=== PATIENT | female | born 1935 | race Caucasian/White ===

== ENCOUNTER → 2016-09-28 | Outpatient (CLI) | payer MEDICARE ==
[2016-09-28 17:05] LABS: INR 2.7 (<1.1); Prothrombin Time 26.1 sec (9.0-12.0)
[2016-09-28 18:13] LABS: Calcium 9.8 mg/dL (8.4-10.2); Potassium 4.4 mmol/L (3.5-5.1)
== END | disposition home or self-care (01) ==
LOC: LABWHC1 16:38
PROVIDERS: ATTEND Internal Medicine Critical Care Medicine
DX: I48.0 Paroxysmal atrial fibrillation (principal); N19 Unspecified kidney failure
CPT/HCPCS: 36415; 80048; 85610

== ENCOUNTER → 2016-11-25 | Outpatient (CLI) | payer MEDICARE ==
--- NOTE | 2016-11-25 12:42 | XR ---
EXAMINATION TYPE: XR chest 2V DATE OF EXAM: 11/25/2016 12:38 PM COMPARISON: 04/04/2016 TECHNIQUE: PA and lateral views submitted. HISTORY: Renal cancer FINDINGS: The lungs are clear and there is no pneumothorax, pleural effusion, or focal pneumonia. Hypertrophi c and degenerative change of the spine. Vascular calcification is noted. IMPRESSION: 1. No acute process.
[2016-11-25 12:51] LABS: Calcium 9.9 mg/dL (8.4-10.2); Potassium 4.3 mmol/L (3.5-5.1); Total Bilirubin 0.4 mg/dL (0.2-1.3); Total Protein 7.7 g/dL (6.3-8.2)
--- NOTE | 2016-11-25 15:59 | CT ---
EXAMINATION TYPE: CT abdomen pelvis w con DATE OF EXAM: 11/25/2016 2:20 PM REFERENCE: NONE HISTORY: C664.1 Kidney CA HISTORY: Renal cell carcinoma. REFERENCE: Previous study dated 03/31/2016. CT DLP: 1409 mGy Automated exposure control for dose reduction was used. TECHNIQUE: Helical acquisition through the abdomen and pelvis was obtained with Oral Contrast and fol lowing intravenous administration of 50 mL of Visipaque 320. The data was reformatted in axial, coron al and sagittal projections. FINDINGS: Visualized portions of the lungs are clear. There is no pleural or pericardial fluid. The heart is mildly enlarged. There is coronary artery and other vascular calcifications present. There is a small, sliding hiatal hernia. Within the abdomen, the gallbladder has been removed. The liver and gallbladder appear normal. Both adrenal glands appear normal. There has been an interval right-sided nephrectomy. There is a simple appearing, 2.6 cm cyst in the l eft kidney and a smaller, 1.1 cm well-defined lesion which does not meet the requirements of a simple cyst. The pancreas is unremarkable. There is no significant retroperitoneal, iliac or inguinal adenopathy. The bladder is unremarkable. The uterus and ovaries are not visualized. There are scattered diverticula throughout the left side of the colon. There is no evidence of divert iculitis. The appendix is not visualized. Small bowel loops appear normal. There is no free fluid and no free air identified. There is hypertrophic spondylosis and facet arthropathy within the spine. IMPRESSION: 1. STATUS POST RIGHT NEPHRECTOMY. 2. CYSTIC CHANGE IN THE LEFT KIDNEY. ONE OF THESE LESIONS DOES NOT MEET THE REQUIREMENTS OF SIMPLE CY ST. A LEFT RENAL ULTRASOUND WOULD BE SUGGESTED. 3. CARDIOMEGALY. 4. SMALL, SLIDING HIATAL HERNIA. 5. MINIMAL, UNCOMPLICATED DIVERTICULOSIS OF THE LEFT SIDE OF THE COLON. 6. DEGENERATIVE CHANGES WITHIN THE SPINE.
== END | disposition home or self-care (01) ==
LOC: RADCTMAIN 12:09
PROVIDERS: ATTEND Urology
DX: C64.1 Malignant neoplasm of right kidney, except renal pelvis (principal)
CPT/HCPCS: 80053; 71020; 74177; 36415; Q9967

== ENCOUNTER 2016-12-24 03:45 | Emergency (ER) | payer MEDICARE ==
[2016-12-24 04:08] VITALS: RESP 18; TEMP 98.1
--- NOTE | 2016-12-24 04:54 | XR ---
EXAM: XR Chest, 2 Views. CLINICAL HISTORY: Reason: cough TECHNIQUE: Frontal and lateral views of the chest. COMPARISON: Chest x-ray 11/25/16 FINDINGS: Lungs: Unremarkable. No consolidation. Pleural space: Unremarkable. No pneumothorax. Heart: Stable cardiomegaly. Mediastinum: Vascular calcification. Bones/joints: Degenerative changes. IMPRESSION: No acute process.
[2016-12-24] MEDS ORDERED: predniSONE 20 MG TAB PO STA (05:09)
--- NOTE | 2016-12-24 05:09 | ED ---
URI HPI - General Chief Complaint: Upper Respiratory Infection Stated Complaint: Congestion/Sore Throat Time Seen by Provider: 12/24/16 04:09 Source: patient, family Mode of arrival: ambulatory Limitations: no limitations - Related Data Home Medications Medication Instructions Recorded Confirmed Acetaminophen Tab [Tylenol Tab] 1,000 mg PO Q6HR PRN 11/25/15 12/24/16 Glimepiride [Amaryl] 4 mg PO BID-W/MEALS 11/25/15 12/24/16 Metoprolol Tartrate [Lopressor] 25 mg PO BID 11/25/15 12/24/16 Multivitamins, Thera [Multivitamin] 1 tab PO DAILY 11/25/15 12/24/16 NIFEdipine [NIFEdipine ER] 60 mg PO DAILY 11/25/15 12/24/16 Thyroid,Pork [[place] Thyroid] 60 mg PO HS 11/25/15 12/24/16 Valsartan/Hydrochlorothiazide 1 tab PO DAILY 11/25/15 12/24/16 [Diovan Hct 320-25 mg Tablet] Warfarin [Coumadin] 2.5 mg PO DAILY 11/25/15 12/24/16 Warfarin [Coumadin] 5 mg PO SUMOTUWETHFR 11/25/15 12/24/16 sitaGLIPtin [Januvia] 100 mg PO AC-SUPPER 11/25/15 12/24/16 Previous Rx's Medication Instructions Recorded Docusate [Colace] 100 mg PO BID #60 capsule 11/30/15 Hydrocodone/Acetaminophen [[place] 1 each PO Q4HR PRN #90 tab 11/30/15 5-325] Albuterol Inhaler [Ventolin Hfa 1 - 2 puff INHALATION Q6HR PRN #1 12/24/16 Inhaler] inhaler predniSONE 20 mg PO BID #8 tab 12/24/16 Allergies Allergy/AdvReac Type Severity Reaction Status Date / Time midazolam HCl [From Versed] AdvReac Unknown Pt states Verified 12/24/16 04:07 she sleeps for days peanut AdvReac Unknown Cough Verified 12/24/16 04:07 Review of Systems ROS Statement: Those systems with pertinent positive or pertinent negative responses have been documented in the HPI. ROS Other: All systems not noted in ROS Statement are negative. Past Medical History Past Medical History: Atrial Fibrillation, Diabetes Mellitus, Deep Vein Thrombosis (DVT), Hypertension, Osteoarthritis (OA), Thyroid Disorder Additional Past Medical History / Comment(s): LOW THYROID, HX OF MONO., KIDNEY STONES.& DVT LEFT LEG., PAIN RIGHT SHOULDER. History of Any Multi-Drug Resistant Organisms: None Reported Past Surgical History: Breast Surgery, Cholecystectomy, Hysterectomy, Joint Replacement, Orthopedic Surgery Additional Past Surgical History / Comment(s): YULIA CATARACTS, COLONOSCOPY, MULTIPLE SURGERIES LEFT KNEE, YULIA KNEE REPLACEMENT, BREAST REDUCTION, LEFT ANKLE FX REPAIR WITH HARDWARE. Right kidney removed Additional Past Anesthesia/Blood Transfusion Reaction / Comment(s): PT STATES THAT VERSED MAKES HER SLEEP FOR DAYS. Past Psychological History: No Psychological Hx Reported Smoking Status: Never smoker Past Alcohol Use History: None Reported Past Drug Use History: None Reported - Past Family History Mother Family Medical History: Cancer Additional Family Medical History / Comment(s): BREAST CANCER Sister(s) Family Medical History: Cancer Additional Family Medical History / Comment(s): BREAST CANCER Father Family Medical History: Diabetes Mellitus General Exam Limitations: no limitations Course Vital Signs 12/24/16 04:06 Temperature 98.1 F Pulse Rate 74 Respiratory 18 Rate Blood Pressure 120/66 O2 Sat by Pulse 94 L Oximetry Disposition Clinical Impression: Bronchitis Disposition: HOME SELF-CARE Condition: Good Instructions: Acute Bronchitis (ED) Prescriptions: Albuterol Inhaler [Ventolin Hfa Inhaler] 1 - 2 puff INHALATION Q6HR PRN #1 inhaler PRN Reason: Wheezing predniSONE 20 mg PO BID #8 tab Referrals: Danis Ivy MD [Primary Care Provider] - 1-2 days
[2016-12-24 05:21] VITALS: BP 132/62; PULSE 69
== END 2016-12-24 05:21 | disposition home or self-care (01) ==
LOC: EC 03:45
DX: J40 Bronchitis, not specified as acute or chronic (principal); E11.9 Type 2 diabetes mellitus without complications; I10 Essential (primary) hypertension; E07.9 Disorder of thyroid, unspecified; I48.91 Unspecified atrial fibrillation; Z79.01 Long term (current) use of anticoagulants; Z79.899 Other long term (current) drug therapy; Z91.010 Allergy to peanuts; Z88.8 Allergy status to other drugs, medicaments and biological substances; Z86.718 Personal history of other venous thrombosis and embolism
CPT/HCPCS: 99283; 71020; J7512

== ENCOUNTER → 2017-03-17 | Outpatient (CLI) | payer MEDICARE ==
[2017-03-17 08:28] LABS: Basophils # (A) 0.1 k/uL (0-0.2); Basophils % (A) 1 %; CHCM 32.6; Eosinophils # (A) 0.3 k/uL (0-0.7); Eosinophils % (A) 3 %; HCT 44.5 % (34.0-46.0); HDW 2.79; HGB 14.9 gm/dL (11.4-16.0); Luc # (Auto) 0.27; Luc % (Auto) 3; Lymphocytes # (A) 1.9 k/uL (1.0-4.8); Lymphocytes % (A) 21 %; MCH 29.9 pg (25.0-35.0); MCHC 33.5 g/dL (31.0-37.0); MCV 89.2 fL (80.0-100.0); Mean Platelet Volume 8.2; Monocytes # (A) 0.5 k/uL (0-1.0); Monocytes % (A) 5 %; Neutrophils # (A) 6.2 k/uL (1.3-7.7); Neutrophils % (A) 67 %; RBC 4.99 m/uL (3.80-5.40); RDW 13.4 % (11.5-15.5); WBC 9.3 k/uL (3.8-10.6); WBC (Perox) 9.18
[2017-03-17 08:32] LABS: INR 3.4 (<1.1); Prothrombin Time 33.5 sec (9.0-12.0)
[2017-03-17 08:57] LABS: Calcium 9.3 mg/dL (8.4-10.2); Potassium 4.3 mmol/L (3.5-5.1); Total Bilirubin 0.5 mg/dL (0.2-1.3); Total Protein 7.3 g/dL (6.3-8.2)
[2017-03-17 10:22] LABS: Hemoglobin A1C 7.9 % (4.2-6.1)
== END | disposition home or self-care (01) ==
LOC: LABWHC1 08:01
PROVIDERS: ATTEND Internal Medicine Critical Care Medicine
DX: E78.5 Hyperlipidemia, unspecified (principal); I82.409 Acute embolism and thrombosis of unspecified deep veins of unspecified lower extremity; E03.9 Hypothyroidism, unspecified; E11.9 Type 2 diabetes mellitus without complications
CPT/HCPCS: 36415; 80053; 80061; 83036; 84439; 84443; 85025; 85610

== ENCOUNTER → 2017-06-07 | Outpatient (CLI) | payer MEDICARE ==
--- NOTE | 2017-06-07 11:54 | XR ---
EXAMINATION TYPE: XR chest 2V DATE OF EXAM: 06/07/2017 COMPARISON: 12/24/2016 TECHNIQUE: PA and lateral views submitted. HISTORY: Renal cancer follow-up FINDINGS: The lungs are clear and there is no pneumothorax, pleural effusion, or focal pneumonia. Atheroscler otic change aorta. Biapical pleural thickening. Degenerative and hypertrophic change of the spine. Pr evious surgery in the abdomen. IMPRESSION: 1. No acute process.
--- NOTE | 2017-06-07 12:54 | CT ---
EXAMINATION TYPE: CT abdomen wo con DATE OF EXAM: 06/07/2017 COMPARISON: 11/25/2016 HISTORY: Renal cancer CT DLP: 582 mGycm Examination of the solid viscera is limited given the lack of contrast. GI contrast was utilized. FINDINGS: LUNG BASES: No evidence for nodule. No evidence for infiltrate. There is persistent cardiomegaly. Car diac valvular prosthesis is noted. LIVER/GB: Cholecystectomy clips are in place. No space-occupying hepatic lesion. PANCREAS: No pancreatic mass identified. No inflammatory process seen. SPLEEN: No evidence for splenomegaly. No intrasplenic lesions seen. ADRENALS: No adrenal nodules identified. No evidence for thickening. KIDNEYS: Right sided nephrectomy change. Right renal fossa is unremarkable. 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 Previously noted cystic lesion within the lower pole of the left kidney is not well characterized on today's study. No obvious nodule or mass is seen. BOWEL: Small hiatal hernia is detected. No evidence of bowel obstruction. No inflammatory process. Lymph nodes: No evidence for adenopathy greater than 1 cm. Abdominal aorta: Atheromatous changes seen. No evidence for aneurysm. Other: Severe degenerative change lower lumbar spine. IMPRESSION: 1. RIGHT-SIDED NEPHRECTOMY CHANGES WITHOUT RECURRENT MASS. 2. CYSTIC LESION IDENTIFIED PREVIOUSLY WITHIN THE LOWER POLE OF THE LEFT KIDNEY IS NOT WELL CHARACTER IZED ON TODAY'S STUDY AND THIS MAY BE SECONDARY TO THE LACK OF CONTRAST. CORRELATE CLINICALLY.
== END | disposition home or self-care (01) ==
LOC: RADCTMAIN 11:05
PROVIDERS: ATTEND Urology
DX: C64.1 Malignant neoplasm of right kidney, except renal pelvis (principal); Z90.5 Acquired absence of kidney
CPT/HCPCS: 71020; 74150

== ENCOUNTER → 2017-08-11 | Outpatient (CLI) | payer MEDICARE ==
[2017-08-11 08:33] LABS: INR 2.7 (<1.2); Prothrombin Time 25.9 sec (9.0-12.0)
[2017-08-11 08:46] LABS: Calcium 9.3 mg/dL (8.4-10.2); Potassium 4.2 mmol/L (3.5-5.1); Total Bilirubin 0.4 mg/dL (0.2-1.3)
== END | disposition home or self-care (01) ==
LOC: LABWHC1 07:57
PROVIDERS: ATTEND Internal Medicine Critical Care Medicine
DX: E78.5 Hyperlipidemia, unspecified (principal); E11.9 Type 2 diabetes mellitus without complications
CPT/HCPCS: 36415; 80053; 80061; 83036; 85610

== ENCOUNTER → 2017-12-05 | Outpatient (CLI) | payer MEDICARE ==
--- NOTE | 2017-12-05 11:40 | XR ---
EXAMINATION TYPE: XR chest 2V DATE OF EXAM: 12/05/2017 COMPARISON: 06/07/2017 TECHNIQUE: PA and lateral views submitted. HISTORY: Renal cell cancer FINDINGS: Heart is prominent is hyperinflation suggestive of COPD. Diffuse osteopenia noted. No pneumothorax. B iapical pleural thickening seen. Subsegmental changes at the lung bases noted. Atherosclerotic change aorta and hypertrophic and degenerative change of the spine. IMPRESSION: 1. No acute process.
== END | disposition home or self-care (01) ==
LOC: RADXRMAIN 11:02
PROVIDERS: ATTEND Urology
DX: D64.9 Anemia, unspecified (principal)
CPT/HCPCS: 71046

== ENCOUNTER → 2018-03-06 | Outpatient (CLI) | payer MEDICARE ==
--- NOTE | 2018-03-06 12:53 | CT ---
EXAMINATION TYPE: CT abdomen pelvis wo con DATE OF EXAM: 03/06/2018 HISTORY: Umbilical Swelling and tenderness. History of renal cancer CT DLP: 792 mGycm. Automated Exposure Control for Dose Reduction was Utilized. TECHNIQUE: CT scan of the abdomen and pelvis is performed without oral or IV contrast. COMPARISON: CT abdomen and pelvis November 25, 2016 FINDINGS: Within the limitations of a noncontrast study, the following observations are made LUNG BASES: Calcification at level of mitral valve is redemonstrated. There is mild cardiomegaly agai n seen. There is coronary artery calcification and/or stent in the RCA distribution redemonstrated. T here is patchy left basilar scarring and/or atelectasis along diaphragm. LIVER/GB: Cholecystectomy clips are redemonstrated. PANCREAS: No significant abnormality is seen. SPLEEN: No significant abnormality is seen. ADRENALS: Slightly low dense thickening to left adrenal gland favors benign hyperplasia and is stable . KIDNEYS: Right kidney is surgically absent. No suspicious recurrent mass at this level is seen. Left kidney redemonstrates lobulation and mild perinephric fat stranding with subcentimeter hypodense lesi ons seen better on prior contrast-enhanced CT. No left-sided calculi or hydronephrosis is evident on current study. No intraluminal calculus is seen in bladder. A few scattered pelvic phlebolith are red emonstrated. BOWEL: Oral contrast reaches level of sigmoid colon. There is no suspicious small or large bowel dila tation. There are diverticula throughout the colon most prominent in the left and sigmoid colon. Ther e is no CT evidence for acute diverticulitis. GENITAL ORGANS: Uterus is surgically absent. LYMPH NODES: No greater than 1cm abdominal or pelvic lymph nodes are appreciated. OSSEOUS STRUCTURES: Moderate to severe multilevel spurring in the thoracic spine is redemonstrated. O sseous structures are demineralized. There is facet arthropathy lower lumbar levels. OTHER: No significant additional abnormality is seen. IMPRESSION: No ascites or ventral wall hernia identified to account for patient's symptoms.
== END | disposition home or self-care (01) ==
LOC: RADCTMAIN 09:54
PROVIDERS: ATTEND Internal Medicine Critical Care Medicine
DX: R19.00 Intra-abdominal and pelvic swelling, mass and lump, unspecified site (principal)
CPT/HCPCS: 36415; 74176; 82565; 84520

== ENCOUNTER → 2018-05-17 | Outpatient (CLI) | payer MEDICARE ==
[2018-05-17 11:53] LABS: Albumin 3.9 g/dL (3.5-5.0); Calcium 9.3 mg/dL (8.4-10.2); Potassium 4.6 mmol/L (3.5-5.1); Total Bilirubin 0.4 mg/dL (0.2-1.3); Total Protein 6.8 g/dL (6.3-8.2)
--- NOTE | 2018-05-17 13:05 | XR ---
EXAMINATION TYPE: XR chest 2V DATE OF EXAM: 05/17/2018 COMPARISON: Prior chest x-ray 12/05/2017 HISTORY: Renal cell carcinoma TECHNIQUE: Frontal and lateral views of the chest are obtained. FINDINGS: No significant interval change. Prominent lung volume could be indicative of underlying CO PD. Aorta is dense. Cardiac mediastinal silhouette, pulmonary vascularity and kelley are unchanged. Yoel ral annular calcification present. There are coronary artery calcifications. No evident airspace dise ase, pneumothorax, or pleural effusion. There is eventration of the right hemidiaphragm. IMPRESSION: No acute cardiopulmonary process.Cardiomegaly and coronary artery disease.
== END | disposition home or self-care (01) ==
LOC: RADXRMAIN 10:35
PROVIDERS: ATTEND Urology
DX: C64.1 Malignant neoplasm of right kidney, except renal pelvis (principal); I25.10 Atherosclerotic heart disease of native coronary artery without angina pectoris; I51.7 Cardiomegaly
CPT/HCPCS: 36415; 71046; 80053

== ENCOUNTER 2018-06-21 12:05 | Observation (INO) | payer MEDICARE ==
--- NOTE | 2018-06-21 12:43 | ED ---
General Adult HPI - General Chief complaint: Chest Pain Stated complaint: Chest pain Time Seen by Provider: 06/21/18 12:16 Source: patient, RN notes reviewed, old records reviewed Mode of arrival: ambulatory Limitations: no limitations - History of Present Illness Initial comments: 83-year-old female presenting for evaluation of chest pain. Pain initially began approximately 3 AM this morning which was 10 hours prior to arrival. There was very mild, sharp and intermittent in nature. No nausea or vomiting. No cough. She did have some mild dyspnea associated with her pain. Denies abdominal pain. She's had some intermittent back pain which is not new today. This is been ongoing for some time. She has remote history of renal cell carcinoma status post resection of her right kidney. Denies cough, denies fever or chills. Denies nausea vomiting. - Related Data Home Medications Medication Instructions Recorded Confirmed Glimepiride [Amaryl] 2 mg PO DAILY 11/25/15 06/21/18 NIFEdipine [NIFEdipine ER] 60 mg PO DAILY 11/25/15 06/21/18 Valsartan/Hydrochlorothiazide 1 tab PO DAILY 11/25/15 06/21/18 [Diovan Hct 320-25 mg Tablet] Warfarin [Coumadin] 2.5 mg PO MOFR 11/25/15 06/21/18 Warfarin [Coumadin] 5 mg PO SUTUWETHSA 11/25/15 06/21/18 Flecainide Acetate [Tambocor] 100 mg PO Q12HR 06/21/18 06/21/18 Levothyroxine Sodium [Synthroid] 75 mcg PO DAILY 06/21/18 06/21/18 sitaGLIPtin [Januvia] 50 mg PO DAILY 06/21/18 06/21/18 Allergies Allergy/AdvReac Type Severity Reaction Status Date / Time midazolam HCl [From Versed] AdvReac Unknown Pt states Verified 06/21/18 12:42 she sleeps for days peanut AdvReac Unknown Cough Verified 06/21/18 12:42 Review of Systems ROS Statement: Those systems with pertinent positive or pertinent negative responses have been documented in the HPI. ROS Other: All systems not noted in ROS Statement are negative. Past Medical History Past Medical History: Atrial Fibrillation, Diabetes Mellitus, Deep Vein Thrombosis (DVT), Hypertension, Osteoarthritis (OA), Thyroid Disorder Additional Past Medical History / Comment(s): LOW THYROID, HX OF MONO., KIDNEY STONES.& DVT LEFT LEG., PAIN RIGHT SHOULDER. History of Any Multi-Drug Resistant Organisms: None Reported Past Surgical History: Breast Surgery, Cholecystectomy, Hysterectomy, Joint Replacement, Orthopedic Surgery Additional Past Surgical History / Comment(s): YULIA CATARACTS, COLONOSCOPY, MULTIPLE SURGERIES LEFT KNEE, YULIA KNEE REPLACEMENT, BREAST REDUCTION, LEFT ANKLE FX REPAIR WITH HARDWARE. Right kidney removed Additional Past Anesthesia/Blood Transfusion Reaction / Comment(s): PT STATES THAT VERSED MAKES HER SLEEP FOR DAYS. Past Psychological History: No Psychological Hx Reported Smoking Status: Never smoker Past Alcohol Use History: None Reported Past Drug Use History: None Reported - Past Family History Mother Family Medical History: Cancer Additional Family Medical History / Comment(s): BREAST CANCER Sister(s) Family Medical History: Cancer Additional Family Medical History / Comment(s): BREAST CANCER Father Family Medical History: Diabetes Mellitus General Exam Limitations: no limitations General appearance: alert, in no apparent distress Head exam: Present: atraumatic, normocephalic Eye exam: Present: normal appearance, PERRL, EOMI ENT exam: Present: normal exam Neck exam: Present: normal inspection. Absent: tenderness, meningismus Respiratory exam: Present: normal lung sounds bilaterally. Absent: respiratory distress, wheezes Cardiovascular Exam: Present: regular rate, normal rhythm GI/Abdominal exam: Present: soft. Absent: distended, tenderness Extremities exam: Present: normal inspection, normal capillary refill, other ( PT pulses symmetric bilaterally 2+). Absent: pedal edema, calf tenderness Neurological exam: Present: alert, oriented X3, CN II-XII intact. Absent: motor sensory deficit Psychiatric exam: Present: normal affect, normal mood Skin exam: Present: warm, dry, intact. Absent: cyanosis, diaphoretic Course Vital Signs 06/21/18 06/21/18 12:08 14:53 Temperature 98.5 F Pulse Rate 73 60 Respiratory 18 16 Rate Blood Pressure 187/74 186/81 O2 Sat by Pulse 87 L 94 L Oximetry EKG Findings - EKG Comments: EKG Findings:: EKG sinus rhythm with first-degree AV block, no ST segment changes rate of 69, AL interval 276, QRS duration 116, QTC is prolonged at 512. Medical Decision Making - Medical Decision Making 83-year-old female presented for evaluation of chest pain. Patient does not have known coronary artery disease, she is on Coumadin for history of atrial fibrillation. Pain was bilateral lower chest, intermittent in nature. Chest x- rays obtained, negative for acute cardiopulmonary disease, patient does have cardiomegaly. CBC is within normal limits, INR is therapeutic 2.8, creatinine 1.5 which is baseline, troponin is negative, EKG does appear change compared to EKG obtained in December 2011. Flattening of T-wave in lead 3, and mildly prolonged QT. Patient will be kept in observation for serial cardiac enzymes and cardiology consultation. She will be observed on telemetry. INR is therapeutic, no heparin needed at this time. - Lab Data Result diagrams: 06/21/18 12:29 06/21/18 12:29 Lab Results 06/21/18 06/21/18 06/21/18 Range/Units 12:29 12:29 12:29 WBC 9.0 (3.8-10.6) k/uL RBC 5.18 (3.80-5.40) m/uL Hgb 15.4 (11.4-16.0) gm/dL Hct 47.7 H (34.0-46.0) % MCV 92.0 (80.0-100.0) fL MCH 29.6 (25.0-35.0) pg MCHC 32.2 (31.0-37.0) g/dL RDW 14.6 (11.5-15.5) % Plt Count 234 (150-450) k/uL Neutrophils % 77 % Lymphocytes % 15 % Monocytes % 5 % Eosinophils % 2 % Basophils % 1 % Neutrophils # 6.9 (1.3-7.7) k/uL Lymphocytes # 1.3 (1.0-4.8) k/uL Monocytes # 0.4 (0-1.0) k/uL Eosinophils # 0.2 (0-0.7) k/uL Basophils # 0.1 (0-0.2) k/uL PT (9.0-12.0) sec INR (<1.2) APTT (22.0-30.0) sec Sodium 140 (137-145) mmol/L Potassium 4.9 (3.5-5.1) mmol/L Chloride 99 (98-107) mmol/L Carbon Dioxide 32 H (22-30) mmol/L Anion Gap 9 mmol/L BUN 34 H (7-17) mg/dL Creatinine 1.58 H (0.52-1.04) mg/dL Est GFR (CKD-EPI)AfAm 34 (>60 ml/min/1.73 sqM) Est GFR (CKD-EPI)NonAf 30 (>60 ml/min/1.73 sqM) Glucose 111 H (74-99) mg/dL Plasma Lactic Acid Nakul (0.7-2.0) mmol/L Calcium 9.3 (8.4-10.2) mg/dL Magnesium 1.8 (1.6-2.3) mg/dL Total Bilirubin 0.7 (0.2-1.3) mg/dL AST 47 H (14-36) U/L ALT 31 (9-52) U/L Alkaline Phosphatase 64 (38-126) U/L Total Creatine Kinase 39 (30-135) U/L CK-MB (CK-2) 0.7 (0.0-2.4) ng/mL CK-MB (CK-2) Rel Index 1.8 Troponin I <0.012 (0.000-0.034) ng/mL NT-Pro-B Natriuret Pep pg/mL Total Protein 7.3 (6.3-8.2) g/dL Albumin 4.0 (3.5-5.0) g/dL 06/21/18 06/21/18 06/21/18 Range/Units 12:29 12:29 12:29 WBC (3.8-10.6) k/uL RBC (3.80-5.40) m/uL Hgb (11.4-16.0) gm/dL Hct (34.0-46.0) % MCV (80.0-100.0) fL MCH (25.0-35.0) pg MCHC (31.0-37.0) g/dL RDW (11.5-15.5) % Plt Count (150-450) k/uL Neutrophils % % Lymphocytes % % Monocytes % % Eosinophils % % Basophils % % Neutrophils # (1.3-7.7) k/uL Lymphocytes # (1.0-4.8) k/uL Monocytes # (0-1.0) k/uL Eosinophils # (0-0.7) k/uL Basophils # (0-0.2) k/uL PT 25.1 H (9.0-12.0) sec INR 2.8 H (<1.2) APTT 34.6 H (22.0-30.0) sec Sodium (137-145) mmol/L Potassium (3.5-5.1) mmol/L Chloride (98-107) mmol/L Carbon Dioxide (22-30) mmol/L Anion Gap mmol/L BUN (7-17) mg/dL Creatinine (0.52-1.04) mg/dL Est GFR (CKD-EPI)AfAm (>60 ml/min/1.73 sqM) Est GFR (CKD-EPI)NonAf (>60 ml/min/1.73 sqM) Glucose (74-99) mg/dL Plasma Lactic Acid Nakul 0.7 (0.7-2.0) mmol/L Calcium (8.4-10.2) mg/dL Magnesium (1.6-2.3) mg/dL Total Bilirubin (0.2-1.3) mg/dL AST (14-36) U/L ALT (9-52) U/L Alkaline Phosphatase (38-126) U/L Total Creatine Kinase (30-135) U/L CK-MB (CK-2) (0.0-2.4) ng/mL CK-MB (CK-2) Rel Index Troponin I (0.000-0.034) ng/mL NT-Pro-B Natriuret Pep 742 pg/mL Total Protein (6.3-8.2) g/dL Albumin (3.5-5.0) g/dL Disposition Clinical Impression: Chest pain Disposition: ADMITTED IP TO THIS [facility] Condition: Stable Is patient prescribed a controlled substance at d/c from ED?: No Referrals: Danis Ivy MD [Primary Care Provider] - 1-2 days Decision to Admit Reason: Admit from EC Decision Date: 06/21/18 Decision Time: 15:16
--- NOTE | 2018-06-21 12:50 | XR ---
EXAMINATION TYPE: XR chest 1V portable DATE OF EXAM: 06/21/2018 COMPARISON: Prior chest x-ray 05/17/2018 HISTORY: Chest pain TECHNIQUE: Single frontal view of the chest is obtained. FINDINGS: Heart is enlarged. There are overlying cardiac leads. Hyperinflation may be indicative of COPD. The aorta is dense. Bone mineralization is reduced. Surgical clips present in the upper abdomen . There is eventration of right hemidiaphragm. No evident airspace disease, pneumothorax, or pleural effusion. IMPRESSION: Cardiomegaly.
[2018-06-21 13:05] LABS: Basophils # (A) 0.1 k/uL (0-0.2); Basophils % (A) 1 %; Eosinophils # (A) 0.2 k/uL (0-0.7); Eosinophils % (A) 2 %; HCT 47.7 % (34.0-46.0); HGB 15.4 gm/dL (11.4-16.0); Lymphocytes # (A) 1.3 k/uL (1.0-4.8); Lymphocytes % (A) 15 %; MCH 29.6 pg (25.0-35.0); MCHC 32.2 g/dL (31.0-37.0); Mean Platelet Volume 8.1; Monocytes # (A) 0.4 k/uL (0-1.0); Monocytes % (A) 5 %; Neutrophils # (A) 6.9 k/uL (1.3-7.7); Neutrophils % (A) 77 %; Platelet Count 234 k/uL (150-450); RBC 5.18 m/uL (3.80-5.40); RDW 14.6 % (11.5-15.5)
[2018-06-21 13:18] LABS: INR 2.8 (<1.2); Partial Thromboplastin Time 34.6 sec (22.0-30.0); Prothrombin Time 25.1 sec (9.0-12.0)
[2018-06-21 13:30] LABS: Creatine Kinase 39 U/L (30-135)
[2018-06-21 13:32] LABS: Calcium 9.3 mg/dL (8.4-10.2); Total Bilirubin 0.7 mg/dL (0.2-1.3); Total Protein 7.3 g/dL (6.3-8.2)
[2018-06-21 13:42] LABS: Magnesium 1.8 mg/dL (1.6-2.3); Potassium 4.9 mmol/L (3.5-5.1)
[2018-06-21 13:44] LABS: Creatine Kinase MB 0.7 ng/mL (0.0-2.4); Troponin I <0.012 ng/mL (0.000-0.034)
[2018-06-21] MEDS ORDERED: hydrALAZINE HCL 20 MG/ML 1 ML VIAL IVP STA (14:17)
[2018-06-21] MEDS ORDERED: ACETAMINOPHEN TAB 325 MG TAB PO PRN (15:16)
[2018-06-21] MEDS ORDERED: NALOXONE 0.4 MG/ML 1 ML VIAL IV PRN (15:16)
--- NOTE | 2018-06-21 15:46 | P.HPIM ---
History of Present Illness 82-year-old pleasant female came in with compensative precordial chest pain which lasted for 5 minutes lasted completed resolved and started again had chest pain as started in the precordial area on the left side of the chest radiating to the left arm and the back lower back area. Patient did have some shortness of breath denied any orthopnea paroxysmal nocturnal dyspnea denied nausea vomiting denied any lightheadedness rate she does have history of atrial fibrillation patient is presently rate controlled. Patient does have chronic kidney disease with baseline creatinine around 1.3 now around 1.58 patient denied any fever chills nausea vomiting patient denied any cough. Review of Systems REVIEW OF SYSTEMS: CONSTITUTIONAL: No fever, no malaise, no fatigue. HEENT: No recent visual problems or hearing problems. Denied any sore throat. CARDIOVASCULAR: No orthopnea, PND, no palpitations, no syncope. PULMONARY: No shortness of breath, no cough, no hemoptysis. GASTROINTESTINAL: No diarrhea, no nausea, no vomiting, no abdominal pain. Normoactive bowel sounds. NEUROLOGICAL: No headaches, no weakness, no numbness. HEMATOLOGICAL: Denies any bleeding or petechiae. GENITOURINARY: Denies any burning micturition, frequency, or urgency. MUSCULOSKELETAL/RHEUMATOLOGICAL: Denies any joint pain, swelling, or any muscle pain. ENDOCRINE: Denies any polyuria or polydipsia. The rest of the 14-point review of systems is negative. Past Medical History Past Medical History: Atrial Fibrillation, Diabetes Mellitus, Deep Vein Thrombosis (DVT), Hypertension, Osteoarthritis (OA), Thyroid Disorder Additional Past Medical History / Comment(s): LOW THYROID, HX OF MONO., KIDNEY STONES.& DVT LEFT LEG., PAIN RIGHT SHOULDER. History of Any Multi-Drug Resistant Organisms: None Reported Past Surgical History: Breast Surgery, Cholecystectomy, Hysterectomy, Joint Replacement, Orthopedic Surgery Additional Past Surgical History / Comment(s): YULIA CATARACTS, COLONOSCOPY, MULTIPLE SURGERIES LEFT KNEE, YULIA KNEE REPLACEMENT, BREAST REDUCTION, LEFT ANKLE FX REPAIR WITH HARDWARE. Right kidney removed Additional Past Anesthesia/Blood Transfusion Reaction / Comment(s): PT STATES THAT VERSED MAKES HER SLEEP FOR DAYS. Past Psychological History: No Psychological Hx Reported Smoking Status: Never smoker Past Alcohol Use History: None Reported Past Drug Use History: None Reported - Past Family History Mother Family Medical History: Cancer Additional Family Medical History / Comment(s): BREAST CANCER Sister(s) Family Medical History: Cancer Additional Family Medical History / Comment(s): BREAST CANCER Father Family Medical History: Diabetes Mellitus Medications and Allergies Home Medications Medication Instructions Recorded Confirmed Type Glimepiride [Amaryl] 2 mg PO DAILY 11/25/15 06/21/18 History NIFEdipine [NIFEdipine ER] 60 mg PO DAILY 11/25/15 06/21/18 History Valsartan/Hydrochlorothiazide 1 tab PO DAILY 11/25/15 06/21/18 History [Diovan Hct 320-25 mg Tablet] Warfarin [Coumadin] 2.5 mg PO MOFR 11/25/15 06/21/18 History Warfarin [Coumadin] 5 mg PO SUTUWETHSA 11/25/15 06/21/18 History Flecainide Acetate [Tambocor] 100 mg PO Q12HR 06/21/18 06/21/18 History Levothyroxine Sodium [Synthroid] 75 mcg PO DAILY 06/21/18 06/21/18 History sitaGLIPtin [Januvia] 50 mg PO DAILY 06/21/18 06/21/18 History Allergies Allergy/AdvReac Type Severity Reaction Status Date / Time midazolam HCl [From Versed] AdvReac Unknown Pt states Verified 06/21/18 12:42 she sleeps for days peanut AdvReac Unknown Cough Verified 06/21/18 12:42 Physical Exam Vitals: Vital Signs Temp Pulse Resp BP Pulse Ox 06/21/18 14:53 60 16 186/81 94 L 06/21/18 12:08 98.5 F 73 18 187/74 87 L Intake and Output 06/21/18 06/21/18 06/21/18 06:59 14:59 22:59 Other: Weight 87.543 kg PHYSICAL EXAMINATION: GENERAL: The patient is alert and oriented x3, not in any acute distress. Well developed, well nourished. HEENT: Pupils are round and equally reacting to light. EOMI. No scleral icterus. No conjunctival pallor. Normocephalic, atraumatic. No pharyngeal erythema. No thyromegaly. CARDIOVASCULAR: S1 and S2 present. No murmurs, rubs, or gallops. PULMONARY: Chest is clear to auscultation, no wheezing or crackles. ABDOMEN: Soft, nontender, nondistended, normoactive bowel sounds. No palpable organomegaly. MUSCULOSKELETAL: No joint swelling or deformity. EXTREMITIES: No cyanosis, clubbing, or pedal edema. NEUROLOGICAL: Gross neurological examination did not reveal any focal deficits. SKIN: No rashes. Results CBC & Chem 7: 06/21/18 12:29 06/21/18 12:29 Labs: Abnormal Lab Results - Last 24 Hours (Table) 06/21/18 06/21/18 06/21/18 Range/Units 12:29 12:29 12:29 Hct 47.7 H (34.0-46.0) % PT 25.1 H (9.0-12.0) sec INR 2.8 H (<1.2) APTT 34.6 H (22.0-30.0) sec Carbon Dioxide 32 H (22-30) mmol/L BUN 34 H (7-17) mg/dL Creatinine 1.58 H (0.52-1.04) mg/dL Glucose 111 H (74-99) mg/dL AST 47 H (14-36) U/L Assessment and Plan Plan: -Chest pain: Unsure of the exact etiology we'll rule out acute coronary syndromes/unstable angina patient will be evaluated by cardiology patient may need stress test. -Atrial fibrillation presently rate controlled continue her home medication patient is on Coumadin therapy concordant which will be continued -Hypertension elevated blood pressures patient will be resumed on home regimen depending on her blood blood pressures tonight and titrate the home medication regimen next and-chronic kidney disease stage III probably secondary to diabetic nephropathy -Type 2 diabetes mellitus continue her home regimen titration depending on her blood sugars here. -History of DVT in the past -Hypothyroidism
[2018-06-21 17:10] LABS: Glucose,Whole Blood 145 mg/dL (75-99)
[2018-06-21] MEDS ORDERED: WARFARIN 5 MG TAB PO SCH (18:00)
[2018-06-21 19:19] VITALS: BMI 36.3
[2018-06-21 19:33] LABS: Creatine Kinase 33 U/L (30-135)
[2018-06-21 19:47] LABS: Creatine Kinase MB 1.1 ng/mL (0.0-2.4); Troponin I <0.012 ng/mL (0.000-0.034)
[2018-06-21 20:29] LABS: T4, Free (Free Thyroxine) 1.27 ng/dL (0.78-2.19)
[2018-06-21] MEDS: INSULIN ASPART 100 UNIT/ML 1 ML 10 ML VIAL SQ SCH (20:33)
[2018-06-21 20:35] LABS: Glucose,Whole Blood 114 mg/dL (75-99)
[2018-06-21] MEDS: METOPROLOL SUCCINATE (ER) 25 MG TAB.ER.24H PO SCH (21:25)
[2018-06-21] MEDS: FLECAINIDE 50 MG TAB PO SCH (21:25)
[2018-06-22 00:10] VITALS: RESP 18
[2018-06-22 01:48] LABS: Creatine Kinase 32 U/L (30-135)
[2018-06-22 02:01] LABS: Creatine Kinase MB 1.3 ng/mL (0.0-2.4); Troponin I <0.012 ng/mL (0.000-0.034)
[2018-06-22] MEDS ORDERED: LEVOTHYROXINE 75 MCG TAB PO SCH (06:30)
[2018-06-22 06:39] LABS: Glucose,Whole Blood 100 mg/dL (75-99)
[2018-06-22] MEDS: INSULIN ASPART 100 UNIT/ML 1 ML 10 ML VIAL SQ SCH ×2 (06:48→12:27)
[2018-06-22] MEDS ORDERED: REGADENOSON 0.4 MG/5 ML SYRINGE IV ONE (08:38)
[2018-06-22] MEDS ORDERED: CAFFEINE CITRATE 60 MG/3 ML VIAL IV PRN (08:38)
[2018-06-22] MEDS ORDERED: HYDROCHLOROTHIAZIDE 25 MG TAB PO SCH (09:00)
[2018-06-22] MEDS ORDERED: VALSARTAN 160 MG TAB PO SCH (09:00)
[2018-06-22] MEDS ORDERED: GLIMEPIRIDE 2 MG TAB PO SCH (09:00)
--- NOTE | 2018-06-22 11:38 | NM ---
EXAMINATION TYPE: NM stress lexiscan cardiolite DATE OF EXAM: 06/22/2018 COMPARISON: NONE HISTORY: Chest pain TECHNIQUE: After the intravenous administration of 10.33 mCi Tc 99m Sestamibi - Cardiolite resting S PECT images acquired 45 minutes post injection. The patient received 0.4mg Lexiscan, 24.4 mCi Tc 99m Sestamibi - Stress images obtained [address] injection FINDINGS: Review of stress and rest SPECT images demonstrates no distinct perfusion abnormality. Gated analysi s shows normal wall motion with an estimated left ventricular ejection fraction of 64 %. IMPRESSION: No scintigraphic evidence for reversible ischemia.
[2018-06-22] MEDS: FLECAINIDE 50 MG TAB PO SCH (11:51)
[2018-06-22] MEDS: METOPROLOL SUCCINATE (ER) 25 MG TAB.ER.24H PO SCH (11:51)
[2018-06-22 12:14] LABS: Glucose,Whole Blood 99 mg/dL (75-99)
--- NOTE | 2018-06-22 12:21 | ECHOF ---
Referral Reason:cp, sob MEASUREMENTS -------- HEIGHT: 154.9 cm WEIGHT: 87.1 kg BP: 126/67 RVIDd: 3.6 cm (< 3.3) IVSd: 1.5 cm (0.6 - 1.1) LVIDd: 4.1 cm (3.9 - 5.3) LVPWd: 1.5 cm (0.6 - 1.1) IVSs: 1.8 cm LVIDs: 2.4 cm LVPWs: 1.5 cm LA Diam: 3.8 cm (2.7 - 3.8) LAESV Index (A-L): 49.77 ml/m Ao Diam: 3.0 cm (2.0 - 3.7) AV Cusp: 1.8 cm (1.5 - 2.6) MV EXCURSION: 13.275 mm (> 18.000) MV EF SLOPE: 67 mm/s (70 - 150) EPSS: 0.1 cm MV E Ramakrishna: 1.69 m/s MV DecT: 250 ms MV A Ramakrishna: 1.42 m/s MV E/A Ratio: 1.19 AV maxP.54 mmHg AV meanP.74 mmHg RAP: 5.00 mmHg RVSP: 37.34 mmHg FINDINGS -------- Sinus rhythm. This was a technically good study. The left ventricular size is normal. There is moderate concentric left ventricular hypertrophy. O verall left ventricular systolic function is normal with, an EF between 60 - 65 %. The right ventricle is mildly enlarged. LA is severely dilated >40 ml/m2 The right atrium is normal in size. There is mild aortic valve sclerosis. Peak/mean gradient across the Aortic Valve is 13.54mmHg / 6.7 4mmHg. The mitral valve leaflets are moderately thickened. Moderate mitral annular calcification present. Mild mitral regurgitation is present. The peak and mean MV gradients are 10.90mmHg 5.39mmHg as m easured by doppler. Mild tricuspid regurgitation present. There is mild pulmonary hypertension. The right ventricular systolic pressure, as measured by Doppler, is 37.34mmHg. Trace/mild (physiologic) pulmonic regurgitation. The aortic root size is normal. Normal inferior vena cava with normal inspiratory collapse consistent with estimated right atrial pre ssure of 5 mmHg. There is no pericardial effusion. CONCLUSIONS -------- 1. Sinus rhythm. 2. This was a technically good study. 3. The left ventricular size is normal. 4. There is moderate concentric left ventricular hypertrophy. 5. Overall left ventricular systolic function is normal with, an EF between 60 - 65 %. 6. The right ventricle is mildly enlarged. 7. LA is severely dilated >40 ml/m2 8. The right atrium is normal in size. 9. There is mild aortic valve sclerosis. 10. Peak/mean gradient across the Aortic Valve is 13.54mmHg / 6.74mmHg. 11. The mitral valve leaflets are moderately thickened. 12. Moderate mitral annular calcification present. 13. Mild mitral regurgitation is present. 14. The peak and mean MV gradients are 10.90mmHg 5.39mmHg as measured by doppler. 15. Mild tricuspid regurgitation present. 16. There is mild pulmonary hypertension. 17. The right ventricular systolic pressure, as measured by Doppler, is 37.34mmHg. 18. Trace/mild (physiologic) pulmonic regurgitation. 19. The aortic root size is normal. 20. Normal inferior vena cava with normal inspiratory collapse consistent with estimated right atrial pressure of 5 mmHg. 21. There is no pericardial effusion. DENTISTRY PROFESSOR: Eleni Resendez RDCS
[2018-06-22 12:22] VITALS: BP 162/79; PULSE 62; TEMP 97.6
--- NOTE | 2018-06-22 13:51 | EST ---
EXERCISE STRESS DATE OF SERVICE: 06/22/2018 AGE: 83 SEX: Female HT: 61" WT: 192 pounds PROTOCOL: Lexiscan Cardiolite STAGE: DURATION OF EXERCISE: HEART RATE REST: 61 BLOOD PRESSURE REST: 116/53 MAXIMUM HEART RATE ACHIEVED: 69 MAXIMUM BLOOD PRESSURE: 165/80 85% MPHR: 100% MPHR: METS: INDICATIONS: Chest pain, shortness of breath. CLINICAL INFORMATION: Baseline EKG revealed a sinus mechanism with minor nonspecific ST abnormality. With Lexiscan administration, the patient's heart rate changed from 67 beats per minute and blood pressure changed from 116/60 to 147/73. EKG remained inconclusive with minor resting ST abnormality of a nonspecific type. The patient did not have any significant symptoms. By EKG criteria, this is an inconclusive stress test because of resting EKG changes. The patient did not have any significant symptoms with Lexiscan administration. The nuclear scan results, which are more pertinent, will be reported by the radiologist. FABBY / ARVINN: [id number] /
--- NOTE | 2018-06-22 14:08 | P.CRDCN ---
History of Present Illness History of present illness: Mrs. Florence is a pleasant 83-year-old female past medical history significant for paroxysmal atrial fibrillation on terminal carman anticoagulation, hypertension, diabetes mellitus, history of kidney cancer status post right nephrectomy and history of DVT in the past. She follows with Dr. Real in the office. We have been asked to see her in consultation for chest pain. She states she during the night Monday night she woke up with a pain in the left precordial region that was sharp in nature with radiation down the left arm with associated shortness of breath and diaphoresis. She denies dizziness or palpitations. She states the pain subsided on its own but did return intermittently with no specific aggravating factors. At the time of my exam she is chest pain free and breathing comfortably. She states the symptoms have no come back since admission. EKG reveals sinus mechanism with no acute ST or T wave abnormalities noted with first-degree AV block. Chest x-ray is negative for acute cardiopulmonary process with cardiomegaly. Laboratory data reviewed, hemoglobin 15.4, platelets 234, INR 2.8, sodium 140, potassium 4.9, creatinine 1.58, mesion 1.8, cardiac enzymes negative 3, TSH 0.133 and free T4 1 0.27. NT proBNP 742. Current cardiac medications include Coumadin, nifedipine 60 mg daily, valsartan/ HCTZ 320/25 mg daily, flecainide 100 mg twice a day and Toprol 25 mg twice a day. Most recent stress test performed in the office 2016 with a Lexiscan stress test was negative for reversible cardiac ischemia. Review of Systems At the time of my exam: CONSTITUTIONAL: Denies fever. Denies chills. EYES: Denies blurred vision. Denies vision changes. Denies eye pain. EARS, NOSE, MOUTH & THROAT: Denies headache. Denies sore throat. Denies ear pain. CARDIOVASCULAR: Denies chest pain. Denies shortness of breath. Denies orthopnea. Denies PND. Denies palpitations. RESPIRATORY: Denies cough. GASTROINTESTINAL: Denies abdominal pain. Denies diarrhea. Denies constipation. Denies nausea. Denies vomiting. MUSCULOSKELETAL: Denies myalgias. INTEGUMENTARY: Denies pruitis. Denies rash. NEUROLOGIC: Denies numbness. Denies tingling. Denies weakness. PSYCHIATRIC: Denies anxiety. Denies depression. ENDOCRINE: Denies fatigue. Denies weight change. Denies polydipsia. Denies polyurina. GENITOURINARY: Denies burning, hematuria or urgency with micturation. HEMATOLOGIC: Denies history of anemia. Denies bleeding. Past Medical History Past Medical History: Atrial Fibrillation, Diabetes Mellitus, Deep Vein Thrombosis (DVT), Hypertension, Osteoarthritis (OA), Thyroid Disorder Additional Past Medical History / Comment(s): LOW THYROID, HX OF MONO., KIDNEY STONES.& DVT LEFT LEG., PAIN RIGHT SHOULDER. History of Any Multi-Drug Resistant Organisms: None Reported Past Surgical History: Breast Surgery, Cholecystectomy, Hysterectomy, Joint Replacement, Orthopedic Surgery Additional Past Surgical History / Comment(s): YULIA CATARACTS, COLONOSCOPY, MULTIPLE SURGERIES LEFT KNEE, YULIA KNEE REPLACEMENT, BREAST REDUCTION, LEFT ANKLE FX REPAIR WITH HARDWARE. Right kidney removed Additional Past Anesthesia/Blood Transfusion Reaction / Comment(s): PT STATES THAT VERSED MAKES HER SLEEP FOR DAYS. Past Psychological History: No Psychological Hx Reported Smoking Status: Never smoker Past Alcohol Use History: None Reported Past Drug Use History: None Reported - Past Family History Mother Family Medical History: Cancer Additional Family Medical History / Comment(s): BREAST CANCER Sister(s) Family Medical History: Cancer Additional Family Medical History / Comment(s): BREAST CANCER Father Family Medical History: Diabetes Mellitus Medications and Allergies Home Medications Medication Instructions Recorded Confirmed Type Glimepiride [Amaryl] 2 mg PO DAILY 11/25/15 06/21/18 History NIFEdipine [NIFEdipine ER] 60 mg PO DAILY 11/25/15 06/21/18 History Valsartan/Hydrochlorothiazide 1 tab PO DAILY 11/25/15 06/21/18 History [Diovan Hct 320-25 mg Tablet] Warfarin [Coumadin] 2.5 mg PO MOFR 11/25/15 06/21/18 History Warfarin [Coumadin] 5 mg PO SUTUWETHSA 11/25/15 06/21/18 History Flecainide Acetate [Tambocor] 100 mg PO Q12HR 06/21/18 06/21/18 History Levothyroxine Sodium [Synthroid] 75 mcg PO DAILY 06/21/18 06/21/18 History Metoprolol Succinate (ER) [Toprol 25 mg PO BID 06/21/18 06/21/18 History Xl] sitaGLIPtin [Januvia] 50 mg PO DAILY 06/21/18 06/21/18 History Allergies Allergy/AdvReac Type Severity Reaction Status Date / Time midazolam HCl [From Versed] AdvReac Unknown Pt states Verified 06/21/18 12:42 she sleeps for days peanut AdvReac Unknown Cough Verified 06/21/18 12:42 Physical Exam Vitals: Vital Signs Temp Pulse Pulse Resp BP BP Pulse Ox 06/22/18 12:00 97.6 F 62 18 162/79 94 L 06/22/18 11:57 18 06/22/18 07:35 97.7 F 63 18 126/67 96 06/22/18 03:44 97.8 F 61 18 139/59 91 L 06/22/18 03:41 18 06/22/18 00:00 98.4 F 64 18 147/60 93 L 06/21/18 20:00 97.6 F 65 18 159/70 91 L 06/21/18 16:48 97.3 F L 71 18 159/71 90 L 06/21/18 16:26 97.5 F L 70 16 167/72 91 L 06/21/18 14:53 60 16 186/81 94 L Intake and Output 06/21/18 06/22/18 06/22/18 22:59 06:59 14:59 Intake Total 440 Balance 440 Intake: Oral 240 Other 200 Other: Voiding Method Toilet Toilet # Voids 1 Weight 87.2 kg 87.09 kg GENERAL: This is a 83-year-old female in no apparent distress at the time of my examination. HEENT: Head is atraumatic, normocephalic. Pupils are equal, round. Sclerae anicteric. Conjunctivae are clear. Mucous membranes of the mouth are moist. Neck is supple. There is no jugular venous distention. No carotid bruit is heard. LUNGS: Clear to auscultation no wheezes, rales or rhonchi. No chest wall tenderness is noted on palpation or with deep breathing. HEART: Regular rate and rhythm without murmurs, rubs or gallops. S1 and S2 heard. ABDOMEN: Soft, nontender. Bowel sounds are heard. No organomegaly noted. EXTREMITIES: No evidence of peripheral edema and no calf tenderness noted. VASCULAR: Radial and dorsalis pedis pulses palpated, no evidence of clubbing. NEUROLOGIC: Patient is awake, alert and oriented x3. Results 06/21/18 12:29 06/21/18 12:29 Cardiac Enzymes 06/21/18 06/22/18 Range/Units 18:54 00:49 CK-MB (CK-2) 1.1 1.3 (0.0-2.4) ng/mL Troponin I <0.012 <0.012 (0.000-0.034) ng/mL Current Medications Generic Name Dose Route Start Last Admin Trade Name Freq PRN Reason Stop Dose Admin Acetaminophen 650 mg 06/21/18 15:16 Tylenol Tab PO Q6HR PRN Mild Pain or Fever > 100.5 Flecainide Acetate 100 mg 06/21/18 21:00 06/22/18 11:51 Tambocor PO 100 mg Q12HR NILAY Administration Glimepiride 2 mg 06/22/18 09:00 06/22/18 11:50 Amaryl PO 2 mg DAILY NILAY Administration Insulin Aspart 0 unit 06/21/18 21:00 06/22/18 12:27 Novolog SQ Not Given ACHS [facility] Protocol Levothyroxine Sodium 75 mcg 06/22/18 06:30 06/22/18 06:25 Synthroid PO 75 mcg DAILY@0630 [facility] Administration Metoprolol Succinate 25 mg 06/21/18 21:00 06/22/18 11:51 Toprol Xl PO 25 mg BID NILAY Administration Naloxone HCl 0.2 mg 06/21/18 15:16 Narcan IV Q2M PRN Opioid Reversal Nifedipine 60 mg 06/22/18 09:00 06/22/18 11:51 Procardia Xl PO 60 mg DAILY NILAY Administration Valsartan 320 mg 06/22/18 09:00 06/22/18 11:50 Diovan PO 320 mg DAILY [facility] Administration Warfarin Sodium 2.5 mg 06/22/18 18:00 Coumadin PO MoFr@1800 [facility] Warfarin Sodium 5 mg 06/21/18 18:00 06/21/18 19:20 Coumadin PO 5 mg [id number] [facility] Administration Intake and Output 06/21/18 06/22/18 06/22/18 22:59 06:59 14:59 Intake Total 440 Balance 440 Intake: Oral 240 Other 200 Other: Voiding Method Toilet Toilet # Voids 1 Weight 87.2 kg 87.09 kg Patient Weight 06/23/18 06:59 Weight 87.09 kg 06/21/18 12:29 06/21/18 12:29 Assessment and Plan Assessment: ASSESSMENT Precordial chest pain. Acute coronary event has been ruled out with no EKG evidence of ischemia and negative cardiac enzymes Paroxysmal atrial fibrillation on long-term anticoagulation currently maintaining sinus mechanism Hypertension Diabetes mellitus History of kidney cancer status post right nephrectomy PLAN Acute coronary event has been ruled out. Obtain 2-D echocardiogram and Doppler study to assess cardiac structure and function. Perform Lexiscan stress test to assess her chest just cardiac ischemia. If Fatoumata scan is abnormal we will consider coronary angiography. This stress test is normal she is stable from a cardiac perspective to follow- up with Dr. Real in 2-3 weeks. Thank you kindly for this consultation. Nurse Practitioner note has been reviewed, I agree with a documented findings and plan of care. Patient was seen and examined.
--- NOTE | 2018-06-22 15:23 | P.DS ---
Providers Date of admission: 06/21/18 15:19 Attending physician: Jorge Michael Consults: 06/21/18 15:18 Consult Physician Routine Consulting Provider: Jabari Cortes Consult Reason/Comments: Chest Pain Do you want consulting provider notified?: Yes Primary care physician: [facility] Course: Patient was admitted for chest pain and underwent stress test which was negative and patient is clinically doing well will be discharged today. Patient may not benefit from hydrochlorothiazide therapy has a creatinine is at her baseline. Not changing her home regimen at this time. Patient was cleared by cardiology to be discharged. Her shortness of breath is probably secondary to an episode of atrial fibrillation. PHYSICAL EXAMINATION: GENERAL: The patient is alert and oriented x3, not in any acute distress. Well developed, well nourished. HEENT: Pupils are round and equally reacting to light. EOMI. No scleral icterus. No conjunctival pallor. Normocephalic, atraumatic. No pharyngeal erythema. No thyromegaly. CARDIOVASCULAR: S1 and S2 present. No murmurs, rubs, or gallops. PULMONARY: Chest is clear to auscultation, no wheezing or crackles. ABDOMEN: Soft, nontender, nondistended, normoactive bowel sounds. No palpable organomegaly. MUSCULOSKELETAL: No joint swelling or deformity. EXTREMITIES: No cyanosis, clubbing, or pedal edema. NEUROLOGICAL: Gross neurological examination did not reveal any focal deficits. SKIN: No rashes. Please refer to my HPI for further details of hospital physician course and other medical problems. Patient Condition at Discharge: Stable Plan - Discharge Summary Discharge Rx Participant: No New Discharge Prescriptions: No Action Warfarin [Coumadin] 5 mg PO SUTUWETHSA Glimepiride [Amaryl] 2 mg PO DAILY Valsartan/Hydrochlorothiazide [Diovan Hct 320-25 mg Tablet] 1 tab PO DAILY NIFEdipine [NIFEdipine ER] 60 mg PO DAILY Warfarin [Coumadin] 2.5 mg PO MOFR Flecainide Acetate [Tambocor] 100 mg PO Q12HR Levothyroxine Sodium [Synthroid] 75 mcg PO DAILY sitaGLIPtin [Januvia] 50 mg PO DAILY Metoprolol Succinate (ER) [Toprol Xl] 25 mg PO BID Discharge Medication List Glimepiride [Amaryl] 2 mg PO DAILY 11/25/15 [History] NIFEdipine [NIFEdipine ER] 60 mg PO DAILY 11/25/15 [History] Valsartan/Hydrochlorothiazide [Diovan Hct 320-25 mg Tablet] 1 tab PO DAILY 11/24 [History] Warfarin [Coumadin] 2.5 mg PO MOFR 11/25/15 [History] Warfarin [Coumadin] 5 mg PO SUTUWETHSA 11/25/15 [History] Flecainide Acetate [Tambocor] 100 mg PO Q12HR 06/21/18 [History] Levothyroxine Sodium [Synthroid] 75 mcg PO DAILY 06/21/18 [History] Metoprolol Succinate (ER) [Toprol Xl] 25 mg PO BID 06/21/18 [History] sitaGLIPtin [Januvia] 50 mg PO DAILY 06/21/18 [History] Follow up Appointment(s)/Referral(s): Saroj Real MD [STAFF PHYSICIAN] - 07/17/18 3:15 pm Danis Ivy MD [Primary Care Provider] - 3 Days Patient Instructions/Handouts: Chest Pain (DC) Discharge Disposition: HOME SELF-CARE
[2018-06-22 15:25] LABS: Hemoglobin A1C 7.4 % (4.0-6.0)
[2018-06-22] MEDS ORDERED: WARFARIN 2.5 MG TAB PO SCH (18:00)
== END 2018-06-22 14:07 | disposition home or self-care (01) ==
LOC: EC 12:05 → 3OBS 15:19
PROVIDERS: ADMIT Internal Medicine; ATTEND Internal Medicine
DX: R07.89 Other chest pain (principal); E03.9 Hypothyroidism, unspecified; E11.21 Type 2 diabetes mellitus with diabetic nephropathy; E11.22 Type 2 diabetes mellitus with diabetic chronic kidney disease; I12.9 Hypertensive chronic kidney disease with stage 1 through stage 4 chronic kidney disease, or unspecified chronic kidney disease; N18.3 Chronic kidney disease, stage 3 (moderate); I45.81 Long QT syndrome; I48.0 Paroxysmal atrial fibrillation; Z86.718 Personal history of other venous thrombosis and embolism; Z96.653 Presence of artificial knee joint, bilateral; Z90.710 Acquired absence of both cervix and uterus; Z90.5 Acquired absence of kidney; Z87.442 Personal history of urinary calculi; Z85.528 Personal history of other malignant neoplasm of kidney; Z83.3 Family history of diabetes mellitus; Z80.3 Family history of malignant neoplasm of breast; Z79.84 Long term (current) use of oral hypoglycemic drugs; Z79.01 Long term (current) use of anticoagulants; Z90.49 Acquired absence of other specified parts of digestive tract
CPT/HCPCS: 96374; 99285; 36415; 93005; 93017; 93306; 84439; 83880; 80053; 84443; 82550 ×2; 82553 ×2; 83605; 83735; 84484 ×2; 85025; 85610; 85730; 83036; 71045; 78452; G0378 ×2; A9500; J0360; J2785

== ENCOUNTER → 2018-08-22 | Outpatient (CLI) | payer MEDICARE ==
[2018-08-22 11:11] LABS: Appearance,Urine Cloudy (Clear); Bacteria,Urine Moderate /hpf; Bilirubin,Urine Negative (Negative); Blood,Urine Negative (Negative); Color,Urine Yellow; Glucose,Urine (UA) Negative (Negative); Ketones,Urine Negative (Negative); Leukocyte Esterase,Urine Large (Negative); Mucus,Urine Rare /hpf; Nitrite,Urine Negative (Negative); PH, Urine 5.5 (5.0-8.0); Protein,Urine 1+ (Negative); Specific Gravity,Urine 1.015 (1.001-1.035); Squamous Epithelial Cell,Urine <1 /hpf (0-4); Urobilinogen,Urine <2.0 mg/dL (<2.0); WBC,Urine 44 /hpf (0-5)
[2018-08-22 11:13] LABS: Basophils # (A) 0.1 k/uL (0-0.2); Basophils % (A) 1 %; Eosinophils # (A) 0.2 k/uL (0-0.7); Eosinophils % (A) 2 %; HCT 49.1 % (34.0-46.0); HGB 15.4 gm/dL (11.4-16.0); Lymphocytes # (A) 1.2 k/uL (1.0-4.8); Lymphocytes % (A) 14 %; MCHC 31.3 g/dL (31.0-37.0); MCV 92.7 fL (80.0-100.0); Mean Platelet Volume 8.6; Monocytes # (A) 0.4 k/uL (0-1.0); Monocytes % (A) 5 %; Neutrophils # (A) 6.4 k/uL (1.3-7.7); Neutrophils % (A) 77 %; Platelet Count 202 k/uL (150-450); RDW 14.1 % (11.5-15.5); WBC 8.3 k/uL (3.8-10.6)
[2018-08-22 17:40] LABS: Iron Saturation 19.78 (12.00-45.00); Protein, Total 6.2 g/dL (6.2-8.2)
[2018-08-22 17:47] LABS: Vitamin D 25 Hydroxy 27.9 ng/mL (30.0-100.0)
[2018-08-22 17:51] LABS: Albumin 4.2 g/dL (3.80-4.90); Anion Gap 8.1 mmol/L (4.00-12.00); Calcium 9.1 mg/dL (8.7-10.3); Carbon Dioxide 32.9 mmol/L (21.6-31.8); Magnesium 1.7 mg/dL (1.5-2.4); Phosphorus 3.1 mg/dL (2.4-5.1); Potassium 4.2 mmol/L (3.5-5.5); Uric Acid 8.1 mg/dL (2.9-7.7)
[2018-08-22 18:15] LABS: Parathyroid Hormone Intact 81.6 pg/mL (14.0-72.0)
[2018-08-22 22:20] LABS: Creatinine,Urine Random 127.7 mg/dL
[2018-08-22 22:25] LABS: Total Protein,Urine Random 76.7 mg/dL (0.0-13.5)
[2018-08-23 11:06] LABS: Albumin 3.55 g/dL (3.80-4.90); Gamma Globulin 0.87 g/dL (0.70-1.50)
== END | disposition home or self-care (01) ==
LOC: LABWHC1 10:24
PROVIDERS: ATTEND Internal Medicine Nephrology
DX: E55.9 Vitamin D deficiency, unspecified (principal); E21.3 Hyperparathyroidism, unspecified; M10.9 Gout, unspecified; N39.0 Urinary tract infection, site not specified; N18.3 Chronic kidney disease, stage 3 (moderate); D63.1 Anemia in chronic kidney disease; R80.9 Proteinuria, unspecified
CPT/HCPCS: 36415; 80048; 81001; 82040; 82306; 82570; 82728; 83540; 83550; 83735; 83970; 84100; 84156; 84165; 84550; 85025; 86335

== ENCOUNTER → 2018-10-29 | Outpatient (CLI) | payer MEDICARE ==
[2018-10-29 15:21] LABS: Appearance,Urine Clear (Clear); Bacteria,Urine Rare /hpf; Bilirubin,Urine Negative (Negative); Blood,Urine Negative (Negative); Color,Urine Colorless; Glucose,Urine (UA) Negative (Negative); Ketones,Urine Negative (Negative); Leukocyte Esterase,Urine Trace (Negative); Mucus,Urine Rare /hpf; Nitrite,Urine Negative (Negative); Protein,Urine Trace (Negative); RBC,Urine <1 /hpf (0-5); Specific Gravity,Urine 1.002 (1.001-1.035); Squamous Epithelial Cell,Urine <1 /hpf (0-4); Urobilinogen,Urine <2.0 mg/dL (<2.0); WBC,Urine 6 /hpf (0-5)
[2018-10-29 15:22] LABS: Basophils # (A) 0.1 k/uL (0-0.2); Basophils % (A) 1 %; Eosinophils # (A) 0.2 k/uL (0-0.7); Eosinophils % (A) 2 %; HCT 46.9 % (34.0-46.0); HGB 15.1 gm/dL (11.4-16.0); Lymphocytes # (A) 1.5 k/uL (1.0-4.8); Lymphocytes % (A) 14 %; MCH 29.7 pg (25.0-35.0); MCHC 32.3 g/dL (31.0-37.0); MCV 91.9 fL (80.0-100.0); Mean Platelet Volume 7.1; Monocytes # (A) 0.5 k/uL (0-1.0); Monocytes % (A) 5 %; Neutrophils # (A) 7.9 k/uL (1.3-7.7); Neutrophils % (A) 77 %; Platelet Count 220 k/uL (150-450); RDW 15.1 % (11.5-15.5); WBC 10.2 k/uL (3.8-10.6)
[2018-10-29 15:30] LABS: Calcium 9.5 mg/dL (8.4-10.2); Magnesium 1.4 mg/dL (1.6-2.3); Phosphorus 3.4 mg/dL (2.5-4.5); Potassium 4.1 mmol/L (3.5-5.1)
[2018-10-29 18:41] LABS: Creatinine,Urine Random 15.2 mg/dL
[2018-10-29 23:26] LABS: Iron Saturation 20.06 (12.00-45.00)
[2018-10-29 23:37] LABS: Vitamin D 25 Hydroxy 35.2 ng/mL (30.0-100.0)
[2018-10-30 01:05] LABS: Parathyroid Hormone Intact 44.1 pg/mL (14.0-72.0)
--- NOTE | 2018-10-30 04:17 | US ---
EXAMINATION TYPE: US kidneys/renal and bladder DATE OF EXAM: 10/29/2018 COMPARISON: CT 03/06/2018 CLINICAL HISTORY: 83-year-old female N18.3 CKD stage 3. Right nephrectomy due to CA TECHNIQUE: Multiple sonographic images of the kidneys and bladder are obtained. FINDINGS: EXAM MEASUREMENTS: Right Kidney: Surgically absent Left Kidney: 11.5 x 6.6 x 6.1 cm Post Void Residual Volume: Not measured Right Kidney: Surgically absent Left Kidney: No hydronephrosis or masses seen ; nodular contour Bladder: distended Bilateral Jets seen: no active jet IMPRESSION: 1. Status post right nephrectomy. 2. No hydronephrosis on the left. Note that ultrasound has low sensitivity for detection of small rob id renal masses. 3. No ureteral jet was seen during the course of the exam. Findings suggest underlying chronic kidney disease.
== END ==
LOC: RADUSWWP 14:08
PROVIDERS: ATTEND Internal Medicine Nephrology
DX: N18.3 Chronic kidney disease, stage 3 (moderate) (principal); E55.9 Vitamin D deficiency, unspecified; E21.3 Hyperparathyroidism, unspecified; D63.1 Anemia in chronic kidney disease; E83.39 Other disorders of phosphorus metabolism; M10.9 Gout, unspecified; N39.0 Urinary tract infection, site not specified; R80.9 Proteinuria, unspecified; Z90.5 Acquired absence of kidney
CPT/HCPCS: 36415; 76770; 80048; 81001; 82040; 82306; 82570; 82728; 83540; 83550; 83735; 83970; 84100; 84156; 84550; 85025

== ENCOUNTER → 2018-11-20 | Outpatient (CLI) | payer MEDICARE ==
[2018-11-20 12:49] LABS: INR 3.8 (<1.2); Prothrombin Time 36.3 sec (9.0-12.0)
[2018-11-20 12:53] LABS: Basophils # (A) 0.1 k/uL (0-0.2); Basophils % (A) 1 %; Eosinophils # (A) 0.2 k/uL (0-0.7); Eosinophils % (A) 2 %; HCT 46.7 % (34.0-46.0); HGB 15.2 gm/dL (11.4-16.0); Lymphocytes # (A) 1.3 k/uL (1.0-4.8); Lymphocytes % (A) 12 %; MCH 29.8 pg (25.0-35.0); MCHC 32.5 g/dL (31.0-37.0); MCV 91.7 fL (80.0-100.0); Mean Platelet Volume 8.4; Monocytes # (A) 0.5 k/uL (0-1.0); Monocytes % (A) 5 %; Neutrophils # (A) 8.1 k/uL (1.3-7.7); Neutrophils % (A) 79 %; Platelet Count 195 k/uL (150-450); RBC 5.09 m/uL (3.80-5.40); RDW 14.6 % (11.5-15.5); WBC 10.3 k/uL (3.8-10.6)
[2018-11-20 20:07] LABS: Albumin 4.3 g/dL (3.80-4.90); Albumin/Globulin Ratio 2.05 (1.60-3.17); Anion Gap 8.8 mmol/L (4.00-12.00); Calcium 9.7 mg/dL (8.7-10.3); Carbon Dioxide 35.2 mmol/L (21.6-31.8); Globulin 2.1 g/dL (1.6-3.3); Total Bilirubin 0.4 mg/dL (0.2-1.2); Total Protein 6.4 g/dL (6.2-8.2)
== END ==
LOC: LABWHC1 11:28
PROVIDERS: ATTEND Internal Medicine Critical Care Medicine
DX: R41.82 Altered mental status, unspecified (principal)
CPT/HCPCS: 36415; 80053; 85025; 85610

== ENCOUNTER → 2018-11-26 | Outpatient (CLI) | payer MEDICARE ==
--- NOTE | 2018-11-26 16:10 | CT ---
EXAMINATION TYPE: CT brain wo con DATE OF EXAM: 11/26/2018 COMPARISON: 02/26/2011 HISTORY: Confusion and dizziness. CT DLP: 1044.4 mGycm Automated exposure control for dose reduction was used. TECHNIQUE: CT scan of the head is performed without contrast. FINDINGS: There is no acute intracranial hemorrhage or midline shift identified. There is diffuse v entricular and sulcal prominence consistent with diffuse age-related cerebral atrophy. There is low- attenuation in the periventricular white matter slightly progressed from the prior 2010 most likely r elated to chronic small vessel ischemic change. 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 The globes are intact. Right frontal scalp contusion is seen. Lenses are surgically absen t. Polyp versus mucosal retention cyst is seen within the anterior right maxillary sinus measuring 9 mm. Minimal ethmoidal mucosal thickening is noted. Remainder the paranasal sinuses and mastoid air ce lls are well aerated. IMPRESSION: 1. No acute intracranial hemorrhage or midline shift. 2. 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 3. Diffuse age-related cerebral atrophy and diffuse periventricular and subcortical hypoattenuation m ost commonly chronic small vessel ischemic change. This is slightly progressed from the prior of 02/26. 4. Small right frontal scalp contusion.
--- NOTE | 2018-11-26 16:53 | CT ---
EXAMINATION TYPE: CT abdomen wo con DATE OF EXAM: 11/26/2018 COMPARISON: 03/06/2018 and 03/31/2016 HISTORY: Lower leg edema. Digestive tract other symptoms and signs. History of renal cell carcinoma. CT DLP: 604 mGycm Automated exposure control for dose reduction was used. TECHNIQUE: Helical acquisition of images was performed from the lung bases through the top of iliac crest to include entire abdomen. CONTRAST: Performed without Oral Contrast and without IV contrast. FINDINGS: LUNG BASES: Strand-like atelectasis is seen at the left lung base. LIVER/GB: The unenhanced liver is of unremarkable morphology. Gallbladder surgically absent. PANCREAS: No significant abnormality is seen. SPLEEN: No significant abnormality is seen. ADRENALS: There is thickening of the bilateral adrenal gland with low density nodularity on the left likely related to an intrarenal gland adenoma with a component of adrenal gland hyperplasia also susp ected bilaterally. KIDNEYS: There is a lobulated contour of the anterior left kidney in the superior pole however this i s unchanged in comparison to exam of 03/06/2018 and unchanged from the exam of 03/31/2016. The right ki dney is surgically absent. Bowel prolapses into the right nephrectomy bed. Minimal nonspecific left p erinephric fat stranding is seen. No hydronephrosis. BOWEL: Numerous colonic diverticula are present without pericolonic fat stranding. No dilated large or small bowel. Diastases recti is noted. Slight paucity of bowel within the left upper quadrant is s een however no abnormal orientation of the superior mesenteric vein and artery are noted. LYMPH NODES: No greater than 1 cm short axis lymph node is seen within the abdomen. OSSEOUS STRUCTURES: [id number] multilevel degenerative changes of the spine are seen with mult ilevel extensive facet arthropathy throughout the lower lumbosacral spine. FREE AIR: No free air is visualized. OTHER: Extensive atherosclerosis of the abdominal aorta and its branches are noted. IMPRESSION: 1. COLONIC DIVERTICULOSIS WITHOUT EVIDENCE OF ACUTE DIVERTICULITIS. 2. STATUS POST RIGHT NEPHRECTOMY WITH NO SOLID NODULE WITHIN THE NEPHRECTOMY BED. NO ADENOPATHY WITHI N THE ABDOMEN. 3. LEFT ADRENAL GLAND BENIGN ADENOMA WITH PROBABLE ADDITIONAL ADRENAL GLAND HYPERPLASIA.
== END | disposition home or self-care (01) ==
LOC: RADCTMAIN 15:13
PROVIDERS: ATTEND Internal Medicine Critical Care Medicine
DX: G31.1 Senile degeneration of brain, not elsewhere classified (principal); S00.03XA Contusion of scalp, initial encounter; K57.30 Diverticulosis of large intestine without perforation or abscess without bleeding; D35.02 Benign neoplasm of left adrenal gland; Z90.5 Acquired absence of kidney
CPT/HCPCS: 70450; 74150

== ENCOUNTER → 2019-02-18 | Outpatient (CLI) | payer MEDICARE ==
[2019-02-18 10:29] LABS: Basophils # (A) 0.1 k/uL (0-0.2); Basophils % (A) 1 %; Eosinophils # (A) 0.2 k/uL (0-0.7); Eosinophils % (A) 2 %; HCT 46.9 % (34.0-46.0); HGB 14.9 gm/dL (11.4-16.0); Lymphocytes # (A) 1.3 k/uL (1.0-4.8); Lymphocytes % (A) 16 %; MCH 29.6 pg (25.0-35.0); MCHC 31.7 g/dL (31.0-37.0); MCV 93.3 fL (80.0-100.0); Mean Platelet Volume 8.6; Monocytes # (A) 0.4 k/uL (0-1.0); Monocytes % (A) 5 %; Neutrophils # (A) 6.1 k/uL (1.3-7.7); Neutrophils % (A) 75 %; Platelet Count 220 k/uL (150-450); RBC 5.03 m/uL (3.80-5.40); RDW 13.3 % (11.5-15.5); WBC 8.1 k/uL (3.8-10.6)
[2019-02-18 16:56] LABS: Iron Saturation 12.5 (12.00-45.00)
[2019-02-18 17:06] LABS: Vitamin D 25 Hydroxy 46.8 ng/mL (30.0-100.0)
[2019-02-18 17:17] LABS: African American GFR (CKD) 33.7 (60.0-200.0); Albumin 4.2 g/dL (3.80-4.90); Anion Gap 6.4 mmol/L (4.00-12.00); BUN/Creat Ratio 18.75 Ratio (12.00-20.00); Calcium 9.2 mg/dL (8.7-10.3); Carbon Dioxide 32.6 mmol/L (21.6-31.8); Magnesium 1.6 mg/dL (1.5-2.4); Phosphorus 3.1 mg/dL (2.4-5.1); Uric Acid 9.1 mg/dL (2.9-7.7)
[2019-02-18 18:24] LABS: Parathyroid Hormone Intact 84.4 pg/mL (14.0-72.0)
[2019-02-18 19:05] LABS: Total Protein,Urine Random 87.6 mg/dL (0.0-13.5)
[2019-02-18 19:06] LABS: Creatinine,Urine Random 271.1 mg/dL
== END | disposition home or self-care (01) ==
LOC: LABWHC1 10:01
PROVIDERS: ATTEND Internal Medicine Nephrology
DX: N18.3 Chronic kidney disease, stage 3 (moderate) (principal); E55.9 Vitamin D deficiency, unspecified; M10.9 Gout, unspecified; D63.1 Anemia in chronic kidney disease; R80.9 Proteinuria, unspecified
CPT/HCPCS: 36415; 80048; 82040; 82306; 82570; 82728; 83540; 83550; 83735; 83970; 84100; 84156; 84550; 85025

== ENCOUNTER → 2019-03-27 | Outpatient (CLI) | payer MEDICARE ==
--- NOTE | 2019-03-27 15:34 | US ---
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 HTN controlled with meds, Possib le TIA EXAM MEASUREMENTS: RIGHT: Peak Systolic Velocity (PSV) cm/sec ----- Right CCA: 63.3 ----- Right ICA: 76.4 ----- Right ECA: 84.3 ICA/CCA ratio: 1.2 RIGHT: End Diastole cm/sec ----- Right CCA: 16.2 ----- Right ICA: 25.0 ----- Right ECA: 0.0 LEFT: Peak Systolic Velocity (PSV) cm/sec ----- Left CCA: 66.2 ----- Left ICA: 125.9 ----- Left ECA: 95.5 ICA/CCA ratio: 1.9 LEFT: End Diastole cm/sec ----- Left CCA: 13.0 ----- Left ICA: 29.4 ----- Left ECA: 0.0 VERTEBRALS (direction of flow): Right Vertebral: Antegrade Left Vertebral: Antegrade Rhythm: Normal Plaque seen in right prox/mid CCA and left bulb. No elevated velocities or significant stenosis. Le ft ICA appears slightly tortuous. No wall thickening. IMPRESSION: 1. Tortuous left internal carotid artery There is moderate narrowing at the left internal carotid art kellie based on velocity between 50 and 69%. Correlate with the patient's symptoms. This may be better e valuated with CTA of the carotid vessels. Criteria for Assigning % of Stenosis / Diameter reduction (Estimation based on the indirect measurements of the internal carotid artery velocities (ICA PSV). 1. Normal (no stenosis)=ICA PSV < 125 cm/s: ratio < 2.0: ICA EDV<40 cm/s. 2. Less than 50% stenosis=ICA PSV < 125 cm/s: ratio < 2.0: ICA EDV<40 cm/s. 3. 50 to 69% stenosis=ICA PSV of 125 to 230 cm/s: ration 2.0 ? 4.0: ICA EDV 40-100 cm/s. 4. Greater than 70% stenosis to near occlusion= ICA PSV > 230 cm/s: ratio > 4.0: ICA EDV > 100 cm/s. 5. Near occlusion= ICA PSV velocities may be low or undetectable: variable ratio and ICA EDV. 6. Total occlusion=unable to detect flow.
== END | disposition home or self-care (01) ==
LOC: RADUSWWP 14:52
PROVIDERS: ATTEND Internal Medicine Critical Care Medicine
DX: I65.22 Occlusion and stenosis of left carotid artery (principal); I77.1 Stricture of artery; I25.10 Atherosclerotic heart disease of native coronary artery without angina pectoris; Z88.8 Allergy status to other drugs, medicaments and biological substances
CPT/HCPCS: 93880

== ENCOUNTER → 2019-04-22 | Outpatient (CLI) | payer MEDICARE ==
[2019-04-22 16:12] LABS: African American GFR (CKD) 39.6 (60.0-200.0); Anion Gap 6.8 mmol/L (4.00-12.00); Calcium 9.2 mg/dL (8.7-10.3); Carbon Dioxide 34.2 mmol/L (21.6-31.8); Non-African American GFR(CKD) 34.2 (60.0-200.0); Potassium 4.4 mmol/L (3.5-5.5)
== END ==
LOC: LABWHC1 10:07
PROVIDERS: ATTEND Nurse Practitioner Family
DX: N18.3 Chronic kidney disease, stage 3 (moderate) (principal)
CPT/HCPCS: 36415; 80048

== ENCOUNTER → 2019-06-11 | Outpatient (CLI) | payer MEDICARE ==
[2019-06-11 07:43] LABS: INR 2.2 (<1.2); Prothrombin Time 21.4 sec (9.0-12.0)
[2019-06-11 12:05] LABS: Chol/HDL Ratio 4.85; LDL Cholesterol,Calculated 98.4 mg/dL (0.0-131.0); VLDL Calculation 32.6 mg/dL (5.00-40.00)
[2019-06-11 14:56] LABS: Hemoglobin A1C 6.5 % (4.0-6.0)
== END | disposition home or self-care (01) ==
LOC: LABWHC1 06:57
PROVIDERS: ATTEND Internal Medicine Critical Care Medicine
DX: I48.0 Paroxysmal atrial fibrillation (principal); E11.9 Type 2 diabetes mellitus without complications
CPT/HCPCS: 36415; 80061; 83036; 85610

== ENCOUNTER → 2019-07-24 | Outpatient (CLI) | payer MEDICARE ==
[2019-07-24 12:49] LABS: Basophils # (A) 0.1 k/uL (0-0.2); Basophils % (A) 2 %; Eosinophils # (A) 0.2 k/uL (0-0.7); Eosinophils % (A) 2 %; HCT 48.3 % (34.0-46.0); HGB 15.4 gm/dL (11.4-16.0); Lymphocytes # (A) 1.2 k/uL (1.0-4.8); Lymphocytes % (A) 16 %; MCHC 31.9 g/dL (31.0-37.0); Mean Platelet Volume 7.9; Monocytes # (A) 0.4 k/uL (0-1.0); Monocytes % (A) 6 %; Neutrophils # (A) 5.6 k/uL (1.3-7.7); Neutrophils % (A) 73 %; Platelet Count 210 k/uL (150-450); RBC 5.14 m/uL (3.80-5.40); RDW 13.8 % (11.5-15.5); WBC 7.7 k/uL (3.8-10.6)
[2019-07-24 18:47] LABS: Ferritin 37.3 ng/mL (10.0-291.0)
[2019-07-24 19:00] LABS: % Iron Saturation 21.24 (12.00-45.00); African American GFR (CKD) 36.2 (60.0-200.0); Albumin 4.2 g/dL (3.80-4.90); Anion Gap 6.7 mmol/L (4.00-12.00); BUN/Creat Ratio 16.67 Ratio (12.00-20.00); Calcium 9.2 mg/dL (8.7-10.3); Carbon Dioxide 36.3 mmol/L (21.6-31.8); Magnesium 1.8 mg/dL (1.5-2.4); Phosphorus 2.9 mg/dL (2.4-5.1); Potassium 4.2 mmol/L (3.5-5.5); Uric Acid 8.9 mg/dL (2.9-7.7)
[2019-07-24 19:09] LABS: Total Protein,Urine Random 25.8 mg/dL (0.0-13.5)
[2019-07-24 21:15] LABS: Creatinine,Urine Random 34.2 mg/dL
== END | disposition home or self-care (01) ==
LOC: LABWHC1 11:27
PROVIDERS: ATTEND Nurse Practitioner Family
DX: N18.3 Chronic kidney disease, stage 3 (moderate) (principal); D63.1 Anemia in chronic kidney disease; E55.9 Vitamin D deficiency, unspecified; R80.9 Proteinuria, unspecified; M10.9 Gout, unspecified
CPT/HCPCS: 36415; 80048; 82040; 82306; 82570; 82728; 83540; 83550; 83735; 83970; 84100; 84156; 84550; 85025

== ENCOUNTER → 2019-10-15 | Outpatient (CLI) | payer MEDICARE ==
[2019-10-15 10:46] LABS: Basophils # (A) 0.1 k/uL (0-0.2); Basophils % (A) 1 %; Eosinophils # (A) 0.2 k/uL (0-0.7); Eosinophils % (A) 3 %; HCT 48.2 % (34.0-46.0); HGB 14.8 gm/dL (11.4-16.0); Lymphocytes # (A) 1.3 k/uL (1.0-4.8); Lymphocytes % (A) 17 %; MCHC 30.7 g/dL (31.0-37.0); MCV 94.4 fL (80.0-100.0); Monocytes # (A) 0.5 k/uL (0-1.0); Monocytes % (A) 6 %; Neutrophils # (A) 5.5 k/uL (1.3-7.7); Neutrophils % (A) 72 %; Platelet Count 197 k/uL (150-450); RBC 5.11 m/uL (3.80-5.40); RDW 14.1 % (11.5-15.5); WBC 7.6 k/uL (3.8-10.6)
[2019-10-15 11:55] LABS: Appearance,Urine Clear (Clear); Bilirubin,Urine Negative (Negative); Blood,Urine Negative (Negative); Color,Urine Light Yellow; Glucose,Urine (UA) Negative (Negative); Ketones,Urine Negative (Negative); Leukocyte Esterase,Urine Negative (Negative); Nitrite,Urine Negative (Negative); Protein,Urine Negative (Negative); Specific Gravity,Urine 1.008 (1.001-1.035); Urobilinogen,Urine <2.0 mg/dL (<2.0)
[2019-10-15 18:05] LABS: % Iron Saturation 18.23 (12.00-45.00); African American GFR (CKD) 33.5 (60.0-200.0); Albumin 4.3 g/dL (3.80-4.90); Anion Gap 8.9 mmol/L (4.00-12.00); BUN/Creat Ratio 17.5 Ratio (12.00-20.00); Calcium 9.1 mg/dL (8.7-10.3); Carbon Dioxide 34.1 mmol/L (21.6-31.8); Magnesium 2.1 mg/dL (1.5-2.4); Non-African American GFR(CKD) 28.9 (60.0-200.0); Phosphorus 4.1 mg/dL (2.4-5.1); Potassium 4.5 mmol/L (3.5-5.5); Uric Acid 8.9 mg/dL (2.9-7.7)
[2019-10-15 18:14] LABS: Ferritin 54.7 ng/mL (10.0-291.0)
[2019-10-15 18:19] LABS: Creatinine,Urine Random 33.5 mg/dL
[2019-10-15 19:18] LABS: Total Protein,Urine Random 12.1 mg/dL (0.0-13.5)
== END | disposition home or self-care (01) ==
LOC: LABWHC1 09:51
PROVIDERS: ATTEND Internal Medicine Nephrology
DX: E79.0 Hyperuricemia without signs of inflammatory arthritis and tophaceous disease (principal); N18.3 Chronic kidney disease, stage 3 (moderate); D63.1 Anemia in chronic kidney disease; N25.81 Secondary hyperparathyroidism of renal origin; N39.0 Urinary tract infection, site not specified; E55.9 Vitamin D deficiency, unspecified; R80.9 Proteinuria, unspecified
CPT/HCPCS: 36415; 80048; 81003; 82040; 82306; 82570; 82728; 83540; 83550; 83735; 83970; 84100; 84156; 84550; 85025

== ENCOUNTER → 2020-02-26 | Outpatient (CLI) | payer MEDICARE ==
[2020-02-26 08:11] LABS: Basophils % (A) 0 %; Eosinophils # (A) 0.2 k/uL (0-0.7); Eosinophils % (A) 3 %; HCT 41.9 % (34.0-46.0); HGB 13.4 gm/dL (11.4-16.0); Hypochromasia Slight; Lymphocytes # (A) 1.3 k/uL (1.0-4.8); Lymphocytes % (A) 17 %; MCH 30.8 pg (25.0-35.0); MCV 96.4 fL (80.0-100.0); Mean Platelet Volume 9.3; Monocytes # (A) 0.5 k/uL (0-1.0); Monocytes % (A) 6 %; Neutrophils # (A) 5.8 k/uL (1.3-7.7); Neutrophils % (A) 72 %; Platelet Count 212 k/uL (150-450); RBC 4.34 m/uL (3.80-5.40); RDW 14.7 % (11.5-15.5)
[2020-02-26 08:24] LABS: INR 1.8 (<1.2); Prothrombin Time 17.3 sec (9.0-12.0)
[2020-02-26 14:04] LABS: African American GFR (CKD) 33.5 (60.0-200.0); Albumin 4.2 g/dL (3.80-4.90); Albumin/Globulin Ratio 1.91 (1.60-3.17); Anion Gap 6.2 mmol/L (4.00-12.00); Calcium 9.1 mg/dL (8.7-10.3); Carbon Dioxide 33.8 mmol/L (21.6-31.8); Chol/HDL Ratio 4.3; Globulin 2.2 g/dL (1.6-3.3); LDL Cholesterol,Calculated 81.8 mg/dL (0.0-131.0); Non-African American GFR(CKD) 28.9 (60.0-200.0); Potassium 4.7 mmol/L (3.5-5.5); T4, Free (Free Thyroxine) 0.9 ng/dL (0.80-1.80); Total Bilirubin 0.5 mg/dL (0.2-1.2); Total Protein 6.4 g/dL (6.2-8.2); VLDL Calculation 27.2 mg/dL (5.00-40.00)
[2020-02-26 15:38] LABS: Hemoglobin A1C 6.4 % (4.0-6.0)
== END | disposition home or self-care (01) ==
LOC: LABWHC1 07:41
PROVIDERS: ATTEND Internal Medicine Critical Care Medicine
DX: I48.0 Paroxysmal atrial fibrillation (principal); E11.9 Type 2 diabetes mellitus without complications; E03.9 Hypothyroidism, unspecified; E78.5 Hyperlipidemia, unspecified
CPT/HCPCS: 36415; 80053; 80061; 82607; 83036; 84439; 84443; 85025; 85610

== ENCOUNTER → 2020-03-18 | Outpatient (CLI) | payer MEDICARE ==
[2020-03-18 09:47] LABS: Basophils % (A) 1 %; Eosinophils # (A) 0.1 k/uL (0-0.7); Eosinophils % (A) 2 %; HCT 45.7 % (34.0-46.0); HGB 13.9 gm/dL (11.4-16.0); Hypochromasia Marked; Lymphocytes # (A) 0.8 k/uL (1.0-4.8); Lymphocytes % (A) 10 %; MCH 30.7 pg (25.0-35.0); MCHC 30.5 g/dL (31.0-37.0); MCV 100.7 fL (80.0-100.0); Macrocytosis Slight; Mean Platelet Volume 8.6; Monocytes # (A) 0.5 k/uL (0-1.0); Monocytes % (A) 6 %; Neutrophils # (A) 6.5 k/uL (1.3-7.7); Neutrophils % (A) 81 %; Platelet Count 231 k/uL (150-450); RBC 4.53 m/uL (3.80-5.40); RDW 15.7 % (11.5-15.5); WBC 8.1 k/uL (3.8-10.6)
[2020-03-18 11:09] LABS: Protein/Creatinine Ratio,Urine 0.583
[2020-03-18 12:24] LABS: Appearance,Urine Clear (Clear); Bilirubin,Urine Negative (Negative); Blood,Urine Negative (Negative); Color,Urine Light Yellow; Glucose,Urine (UA) Negative (Negative); Hyaline Casts,Urine 1 /lpf (0-2); Ketones,Urine Negative (Negative); Leukocyte Esterase,Urine Trace (Negative); Nitrite,Urine Negative (Negative); PH, Urine 5.5 (5.0-8.0); Protein,Urine Negative (Negative); RBC,Urine <1 /hpf (0-5); Specific Gravity,Urine 1.008 (1.001-1.035); Squamous Epithelial Cell,Urine <1 /hpf (0-4); Urobilinogen,Urine <2.0 mg/dL (<2.0); WBC,Urine 3 /hpf (0-5)
[2020-03-18 17:13] LABS: % Iron Saturation 8.49 (12.00-45.00); African American GFR (CKD) 33.5 (60.0-200.0); Albumin 3.9 g/dL (3.80-4.90); Anion Gap 6.7 mmol/L (4.00-12.00); BUN/Creat Ratio 26.25 Ratio (12.00-20.00); Calcium 8.9 mg/dL (8.7-10.3); Carbon Dioxide 34.3 mmol/L (21.6-31.8); Magnesium 2.2 mg/dL (1.5-2.4); Non-African American GFR(CKD) 28.9 (60.0-200.0); Phosphorus 3.8 mg/dL (2.4-5.1); Potassium 4.9 mmol/L (3.5-5.5); Uric Acid 7.3 mg/dL (2.9-7.7)
[2020-03-18 17:17] LABS: Ferritin 50.6 ng/mL (10.0-291.0)
== END | disposition home or self-care (01) ==
LOC: LABWHC1 08:38
PROVIDERS: ATTEND Internal Medicine Nephrology
DX: E55.9 Vitamin D deficiency, unspecified (principal); N25.81 Secondary hyperparathyroidism of renal origin; M10.9 Gout, unspecified; N39.0 Urinary tract infection, site not specified; N18.3 Chronic kidney disease, stage 3 (moderate); D63.1 Anemia in chronic kidney disease; R80.9 Proteinuria, unspecified
CPT/HCPCS: 36415; 80048; 81001; 82040; 82306; 82570; 82728; 83540; 83550; 83735; 83970; 84100; 84156; 84550; 85025

== ENCOUNTER 2020-04-02 15:34 | Inpatient (IN) | payer MEDICARE ==
[2020-04-02] MEDS ORDERED: SODIUM CHLORIDE 0.9% 1,000 ML IV STA (16:01)
--- NOTE | 2020-04-02 16:05 | ED ---
SOB HPI - General Chief Complaint: Shortness of Breath Stated Complaint: SOB Time Seen by Provider: 04/02/20 15:50 Source: patient, RN notes reviewed Mode of arrival: ambulatory Limitations: no limitations - History of Present Illness Initial Comments: This 84-year-old female history of multiple medical problems including diabetes and atrial fibrillation renal cell carcinoma in the past month other disorders who was sent here from her doctor's office she presented with complaints of feeling generally weak and short of breath she's not been doing well last several weeks he progressively worse increased weakness he was noted have an 80% pulse ox in triage area. She also per family has been demonstrating decreased activities of daily living she cannot care for herself very well. No reports of fevers chills sweats or chest pain however. MD Complaint: shortness of breath - Related Data Home Medications Medication Instructions Recorded Confirmed Glimepiride [Amaryl] 1 mg PO DAILY 11/25/15 04/02/20 NIFEdipine [NIFEdipine ER] 60 mg PO DAILY 11/25/15 04/02/20 Warfarin [Coumadin] 2.5 mg PO MOFR 11/25/15 04/02/20 Warfarin [Coumadin] 5 mg PO SUTUWETHSA 11/25/15 04/02/20 Flecainide Acetate [Tambocor] 100 mg PO Q12HR 06/21/18 04/02/20 Metoprolol Succinate (ER) [Toprol 25 mg PO BID 06/21/18 04/02/20 Xl] sitaGLIPtin [Januvia] 50 mg PO HS 06/21/18 04/02/20 Albuterol Sulfate [Proair Hfa] 1 - 2 puff INHALATION RT-Q6H PRN 04/02/20 04/02/20 Allopurinol [Zyloprim] 100 mg PO DAILY 04/02/20 04/02/20 Budesonide/Formoterol Fumarate 2 puff INHALATION RT-BID 04/02/20 04/02/20 [Symbicort 160-4.5 Mcg Inhaler] Ergocalciferol [Vitamin D2] 50,000 unit PO Q30D 04/02/20 04/02/20 Furosemide [Lasix] 40 mg PO DAILY 04/02/20 04/02/20 Thyroid,Pork [[place] Thyroid] 60 mg PO DAILY 04/02/20 04/02/20 Valsartan 320 mg PO DAILY 04/02/20 04/02/20 Allergies Allergy/AdvReac Type Severity Reaction Status Date / Time levothyroxine sodium Allergy Unknown Verified 04/02/20 17:11 [From Synthroid] Childhood metformin [From Glucophage] Allergy Unknown Verified 04/02/20 17:11 Childhood pioglitazone [From Actos] Allergy Unknown Verified 04/02/20 17:11 Childhood midazolam HCl [From Versed] AdvReac Unknown Pt states Verified 04/02/20 17:11 she sleeps for days peanut AdvReac Unknown Cough Verified 04/02/20 17:11 Review of Systems ROS Statement: Those systems with pertinent positive or pertinent negative responses have been documented in the HPI. ROS Other: All systems not noted in ROS Statement are negative. Past Medical History Past Medical History: Atrial Fibrillation, Diabetes Mellitus, Deep Vein Thrombosis (DVT), Hypertension, Osteoarthritis (OA), Thyroid Disorder Additional Past Medical History / Comment(s): LOW THYROID, HX OF MONO., KIDNEY STONES.& DVT LEFT LEG., PAIN RIGHT SHOULDER. History of Any Multi-Drug Resistant Organisms: None Reported Past Surgical History: Breast Surgery, Cholecystectomy, Hysterectomy, Joint Replacement, Orthopedic Surgery Additional Past Surgical History / Comment(s): YULIA CATARACTS, COLONOSCOPY, MULTIPLE SURGERIES LEFT KNEE, YULIA KNEE REPLACEMENT, BREAST REDUCTION, LEFT ANKLE FX REPAIR WITH HARDWARE. Right kidney removed Additional Past Anesthesia/Blood Transfusion Reaction / Comment(s): PT STATES THAT VERSED MAKES HER SLEEP FOR DAYS. Past Psychological History: No Psychological Hx Reported Smoking Status: Never smoker Past Alcohol Use History: None Reported Past Drug Use History: None Reported - Past Family History Mother Family Medical History: Cancer Additional Family Medical History / Comment(s): BREAST CANCER Sister(s) Family Medical History: Cancer Additional Family Medical History / Comment(s): BREAST CANCER Father Family Medical History: Diabetes Mellitus General Exam - General Exam Comments Initial Comments: This is a well-developed well-nourished awake alert oriented 3 female Limitations: no limitations General appearance: alert, anxious Head exam: Present: atraumatic, normocephalic, normal inspection Eye exam: Present: normal appearance, PERRL, EOMI. Absent: scleral icterus, conjunctival injection, periorbital swelling ENT exam: Present: mucous membranes dry Neck exam: Present: normal inspection, full ROM, other (No stridor JVD or bruits). Absent: tenderness, meningismus, lymphadenopathy Respiratory exam: Present: rales. Absent: respiratory distress, wheezes, rhonchi, stridor Cardiovascular Exam: Present: regular rate, normal rhythm, normal heart sounds. Absent: systolic murmur, diastolic murmur, rubs, gallop, clicks GI/Abdominal exam: Present: soft, normal bowel sounds. Absent: distended, tenderness, guarding, rebound, rigid Extremities exam: Present: normal inspection, full ROM, normal capillary refill, pedal edema (Trace edema). Absent: tenderness, joint swelling, calf tenderness Back exam: Present: normal inspection Neurological exam: Present: alert, oriented X3, CN II-XII intact Psychiatric exam: Present: normal affect, normal mood Skin exam: Present: warm, dry, intact, normal color. Absent: rash Course Vital Signs 04/02/20 04/02/20 04/02/20 15:49 16:04 17:37 Temperature 98.2 F Pulse Rate 65 64 62 Respiratory 20 20 18 Rate Blood Pressure 156/76 134/69 127/54 O2 Sat by Pulse 80 L 96 93 L Oximetry Medical Decision Making - Medical Decision Making I did discuss findings the patient family members as well as Dr. Painting who did come the patient's bedside to see her in the ER. Patient be admitted the presentation consistent with CHF. - Lab Data Result diagrams: 04/02/20 16:03 04/02/20 16:03 Lab Results 04/02/20 04/02/20 04/02/20 Range/Units 16:03 16:03 16:03 WBC 10.8 H (3.8-10.6) k/uL RBC 5.05 (3.80-5.40) m/uL Hgb 14.7 (11.4-16.0) gm/dL Hct 49.3 H (34.0-46.0) % MCV 97.6 (80.0-100.0) fL MCH 29.1 (25.0-35.0) pg MCHC 29.9 L (31.0-37.0) g/dL RDW 15.7 H (11.5-15.5) % Plt Count 224 (150-450) k/uL Neutrophils % 78 % Lymphocytes % 11 % Monocytes % 7 % Eosinophils % 1 % Basophils % 1 % Neutrophils # 8.4 H (1.3-7.7) k/uL Lymphocytes # 1.2 (1.0-4.8) k/uL Monocytes # 0.7 (0-1.0) k/uL Eosinophils # 0.2 (0-0.7) k/uL Basophils # 0.1 (0-0.2) k/uL Hypochromasia Marked PT 19.6 H (9.0-12.0) sec INR 2.0 H (<1.2) APTT 29.5 (22.0-30.0) sec Sodium 137 (137-145) mmol/L Potassium 4.9 (3.5-5.1) mmol/L Chloride 95 L (98-107) mmol/L Carbon Dioxide 33 H (22-30) mmol/L Anion Gap 9 mmol/L BUN 57 H (7-17) mg/dL Creatinine 1.74 H (0.52-1.04) mg/dL Est GFR (CKD-EPI)AfAm 30 (>60 ml/min/1.73 sqM) Est GFR (CKD-EPI)NonAf 26 (>60 ml/min/1.73 sqM) Glucose 69 L (74-99) mg/dL Plasma Lactic Acid Nakul (0.7-2.0) mmol/L Calcium 8.7 (8.4-10.2) mg/dL Magnesium 2.2 (1.6-2.3) mg/dL Total Bilirubin 0.3 (0.2-1.3) mg/dL AST 24 (14-36) U/L ALT 14 (4-34) U/L Alkaline Phosphatase 60 (38-126) U/L Creatine Kinase 26 L (30-135) U/L Troponin I (0.000-0.034) ng/mL NT-Pro-B Natriuret Pep pg/mL Total Protein 6.7 (6.3-8.2) g/dL Albumin 4.1 (3.5-5.0) g/dL TSH (0.465-4.680) mIU/L 04/02/20 04/02/20 04/02/20 Range/Units 16:03 16:03 16:03 WBC (3.8-10.6) k/uL RBC (3.80-5.40) m/uL Hgb (11.4-16.0) gm/dL Hct (34.0-46.0) % MCV (80.0-100.0) fL MCH (25.0-35.0) pg MCHC (31.0-37.0) g/dL RDW (11.5-15.5) % Plt Count (150-450) k/uL Neutrophils % % Lymphocytes % % Monocytes % % Eosinophils % % Basophils % % Neutrophils # (1.3-7.7) k/uL Lymphocytes # (1.0-4.8) k/uL Monocytes # (0-1.0) k/uL Eosinophils # (0-0.7) k/uL Basophils # (0-0.2) k/uL Hypochromasia PT (9.0-12.0) sec INR (<1.2) APTT (22.0-30.0) sec Sodium (137-145) mmol/L Potassium (3.5-5.1) mmol/L Chloride (98-107) mmol/L Carbon Dioxide (22-30) mmol/L Anion Gap mmol/L BUN (7-17) mg/dL Creatinine (0.52-1.04) mg/dL Est GFR (CKD-EPI)AfAm (>60 ml/min/1.73 sqM) Est GFR (CKD-EPI)NonAf (>60 ml/min/1.73 sqM) Glucose (74-99) mg/dL Plasma Lactic Acid Nakul 1.1 (0.7-2.0) mmol/L Calcium (8.4-10.2) mg/dL Magnesium (1.6-2.3) mg/dL Total Bilirubin (0.2-1.3) mg/dL AST (14-36) U/L ALT (4-34) U/L Alkaline Phosphatase (38-126) U/L Creatine Kinase (30-135) U/L Troponin I <0.012 (0.000-0.034) ng/mL NT-Pro-B Natriuret Pep 2370 pg/mL Total Protein (6.3-8.2) g/dL Albumin (3.5-5.0) g/dL TSH (0.465-4.680) mIU/L 04/02/20 Range/Units 16:03 WBC (3.8-10.6) k/uL RBC (3.80-5.40) m/uL Hgb (11.4-16.0) gm/dL Hct (34.0-46.0) % MCV (80.0-100.0) fL MCH (25.0-35.0) pg MCHC (31.0-37.0) g/dL RDW (11.5-15.5) % Plt Count (150-450) k/uL Neutrophils % % Lymphocytes % % Monocytes % % Eosinophils % % Basophils % % Neutrophils # (1.3-7.7) k/uL Lymphocytes # (1.0-4.8) k/uL Monocytes # (0-1.0) k/uL Eosinophils # (0-0.7) k/uL Basophils # (0-0.2) k/uL Hypochromasia PT (9.0-12.0) sec INR (<1.2) APTT (22.0-30.0) sec Sodium (137-145) mmol/L Potassium (3.5-5.1) mmol/L Chloride (98-107) mmol/L Carbon Dioxide (22-30) mmol/L Anion Gap mmol/L BUN (7-17) mg/dL Creatinine (0.52-1.04) mg/dL Est GFR (CKD-EPI)AfAm (>60 ml/min/1.73 sqM) Est GFR (CKD-EPI)NonAf (>60 ml/min/1.73 sqM) Glucose (74-99) mg/dL Plasma Lactic Acid Nakul (0.7-2.0) mmol/L Calcium (8.4-10.2) mg/dL Magnesium (1.6-2.3) mg/dL Total Bilirubin (0.2-1.3) mg/dL AST (14-36) U/L ALT (4-34) U/L Alkaline Phosphatase (38-126) U/L Creatine Kinase (30-135) U/L Troponin I (0.000-0.034) ng/mL NT-Pro-B Natriuret Pep pg/mL Total Protein (6.3-8.2) g/dL Albumin (3.5-5.0) g/dL TSH 2.040 (0.465-4.680) mIU/L - EKG Data -: EKG Interpreted by Me EKG shows normal: sinus rhythm EKG Comments: Sinus rhythm first-degree AV block rate was 65. Interval to 90 QRS duration 128 daily since QTC 464/42 right word axis nonspecific interventricular block. - Radiology Data Radiology results: report reviewed (I did review the imaging there is evidence of increased markings.), image reviewed Disposition Clinical Impression: Congestive heart failure, Hypoxemia, Renal insufficiency Disposition: ADMITTED IP TO THIS [facility] Condition: Fair Referrals: Danis Ivy MD [Primary Care Provider] - 1-2 days
[2020-04-02 16:22] LABS: Basophils # (A) 0.1 k/uL (0-0.2); Basophils % (A) 1 %; Eosinophils # (A) 0.2 k/uL (0-0.7); Eosinophils % (A) 1 %; HCT 49.3 % (34.0-46.0); HGB 14.7 gm/dL (11.4-16.0); Hypochromasia Marked; Lymphocytes # (A) 1.2 k/uL (1.0-4.8); Lymphocytes % (A) 11 %; MCH 29.1 pg (25.0-35.0); MCHC 29.9 g/dL (31.0-37.0); MCV 97.6 fL (80.0-100.0); Mean Platelet Volume 8.8; Monocytes # (A) 0.7 k/uL (0-1.0); Monocytes % (A) 7 %; Neutrophils # (A) 8.4 k/uL (1.3-7.7); Neutrophils % (A) 78 %; Platelet Count 224 k/uL (150-450); RBC 5.05 m/uL (3.80-5.40); RDW 15.7 % (11.5-15.5); WBC 10.8 k/uL (3.8-10.6)
[2020-04-02 16:39] LABS: Albumin 4.1 g/dL (3.5-5.0); Calcium 8.7 mg/dL (8.4-10.2); Magnesium 2.2 mg/dL (1.6-2.3); Potassium 4.9 mmol/L (3.5-5.1); Total Bilirubin 0.3 mg/dL (0.2-1.3); Total Protein 6.7 g/dL (6.3-8.2)
[2020-04-02 16:44] LABS: Partial Thromboplastin Time 29.5 sec (22.0-30.0); Prothrombin Time 19.6 sec (9.0-12.0)
--- NOTE | 2020-04-02 17:56 | XR ---
EXAMINATION: XR chest 2V DATE AND TIME: 04/02/2020 5:36 PM CLINICAL INDICATION: PHH; difficulty breathing TECHNIQUE: Departmental protocol COMPARISON: 06/21/2018 and 05/17/2018 radiograph FINDINGS: The lungs are clear. The right pleural space is negative. The left pleural space showed blunting of the costophrenic angle on the frontal radiograph and the la teral radiograph, consistent with small left pleural effusion not seen on the prior study. The cardiac silhouette is moderate-marked enlarged, similar to the prior study. Tortuous thoracic aor ta redemonstrated, similar in appearance. The skeletal structures and soft tissues are negative for acute findings. IMPRESSION: 1. Small left pleural effusion. 2. Moderate-marked enlargement of the cardiac silhouette with tortuous thoracic aorta; similar to th e prior study.
[2020-04-02] MEDS ORDERED: ACETAMINOPHEN TAB 500 MG TAB PO PRN (19:53)
[2020-04-02] MEDS ORDERED: HYDROcodone/APAP 5-325MG 1 EACH TAB PO PRN (19:53)
[2020-04-02] MEDS ORDERED: HYDROmorphone 0.5 MG/0.5 ML SYRINGE IVP PRN (19:53)
[2020-04-02] MEDS: ALBUTEROL NEBULIZED 2.5 MG/3 ML INHALATION PRN (19:55)
[2020-04-02] MEDS: SYMBICORT 160-4.5 MCG INHALER INHALATION SCH (19:55)
[2020-04-02] MEDS ORDERED: ERGOCALCIFEROL 50,000 UNIT CAP PO SCH (20:00)
[2020-04-02] MEDS: FUROSEMIDE 10 MG/ML 4 ML VIAL IV SCH (20:02)
[2020-04-02 20:06] LABS: Glucose,Whole Blood 78 mg/dL (75-99)
[2020-04-02 20:33] LABS: Appearance,Urine Clear (Clear); Bacteria,Urine Moderate /hpf; Bilirubin,Urine Negative (Negative); Blood,Urine Negative (Negative); Color,Urine Light Yellow; Glucose,Urine (UA) Negative (Negative); Ketones,Urine Negative (Negative); Leukocyte Esterase,Urine Moderate (Negative); Nitrite,Urine Negative (Negative); Protein,Urine Trace (Negative); RBC,Urine <1 /hpf (0-5); Specific Gravity,Urine 1.009 (1.001-1.035); Squamous Epithelial Cell,Urine <1 /hpf (0-4); Urobilinogen,Urine <2.0 mg/dL (<2.0); WBC,Urine 9 /hpf (0-5)
[2020-04-02 20:42] LABS: Glucose,Whole Blood 91 mg/dL (75-99)
[2020-04-02] MEDS ORDERED: LINAGLIPTIN 5 MG TABLET PO SCH (21:00)
--- NOTE | 2020-04-02 21:00 | HP ---
HISTORY AND PHYSICAL DATE OF SERVICE: 04/02/2020 CHIEF COMPLAINT: Shortness of breath. HISTORY OF PRESENT ILLNESS: This 84-year-old woman with a past medical history of multiple medical problems, including atrial fibrillation, history of diabetes mellitus, history of DVT, history of hypertension, DJD, history of hypothyroidism, history of breast surgery, history of cholecystectomy, being followed by Dr. Ivy in the outpatient setting, was complaining of shortness of breath. The patient also has a past medical history of renal cell carcinoma. The patient was sent from the doctor's office because he was complaining of generalized weakness and patient apparently had some falls in February and was complaining of left leg pain. The patient had some difficulty in navigation, also. The patient had 80% saturation in the triage area. The patient was admitted for further evaluation and treatment. There is no history of any fever, rigor or chills. No history of headache, loss of consciousness, seizures at this time. The patient also had renal function at 1.74, indicating acute on chronic renal failure with possible chronic kidney disease, stage 3 baseline. There is no history of fever, rigors, chills at this time. PAST MEDICAL HISTORY: History of atrial fibrillation, history of diabetes mellitus, DVT, history of hypertension, DJD, hypothyroidism. HOME MEDICATIONS: 1. Januvia 50 mg p.o. at bedtime. 2. Coumadin 2.5 mg Monday, Monday and 5 mg Monday, Monday, Monday, , Monday. 3. Valsartan 320 mg daily. 4. [place] Thyroid 60 mg daily. 5. Nifedipine ER 60 mg daily. 6. Toprol-XL 25 mg p.o. b.i.d. 7. Amaryl 1 mg p.o. daily. 8. Lasix 40 mg p.o. daily. 9. Tambocor 100 mg p.o. b.i.d. 10.Vitamin D2 50,000 q.30 days. 11.Symbicort 160/4.5 two puffs b.i.d. 12.Zyloprim 100 mg p.o. daily. 13.ProAir 1to 2 puffs q.6 p.r.n. ALLERGIES: LEVOTHYROXINE, METFORMIN, ACTOS, VERSED, PEANUTS. FAMILY HISTORY: History of breast cancer in the family. SOCIAL HISTORY: No history of smoking. No history of alcohol intake. REVIEW OF SYSTEMS: ENT: Diminished hearing. Diminished vision. CARDIOVASCULAR SYSTEM: As mentioned earlier. RESPIRATORY SYSTEM: As mentioned earlier. GI: No nausea, vomiting. : No dysuria or retention. NERVOUS SYSTEM: As mentioned earlier. ALLERGY/IMMUNOLOGY: No asthma, hayfever. MUSCULOSKELETAL: As mentioned earlier. HEMATOLOGY/ONCOLOGY: No history of anemia. ENDOCRINE: Hypothyroidism. CONSTITUTIONAL: As mentioned earlier. DERMATOLOGY: Negative. RHEUMATOLOGY: Negative. PSYCHIATRY: As mentioned earlier. PHYSICAL EXAMINATION: Patient alert and oriented x3. Pulse 62, blood pressure 127/54, respiration 18, temperature 98.2, pulse ox 96% on 4 L, 80% on room air. HEENT: Conjunctivae normal. Oral mucosa moist. NECK: No jugular venous distention. No carotid bruit. No lymph node enlargement. Neck is obese. CARDIOVASCULAR SYSTEM: S1, S2 muffled. RESPIRATORY SYSTEM: Breath sounds diminished at the bases. A few scattered rhonchi and crackles. ABDOMEN: Soft, obese, non-tender. No mass palpable. LEGS: Bilateral leg edema. NERVOUS SYSTEM: Higher functions as mentioned earlier. Moves all 4 limbs. Mild diffuse weakness. LYMPHATICS: No lymph node palpable in neck, axillae or groin. SKIN: No ulcer, rash, bleeding. JOINTS: No active deforming arthropathy. LABS: WBC 10.8 and hemoglobin 14.7. INR is 2. Creatinine is 1.74. NT-Pro-BNP is 2370. ASSESSMENT: 1. Shortness of breath, possibly multifactorial, with congestive heart failure, acute exacerbation, with possibly diastolic dysfunction, ejection fraction unknown, with acute hypoxic respiratory failure. 2. Generalized weakness and gait dysfunction. 3. History of fall. 4. Atrial fibrillation. 5. Diabetes mellitus, type 2. 6. History of deep venous thrombosis. 7. Hypertension. 8. History of degenerative joint disease. 9. Hypothyroidism. 10.History of nephrolithiasis. 11.History of deep venous thrombosis, left leg. 12.History of right shoulder pain. 13.History of cholecystectomy. 14.Obesity with body mass index 37.7. RECOMMENDATIONS AND DISCUSSION: In this 84-year-old woman who presented with multiple complex medical issues, we will monitor the patient closely, continue the current medications, continue symptomatic treatment. Patient is therapeutic with INR of 2. At this time I would recommend cautious diuresis, and we will continue to monitor. Monitor creatinine closely. Avoid nephrotoxic medications. We will obtain a pulmonary consultation with Dr. Greene. PT/OT evaluation. Symptomatic treatment of the pain. I would also recommend a 2D echo with Doppler and CT scan of the brain to complete the workup. Discussed with the family at length, who understands. Further recommendations to follow. A copy of this dictation is being forwarded to Dr. Ivy, who is the primary physician. MMODL / IJN: [id number] /
[2020-04-02] MEDS: WARFARIN 5 MG TAB PO SCH (22:21)
[2020-04-02] MEDS: FLECAINIDE 50 MG TAB PO SCH (22:22)
[2020-04-02] MEDS: METOPROLOL SUCCINATE (ER) 25 MG TAB.ER.24H PO SCH (22:22)
--- NOTE | 2020-04-02 22:22 | CT ---
EXAMINATION: CT brain wo con DATE AND TIME: 04/02/2020 8:27 PM CLINICAL INDICATION: PHH; stroke , weakness TECHNIQUE: Standard departmental protocol.; DLP 1051.4 mGy-cm COMPARISON: CT 11/26/2018 FINDINGS: The calvarium is intact. There is no intracranial hemorrhage. There is no intracranial mass or mass effect. No definite new intra-axial or extra-axial attenuation defect. The paranasal sinuses, middle ear cavities, and mastoid sinus air cells are clear. The orbits are unremarkable. IMPRESSION: No definite acute process.
[2020-04-03 05:49] LABS: Basophils # (A) 0.1 k/uL (0-0.2); Basophils % (A) 1 %; Eosinophils # (A) 0.2 k/uL (0-0.7); Eosinophils % (A) 2 %; HGB 13.9 gm/dL (11.4-16.0); Hypochromasia Marked; Lymphocytes # (A) 1.4 k/uL (1.0-4.8); Lymphocytes % (A) 14 %; MCH 30.9 pg (25.0-35.0); MCHC 30.9 g/dL (31.0-37.0); MCV 100.1 fL (80.0-100.0); Macrocytosis Slight; Mean Platelet Volume 8.3; Monocytes # (A) 0.6 k/uL (0-1.0); Monocytes % (A) 7 %; Neutrophils # (A) 7.3 k/uL (1.3-7.7); Neutrophils % (A) 75 %; Platelet Count 192 k/uL (150-450); RBC 4.49 m/uL (3.80-5.40); RDW 15.3 % (11.5-15.5); WBC 9.8 k/uL (3.8-10.6)
[2020-04-03 06:01] LABS: INR 1.9 (<1.2); Prothrombin Time 18.6 sec (9.0-12.0)
[2020-04-03 06:09] LABS: Calcium 8.5 mg/dL (8.4-10.2); Potassium 4.6 mmol/L (3.5-5.1)
[2020-04-03] MEDS ORDERED: THYROID, PORK 30 MG TAB PO SCH ×2 (06:30→09:00)
[2020-04-03 07:24] LABS: Glucose,Whole Blood 87 mg/dL (75-99)
[2020-04-03] MEDS ORDERED: FUROSEMIDE 40 MG TAB PO SCH (09:00)
[2020-04-03] MEDS: SYMBICORT 160-4.5 MCG INHALER INHALATION SCH ×3 (09:00→20:27)
[2020-04-03] MEDS: GLIMEPIRIDE 1 MG TAB PO SCH (09:38)
[2020-04-03] MEDS: PANTOPRAZOLE 40 MG TABLET PO SCH (09:40)
[2020-04-03] MEDS: VALSARTAN 160 MG TAB PO SCH (09:40)
[2020-04-03] MEDS: allopurinoL 100 MG TAB PO SCH (09:40)
[2020-04-03] MEDS: FUROSEMIDE 10 MG/ML 4 ML VIAL IV SCH (09:40)
[2020-04-03] MEDS: FLECAINIDE 50 MG TAB PO SCH ×2 (09:40→20:35)
[2020-04-03] MEDS: METOPROLOL SUCCINATE (ER) 25 MG TAB.ER.24H PO SCH ×2 (09:40→20:35)
[2020-04-03] MEDS: ARMOUR THYROID 60 MG PO SCH (09:41)
--- NOTE | 2020-04-03 11:34 | ECHOF ---
Referral Reason:chf MEASUREMENTS -------- HEIGHT: 152.4 cm WEIGHT: 87.5 kg BP: 123/67 RVIDd: 5.3 cm (< 3.3) IVSd: 1.4 cm (0.6 - 1.1) LVIDd: 3.4 cm (3.9 - 5.3) LVPWd: 1.4 cm (0.6 - 1.1) IVSs: 1.6 cm LVIDs: 2.4 cm LVPWs: 1.7 cm LAESV Index (A-L): 56.97 ml/m Ao Diam: 2.3 cm (2.0 - 3.7) AV Cusp: 1.6 cm (1.5 - 2.6) MV E Ramakrishna: 1.56 m/s MV DecT: 338 ms MV A Ramakrishna: 1.35 m/s MV E/A Ratio: 1.16 RAP: 5.00 mmHg RVSP: 47.20 mmHg FINDINGS -------- This was a technically adequate study. The left ventricular size is normal. There is moderate concentric left ventricular hypertrophy. O verall left ventricular systolic function is normal with, an EF between 55 - 60 %. Mitral Doppler i nflow pattern suggests diastolic filling abnormality. The right ventricle is mildly enlarged. Left atrium is severely dilated by volume. The right atrial size is normal. Interatrial and interventricular septum intact. There is mild aortic valve sclerosis without stenosis. There is no evidence of aortic regurgitation . There is no evidence of aortic stenosis. Severe mitral annular calcification present. Moderate mitral regurgitation is present. Mild-to-mo derate mitral stenosis , with a MVA of 2.2cm (by PHT) Moderate tricuspid regurgitation present. There is moderate pulmonary hypertension. The right hector tricular systolic pressure, as measured by Doppler, is 47.20mmHg. There is no pulmonic regurgitation present. The aortic root size is normal. The inferior vena cava is mildly dilated. There is no pericardial effusion. CONCLUSIONS -------- 1. The left ventricular size is normal. 2. There is moderate concentric left ventricular hypertrophy. 3. Overall left ventricular systolic function is normal with, an EF between 55 - 60 %. 4. Mitral Doppler inflow pattern suggests diastolic filling abnormality. 5. The right ventricle is mildly enlarged. 6. There is mild aortic valve sclerosis without stenosis. 7. Severe mitral annular calcification present. 8. Moderate mitral regurgitation is present. 9. [id number] mitral stenosis. 10. , with a MVA of 2.2cm (by PHT) 11. Moderate tricuspid regurgitation present. 12. There is moderate pulmonary hypertension. 13. The right ventricular systolic pressure, as measured by Doppler, is 47.20mmHg. 14. The inferior vena cava is mildly dilated. 15. There is no pericardial effusion. GERONTOLOGICAL NURSE PRACTITIONER: Paty Sheppard RDCS
[2020-04-03] MEDS: ALBUTEROL NEBULIZED 2.5 MG/3 ML INHALATION PRN (11:48)
[2020-04-03 12:12] LABS: Glucose,Whole Blood 100 mg/dL (75-99)
--- NOTE | 2020-04-03 12:39 | P.CNPUL ---
History of Present Illness Consult date: 04/03/20 Requesting physician: Angi Painting Reason for consult: dyspnea Chief complaint: Shortness of breath History of present illness: This is a very pleasant 84-year-old female patient with a known history of renal cell carcinoma with previous right nephrectomy and the left kidney simple cyst, coronary arteriosclerosis, mild intermittent chronic bronchial asthma, hypothyroidism, paroxysmal atrial fibrillation on warfarin, osteoarthritis, hyperlipidemia, diabetes mellitus, diabetic retinopathy, carotid artery stenosis 50-69% left carotid, recent fall with hematoma to the left buttocks. She was s een in our office yesterday by Dr. Ivy for complaints of increasing shortness of breath and acute hypoxemic respiratory failure with an O2 saturation of 70% on room air is, she recovered to 90% on 3 L. Chest x-ray revealed interstitial edema and small bilateral pleural effusions. He had some concern regarding possible underlying metastatic disease. She was referred to the emergency room for the same. Computed tomography scan of the brain revealed no acute process. EKG revealed sinus rhythm with first-degree AV block. Echocardiogram revealed preserved left ventricular systolic function with ejection fraction 55-60%. Severe mitral calcification, moderate mitral regurgitation. Moderate pulmonary hypertension. She is seen today in consultation on the regular medical floor. She is currently resting flat in bed. Awake and alert in no acute distress. Breathing quite a bit easier today compared to yesterday. Maintaining O2 saturations in the low 90s on 4 L/m per nasal cannula. She's been afebrile. Hemodynamically stable. White count 9.8. Hemoglobin 13.9. INR 1.9. Sodium 137. Potassium 4.6. Creatinine 1.64. ProBNP 2370. Troponin negative 1. Urinalysis with moderate bacteria. She's been initiated on Lasix 40 mg IV every 12 hours. Continued on bronchodilators. Anticoagulated with warfarin. Review of Systems REVIEW OF SYSTEMS: CONSTITUTIONAL: Positive for generalized weakness. Denies any recent significant weight loss or weight gain. EYES: Denies change in vision. EARS, NOSE, MOUTH, THROAT: Denies headaches, denies sore throat. CARDIOVASCULAR: Denies chest pain, palpitations or syncopal episodes. RESPIRATORY: Positive for shortness of breath, cough, congestion no hemoptysis. GASTROINTESTINAL: Denies change in appetite, denies abdominal pain GENITOURINARY: Denies hematuria, denies infections. MUSKULOSKELETAL: Denies pain, denies swelling. INTEGUMENTARY: Denies rash, denies eczema. NEUROLOGICAL: Denies recent memory loss, no recent seizure activity. PSYCHIATRIC: Denies anxiety, denies depression. HEMATOLOGIC/LYMPHATIC: Denies anemia, denies enlarged lymph nodes. Past Medical History Past Medical History: Atrial Fibrillation, Cancer, Diabetes Mellitus, Deep Vein Thrombosis (DVT), Hypertension, Osteoarthritis (OA), Thyroid Disorder Additional Past Medical History / Comment(s): LOW THYROID, HX OF MONO., KIDNEY STONES.& DVT LEFT LEG., PAIN RIGHT SHOULDER. Renal cancer with nephrectomy, 2016 History of Any Multi-Drug Resistant Organisms: None Reported Past Surgical History: Breast Surgery, Cholecystectomy, Hysterectomy, Joint Replacement, Orthopedic Surgery Additional Past Surgical History / Comment(s): YULIA CATARACTS, COLONOSCOPY, MULTIPLE SURGERIES LEFT KNEE, YULIA KNEE REPLACEMENT, BREAST REDUCTION, LEFT ANKLE FX REPAIR WITH HARDWARE. Right kidney removed secondary to [place] Past Anesthesia/Blood Transfusion Reactions: Previous Problems w/ Anesthesia, Postoperative Nausea & Vomiting (PONV) Additional Past Anesthesia/Blood Transfusion Reaction / Comment(s): PT STATES THAT VERSED MAKES HER SLEEP FOR DAYS. Past Psychological History: No Psychological Hx Reported Smoking Status: Never smoker Past Alcohol Use History: None Reported Past Drug Use History: None Reported - Past Family History Mother Family Medical History: Cancer Additional Family Medical History / Comment(s): BREAST CANCER Sister(s) Family Medical History: Cancer Additional Family Medical History / Comment(s): BREAST CANCER Father Family Medical History: Diabetes Mellitus Medications and Allergies Home Medications Medication Instructions Recorded Confirmed Type Glimepiride [Amaryl] 1 mg PO DAILY 11/25/15 04/02/20 History NIFEdipine [NIFEdipine ER] 60 mg PO DAILY 11/25/15 04/02/20 History Warfarin [Coumadin] 2.5 mg PO MOFR 11/25/15 04/02/20 History Warfarin [Coumadin] 5 mg PO SUTUWETHSA 11/25/15 04/02/20 History Flecainide Acetate [Tambocor] 100 mg PO Q12HR 06/21/18 04/02/20 History Metoprolol Succinate (ER) [Toprol 25 mg PO BID 06/21/18 04/02/20 History Xl] sitaGLIPtin [Januvia] 50 mg PO HS 06/21/18 04/02/20 History Albuterol Sulfate [Proair Hfa] 1 - 2 puff INHALATION RT-Q6H PRN 04/02/20 0 History Allopurinol [Zyloprim] 100 mg PO DAILY 04/02/20 04/02/20 History Budesonide/Formoterol Fumarate 2 puff INHALATION RT-BID 04/02/20 04/02/20 History [Symbicort 160-4.5 Mcg Inhaler] Ergocalciferol [Vitamin D2] 50,000 unit PO Q30D 04/02/20 04/02/20 History Furosemide [Lasix] 40 mg PO DAILY 04/02/20 04/02/20 History Thyroid,Pork [[place] Thyroid] 60 mg PO DAILY 04/02/20 04/02/20 History Valsartan 320 mg PO DAILY 04/02/20 04/02/20 History Allergies Allergy/AdvReac Type Severity Reaction Status Date / Time levothyroxine sodium Allergy Unknown Verified 04/02/20 17:11 [From Synthroid] Childhood metformin [From Glucophage] Allergy Unknown Verified 04/02/20 17:11 Childhood pioglitazone [From Actos] Allergy Unknown Verified 04/02/20 17:11 Childhood midazolam HCl [From Versed] AdvReac Unknown Pt states Verified 04/02/20 17:11 she sleeps for days peanut AdvReac Unknown Cough Verified 04/02/20 17:11 Physical Exam Vitals: Vital Signs Temp Pulse Pulse Resp BP BP Pulse Ox 04/03/20 12:00 60 04/03/20 11:50 60 04/03/20 05:31 98.1 F 55 L 16 123/67 93 L 04/02/20 23:51 92 16 04/02/20 21:27 97.8 F 92 20 144/75 99 04/02/20 20:12 60 131/55 91 L 04/02/20 20:05 58 L 04/02/20 19:56 58 L 04/02/20 17:37 62 18 127/54 93 L 04/02/20 16:04 64 20 134/69 96 04/02/20 15:49 98.2 F 65 20 156/76 80 L Intake and Output 04/02/20 04/03/20 04/03/20 22:59 06:59 14:59 Intake Total 40 160 Output Total 1400 700 Balance -1360 -540 Intake: Intake, IV Titration 40 160 Amount Sodium Chloride 0.9% 1, 40 160 000 ml @ 20 mls/hr IV . Q24H STA Rx#:[id number] Output: Urine 1400 700 Other: # Voids 2 2 # Bowel Movements 0 Weight 87.543 kg GENERAL EXAM: Alert, very pleasant 84-year-old female patient, on 4 L nasal cannula, comfortable in no apparent distress. HEAD: Normocephalic. EYES: Normal reaction of pupils, equal size. NOSE: Clear with pink turbinates. THROAT: No erythema or exudates. NECK: No masses, no JVD. CHEST: No chest wall deformity. LUNGS: Equal air entry with crackles in the bilateral posterior bases. CVS: S1 and S2 normal with no audible murmur, regular rhythm. ABDOMEN: No hepatosplenomegaly, normal bowel sounds, no guarding or rigidity. SPINE: No scoliosis or deformity SKIN: No rashes CENTRAL NERVOUS SYSTEM: No focal deficits, tone is normal in all 4 extremities. EXTREMITIES: Ecchymosis and bruising and left upper extremity, left hip hematoma. There is no peripheral edema. No clubbing, no cyanosis. Peripheral pulses are intact. Results - Laboratory Findings CBC and BMP: 04/03/20 05:21 04/03/20 05:21 PT/INR, D-dimer PT 18.6 sec (9.0-12.0) H 04/03/20 05:21 INR 1.9 (<1.2) H 04/03/20 05:21 Abnormal lab findings: Abnormal Labs 04/02/20 04/02/20 04/02/20 16:03 16:03 16:03 WBC 10.8 H Hct 49.3 H MCV MCHC 29.9 L RDW 15.7 H Neutrophils # 8.4 H PT 19.6 H INR 2.0 H Chloride 95 L Carbon Dioxide 33 H BUN 57 H Creatinine 1.74 H Glucose 69 L Creatine Kinase 26 L Urine Protein Ur Leukocyte Esterase Urine WBC Urine Bacteria 04/02/20 04/03/20 04/03/20 17:45 05:21 05:21 WBC Hct MCV 100.1 H MCHC 30.9 L RDW Neutrophils # PT 18.6 H INR 1.9 H Chloride Carbon Dioxide BUN Creatinine Glucose Creatine Kinase Urine Protein Trace H Ur Leukocyte Esterase Moderate H Urine WBC 9 H Urine Bacteria Moderate H 04/03/20 05:21 WBC Hct MCV MCHC RDW Neutrophils # PT INR Chloride 95 L Carbon Dioxide 37 H BUN 54 H Creatinine 1.64 H Glucose Creatine Kinase Urine Protein Ur Leukocyte Esterase Urine WBC Urine Bacteria - Diagnostic Findings Chest x-ray: image reviewed Assessment and Plan Assessment: 1 Acute hypoxemic respiratory failure secondary to acute exacerbation of diastolic congestive heart failure, moderate mitral regurgitation, moderate pulmonary hypertension. 2 History of renal cell carcinoma with previous right nephrectomy and left kidney simple cyst 3 Acute on chronic renal failure 4 Urinary tract infection 5 Coronary artery disease 6 Mild intermittent chronic bronchial asthma 7 Hypothyroidism 8 Proximal atrial fibrillation, currently in sinus rhythm, on warfarin 9 Osteoarthritis 10 Hyperlipidemia 11 Hypertension 12 Diabetes mellitus 13 Diabetic retinopathy 14 Carotid stenosis, left 15 Recent fall with traumatic hematoma of the left hip and left upper extremity Plan: The patient was seen and evaluated by Dr. Greene. Chest x-ray and labs reviewed. Continue diuretics. Continue anticoagulation. Continue bronchodilators. May need computed tomography scan of the chest abdomen and pelvis as Dr. Ivy did have some concerns regarding underlying metastatic disease based on previous history of renal cell carcinoma. We will continue to follow and make further recommendations based on her clinical status. I, the cosigning physician, performed a history & physical examination of the patient. Lungs sounds with crackles in the bilateral posterior bases. Maintaining good O2 saturations in the 90s on 4 L/m per nasal cannula. I discussed the assessment and plan of care with my nurse practitioner, Soco Burns. I attest to the above note as dictated by her. Time with Patient: Greater than 30
--- NOTE | 2020-04-03 14:16 | P.CRDCN ---
History of Present Illness History of present illness: HISTORY OF PRESENTING ILLNESS This is a pleasant 84-year-old female past medical history significant for paroxysmal atrial fibrillation on long-term anticoagulation with Coumadin, diabetes mellitus, renal cancer status post nephrectomy, hypertension, history of DVT and hypothyroidism. She follows in the office with Dr. Real. We have been asked to see in consultation for congestive heart failure. She was sent to the emergency department on advice of her primary care physician secondary to increased weakness and shortness of breath. Pulse oxygen level in ER was 80% on room air. She was initiated on IV lasix in the ER. She is seen and examined sitting up in bed in no acute distress. She states she seems to be feeling better since admission but not back to her baseline. She denies chest pain, dizziness, palpitations, nausea, vomiting or diaphoresis. Echocardiogram obtained revealed preserved LV systolic function with ejection fraction 55-60%, diastolic filling abnormality, moderate mitral regurgitation, mild to moderate mitral stenosis with a valve area 2.2 cm, moderate tricuspid regurgitation and moderate pulmonary hypertension with RVSP of 47 mmHg. DIAGNOSTICS EKG reveals sinus mechanism with first-degree A-V block and right axis deviation. Chest xray reveals small left pleural effusion. CT of the brain negative for any acute intracranial process. Laboratory reviewed, WBC on admission 10.8 repeat today 9.8, hemoglobin 13.9, platelets 192, INR 1.9, sodium 137, potassium 4.6, creatinine 1.64, cardiac enzymes negative 1, NT proBNP 2370. Current cardiac medications include flecainide 100 mg twice a day, Lasix 40 mg daily, Toprol 25 mg twice a day, nifedipine 60 mg daily, valsartan 320 mg daily and Coumadin. Most recent stress test performed in 2018 was negative for reversible cardiac ischemia. Most recent echocardiogram obtained in 2018 reveals preserved LV systolic function with ejection fraction 60-65%, severely dilated left atrium, mean gradient across the aortic valve of 6 mmHg, moderate mitral annular calcification, mild MR with a mean gradient of 5 mmHg and mild pulmonary hypertension with an RVSP of 37 mmHg. REVIEW OF SYSTEMS At the time of my exam: CONSTITUTIONAL: Denies fever or chills. CARDIOVASCULAR: Denies chest pain, shortness of breath, orthopnea, PND or palpitations. RESPIRATORY: Denies cough. GASTROINTESTINAL: Denies abdominal pain, diarrhea, constipation, nausea or vomiting. MUSCULOSKELETAL: Denies myalgias. NEUROLOGIC: Denies numbness, tingling or weakness. ENDOCRINE: Denies fatigue, weight change, polydipsia or polyurina. GENITOURINARY: Denies burning, hematuria or urgency with micturation. HEMATOLOGIC: Denies history of anemia or bleeding. PHYSICAL EXAMINATION Blood pressure 112/64 heart rate 58 afebrile and maintaining oxygen saturation on nasal cannula. CONSTITUTIONAL: No apparent distress. HEENT: Head is normocephalic. Pupils are equal, round. Sclerae anicteric. Mucous membranes of the mouth are moist. No JVD. No carotid bruit. CHEST EXAMINATION: Lungs are clear to auscultation. No chest wall tenderness is noted on palpation or with deep breathing. Diminished bilaterally. HEART EXAMINATION: Regular rate and rhythm. S1, S2 heard. Soft murmur at the left sternal border, no gallops or rub. ABDOMEN: Soft, nontender. Positive bowel sounds. EXTREMITIES: 2+ peripheral pulses, no lower extremity edema and no calf tenderness. NEUROLOGIC EXAMINATION: Patient is awake, alert and oriented x3. ASSESSMENT Shortness of breath, possibly related to chronic diastolic dysfunction that has improved with IV diuretics. Clinically now she is euvolemic. Pulmonary causes more likely. Chronic diastolic dysfunction Paroxysmal atrial fibrillation on coumadin Diabetes mellitus Hypertension Renal cancer s/p nephrectomy Chronic kidney disease PLAN Transition to oral diuretics, lasix 40 mg daily. Ongoing evaluation by pulmonary care team. Thank you kindly for this consultation. Nurse Practitioner note has been reviewed, I agree with a documented findings and plan of care. Patient was seen and examined. Past Medical History Past Medical History: Atrial Fibrillation, Cancer, Diabetes Mellitus, Deep Vein Thrombosis (DVT), Hypertension, Osteoarthritis (OA), Thyroid Disorder Additional Past Medical History / Comment(s): LOW THYROID, HX OF MONO., KIDNEY STONES.& DVT LEFT LEG., PAIN RIGHT SHOULDER. Renal cancer with nephrectomy, 2016 History of Any Multi-Drug Resistant Organisms: None Reported Past Surgical History: Breast Surgery, Cholecystectomy, Hysterectomy, Joint Re placement, Orthopedic Surgery Additional Past Surgical History / Comment(s): YULIA CATARACTS, COLONOSCOPY, MULTIPLE SURGERIES LEFT KNEE, YULIA KNEE REPLACEMENT, BREAST REDUCTION, LEFT ANKLE FX REPAIR WITH HARDWARE. Right kidney removed secondary to [place] Past Anesthesia/Blood Transfusion Reactions: Previous Problems w/ Anesthesia, Postoperative Nausea & Vomiting (PONV) Additional Past Anesthesia/Blood Transfusion Reaction / Comment(s): PT STATES THAT VERSED MAKES HER SLEEP FOR DAYS. Past Psychological History: No Psychological Hx Reported Smoking Status: Never smoker Past Alcohol Use History: None Reported Past Drug Use History: None Reported - Past Family History Mother Family Medical History: Cancer Additional Family Medical History / Comment(s): BREAST CANCER Sister(s) Family Medical History: Cancer Additional Family Medical History / Comment(s): BREAST CANCER Father Family Medical History: Diabetes Mellitus Medications and Allergies Home Medications Medication Instructions Recorded Confirmed Type Glimepiride [Amaryl] 1 mg PO DAILY 11/25/15 04/02/20 History NIFEdipine [NIFEdipine ER] 60 mg PO DAILY 11/25/15 04/02/20 History Warfarin [Coumadin] 2.5 mg PO MOFR 11/25/15 04/02/20 History Warfarin [Coumadin] 5 mg PO SUTUWETHSA 11/25/15 04/02/20 History Flecainide Acetate [Tambocor] 100 mg PO Q12HR 06/21/18 04/02/20 History Metoprolol Succinate (ER) [Toprol 25 mg PO BID 06/21/18 04/02/20 History Xl] sitaGLIPtin [Januvia] 50 mg PO HS 06/21/18 04/02/20 History Albuterol Sulfate [Proair Hfa] 1 - 2 puff INHALATION RT-Q6H PRN 04/02/20 04/02/20 History Allopurinol [Zyloprim] 100 mg PO DAILY 04/02/20 04/02/20 History Budesonide/Formoterol Fumarate 2 puff INHALATION RT-BID 04/02/20 04/02/20 History [Symbicort 160-4.5 Mcg Inhaler] Ergocalciferol [Vitamin D2] 50,000 unit PO Q30D 04/02/20 04/02/20 History Furosemide [Lasix] 40 mg PO DAILY 04/02/20 04/02/20 History Thyroid,Pork [[place] Thyroid] 60 mg PO DAILY 04/02/20 04/02/20 History Valsartan 320 mg PO DAILY 04/02/20 04/02/20 History Allergies Allergy/AdvReac Type Severity Reaction Status Date / Time levothyroxine sodium Allergy Unknown Verified 04/02/20 17:11 [From Synthroid] Childhood metformin [From Glucophage] Allergy Unknown Verified 04/02/20 17:11 Childhood pioglitazone [From Actos] Allergy Unknown Verified 04/02/20 17:11 Childhood midazolam HCl [From Versed] AdvReac Unknown Pt states Verified 04/02/20 17:11 she sleeps for days peanut AdvReac Unknown Cough Verified 04/02/20 17:11 Physical Exam Vitals: Vital Signs Temp Pulse Pulse Resp BP BP Pulse Ox 04/03/20 11:50 60 04/03/20 05:31 98.1 F 55 L 16 123/67 93 L 04/02/20 23:51 92 16 04/02/20 21:27 97.8 F 92 20 144/75 99 04/02/20 20:12 60 131/55 91 L 04/02/20 20:05 58 L 04/02/20 19:56 58 L 04/02/20 17:37 62 18 127/54 93 L 04/02/20 16:04 64 20 134/69 96 04/02/20 15:49 98.2 F 65 20 156/76 80 L Intake and Output 04/02/20 04/03/20 04/03/20 22:59 06:59 14:59 Intake Total 40 160 Output Total 1400 700 Balance -1360 -540 Intake: Intake, IV Titration 40 160 Amount Sodium Chloride 0.9% 1, 40 160 000 ml @ 20 mls/hr IV . Q24H STA Rx#:[id number] Output: Urine 1400 700 Other: # Voids 2 2 # Bowel Movements 0 Weight 87.543 kg Results 04/03/20 05:21 04/03/20 05:21 Cardiac Enzymes 04/02/20 04/02/20 Range/Units 16:03 16:03 AST 24 (14-36) U/L Troponin I <0.012 (0.000-0.034) ng/mL Coagulation 04/02/20 04/03/20 Range/Units 16:03 05:21 PT 19.6 H 18.6 H (9.0-12.0) sec APTT 29.5 (22.0-30.0) sec CBC 04/02/20 04/03/20 Range/Units 16:03 05:21 WBC 10.8 H 9.8 (3.8-10.6) k/uL RBC 5.05 4.49 (3.80-5.40) m/uL Hgb 14.7 13.9 (11.4-16.0) gm/dL Hct 49.3 H 45.0 (34.0-46.0) % Plt Count 224 192 (150-450) k/uL Comprehensive Metabolic Panel 04/02/20 04/03/20 Range/Units 16:03 05:21 Sodium 137 137 (137-145) mmol/L Potassium 4.9 4.6 (3.5-5.1) mmol/L Chloride 95 L 95 L (98-107) mmol/L Carbon Dioxide 33 H 37 H (22-30) mmol/L BUN 57 H 54 H (7-17) mg/dL Creatinine 1.74 H 1.64 H (0.52-1.04) mg/dL Glucose 69 L 85 (74-99) mg/dL Calcium 8.7 8.5 (8.4-10.2) mg/dL AST 24 (14-36) U/L ALT 14 (4-34) U/L Alkaline Phosphatase 60 (38-126) U/L Total Protein 6.7 (6.3-8.2) g/dL Albumin 4.1 (3.5-5.0) g/dL Current Medications Generic Name Dose Route Start Last Admin Trade Name Freq PRN Reason Stop Dose Admin Acetaminophen 500 mg 04/02/20 19:53 Tylenol Tab PO Q6HR PRN Fever and/ or Pain Hydrocodone Bitart/Acetaminophen 1 each 04/02/20 19:53 [place] 5-325 PO Q6HR PRN Pain Albuterol Sulfate 2.5 mg 04/02/20 19:15 04/03/20 11:48 Ventolin Nebulized INHALATION 2.5 mg RT-Q6H PRN Administration Shortness Of Breath Allopurinol 100 mg 04/03/20 09:00 04/03/20 09:40 Zyloprim PO 100 mg DAILY NILAY Administration Budesonide/Formoterol Fumarate 2 puff 04/02/20 20:00 04/03/20 09:00 Symbicort 160-4.5 Mcg Inhaler INHALATION Not Given RT-BID NILAY Ergocalciferol 50,000 unit 04/02/20 20:00 04/02/20 22:24 Vitamin D2 PO Not Given Q30D NILAY Flecainide Acetate 100 mg 04/02/20 21:00 04/03/20 09:40 Tambocor PO 100 mg Q12HR NILAY Administration Furosemide 40 mg 04/02/20 19:45 04/03/20 09:40 Lasix IV 40 mg Q12HR NILAY Administration Glimepiride 1 mg 04/03/20 09:00 04/03/20 09:38 Amaryl PO Not Given DAILY NILAY Hydromorphone HCl 0.5 mg 04/02/20 19:53 Dilaudid IVP Q6HR PRN Severe Pain Sodium Chloride 1,000 mls @ 20 mls/hr 04/02/20 16:01 04/02/20 20:02 Saline 0.9% IV 04/03/20 16:00 20 mls/hr .Q24H STA Administration Metoprolol Succinate 25 mg 04/02/20 21:00 04/03/20 09:40 Toprol Xl PO 25 mg BID NILAY Administration Nifedipine 60 mg 04/03/20 09:00 04/03/20 09:40 Procardia Xl PO 60 mg DAILY NILAY Administration Patient's Own-- 1 each 04/03/20 09:00 04/03/20 09:41 [place] Thyroid 60mg PO 1 each Tablet DAILY NILAY Administration Patient's Own-- 1 each 04/03/20 21:00 Januvia 50mg Tablet PO [facility] Pantoprazole Sodium 40 mg 04/03/20 07:30 04/03/20 09:40 Protonix PO 40 mg [id number] NILAY Administration Valsartan 320 mg 04/03/20 09:00 04/03/20 09:40 Diovan PO 320 mg DAILY NILAY Administration Warfarin Sodium 5 mg 04/02/20 20:30 04/02/20 22:21 Coumadin PO 5 mg [email or web address] [facility] Administration Protocol Warfarin Sodium 2.5 mg 04/03/20 18:00 Coumadin PO [email or web address] [facility] Protocol Intake and Output 04/02/20 04/03/20 04/03/20 22:59 06:59 14:59 Intake Total 40 160 Output Total 1400 700 Balance -1360 -540 Intake: Intake, IV Titration 40 160 Amount Sodium Chloride 0.9% 1, 40 160 000 ml @ 20 mls/hr IV . Q24H STA Rx#:[id number] Output: Urine 1400 700 Other: # Voids 2 2 # Bowel Movements 0 Weight 87.543 kg 04/03/20 05:21 04/03/20 05:21
--- NOTE | 2020-04-03 16:43 | PN ---
PROGRESS NOTE DATE OF SERVICE: 04/03/2020 This is a 84-year-old woman who was admitted with shortness of breath, had CHF acute exacerbation, possibly acute diastolic dysfunction, the ejection fraction unknown. The patient had acute hypoxic respiratory failure also, patient also generalized gait dysfunction. The patient had PT, OT evaluating the patient closely. Patient closely monitored at this time. The 2D echo with Doppler was done which showed ejection fraction about 50%-60% and [id number] mitral stenosis also noted. Multiple other valvular abnormalities also noted including moderate mitral regurgitation. PAST MEDICAL HISTORY: Reviewed. REVIEW OF SYSTEMS: CARDIOVASCULAR SYSTEM: No angina. RESPIRATORY: As mentioned earlier. GI: As mentioned earlier. : No dysuria. NERVOUS SYSTEM: No focal deficits. CURRENT MEDICATIONS: Reviewed and include. 1. Tylenol. 2. [place]. 3. Ventolin. 4. Zyloprim. 5. Symbicort. 6. Vitamin D2. 7. Lasix. 8. Amaryl. 9. Dilaudid. 10.Toprol. 11.Procardia. 12.Protonix. 13.Diovan. 14.Coumadin. PHYSICAL EXAM: Patient is alert, oriented x3, pulse 58, blood pressure 112/60, respiration 18, temperature 98 degrees, pulse ox 98% on 4 L. HEENT: Conjunctivae normal. Oral mucosa moist. NECK: No jugular venous distention. No lymph node enlargement. CARDIOVASCULAR SYSTEM: S1, S2, muffled. RESPIRATORY: Breath sounds diminished at the bases, a few scattered rhonchi, no crackles. Expiratory wheezing also present. ABDOMEN: Soft, nontender. LEGS: No edema. NERVOUS SYSTEM: No focal deficits. LABS: WBC 9.8, hemoglobin 13.9. INR is 1.9. Sodium 137, potassium 4.6 and creatinine is 1.64. ASSESSMENT: 1. Shortness of breath, possibly multifactorial, CHF acute exacerbation, possible acute on chronic diastolic dysfunction, ejection fraction 50%-60% with acute hypoxic respiratory failure. 2. Generalized weakness and gait dysfunction. 3. History of fall. 4. Atrial fibrillation. 5. Diabetes mellitus type 2. 6. Valvular heart disease with mitral regurgitation and possible mitral stenosis. 7. History of DVT. 8. Hypertension. 9. History of DJD. 10.Hypothyroidism. 11.History of nephrolithiasis. 12.History of deep vein thrombosis of the left leg. 13.History of right shoulder pain. 14.History of cholecystectomy. 15.Obesity with body mass index of 37.7. 16.FULL CODE. RECOMMENDATION: In this 84-year-old woman who presented with multiple complex remote medical issues, will monitor the patient closely, continue with the current medications, diuretics, continue the rest of medication. Monitor creatinine closely. PT/OT evaluation. The 2D echo reports are appreciated. Monitor blood sugars closely. Overall prognosis guarded because of multiple complex medical issues. Further recommendations to follow. PT/OT evaluation, possible ECF rehab on Monday. Discussed with patient who understands. MMODL / IJN: [id number] /
[2020-04-03 17:07] LABS: Glucose,Whole Blood 118 mg/dL (75-99)
[2020-04-03] MEDS: INSULIN ASPART (NovoLOG) 100 UNIT/ML VIAL SQ SCH ×2 (17:37→22:01)
[2020-04-03] MEDS: WARFARIN 5 MG TAB PO SCH (17:41)
[2020-04-03] MEDS ORDERED: WARFARIN 2.5 MG TAB PO SCH (18:00)
[2020-04-03] MEDS: JANUVIA 50 MG PO SCH (20:35)
[2020-04-03 22:01] LABS: Glucose,Whole Blood 137 mg/dL (75-99)
[2020-04-04 07:21] LABS: Glucose,Whole Blood 103 mg/dL (75-99)
[2020-04-04 08:19] LABS: Calcium 8.5 mg/dL (8.4-10.2); Potassium 5.1 mmol/L (3.5-5.1)
[2020-04-04 08:27] LABS: INR 1.8 (<1.2); Prothrombin Time 17.8 sec (9.0-12.0)
[2020-04-04 08:29] LABS: Basophils # (A) 0.1 k/uL (0-0.2); Basophils % (A) 1 %; Eosinophils # (A) 0.2 k/uL (0-0.7); Eosinophils % (A) 2 %; HCT 44.9 % (34.0-46.0); HGB 13.2 gm/dL (11.4-16.0); Hypochromasia Marked; Lymphocytes % (A) 11 %; MCH 29.2 pg (25.0-35.0); MCHC 29.5 g/dL (31.0-37.0); Macrocytosis Slight; Mean Platelet Volume 8.5; Monocytes # (A) 0.6 k/uL (0-1.0); Monocytes % (A) 7 %; Neutrophils # (A) 6.5 k/uL (1.3-7.7); Neutrophils % (A) 76 %; Platelet Count 192 k/uL (150-450); RBC 4.53 m/uL (3.80-5.40); RDW 15.5 % (11.5-15.5); WBC 8.5 k/uL (3.8-10.6)
[2020-04-04] MEDS: INSULIN ASPART (NovoLOG) 100 UNIT/ML VIAL SQ SCH ×4 (08:33→21:05)
[2020-04-04] MEDS: allopurinoL 100 MG TAB PO SCH (08:34)
[2020-04-04] MEDS: PANTOPRAZOLE 40 MG TABLET PO SCH (08:34)
[2020-04-04] MEDS: FLECAINIDE 50 MG TAB PO SCH ×2 (08:34→21:05)
[2020-04-04] MEDS: FUROSEMIDE 40 MG TAB PO SCH (08:35)
[2020-04-04] MEDS: GLIMEPIRIDE 1 MG TAB PO SCH (08:35)
[2020-04-04] MEDS: ARMOUR THYROID 60 MG PO SCH (08:36)
[2020-04-04] MEDS: METOPROLOL SUCCINATE (ER) 25 MG TAB.ER.24H PO SCH ×2 (08:36→21:05)
[2020-04-04] MEDS: VALSARTAN 160 MG TAB PO SCH (08:37)
[2020-04-04] MEDS: SYMBICORT 160-4.5 MCG INHALER INHALATION SCH ×2 (09:23→19:29)
--- NOTE | 2020-04-04 10:40 | P.PN ---
Subjective Progress Note Date: 04/04/20 Principal diagnosis: Acute hypoxemic respiratory failure secondary to an acute exacerbation of diastolic congestive heart failure This is a very pleasant 84-year-old female patient with a known history of renal cell carcinoma with previous right nephrectomy and the left kidney simple cyst, coronary arteriosclerosis, mild intermittent chronic bronchial asthma, hypothyroidism, paroxysmal atrial fibrillation on warfarin, osteoarthritis, hyperlipidemia, diabetes mellitus, diabetic retinopathy, carotid artery stenosis 50-69% left carotid, recent fall with hematoma to the left buttocks. She was seen in our office yesterday by Dr. Ivy for complaints of increasing shortness of breath and acute hypoxemic respiratory failure with an O2 saturation of 70% on room air is, she recovered to 90% on 3 L. Chest x-ray revealed interstitial edema and small bilateral pleural effusions. He had some concern regarding possible underlying metastatic disease. She was referred to the emergency room for the same. Computed tomography scan of the brain revealed no acute process. EKG revealed sinus rhythm with first-degree AV block. Echocardiogram revealed preserved left ventricular systolic function with ejection fraction 55-60%. Severe mitral calcification, moderate mitral re gurgitation. Moderate pulmonary hypertension. She is seen today in consultation on the regular medical floor. She is currently resting flat in bed. Awake and alert in no acute distress. Breathing quite a bit easier today compared to yesterday. Maintaining O2 saturations in the low 90s on 4 L/m per nasal cannula. She's been afebrile. Hemodynamically stable. White count 9.8. Hemoglobin 13.9. INR 1.9. Sodium 137. Potassium 4.6. Creatinine 1.64. ProBNP 2370. Troponin negative 1. Urinalysis with moderate bacteria. She's been initiated on Lasix 40 mg IV every 12 hours. Continued on bronchodilators. Anticoagulated with warfarin. The patient is seen today 04/04/2020 in follow-up on the regular medical floor. She is awake and alert in no acute distress. Resting comfortably in bed. Breathing easier today compared to yesterday. Maintaining O2 saturations in the 90s on 4 L/m per nasal cannula. She's been afebrile. Hemodynamically stable. White count 8.5. Hemoglobin 13.2. INR 1.8. Sodium 139. Potassium 5.1. Bicarb 41. Creatinine 1.38. Remains on diuretics. Remains in a negative balance. Objective - Vital Signs Vital signs: Vital Signs Temp 97.6 F 04/04/20 04:55 Pulse 58 L 04/04/20 04:55 Resp 18 04/04/20 04:55 BP 142/98 04/04/20 06:11 Pulse Ox 92 L 04/04/20 06:11 Intake & Output 04/03/20 04/04/20 04/04/20 18:59 06:59 18:59 Intake Total 1000 Output Total 1400 1600 Balance -400 -1600 Weight 87.543 kg Intake: Intake, IV Titration 160 Amount Sodium Chloride 0.9% 1, 160 000 ml @ 20 mls/hr IV . Q24H STA Rx#:[id number] Oral 840 Output: Urine 1400 1600 Other: Voiding Method Toilet Toilet Bedside Commode Bedside Commode # Voids 2 1 1 - Exam GENERAL EXAM: Alert, very pleasant 84-year-old female patient, on 4 L nasal cannula, comfortable in no apparent distress. HEAD: Normocephalic. EYES: Normal reaction of pupils, equal size. NOSE: Clear with pink turbinates. THROAT: No erythema or exudates. NECK: No masses, no JVD. CHEST: No chest wall deformity. LUNGS: Equal air entry with crackles in the bilateral posterior bases. CVS: S1 and S2 normal with no audible murmur, regular rhythm. ABDOMEN: No hepatosplenomegaly, normal bowel sounds, no guarding or rigidity. SPINE: No scoliosis or deformity SKIN: No rashes CENTRAL NERVOUS SYSTEM: No focal deficits, tone is normal in all 4 extremities. EXTREMITIES: Ecchymosis and bruising and left upper extremity, left hip hematoma. There is no peripheral edema. No clubbing, no cyanosis. Peripheral pulses are intact. - Labs CBC & Chem 7: 04/04/20 07:20 04/04/20 07:20 Labs: Abnormal Lab Results - Last 24 Hours (Table) 04/03/20 04/03/20 04/03/20 Range/Units 11:44 17:02 21:57 MCHC (31.0-37.0) g/dL PT (9.0-12.0) sec INR (<1.2) Chloride (98-107) mmol/L Carbon Dioxide (22-30) mmol/L BUN (7-17) mg/dL Creatinine (0.52-1.04) mg/dL Glucose (74-99) mg/dL POC Glucose (mg/dL) 100 H 118 H 137 H (75-99) mg/dL 04/04/20 04/04/20 04/04/20 Range/Units 07:20 07:20 07:20 MCHC 29.5 L (31.0-37.0) g/dL PT 17.8 H (9.0-12.0) sec INR 1.8 H (<1.2) Chloride 95 L (98-107) mmol/L Carbon Dioxide 41 H* (22-30) mmol/L BUN 41 H (7-17) mg/dL Creatinine 1.38 H (0.52-1.04) mg/dL Glucose 101 H (74-99) mg/dL POC Glucose (mg/dL) (75-99) mg/dL 04/04/20 Range/Units 07:20 MCHC (31.0-37.0) g/dL PT (9.0-12.0) sec INR (<1.2) Chloride (98-107) mmol/L Carbon Dioxide (22-30) mmol/L BUN (7-17) mg/dL Creatinine (0.52-1.04) mg/dL Glucose (74-99) mg/dL POC Glucose (mg/dL) 103 H (75-99) mg/dL Assessment and Plan Assessment: 1 Acute hypoxemic respiratory failure secondary to acute exacerbation of diastolic congestive heart failure, moderate mitral regurgitation, moderate pulmonary hypertension. 2 History of renal cell carcinoma with previous right nephrectomy and left kidney simple cyst 3 Acute on chronic renal failure, improving. Current creatinine 1.38 4 Urinary tract infection, suspect, culture pending 5 Coronary artery disease 6 Mild intermittent chronic bronchial asthma 7 Hypothyroidism 8 Proximal atrial fibrillation, currently in sinus rhythm, on warfarin 9 Osteoarthritis 10 Hyperlipidemia 11 Hypertension 12 Diabetes mellitus 13 Diabetic retinopathy 14 Carotid stenosis, left 15 Recent fall with traumatic hematoma of the left hip and left upper extremity Plan: The patient was seen and evaluated by Dr. Greene. Improved and currently in a negative balance. Continue diuretics. Continue anticoagulation. Continue bronchodilators. We will continue to follow and make further recommendations based on her clinical status. I, the cosigning physician, performed a history & physical examination of the patient. Lungs sounds with crackles in the bilateral posterior bases. Maintaining good O2 saturations in the 90s on 4 L/m per nasal cannula. I discussed the assessment and plan of care with my nurse practitioner, Soco Burns. I attest to the above note as dictated by her.
[2020-04-04] MEDS: guaiFENesin 600 MG TABLET.ER PO SCH ×2 (11:35→21:05)
[2020-04-04 11:54] LABS: Glucose,Whole Blood 183 mg/dL (75-99)
--- NOTE | 2020-04-04 12:38 | P.PN ---
Subjective Progress Note Date: 04/04/20 The patient is an 84-year-old female with past medical history of paroxysmal atrial fibrillation, diabetes mellitus, renal cancer status post nephrectomy, hypertension, history of DVT, and hypothyroidism, who follows in the office with Dr. Real. The patient states she is feeling well this morning. She is lying in bed comfortably, with her daughter at the bedside. She denies any shortness of neal ath while lying in bed on 4 L nasal cannula. She also denies any chest pain, chest pressure, or palpitations. No dizziness or lightheadedness, however she has not been out of the bed yet today. Recent echocardiogram shows LV function at 55-60% with moderate left ventricular hypertrophy, diastolic filling abnormality, severe mitral annular calcifications, moderate mitral regurgitation and mild to moderate mitral stenosis. Moderate tricuspid regurgitation and moderate pulmonary hypertension also present. GENERAL: Well-appearing, well-nourished and in no acute distress. NECK: Supple without JVD or thyromegaly. LUNGS: Breath sounds clear to auscultation bilaterally. Respiration equal and unlabored. No wheezes, rales or rhonchi. HEART: Regular rate and rhythm without murmurs, rubs or gallops. S1 and S2 heard. EXTREMITIES: Normal range of motion, no edema. No clubbing or cyanosis. Peripheral pulses intact and strong. Vitals: Blood pressure 142/98, pulse 58, respiratory rate 18, afebrile, SpO2 94% on 4 L nasal cannula Laboratory data: Impression: #1 shortness of breath, likely related to both cardiac and pulmonary etiology #2 acute on chronic diastolic heart failure, improved with IV diuretics #3 paroxysmal atrial fibrillation, anticoagulated with warfarin #4 COPD #5 diabetes mellitus #6 hypertension #7 chronic kidney disease disease, history of renal cancer status post nephrectomy Plan: Continue oral diuretics. No changes to medication regimen at this time. We will continue to monitor. Objective - Vital Signs Vital signs: Vital Signs Temp 97.6 F 04/04/20 04:55 Pulse 58 L 04/04/20 04:55 Resp 18 04/04/20 04:55 BP 142/98 04/04/20 06:11 Pulse Ox 92 L 04/04/20 06:11 Intake & Output 04/03/20 04/04/20 04/04/20 18:59 06:59 18:59 Intake Total 1000 Output Total 1400 1600 Balance -400 -1600 Weight 87.543 kg Intake: Intake, IV Titration 160 Amount Sodium Chloride 0.9% 1, 160 000 ml @ 20 mls/hr IV . Q24H STA Rx#:[id number] Oral 840 Output: Urine 1400 1600 Other: Voiding Method Toilet Toilet Bedside Commode Bedside Commode # Voids 2 1 1 - Labs CBC & Chem 7: 04/04/20 07:20 04/04/20 07:20 Labs: Abnormal Lab Results - Last 24 Hours (Table) 04/03/20 04/03/20 04/04/20 Range/Units 17:02 21:57 07:20 MCHC (31.0-37.0) g/dL PT 17.8 H (9.0-12.0) sec INR 1.8 H (<1.2) Chloride (98-107) mmol/L Carbon Dioxide (22-30) mmol/L BUN (7-17) mg/dL Creatinine (0.52-1.04) mg/dL Glucose (74-99) mg/dL POC Glucose (mg/dL) 118 H 137 H (75-99) mg/dL 04/04/20 04/04/20 04/04/20 Range/Units 07:20 07:20 07:20 MCHC 29.5 L (31.0-37.0) g/dL PT (9.0-12.0) sec INR (<1.2) Chloride 95 L (98-107) mmol/L Carbon Dioxide 41 H* (22-30) mmol/L BUN 41 H (7-17) mg/dL Creatinine 1.38 H (0.52-1.04) mg/dL Glucose 101 H (74-99) mg/dL POC Glucose (mg/dL) 103 H (75-99) mg/dL 04/04/20 Range/Units 11:47 MCHC (31.0-37.0) g/dL PT (9.0-12.0) sec INR (<1.2) Chloride (98-107) mmol/L Carbon Dioxide (22-30) mmol/L BUN (7-17) mg/dL Creatinine (0.52-1.04) mg/dL Glucose (74-99) mg/dL POC Glucose (mg/dL) 183 H (75-99) mg/dL
--- NOTE | 2020-04-04 12:38 | PN ---
PROGRESS NOTE DATE OF SERVICE: 04/04/2020 This 84-year-old woman who was admitted with shortness of breath and as well as congestive heart failure exacerbation is improving significantly. No chest pain. No palpitations. No fever. PT, OT evaluating the patient. EXAM: Alert and oriented x3. Pulse 58, blood pressure 170/64, respiration 18, temperature 98.7, pulse ox 94% on 4 L. HEENT: Conjunctivae normal. Oral mucosa moist. NECK: No jugular venous distention. No lymph node enlargement. CARDIOVASCULAR: S1, S2, muffled. No S3, no S4, RESPIRATORY: Diminished breath sounds at the bases. No rhonchi, no crackles. ABDOMEN: Soft, nontender. LEGS: No edema, no swelling. NERVOUS SYSTEM: No focal motor or sensory deficits. LAB STUDIES: At this time show CO2 is 41, creatinine is 1.38. ASSESSMENT: 1. Shortness of breath, congestive heart failure acute exacerbation with acute on chronic diastolic dysfunction, ejection fraction 50-60% with acute hypoxic hypercarbic respiratory failure. 2. Elevated CO2. 3. Rule out chronic obstructive pulmonary disease. 4. Generalized weakness and gait dysfunction. 5. History of fall. 6. Atrial fibrillation. 7. Diabetes mellitus type 2. 8. Valvular disease with mitral regurgitation as well as possible mitral stenosis. 9. History of deep venous thrombosis. 10.Hypertension. 11.History of degenerative joint disease. 12.Hypothyroidism. 13.History of nephrolithiasis. 14.History of deep vein thrombosis of the left leg. 15.Right shoulder pain. 16.History of cholecystectomy. 17.Obesity with body mass index of 37.7. 18.FULL CODE. RECOMMENDATIONS AND DISCUSSION: Recommend to continue current management and symptomatic treatment. The patient also had some hypoxia. We will check room air pulse ox on ambulation prior to discharge. Otherwise. PT/OT evaluation. Continue the current medications. Follow closely with Cardiology and pulmonology. Guarded prognosis. Further recommendations to follow. MMODL / IJN: [id number] /
[2020-04-04 17:11] LABS: Glucose,Whole Blood 131 mg/dL (75-99)
[2020-04-04] MEDS ORDERED: WARFARIN 2 MG TAB PO ONE (18:00)
[2020-04-04] MEDS: WARFARIN 5 MG TAB PO SCH (19:04)
[2020-04-04 20:40] LABS: Glucose,Whole Blood 172 mg/dL (75-99)
[2020-04-04] MEDS: JANUVIA 50 MG PO SCH (21:25)
[2020-04-05 07:17] LABS: Glucose,Whole Blood 130 mg/dL (75-99)
[2020-04-05 08:08] LABS: Basophils % (A) 0 %; Eosinophils # (A) 0.2 k/uL (0-0.7); Eosinophils % (A) 2 %; HCT 45.5 % (34.0-46.0); HGB 13.3 gm/dL (11.4-16.0); Hypochromasia Marked; Lymphocytes # (A) 1.1 k/uL (1.0-4.8); Lymphocytes % (A) 12 %; MCH 28.9 pg (25.0-35.0); MCHC 29.3 g/dL (31.0-37.0); MCV 98.5 fL (80.0-100.0); Macrocytosis Slight; Monocytes # (A) 0.8 k/uL (0-1.0); Monocytes % (A) 8 %; Neutrophils % (A) 75 %; Platelet Count 188 k/uL (150-450); RBC 4.61 m/uL (3.80-5.40); RDW 15.3 % (11.5-15.5); WBC 9.2 k/uL (3.8-10.6)
[2020-04-05 08:11] LABS: INR 1.8 (<1.2); Prothrombin Time 17.9 sec (9.0-12.0)
[2020-04-05 08:16] LABS: Calcium 8.4 mg/dL (8.4-10.2); Potassium 5.1 mmol/L (3.5-5.1)
[2020-04-05] MEDS: INSULIN ASPART (NovoLOG) 100 UNIT/ML VIAL SQ SCH ×4 (08:40→21:00)
[2020-04-05] MEDS: PANTOPRAZOLE 40 MG TABLET PO SCH (08:41)
[2020-04-05] MEDS: allopurinoL 100 MG TAB PO SCH (08:41)
[2020-04-05] MEDS: FUROSEMIDE 40 MG TAB PO SCH (08:42)
[2020-04-05] MEDS: FLECAINIDE 50 MG TAB PO SCH ×2 (08:42→21:04)
[2020-04-05] MEDS: GLIMEPIRIDE 1 MG TAB PO SCH (08:42)
[2020-04-05] MEDS: guaiFENesin 600 MG TABLET.ER PO SCH ×2 (08:42→20:59)
[2020-04-05] MEDS: ARMOUR THYROID 60 MG PO SCH (08:43)
[2020-04-05] MEDS: VALSARTAN 160 MG TAB PO SCH (08:43)
[2020-04-05] MEDS: METOPROLOL SUCCINATE (ER) 25 MG TAB.ER.24H PO SCH ×2 (08:44→20:59)
[2020-04-05] MEDS: SYMBICORT 160-4.5 MCG INHALER INHALATION SCH ×2 (08:57→20:02)
--- NOTE | 2020-04-05 11:46 | P.PN ---
Subjective Progress Note Date: 04/05/20 Principal diagnosis: Acute hypoxemic respiratory failure secondary to an acute exacerbation of diastolic congestive heart failure This is a very pleasant 84-year-old female patient with a known history of renal cell carcinoma with previous right nephrectomy and the left kidney simple cyst, coronary arteriosclerosis, mild intermittent chronic bronchial asthma, hypothyroidism, paroxysmal atrial fibrillation on warfarin, osteoarthritis, hyperlipidemia, diabetes mellitus, diabetic retinopathy, carotid artery stenosis 50-69% left carotid, recent fall with hematoma to the left buttocks. She was seen in our office yesterday by Dr. Ivy for complaints of increasing shortness of breath and acute hypoxemic respiratory failure with an O2 saturation of 70% on room air is, she recovered to 90% on 3 L. Chest x-ray revealed interstitial edema and small bilateral pleural effusions. He had some concern regarding possible underlying metastatic disease. She was referred to the emergency room for the same. Computed tomography scan of the brain revealed no acute process. EKG revealed sinus rhythm with first-degree AV block. Echocardiogram revealed preserved left ventricular systolic function with ejection fraction 55-60%. Severe mitral calcification, moderate mitral re gurgitation. Moderate pulmonary hypertension. She is seen today in consultation on the regular medical floor. She is currently resting flat in bed. Awake and alert in no acute distress. Breathing quite a bit easier today compared to yesterday. Maintaining O2 saturations in the low 90s on 4 L/m per nasal cannula. She's been afebrile. Hemodynamically stable. White count 9.8. Hemoglobin 13.9. INR 1.9. Sodium 137. Potassium 4.6. Creatinine 1.64. ProBNP 2370. Troponin negative 1. Urinalysis with moderate bacteria. She's been initiated on Lasix 40 mg IV every 12 hours. Continued on bronchodilators. Anticoagulated with warfarin. The patient is seen today 04/04/2020 in follow-up on the regular medical floor. She is awake and alert in no acute distress. Resting comfortably in bed. Breathing easier today compared to yesterday. Maintaining O2 saturations in the 90s on 4 L/m per nasal cannula. She's been afebrile. Hemodynamically stable. White count 8.5. Hemoglobin 13.2. INR 1.8. Sodium 139. Potassium 5.1. Bicarb 41. Creatinine 1.38. Remains on diuretics. Remains in a negative balance. The patient is seen today 04/05/2020 in follow-up on the regular medical floor. She is currently resting comfortably in bed. Awake and alert in no acute distress. She denies any worsening shortness of breath, cough or congestion. Maintaining O2 saturation in the 90s on 4 L/m per nasal cannula. She's been afebrile. Hemodynamically stable. Urine culture pending. White count 9.2. Hemoglobin 13.3. INR 1.8. Sodium 137. Potassium 5.1. Creatinine 1.52. She is having some issues with difficulty swallowing. Objective - Vital Signs Vital signs: Vital Signs Temp 97.7 F 04/05/20 04:40 Pulse 58 L 04/05/20 04:40 Resp 18 04/05/20 04:40 BP 135/87 04/05/20 04:40 Pulse Ox 91 L 04/05/20 04:40 Intake & Output 04/04/20 04/05/20 04/05/20 18:59 06:59 18:59 Weight 90 kg Other: Voiding Method Toilet Toilet Bedside Commode Bedside Commode # Voids 2 1 - Exam GENERAL EXAM: Alert, very pleasant 84-year-old female patient, on 4 L nasal cannula, comfortable in no apparent distress. HEAD: Normocephalic. EYES: Normal reaction of pupils, equal size. NOSE: Clear with pink turbinates. THROAT: No erythema or exudates. NECK: No masses, no JVD. CHEST: No chest wall deformity. LUNGS: Equal air entry with no crackles, wheeze or rhonchi. CVS: S1 and S2 normal with no audible murmur, regular rhythm. ABDOMEN: No hepatosplenomegaly, normal bowel sounds, no guarding or rigidity. SPINE: No scoliosis or deformity SKIN: No rashes CENTRAL NERVOUS SYSTEM: No focal deficits, tone is normal in all 4 extremities. EXTREMITIES: Ecchymosis and bruising and left upper extremity, left hip hematoma. There is no peripheral edema. No clubbing, no cyanosis. Peripheral pulses are intact. - Labs CBC & Chem 7: 04/05/20 07:46 04/05/20 07:46 Labs: Abnormal Lab Results - Last 24 Hours (Table) 04/04/20 04/04/20 04/04/20 Range/Units 11:47 17:08 20:38 MCHC (31.0-37.0) g/dL PT (9.0-12.0) sec INR (<1.2) Chloride (98-107) mmol/L Carbon Dioxide (22-30) mmol/L BUN (7-17) mg/dL Creatinine (0.52-1.04) mg/dL Glucose (74-99) mg/dL POC Glucose (mg/dL) 183 H 131 H 172 H (75-99) mg/dL 04/05/20 04/05/20 04/05/20 Range/Units 07:14 07:46 07:46 MCHC 29.3 L (31.0-37.0) g/dL PT 17.9 H (9.0-12.0) sec INR 1.8 H (<1.2) Chloride (98-107) mmol/L Carbon Dioxide (22-30) mmol/L BUN (7-17) mg/dL Creatinine (0.52-1.04) mg/dL Glucose (74-99) mg/dL POC Glucose (mg/dL) 130 H (75-99) mg/dL 04/05/20 Range/Units 07:46 MCHC (31.0-37.0) g/dL PT (9.0-12.0) sec INR (<1.2) Chloride 95 L (98-107) mmol/L Carbon Dioxide 37 H (22-30) mmol/L BUN 44 H (7-17) mg/dL Creatinine 1.52 H (0.52-1.04) mg/dL Glucose 121 H (74-99) mg/dL POC Glucose (mg/dL) (75-99) mg/dL Microbiology - Last 24 Hours (Table) 04/04/20 12:25 Urine Culture - Preliminary Urine,Clean Catch Assessment and Plan Assessment: 1 Acute hypoxemic respiratory failure secondary to acute exacerbation of diastolic congestive heart failure, moderate mitral regurgitation, moderate pulmonary hypertension. 2 History of renal cell carcinoma with previous right nephrectomy and left kidney simple cyst 3 Acute on chronic renal failure, improving. Current creatinine 1.52 4 Urinary tract infection, suspect, culture pending 5 Coronary artery disease 6 Mild intermittent chronic bronchial asthma 7 Hypothyroidism 8 Proximal atrial fibrillation, currently in sinus rhythm, on warfarin 9 Osteoarthritis 10 Hyperlipidemia 11 Hypertension 12 Diabetes mellitus 13 Diabetic retinopathy 14 Carotid stenosis, left 15 Recent fall with traumatic hematoma of the left hip and left upper extremity Plan: The patient was seen and evaluated by Dr. Greene. Stable from the pulmonary standpoint May need swallow evaluation We will continue to follow and make further recommendations based on her clinical status. I, the cosigning physician, performed a history & physical examination of the patient. Lungs sounds clear, diminished. Maintaining good O2 saturations in the 90s on 4 L/m per nasal cannula. I discussed the assessment and plan of care with my nurse practitioner, Soco Burns. I attest to the above note as dictated by her.
[2020-04-05 12:30] LABS: Glucose,Whole Blood 121 mg/dL (75-99)
--- NOTE | 2020-04-05 15:07 | P.PN ---
Subjective Progress Note Date: 04/05/20 Principal diagnosis: This is an 84-year-old female who was recently admitted with shortness of breath as well as congestive heart failure acute exacerbation and is being closely mo nitored. Patient's lung sounds are much improved although patient continues to become extremely dyspneic with exertion and continues to be extremely weak and lethargic. PT/OT to evaluate the patient and assess for possible ECF placement. Family at the Bedside today with discussion of possible home care with physical therapy in the outpatient setting. Will await PT notes. Case management and s ocial work following and working on possible discharge planning needs. Currently patient has no reports of chest pain, worsening shortness of breath, or palpitations. Patient is afebrile. No reports of nausea or vomiting and patient is tolerating diet. States that she has been having some difficulty with fully swallowing her food and ends up spitting it up. We'll consult speech therapist for swallow eval. Objective - Vital Signs Vital signs: Vital Signs Temp 97.6 F 04/05/20 12:58 Pulse 55 L 04/05/20 12:58 Resp 18 04/05/20 12:58 BP 139/69 04/05/20 12:58 Pulse Ox 91 L 04/05/20 12:58 Intake & Output 04/04/20 04/05/20 04/05/20 18:59 06:59 18:59 Intake Total 750 Balance 750 Weight 90 kg Intake: Oral 750 Other: Voiding Method Toilet Toilet Bedside Commode Bedside Commode # Voids 2 1 2 - Exam Gen: This is a 84-year-old female sitting up in the bed, awake, alert and oriented 3, well-developed, well-nourished, obese. HEENT: Head is atraumatic, normocephalic. Pupils equal, round. Sclerae is anicteric. NECK: Supple. No JVD. No lymphadenopathy. No thyromegaly. LUNGS: Manage breath sounds bilaterally with some scattered rhonchi and no wheezing noted on exam. No intercostal retractions. HEART: S1, S2 are muffled ABDOMEN: Soft. Mildly distended. Obese. Bowel sounds are present. No masses. No tenderness noted on palpation. EXTREMITIES: No pedal edema. No calf tenderness. NEUROLOGICAL: Patient is awake, alert and oriented x3. Diffusely weak - Labs CBC & Chem 7: 04/05/20 07:46 04/05/20 07:46 Labs: Abnormal Lab Results - Last 24 Hours (Table) 04/04/20 04/04/20 04/05/20 Range/Units 17:08 20:38 07:14 MCHC (31.0-37.0) g/dL PT (9.0-12.0) sec INR (<1.2) Chloride (98-107) mmol/L Carbon Dioxide (22-30) mmol/L BUN (7-17) mg/dL Creatinine (0.52-1.04) mg/dL Glucose (74-99) mg/dL POC Glucose (mg/dL) 131 H 172 H 130 H (75-99) mg/dL 04/05/20 04/05/20 04/05/20 Range/Units 07:46 07:46 07:46 MCHC 29.3 L (31.0-37.0) g/dL PT 17.9 H (9.0-12.0) sec INR 1.8 H (<1.2) Chloride 95 L (98-107) mmol/L Carbon Dioxide 37 H (22-30) mmol/L BUN 44 H (7-17) mg/dL Creatinine 1.52 H (0.52-1.04) mg/dL Glucose 121 H (74-99) mg/dL POC Glucose (mg/dL) (75-99) mg/dL 04/05/20 Range/Units 12:12 MCHC (31.0-37.0) g/dL PT (9.0-12.0) sec INR (<1.2) Chloride (98-107) mmol/L Carbon Dioxide (22-30) mmol/L BUN (7-17) mg/dL Creatinine (0.52-1.04) mg/dL Glucose (74-99) mg/dL POC Glucose (mg/dL) 121 H (75-99) mg/dL Microbiology - Last 24 Hours (Table) 04/04/20 12:25 Urine Culture - Preliminary Urine,Clean Catch Assessment and Plan Assessment: Shortness of breath, congestive heart failure acute exacerbation with acute on chronic diastolic dysfunction, ejection fraction 50-60% with acute hypoxic hypercarbic respiratory failure Elevated CO2 Rule out chronic obstructive pulmonary disease Generalized weakness and gait dysfunction History of fall Atrial fibrillation Diabetes mellitus type 2 Valvular disease with mitral regurgitation as well as possible mitral stenosis History of degenerative joint disease Hypertension hypothyroidism history of nephrolithiasis History of DVT of the left leg Right shoulder pain history of cholecystectomy Obesity with a body mass index of 37.7 Full code Plan: Continue current medications, management, and symptomatic treatment. PT/OT to evaluate the patient. Monitor vital signs and labs closely. Maintain oxygen saturation and monitor frequently for periods of hypoxia. Cardiology and pulmonary following closely. Case management and social work also following and working on possible discharge planning to in ECF for continued PT/OT therapy for strengthening mobility. Due to multiple complex medical issues, prognosis is guarded. Further recommendations to follow.
[2020-04-05 17:07] LABS: Glucose,Whole Blood 155 mg/dL (75-99)
[2020-04-05] MEDS ORDERED: WARFARIN 3 MG TAB PO ONE (18:00)
[2020-04-05 20:25] LABS: Glucose,Whole Blood 141 mg/dL (75-99)
[2020-04-05] MEDS: JANUVIA 50 MG PO SCH (21:00)
[2020-04-06 07:11] LABS: Glucose,Whole Blood 135 mg/dL (75-99)
[2020-04-06] MEDS: INSULIN ASPART (NovoLOG) 100 UNIT/ML VIAL SQ SCH ×4 (07:51→20:55)
[2020-04-06] MEDS: PANTOPRAZOLE 40 MG TABLET PO SCH (07:51)
[2020-04-06] MEDS: SYMBICORT 160-4.5 MCG INHALER INHALATION SCH ×2 (08:59→19:06)
[2020-04-06 09:20] LABS: Prothrombin Time 19.1 sec (9.0-12.0)
[2020-04-06] MEDS: VALSARTAN 160 MG TAB PO SCH (10:45)
[2020-04-06] MEDS: GLIMEPIRIDE 1 MG TAB PO SCH (10:45)
[2020-04-06] MEDS: FLECAINIDE 50 MG TAB PO SCH ×2 (10:53→20:08)
[2020-04-06] MEDS: FUROSEMIDE 40 MG TAB PO SCH (10:53)
[2020-04-06] MEDS: METOPROLOL SUCCINATE (ER) 25 MG TAB.ER.24H PO SCH ×2 (10:55→20:08)
[2020-04-06] MEDS: allopurinoL 100 MG TAB PO SCH (10:56)
[2020-04-06] MEDS: guaiFENesin 600 MG TABLET.ER PO SCH ×2 (10:57→20:08)
[2020-04-06] MEDS: ARMOUR THYROID 60 MG PO SCH (10:57)
[2020-04-06 11:21] LABS: Glucose,Whole Blood 175 mg/dL (75-99)
[2020-04-06 12:41] LABS: Calcium 8.7 mg/dL (8.4-10.2); Potassium 5.1 mmol/L (3.5-5.1)
[2020-04-06 12:50] LABS: Basophils # (A) 0.1 k/uL (0-0.2); Basophils % (A) 1 %; Eosinophils # (A) 0.1 k/uL (0-0.7); Eosinophils % (A) 1 %; HCT 46.5 % (34.0-46.0); HGB 13.6 gm/dL (11.4-16.0); Hypochromasia Marked; Lymphocytes # (A) 0.8 k/uL (1.0-4.8); Lymphocytes % (A) 9 %; MCHC 29.2 g/dL (31.0-37.0); MCV 99.5 fL (80.0-100.0); Macrocytosis Slight; Mean Platelet Volume 9.4; Monocytes # (A) 0.6 k/uL (0-1.0); Monocytes % (A) 6 %; Neutrophils # (A) 7.8 k/uL (1.3-7.7); Neutrophils % (A) 81 %; Platelet Count 191 k/uL (150-450); RBC 4.68 m/uL (3.80-5.40); RDW 15.1 % (11.5-15.5); WBC 9.6 k/uL (3.8-10.6)
--- NOTE | 2020-04-06 14:01 | P.PN ---
Subjective Progress Note Date: 04/06/20 Principal diagnosis: Acute hypoxic respiratory failure secondary to an acute exacerbation of diastolic CHF This is a very pleasant 84-year-old female patient with a known history of renal cell carcinoma with previous right nephrectomy and the left kidney simple cyst, coronary arteriosclerosis, mild intermittent chronic bronchial asthma, hypothyroidism, paroxysmal atrial fibrillation on warfarin, osteoarthritis, hyperlipidemia, diabetes mellitus, diabetic retinopathy, carotid artery stenosis 50-69% left carotid, recent fall with hematoma to the left buttocks. She was seen in our office yesterday by Dr. Ivy for complaints of increasing shortness of breath and acute hypoxemic respiratory failure with an O2 saturation of 70% on room air is, she recovered to 90% on 3 L. Chest x-ray revealed interstitial edema and small bilateral pleural effusions. He had some concern regarding possible underlying metastatic disease. She was referred to the emergency room for the same. Computed tomography scan of the brain revealed no acute process. EKG revealed sinus rhythm with first-degree AV block. Echocardiogram revealed preserved left ventricular systolic function with ejection fraction 55-60%. Severe mitral calcification, moderate mitral regurgitation. Moderate pulmonary hypertension. She is seen today in consultation on the regular medical floor. She is currently resting flat in bed. Awake and alert in no acute distress. Breathing quite a bit easier today compared to yesterday. Maintaining O2 saturations in the low 90s on 4 L/m per nasal cannula. She's been afebrile. Hemodynamically stable. White count 9.8. Hemoglobin 13.9. INR 1.9. Sodium 137. Potassium 4.6. Creatinine 1.64. ProBNP 2370. Troponin negative 1. Urinalysis with moderate bacteria. She's been initiated on Lasix 40 mg IV every 12 hours. Continued on bronchodilators. Anticoagulated with warfarin. The patient is seen today 04/04/2020 in follow-up on the regular medical floor. She is awake and alert in no acute distress. Resting comfortably in bed. Breathing easier today compared to yesterday. Maintaining O2 saturations in the 90s on 4 L/m per nasal cannula. She's been afebrile. Hemodynamically stable. White count 8.5. Hemoglobin 13.2. INR 1.8. Sodium 139. Potassium 5.1. Bicarb 41. Creatinine 1.38. Remains on diuretics. Remains in a negative michael ce. The patient is seen today 04/05/2020 in follow-up on the regular medical floor. She is currently resting comfortably in bed. Awake and alert in no acute distress. She denies any worsening shortness of breath, cough or congestion. Maintaining O2 saturation in the 90s on 4 L/m per nasal cannula. She's been afebrile. Hemodynamically stable. Urine culture pending. White count 9.2. Hemoglobin 13.3. INR 1.8. Sodium 137. Potassium 5.1. Creatinine 1.52. She is having some issues with difficulty swallowing. On 04/06/2020 patient sees seen in follow-up on the general medical oncology floor. She states she is breathing better, she is currently on 4 L of oxygen with pulse ox of 91%, she is afebrile, her breathing is nonlabored at rest, does get short of breath with exertion, no acute events overnight. She continues on daily dose of oral Lasix, her intake and output and fluid balance is difficult to estimate, patient is avoiding on the commode, and her weight is trending down. The nurse said patient still desats on room air down into the 70s, she still requiring supplemental oxygen currently at 4 L. Normally not oxygen dependent. Today's labs have been reviewed showing normal white count at 9.6, hemoglobin is 13.6, INR is 2.0, sodium is 136, potassium is 5.1, chloride is 93, CO2 37, BUN is 40 and creatinine is 1.28, renal profile seems to have slightly improved. Her urine culture came back positive for gram-negative bacilli of 2 different types, and organism 1 is greater than 100,000 CFU per mL, and final culture is pending. Patient is currently not on any antibiotics, denies any urinary symptoms, patient has been afebrile Objective - Vital Signs Vital signs: Vital Signs Temp 98.3 F 04/06/20 05:50 Pulse 69 04/06/20 05:50 Resp 16 04/06/20 05:50 BP 165/72 04/06/20 05:50 Pulse Ox 91 L 04/06/20 05:50 Intake & Output 04/05/20 04/06/20 04/06/20 18:59 06:59 18:59 Intake Total 750 Balance 750 Weight 87.5 kg Intake: Oral 750 Other: Voiding Method Toilet Bedside Commode # Voids 2 2 - Exam GENERAL EXAM: Alert, very pleasant, 84-year-old white female, on 4 L of oxygen with a pulse ox of 91% comfortable in no apparent distress. HEAD: Normocephalic/atraumatic. EYES: Normal reaction of pupils, equal size. Conjunctiva pink, sclera white. NOSE: Clear with pink turbinates. THROAT: No erythema or exudates. NECK: No masses, no JVD, no thyroid enlargement, no adenopathy. CHEST: No chest wall deformity. Symmetrical expansion. LUNGS: Equal air entry with no crackles, wheeze, rhonchi or dullness. CVS: Regular rate and rhythm, normal S1 and S2, no gallops, no murmurs, no rubs ABDOMEN: Soft, nontender. No hepatosplenomegaly, normal bowel sounds, no guarding or rigidity. EXTREMITIES: No clubbing, no edema, no cyanosis, 2+ pulses and upper and lower extremities. MUSCULOSKELETAL: Muscle strength and tone normal. SPINE: No scoliosis or deformity SKIN: No rashes CENTRAL NERVOUS SYSTEM: Alert and oriented -3. No focal deficits, tone is normal in all 4 extremities. PSYCHIATRIC: Alert and oriented -3. Appropriate affect. Intact judgment and insight. - Labs CBC & Chem 7: 04/06/20 08:01 04/06/20 08:01 Labs: Abnormal Lab Results - Last 24 Hours (Table) 04/05/20 04/05/20 04/06/20 Range/Units 17:05 20:24 07:09 Hct (34.0-46.0) % MCHC (31.0-37.0) g/dL Neutrophils # (1.3-7.7) k/uL Lymphocytes # (1.0-4.8) k/uL PT (9.0-12.0) sec INR (<1.2) Sodium (137-145) mmol/L Chloride (98-107) mmol/L Carbon Dioxide (22-30) mmol/L BUN (7-17) mg/dL Creatinine (0.52-1.04) mg/dL Glucose (74-99) mg/dL POC Glucose (mg/dL) 155 H 141 H 135 H (75-99) mg/dL 04/06/20 04/06/20 04/06/20 Range/Units 08:01 08:01 08:01 Hct 46.5 H (34.0-46.0) % MCHC 29.2 L (31.0-37.0) g/dL Neutrophils # 7.8 H (1.3-7.7) k/uL Lymphocytes # 0.8 L (1.0-4.8) k/uL PT 19.1 H (9.0-12.0) sec INR 2.0 H (<1.2) Sodium 136 L (137-145) mmol/L Chloride 93 L (98-107) mmol/L Carbon Dioxide 37 H (22-30) mmol/L BUN 40 H (7-17) mg/dL Creatinine 1.28 H (0.52-1.04) mg/dL Glucose 107 H (74-99) mg/dL POC Glucose (mg/dL) (75-99) mg/dL 04/06/20 Range/Units 11:19 Hct (34.0-46.0) % MCHC (31.0-37.0) g/dL Neutrophils # (1.3-7.7) k/uL Lymphocytes # (1.0-4.8) k/uL PT (9.0-12.0) sec INR (<1.2) Sodium (137-145) mmol/L Chloride (98-107) mmol/L Carbon Dioxide (22-30) mmol/L BUN (7-17) mg/dL Creatinine (0.52-1.04) mg/dL Glucose (74-99) mg/dL POC Glucose (mg/dL) 175 H (75-99) mg/dL Microbiology - Last 24 Hours (Table) 04/04/20 12:25 Urine Culture - Preliminary Urine,Clean Catch Gram Neg Bacilli Gram Neg Bacilli#2 Assessment and Plan Plan: Assessment: 1 Acute hypoxemic respiratory failure secondary to acute exacerbation of diastolic congestive heart failure, moderate mitral regurgitation, moderate pul monary hypertension. 2 History of renal cell carcinoma with previous right nephrectomy and left kid kendrick simple cyst 3 Acute on chronic renal failure, improving. Current creatinine 1.52 4 Urinary tract infection, suspect, culture showing 2 gram-negative bacilli, final cultures pending 5 Coronary artery disease 6 Mild intermittent chronic bronchial asthma 7 Hypothyroidism 8 Proximal atrial fibrillation, currently in sinus rhythm, on warfarin 9 Osteoarthritis 10 Hyperlipidemia 11 Hypertension 12 Diabetes mellitus 13 Diabetic retinopathy 14 Carotid stenosis, left 15 Recent fall with traumatic hematoma of the left hip and left upper extremity Plan: We'll obtain follow-up chest x-ray in the morning, continue weaning FiO2, keep current dose of Lasix, patient states she is breathing easier. Accurate intake and output daily weights, urine culture has been noted, patient is asymptomatic, no fever, no chills, denies any urinary complaints, we'll send a repeat urinalysis with reflex to urine culture, no leukocytosis, no fever or chills. We'll continue to follow I performed a history & physical examination of the patient and discussed their management with my nurse practitioner, Adali Lyles. I reviewed the nurse practitioner's note and agree with the documented findings and plan of care. Lung sounds are positive for diminished breath sounds. The findings and the imp ression was discussed with the patient. I attest to the documentation by the nurse practitioner. Time with Patient: Less than 30
--- NOTE | 2020-04-06 15:24 | P.PN ---
Subjective Progress Note Date: 04/06/20 Principal diagnosis: This is an 84-year-old female who was recently admitted with shortness of breath as well as congestive heart failure acute exacerbation and is being closely mo nitored. Patient's lung sounds are much improved although patient continues to become extremely dyspneic with exertion and continues to be extremely weak and lethargic. PT/OT to evaluate the patient and assess for possible ECF placement. Family at the Bedside today with discussion of possible home care with physical therapy in the outpatient setting. Will await PT notes. Case management and s ocial work following and working on possible discharge planning needs. Currently patient has no reports of chest pain, worsening shortness of breath, or palpitations. Patient is afebrile. No reports of nausea or vomiting and patient is tolerating diet. States that she has been having some difficulty with fully swallowing her food and ends up spitting it up. We'll consult speech therapist for swallow eval. 04/06/2020 Patient is seen and evaluated in follow-up continues to be lethargic and weak and per daughter at the bedside has been progressively getting worse and having a harder time with getting up and moving around and getting to the commode. Patient's breathing has improved and is currently maintained on oral Lasix and will continue at this time. Patient also continues with bronchodilators and will continue. Pulmonary following. Patient denies having any dysuria or retention although urine cultures showing gram-negative bacilli and will initiate IV ceftriaxone while awaiting cultures to finalized. Repeat urinalysis with culture was ordered. Patient's family members are concerned with her continued deterioration and would like to consult with hospice for informational meeting and may potentially sign on to hospice in the home setting. Patient is afebrile. No reports of nausea but continues to have some swallowing difficulties and does spit food up medication. Speech pathology evaluated the patient and noted these findings and a GI consult was placed and currently pending. Objective - Vital Signs Vital signs: Vital Signs Temp 97.5 F L 04/06/20 13:00 Pulse 70 04/06/20 13:00 Resp 16 04/06/20 13:00 BP 135/60 04/06/20 13:00 Pulse Ox 100 04/06/20 13:00 Intake & Output 04/05/20 04/06/20 04/06/20 18:59 06:59 18:59 Intake Total 750 Balance 750 Weight 87.5 kg 86.6 kg Intake: Oral 750 Other: Voiding Method Toilet Bedside Commode # Voids 2 2 - Exam Gen: This is a 84-year-old female sleeping in the bed, lethargic, alert and oriented 3, well-developed, well-nourished, obese. HEENT: Head is atraumatic, normocephalic. Pupils equal, round. Sclerae is anicteric. NECK: Supple. No JVD. No lymphadenopathy. No thyromegaly. LUNGS: Diminished breath sounds bilaterally with some scattered rhonchi and no wheezing noted on exam. No intercostal retractions. HEART: S1, S2 are muffled ABDOMEN: Soft. Mildly distended. Obese. Bowel sounds are present. No masses. No tenderness noted on palpation. EXTREMITIES: No pedal edema. No calf tenderness. NEUROLOGICAL: Patient is lethargic but arousable , alert and oriented x3. Diffusely weak - Labs CBC & Chem 7: 04/06/20 08:04/06/20 08:01 Labs: Abnormal Lab Results - Last 24 Hours (Table) 04/05/20 04/05/20 04/06/20 Range/Units 17:05 20:24 07:09 Hct (34.0-46.0) % MCHC (31.0-37.0) g/dL Neutrophils # (1.3-7.7) k/uL Lymphocytes # (1.0-4.8) k/uL PT (9.0-12.0) sec INR (<1.2) Sodium (137-145) mmol/L Chloride (98-107) mmol/L Carbon Dioxide (22-30) mmol/L BUN (7-17) mg/dL Creatinine (0.52-1.04) mg/dL Glucose (74-99) mg/dL POC Glucose (mg/dL) 155 H 141 H 135 H (75-99) mg/dL 04/06/20 04/06/20 04/06/20 Range/Units 08:01 08:01 08:01 Hct 46.5 H (34.0-46.0) % MCHC 29.2 L (31.0-37.0) g/dL Neutrophils # 7.8 H (1.3-7.7) k/uL Lymphocytes # 0.8 L (1.0-4.8) k/uL PT 19.1 H (9.0-12.0) sec INR 2.0 H (<1.2) Sodium 136 L (137-145) mmol/L Chloride 93 L (98-107) mmol/L Carbon Dioxide 37 H (22-30) mmol/L BUN 40 H (7-17) mg/dL Creatinine 1.28 H (0.52-1.04) mg/dL Glucose 107 H (74-99) mg/dL POC Glucose (mg/dL) (75-99) mg/dL 04/06/20 Range/Units 11:19 Hct (34.0-46.0) % MCHC (31.0-37.0) g/dL Neutrophils # (1.3-7.7) k/uL Lymphocytes # (1.0-4.8) k/uL PT (9.0-12.0) sec INR (<1.2) Sodium (137-145) mmol/L Chloride (98-107) mmol/L Carbon Dioxide (22-30) mmol/L BUN (7-17) mg/dL Creatinine (0.52-1.04) mg/dL Glucose (74-99) mg/dL POC Glucose (mg/dL) 175 H (75-99) mg/dL Microbiology - Last 24 Hours (Table) 04/04/20 12:25 Urine Culture - Preliminary Urine,Clean Catch Gram Neg Bacilli Gram Neg Bacilli#2 Assessment and Plan Assessment: Shortness of breath, congestive heart failure acute exacerbation with acute on chronic diastolic dysfunction, ejection fraction 50-60% with acute hypoxic hypercarbic respiratory failure Elevated CO2 Possible acute urinary tract infection, present on admission Rule out chronic obstructive pulmonary disease Generalized weakness and gait dysfunction History of fall Atrial fibrillation Diabetes mellitus type 2 Valvular disease with mitral regurgitation as well as possible mitral stenosis History of degenerative joint disease Hypertension hypothyroidism history of nephrolithiasis History of DVT of the left leg Right shoulder pain history of cholecystectomy Obesity with a body mass index of 37.7 Full code Plan: Continue current medications, management, and symptomatic treatment. PT/OT following. Monitor vital signs and labs closely. Maintain oxygen saturation and monitor frequently for periods of hypoxia. Cardiology and pulmonary following closely. Urinalysis preliminary showing gram-negative bacilli and will await for finalization. Initiated on IV ceftriaxone. Case management and social work also following and working on possible discharge planning. Family concerned with deterioration in clinical status and requested a hospice consult for information only and will possibly have hospice at the home. Due to multiple complex medical issues, prognosis is guarded. Further recommendations to follow.
[2020-04-06 16:54] LABS: Glucose,Whole Blood 107 mg/dL (75-99)
[2020-04-06 17:43] VITALS: BMI 37.3
[2020-04-06] MEDS ORDERED: WARFARIN 3 MG TAB PO ONE (18:00)
[2020-04-06 18:27] LABS: Appearance,Urine Clear (Clear); Bacteria,Urine Many /hpf; Bilirubin,Urine Negative (Negative); Blood,Urine Negative (Negative); Color,Urine Light Yellow; Glucose,Urine (UA) Negative (Negative); Hyaline Casts,Urine 1 /lpf (0-2); Ketones,Urine Negative (Negative); Leukocyte Esterase,Urine Small (Negative); Mucus,Urine Rare /hpf; Nitrite,Urine Negative (Negative); Protein,Urine Negative (Negative); RBC,Urine 1 /hpf (0-5); Specific Gravity,Urine 1.007 (1.001-1.035); Squamous Epithelial Cell,Urine <1 /hpf (0-4); Urobilinogen,Urine <2.0 mg/dL (<2.0); WBC,Urine 13 /hpf (0-5)
[2020-04-06] MEDS: JANUVIA 50 MG PO SCH (20:08)
[2020-04-06 20:40] LABS: Glucose,Whole Blood 142 mg/dL (75-99)
[2020-04-07 07:08] LABS: Glucose,Whole Blood 121 mg/dL (75-99)
[2020-04-07] MEDS: INSULIN ASPART (NovoLOG) 100 UNIT/ML VIAL SQ SCH ×4 (07:42→21:07)
[2020-04-07] MEDS: SYMBICORT 160-4.5 MCG INHALER INHALATION SCH ×2 (08:07→19:20)
[2020-04-07 08:18] LABS: Prothrombin Time 19.8 sec (9.0-12.0)
[2020-04-07] MEDS: guaiFENesin 600 MG TABLET.ER PO SCH ×2 (09:26→21:01)
[2020-04-07] MEDS: METOPROLOL SUCCINATE (ER) 25 MG TAB.ER.24H PO SCH ×2 (09:26→21:01)
[2020-04-07] MEDS: GLIMEPIRIDE 1 MG TAB PO SCH (09:26)
[2020-04-07] MEDS: VALSARTAN 160 MG TAB PO SCH (09:27)
[2020-04-07] MEDS: FLECAINIDE 50 MG TAB PO SCH ×2 (09:27→21:00)
[2020-04-07] MEDS: FUROSEMIDE 40 MG TAB PO SCH (09:27)
[2020-04-07] MEDS: allopurinoL 100 MG TAB PO SCH (09:27)
[2020-04-07] MEDS: ARMOUR THYROID 60 MG PO SCH (09:28)
[2020-04-07] MEDS: PANTOPRAZOLE 40 MG TABLET PO SCH (09:53)
--- NOTE | 2020-04-07 10:16 | P.PN ---
Subjective Progress Note Date: 04/07/20 Principal diagnosis: Acute hypoxic respiratory failure secondary to an acute exacerbation of diastolic CHF This is a very pleasant 84-year-old female patient with a known history of renal cell carcinoma with previous right nephrectomy and the left kidney simple cyst, coronary arteriosclerosis, mild intermittent chronic bronchial asthma, hypothyroidism, paroxysmal atrial fibrillation on warfarin, osteoarthritis, hyperlipidemia, diabetes mellitus, diabetic retinopathy, carotid artery stenosis 50-69% left carotid, recent fall with hematoma to the left buttocks. She was seen in our office yesterday by Dr. Ivy for complaints of increasing shortness of breath and acute hypoxemic respiratory failure with an O2 saturation of 70% on room air is, she recovered to 90% on 3 L. Chest x-ray revealed interstitial edema and small bilateral pleural effusions. He had some concern regarding possible underlying metastatic disease. She was referred to the emergency room for the same. Computed tomography scan of the brain revealed no acute process. EKG revealed sinus rhythm with first-degree AV block. Echocardiogram revealed preserved left ventricular systolic function with ejection fraction 55-60%. Severe mitral calcification, moderate mitral regurgitation. Moderate pulmonary hypertension. She is seen today in consultation on the regular medical floor. She is currently resting flat in bed. Awake and alert in no acute distress. Breathing quite a bit easier today compared to yesterday. Maintaining O2 saturations in the low 90s on 4 L/m per nasal cannula. She's been afebrile. Hemodynamically stable. White count 9.8. Hemoglobin 13.9. INR 1.9. Sodium 137. Potassium 4.6. Creatinine 1.64. ProBNP 2370. Troponin negative 1. Urinalysis with moderate bacteria. She's been initiated on Lasix 40 mg IV every 12 hours. Continued on bronchodilators. Anticoagulated with warfarin. The patient is seen today 04/04/2020 in follow-up on the regular medical floor. She is awake and alert in no acute distress. Resting comfortably in bed. Breathing easier today compared to yesterday. Maintaining O2 saturations in the 90s on 4 L/m per nasal cannula. She's been afebrile. Hemodynamically stable. White count 8.5. Hemoglobin 13.2. INR 1.8. Sodium 139. Potassium 5.1. Bicarb 41. Creatinine 1.38. Remains on diuretics. Remains in a negative michael ce. The patient is seen today 04/05/2020 in follow-up on the regular medical floor. She is currently resting comfortably in bed. Awake and alert in no acute distress. She denies any worsening shortness of breath, cough or congestion. Maintaining O2 saturation in the 90s on 4 L/m per nasal cannula. She's been afebrile. Hemodynamically stable. Urine culture pending. White count 9.2. Hemoglobin 13.3. INR 1.8. Sodium 137. Potassium 5.1. Creatinine 1.52. She is having some issues with difficulty swallowing. On 04/06/2020 patient sees seen in follow-up on the general medical oncology floor. She states she is breathing better, she is currently on 4 L of oxygen with pulse ox of 91%, she is afebrile, her breathing is nonlabored at rest, does get short of breath with exertion, no acute events overnight. She continues on daily dose of oral Lasix, her intake and output and fluid balance is difficult to estimate, patient is avoiding on the commode, and her weight is trending down. The nurse said patient still desats on room air down into the 70s, she still requiring supplemental oxygen currently at 4 L. Normally not oxygen dependent. Today's labs have been reviewed showing normal white count at 9.6, hemoglobin is 13.6, INR is 2.0, sodium is 136, potassium is 5.1, chloride is 93, CO2 37, BUN is 40 and creatinine is 1.28, renal profile seems to have slightly improved. Her urine culture came back positive for gram-negative bacilli of 2 different types, and organism 1 is greater than 100,000 CFU per mL, and final culture is pending. Patient is currently not on any antibiotics, denies any urinary symptoms, patient has been afebrile On 04/07/2020 patient seen in follow-up on a general medical oncology floor. She is calm and comfortable, she sitting up in the recliner, denies any acute distress, she states she is feeling better, she is currently on 4 L of oxygen her pulse ox is 92%, hemodynamically stable, no fever or chills, she is on Rocephin for a urinary tract infection, and her urine cultures showed E. coli and Proteus mirabilis. No altered mentation, no difficulty breathing. Continues on oral Lasix of 40 mg daily. Objective - Vital Signs Vital signs: Vital Signs Temp 98.3 F 04/07/20 04:45 Pulse 70 04/07/20 04:45 Resp 20 04/07/20 04:45 BP 163/88 04/07/20 04:45 Pulse Ox 92 L 04/07/20 04:45 Intake & Output 04/06/20 04/07/20 04/07/20 18:59 06:59 18:59 Intake Total 860 Output Total 200 Balance -200 860 Weight 86.6 kg 88.5 kg Intake: Oral 860 Output: Urine 200 Other: Voiding Method Toilet Toilet Bedside Commode Bedside Commode # Voids 1 4 - Exam GENERAL EXAM: Alert, very pleasant, 84-year-old white female, on 4 L of oxygen with a pulse ox of 92% comfortable in no apparent distress. HEAD: Normocephalic/atraumatic. EYES: Normal reaction of pupils, equal size. Conjunctiva pink, sclera white. NOSE: Clear with pink turbinates. THROAT: No erythema or exudates. NECK: No masses, no JVD, no thyroid enlargement, no adenopathy. CHEST: No chest wall deformity. Symmetrical expansion. LUNGS: Equal air entry with no crackles, wheeze, rhonchi or dullness. CVS: Regular rate and rhythm, normal S1 and S2, no gallops, no murmurs, no rubs ABDOMEN: Soft, nontender. No hepatosplenomegaly, normal bowel sounds, no guarding or rigidity. EXTREMITIES: No clubbing, no edema, no cyanosis, 2+ pulses and upper and lower extremities. MUSCULOSKELETAL: Muscle strength and tone normal. SPINE: No scoliosis or deformity SKIN: No rashes CENTRAL NERVOUS SYSTEM: Alert and oriented -3. No focal deficits, tone is normal in all 4 extremities. PSYCHIATRIC: Alert and oriented -3. Appropriate affect. Intact judgment and insight. - Labs CBC & Chem 7: 04/06/20 08:01 04/06/20 08:01 Labs: Abnormal Lab Results - Last 24 Hours (Table) 04/06/20 04/06/20 04/06/20 Range/Units 08:01 08:01 11:19 Hct 46.5 H (34.0-46.0) % MCHC 29.2 L (31.0-37.0) g/dL Neutrophils # 7.8 H (1.3-7.7) k/uL Lymphocytes # 0.8 L (1.0-4.8) k/uL PT (9.0-12.0) sec INR (<1.2) Sodium 136 L (137-145) mmol/L Chloride 93 L (98-107) mmol/L Carbon Dioxide 37 H (22-30) mmol/L BUN 40 H (7-17) mg/dL Creatinine 1.28 H (0.52-1.04) mg/dL Glucose 107 H (74-99) mg/dL POC Glucose (mg/dL) 175 H (75-99) mg/dL Ur Leukocyte Esterase (Negative) Urine WBC (0-5) /hpf Urine Bacteria (None) /hpf Urine Mucus (None) /hpf 04/06/20 04/06/20 04/06/20 Range/Units 16:52 18:14 20:29 Hct (34.0-46.0) % MCHC (31.0-37.0) g/dL Neutrophils # (1.3-7.7) k/uL Lymphocytes # (1.0-4.8) k/uL PT (9.0-12.0) sec INR (<1.2) Sodium (137-145) mmol/L Chloride (98-107) mmol/L Carbon Dioxide (22-30) mmol/L BUN (7-17) mg/dL Creatinine (0.52-1.04) mg/dL Glucose (74-99) mg/dL POC Glucose (mg/dL) 107 H 142 H (75-99) mg/dL Ur Leukocyte Esterase Small H (Negative) Urine WBC 13 H (0-5) /hpf Urine Bacteria Many H (None) /hpf Urine Mucus Rare H (None) /hpf 04/07/20 04/07/20 Range/Units 07:06 07:18 Hct (34.0-46.0) % MCHC (31.0-37.0) g/dL Neutrophils # (1.3-7.7) k/uL Lymphocytes # (1.0-4.8) k/uL PT 19.8 H (9.0-12.0) sec INR 2.0 H (<1.2) Sodium (137-145) mmol/L Chloride (98-107) mmol/L Carbon Dioxide (22-30) mmol/L BUN (7-17) mg/dL Creatinine (0.52-1.04) mg/dL Glucose (74-99) mg/dL POC Glucose (mg/dL) 121 H (75-99) mg/dL Ur Leukocyte Esterase (Negative) Urine WBC (0-5) /hpf Urine Bacteria (None) /hpf Urine Mucus (None) /hpf Microbiology - Last 24 Hours (Table) 04/06/20 18:14 Urine Culture - Preliminary Urine,Voided 04/04/20 12:25 Urine Culture - Final Urine,Clean Catch Escherichia coli Proteus mirabilis Assessment and Plan Plan: Assessment: 1 Acute hypoxemic respiratory failure secondary to acute exacerbation of diastolic congestive heart failure, moderate mitral regurgitation, moderate pulmonary hypertension. 2 History of renal cell carcinoma with previous right nephrectomy and left kidney simple cyst 3 Acute on chronic renal failure, improving. Current creatinine 1.52 4 Urinary tract infection, related to E. coli and Proteus mirabilis, patient was started on Rocephin 5 Coronary artery disease 6 Mild intermittent chronic bronchial asthma 7 Hypothyroidism 8 Proximal atrial fibrillation, currently in sinus rhythm, on warfarin 9 Osteoarthritis 10 Hyperlipidemia 11 Hypertension 12 Diabetes mellitus 13 Diabetic retinopathy 14 Carotid stenosis, left 15 Recent fall with traumatic hematoma of the left hip and left upper extremity Plan: Vital signs are stable, breathing is comfortable, continue current dose of oral Lasix, patient has been started on Rocephin, no fever or chills, hemodynamically stable, no altered mental status, patient states she is feeling better, from pu lmonary perspective patient is doing better, and is probably close to possible discharge today or tomorrow. I performed a history & physical examination of the patient and discussed their management with my nurse practitioner, Adali Lyles. I reviewed the nurse practitioner's note and agree with the documented findings and plan of care. Lung sounds are positive for diminished breath sounds. The findings and the impression was discussed with the patient. I attest to the documentation by the nurse practitioner. Time with Patient: Less than 30
[2020-04-07 11:36] LABS: Glucose,Whole Blood 118 mg/dL (75-99)
--- NOTE | 2020-04-07 14:14 | P.CNNES ---
History of Present Illness Consult date: 04/07/20 Requesting physician: Nader Anaya Reason for Consult: Myoclonic jerks History of Present Illness: I came to see patient last night but she was asleep. Therefore came today for evaluation. Patient is a 84-year-old female, who actually transferred from a doctor's office came on 04/02/2020 for generalized weakness, shortness of breath, not doing well for last several weeks, progressively worse increased weakness. Patient was noted to have 80% pulse ox in triage area. She was having decreased activities of daily living, not able to care for herself. Patient was diagnosed with acute on chronic renal insufficiency, CHF. She also has acute hypoxemic respiratory failure secondary to acute exacerbation of diastolic CHF, moderate MR and moderate pulmonary hypertension. Also diagnosed with acute UTI. Patient also has been having some myoclonic jerks. This prompted neurology consultation. Patient's daughter was also present today. Patient states that she has been having these jerks for the last 1 week prior to arrival. Patient underwent CT head showed no acute process. 2-D echo showed normal left ventricular size, moderate concentric LVH. EF is 55-60%. Severe mitral annular calcification. Moderate MR. Mild to moderate mitral stenosis. Chest x-ray showed small left pleural effusion. Moderate to marked enlargement of the cardiac seafood but tortuous thoracic aorta. EKG shows sinus rhythm with first- degree AV block. Patient had a carotid Doppler on 03/27/2019 which revealed tortuous left ICA. There is moderate narrowing of the left ICA based on velocity between 50 and 69%. Correlate with patient's symptoms.. This may be better evaluated with CTA of carotid vessels. Patient's UA had grown > 100,000 E. coli, and 10,000- 49,000 Proteus mirabilis. Patient is currently on Rocephin 1 g every 24 hours. Review of Systems Patient denies any shortness of breath although she does appear slightly short of breath. Denies abdominal pain nausea vomiting diarrhea. Patient has history of double vision for which she has prismatic lenses. Denies numbness tingling. Complains of some memory difficulties at times. No seizures. Complains of some fatigue. No fever or chills. Denies weight loss. All other review of systems negative. Past Medical History Past Medical History: Atrial Fibrillation, Cancer, Diabetes Mellitus, Deep Vein Thrombosis (DVT), Hypertension, Osteoarthritis (OA), Thyroid Disorder Additional Past Medical History / Comment(s): LOW THYROID, HX OF MONO., KIDNEY STONES.& DVT LEFT LEG., PAIN RIGHT SHOULDER. Renal cancer with nephrectomy, 2016 History of Any Multi-Drug Resistant Organisms: None Reported Past Surgical History: Breast Surgery, Cholecystectomy, Hysterectomy, Joint Replacement, Orthopedic Surgery Additional Past Surgical History / Comment(s): YULIA CATARACTS, COLONOSCOPY, MULTI PLE SURGERIES LEFT KNEE, YULIA KNEE REPLACEMENT, BREAST REDUCTION, LEFT ANKLE FX REPAIR WITH HARDWARE. Right kidney removed secondary to CA Past Anesthesia/Blood Transfusion Reactions: Previous Problems w/ Anesthesia, Postoperative Nausea & Vomiting (PONV) Additional Past Anesthesia/Blood Transfusion Reaction / Comment(s): PT STATES THAT VERSED MAKES HER SLEEP FOR DAYS. Past Psychological History: No Psychological Hx Reported Smoking Status: Never smoker Past Alcohol Use History: None Reported Past Drug Use History: None Reported - Past Family History Mother Family Medical History: Cancer Additional Family Medical History / Comment(s): BREAST CANCER Sister(s) Family Medical History: Cancer Additional Family Medical History / Comment(s): BREAST CANCER Father Family Medical History: Diabetes Mellitus Medications and Allergies Home Medications Medication Instructions Recorded Confirmed Type Glimepiride [Amaryl] 1 mg PO DAILY 11/25/15 04/02/20 History NIFEdipine [NIFEdipine ER] 60 mg PO DAILY 11/25/15 04/02/20 History Warfarin [Coumadin] 2.5 mg PO MOFR 11/25/15 04/02/20 History Warfarin [Coumadin] 5 mg PO SUTUWETHSA 11/25/15 04/02/20 History Flecainide Acetate [Tambocor] 100 mg PO Q12HR 06/21/18 04/02/20 History Metoprolol Succinate (ER) [Toprol 25 mg PO BID 06/21/18 04/02/20 History Xl] sitaGLIPtin [Januvia] 50 mg PO HS 06/21/18 04/02/20 History Albuterol Sulfate [Proair Hfa] 1 - 2 puff INHALATION RT-Q6H PRN 04/02/20 04/02/20 History Allopurinol [Zyloprim] 100 mg PO DAILY 04/02/20 04/02/20 History Budesonide/Formoterol Fumarate 2 puff INHALATION RT-BID 04/02/20 04/02/20 History [Symbicort 160-4.5 Mcg Inhaler] Ergocalciferol [Vitamin D2] 50,000 unit PO Q30D 04/02/20 04/02/20 History Furosemide [Lasix] 40 mg PO DAILY 04/02/20 04/02/20 History Thyroid,Pork [[place] Thyroid] 60 mg PO DAILY 04/02/20 04/02/20 History Valsartan 320 mg PO DAILY 04/02/20 04/02/20 History Allergies Allergy/AdvReac Type Severity Reaction Status Date / Time levothyroxine sodium Allergy Unknown Verified 04/02/20 17:11 [From Synthroid] Childhood metformin [From Glucophage] Allergy Unknown Verified 04/02/20 17:11 Childhood pioglitazone [From Actos] Allergy Unknown Verified 04/02/20 17:11 Childhood midazolam HCl [From Versed] AdvReac Unknown Pt states Verified 04/02/20 17:11 she sleeps for days peanut AdvReac Unknown Cough Verified 04/02/20 17:11 Physical Examination - Vital Signs Vital Signs: Vital Signs Temp Pulse Resp BP Pulse Ox 04/07/20 04:45 98.3 F 70 20 163/88 92 L 04/07/20 00:00 66 18 04/06/20 20:53 97.4 F L 69 18 164/71 92 L 04/06/20 13:00 97.5 F L 70 16 135/60 100 Intake and Output 04/06/20 04/07/20 04/07/20 22:59 06:59 14:59 Intake Total 360 500 Output Total 200 Balance 160 500 Intake: Oral 360 500 Output: Urine 200 Other: Voiding Method Toilet Toilet Bedside Commode Bedside Commode # Voids 1 4 Weight 86.6 kg 88.5 kg On examination patient is an elderly female, in no acute distress. Patient is alert and awake. Patient knows that it is March 2020 and that she isn't [facility] in [facility]. Knows her date of . Speech and language functions are normal. Attention and concentration fund of knowledge appears adequate. Further detailed testing deferred. On cranial examination, pupils are round and reacting to light, visual luther are full on confrontation. Extraocular muscles are intact with no nystagmus. Face is symmetric, tongue protrudes the midline. Palatal elevation and sensation normal. Hearing and shoulder shrug normal. On muscle strength testing the strength is normal in the arms and legs. Reflexes are 1+ and plantars are downgoing. Sensory touch is equal. No ataxia for [id number] testing. Patient does have myoclonic jerks of outstretched hands, slight asterixis noted. Tone and bulk of muscles normal. Gait deferred. No obvious bruit, S1 and S2 audible. No peripheral edema. Abdomen soft nontender. Chest is clear. Results - Laboratory Findings CBC and BMP: 04/06/20 08:01 04/06/20 08:01 Abnormal Lab Findings: Abnormal Labs 04/02/20 04/02/20 04/02/20 16:03 16:03 16:03 WBC 10.8 H Hct 49.3 H MCV MCHC 29.9 L RDW 15.7 H Neutrophils # 8.4 H Lymphocytes # PT 19.6 H INR 2.0 H Sodium Chloride 95 L Carbon Dioxide 33 H BUN 57 H Creatinine 1.74 H Glucose 69 L POC Glucose (mg/dL) Creatine Kinase 26 L Urine Protein Ur Leukocyte Esterase Urine WBC Urine Bacteria Urine Mucus 04/02/20 04/03/20 04/03/20 17:45 05:21 05:21 WBC Hct MCV 100.1 H MCHC 30.9 L RDW Neutrophils # Lymphocytes # PT 18.6 H INR 1.9 H Sodium Chloride Carbon Dioxide BUN Creatinine Glucose POC Glucose (mg/dL) Creatine Kinase Urine Protein Trace H Ur Leukocyte Esterase Moderate H Urine WBC 9 H Urine Bacteria Moderate H Urine Mucus 04/03/20 04/03/20 04/03/20 05:21 11:44 17:02 WBC Hct MCV MCHC RDW Neutrophils # Lymphocytes # PT INR Sodium Chloride 95 L Carbon Dioxide 37 H BUN 54 H Creatinine 1.64 H Glucose POC Glucose (mg/dL) 100 H 118 H Creatine Kinase Urine Protein Ur Leukocyte Esterase Urine WBC Urine Bacteria Urine Mucus 04/03/20 04/04/20 04/04/20 21:57 07:20 07:20 WBC Hct MCV MCHC 29.5 L RDW Neutrophils # Lymphocytes # PT 17.8 H INR 1.8 H Sodium Chloride Carbon Dioxide BUN Creatinine Glucose POC Glucose (mg/dL) 137 H Creatine Kinase Urine Protein Ur Leukocyte Esterase Urine WBC Urine Bacteria Urine Mucus 04/04/20 04/04/20 04/04/20 07:20 07:20 11:47 WBC Hct MCV MCHC RDW Neutrophils # Lymphocytes # PT INR Sodium Chloride 95 L Carbon Dioxide 41 H* BUN 41 H Creatinine 1.38 H Glucose 101 H POC Glucose (mg/dL) 103 H 183 H Creatine Kinase Urine Protein Ur Leukocyte Esterase Urine WBC Urine Bacteria Urine Mucus 04/04/20 04/04/20 04/05/20 17:08 20:38 07:14 WBC Hct MCV MCHC RDW Neutrophils # Lymphocytes # PT INR Sodium Chloride Carbon Dioxide BUN Creatinine Glucose POC Glucose (mg/dL) 131 H 172 H 130 H Creatine Kinase Urine Protein Ur Leukocyte Esterase Urine WBC Urine Bacteria Urine Mucus 04/05/20 04/05/20 04/05/20 07:46 07:46 07:46 WBC Hct MCV MCHC 29.3 L RDW Neutrophils # Lymphocytes # PT 17.9 H INR 1.8 H Sodium Chloride 95 L Carbon Dioxide 37 H BUN 44 H Creatinine 1.52 H Glucose 121 H POC Glucose (mg/dL) Creatine Kinase Urine Protein Ur Leukocyte Esterase Urine WBC Urine Bacteria Urine Mucus 04/05/20 04/05/20 04/05/20 12:12 17:05 20:24 WBC Hct MCV MCHC RDW Neutrophils # Lymphocytes # PT INR Sodium Chloride Carbon Dioxide BUN Creatinine Glucose POC Glucose (mg/dL) 121 H 155 H 141 H Creatine Kinase Urine Protein Ur Leukocyte Esterase Urine WBC Urine Bacteria Urine Mucus 04/06/20 04/06/20 04/06/20 07:09 08:01 08:01 WBC Hct 46.5 H MCV MCHC 29.2 L RDW Neutrophils # 7.8 H Lymphocytes # 0.8 L PT 19.1 H INR 2.0 H Sodium Chloride Carbon Dioxide BUN Creatinine Glucose POC Glucose (mg/dL) 135 H Creatine Kinase Urine Protein Ur Leukocyte Esterase Urine WBC Urine Bacteria Urine Mucus 04/06/20 04/06/20 04/06/20 08:01 11:19 16:52 WBC Hct MCV MCHC RDW Neutrophils # Lymphocytes # PT INR Sodium 136 L Chloride 93 L Carbon Dioxide 37 H BUN 40 H Creatinine 1.28 H Glucose 107 H POC Glucose (mg/dL) 175 H 107 H Creatine Kinase Urine Protein Ur Leukocyte Esterase Urine WBC Urine Bacteria Urine Mucus 04/06/20 04/06/20 04/07/20 18:14 20:29 07:06 WBC Hct MCV MCHC RDW Neutrophils # Lymphocytes # PT INR Sodium Chloride Carbon Dioxide BUN Creatinine Glucose POC Glucose (mg/dL) 142 H 121 H Creatine Kinase Urine Protein Ur Leukocyte Esterase Small H Urine WBC 13 H Urine Bacteria Many H Urine Mucus Rare H 04/07/20 07:18 WBC Hct MCV MCHC RDW Neutrophils # Lymphocytes # PT 19.8 H INR 2.0 H Sodium Chloride Carbon Dioxide BUN Creatinine Glucose POC Glucose (mg/dL) Creatine Kinase Urine Protein Ur Leukocyte Esterase Urine WBC Urine Bacteria Urine Mucus Assessment and Plan Assessment: * Myoclonic jerks, likely multifactorial, but probably related to underlying metabolic dysfunction. Primary cause is being underlying cardiopulmonary dysfunction as mentioned below, along with UTI, acute and chronic renal insufficiency. * Acute hypoxemic respiratory failure secondary to acute exacerbation of diastolic congestive heart failure, moderate MR and moderate pulmonary hypertension. * Atrial fibrillation, currently on warfarin. * Moderate left ICA stenosis 50-69%. Plan: * Patient's myoclonic jerks are likely related to underlying cardiopulmonary dysfunction. * Cardiology and pulmonary/critical care team on board. Treatment of underlying cardiopulmonary condition and other medical conditions will improve these myoclonic jerks and asterixis. * No other neurological workup indicated. * Suggest outpatient overnight polysomnogram to rule out obstructive sleep apnea or PLMS. * Neurology will sign off. Please call neurology if any other concerns.
--- NOTE | 2020-04-07 14:39 | XR ---
EXAMINATION TYPE: XR chest 1V portable DATE OF EXAM: 04/07/2020 CLINICAL HISTORY: Follow-up to pleural effusion. TECHNIQUE: Upright portable view of the chest obtained. COMPARISON: Chest radiograph 04/02/2020 FINDINGS: Unchanged cardiomegaly. Mediastinal silhouette within normal limits. Small left pleural ef fusion unchanged versus 04/02/2020. No pneumothorax seen. The osseous structures are intact. IMPRESSION: Unchanged small left pleural effusion.
--- NOTE | 2020-04-07 15:20 | P.PN ---
Subjective Progress Note Date: 04/07/20 Principal diagnosis: This is an 84-year-old female who was recently admitted with shortness of breath as well as congestive heart failure acute exacerbation and is being closely mo nitored. Patient's lung sounds are much improved although patient continues to become extremely dyspneic with exertion and continues to be extremely weak and lethargic. PT/OT to evaluate the patient and assess for possible ECF placement. Family at the Bedside today with discussion of possible home care with physical therapy in the outpatient setting. Will await PT notes. Case management and s ocial work following and working on possible discharge planning needs. Currently patient has no reports of chest pain, worsening shortness of breath, or palpitations. Patient is afebrile. No reports of nausea or vomiting and patient is tolerating diet. States that she has been having some difficulty with fully swallowing her food and ends up spitting it up. We'll consult speech therapist for swallow eval. 04/06/2020 Patient is seen and evaluated in follow-up continues to be lethargic and weak and per daughter at the bedside has been progressively getting worse and having a harder time with getting up and moving around and getting to the commode. Patient's breathing has improved and is currently maintained on oral Lasix and will continue at this time. Patient also continues with bronchodilators and will continue. Pulmonary following. Patient denies having any dysuria or retention although urine cultures showing gram-negative bacilli and will initiate IV ceftriaxone while awaiting cultures to finalized. Repeat urinalysis with culture was ordered. Patient's family members are concerned with her continued deterioration and would like to consult with hospice for informational meeting and may potentially sign on to hospice in the home setting. Patient is afebrile. No reports of nausea but continues to have some swallowing difficulties and does spit food up medication. Speech pathology evaluated the patient and noted these findings and a GI consult was placed and currently pending. 04/07/2020 Patient is seen and evaluated in follow-up today and is much more awake and alert and is able to reposition herself after getting up to the commode in the bed much better than yesterday. Patient's breathing continues to be dyspneic at times although states has improved. Pulmonary following closely. She was seen and evaluated by neurology for some twitching and upper extremity weakness although recommends possible outpatient sleep studies done in the future. Patient was seen and reevaluated by cardiology recommending continued same medication regimen in Lasix dose and will follow-up with cardiology in the outpatient setting in 1 week. Patient is currently maintained on ceftriaxone as urine cultures finalized showing E. coli with Proteus mirabilis. Repeat chest x-ray today is unchanged from previous study. Per daughter at the bedside patient's mentation and unsteadiness has improved since initiating antibiotics. Patient and family did meet with hospice for informational meeting only and are not currently ready to sign on with hospice. Case Management following to arrange for possible home care with physical therapy in the outpatient setting. Currently patient has no chest pain, worsening shortness of breath, or palpitations. Patient is afebrile. No reports of nausea or vomiting and patient is tolerating diet with no swallowing difficulties noted. Patient was evaluated by GI and recommended possible upper EGD if patient continues to have swallowing difficulties. Patient and family opted to not have the EGD done at this time and will follow-up outpatient as needed. Objective - Vital Signs Vital signs: Vital Signs Temp 97.7 F 04/07/20 13:00 Pulse 66 04/07/20 13:00 Resp 16 04/07/20 13:00 BP 155/71 04/07/20 13:00 Pulse Ox 91 L 04/07/20 13:00 Intake & Output 04/06/20 04/07/20 04/07/20 18:59 06:59 18:59 Intake Total 860 Output Total 200 Balance -200 860 Weight 86.6 kg 88.5 kg Intake: Oral 860 Output: Urine 200 Other: Voiding Method Toilet Toilet Bedside Commode Bedside Commode # Voids 1 4 - Exam Gen: This is a 84-year-old female sitting up in the bed, awake, alert and oriented 3, well-developed, well-nourished, obese. HEENT: Head is atraumatic, normocephalic. Pupils equal, round. Sclerae is anicteric. NECK: Supple. No JVD. No lymphadenopathy. No thyromegaly. LUNGS: Diminished breath sounds bilaterally with some scattered rhonchi and no w heezing noted on exam. No intercostal retractions. HEART: S1, S2 are muffled ABDOMEN: Soft. Mildly distended. Obese. Bowel sounds are present. No masses. No tenderness noted on palpation. EXTREMITIES: No pedal edema. No calf tenderness. NEUROLOGICAL: Patient is lethargic but arousable , alert and oriented x3. Diffusely weak - Labs CBC & Chem 7: 04/06/20 08:01 04/06/20 08:01 Labs: Abnormal Lab Results - Last 24 Hours (Table) 04/06/20 04/06/20 04/06/20 Range/Units 16:52 18:14 20:29 PT (9.0-12.0) sec INR (<1.2) POC Glucose (mg/dL) 107 H 142 H (75-99) mg/dL Ur Leukocyte Esterase Small H (Negative) Urine WBC 13 H (0-5) /hpf Urine Bacteria Many H (None) /hpf Urine Mucus Rare H (None) /hpf 04/07/20 04/07/20 04/07/20 Range/Units 07:06 07:18 11:22 PT 19.8 H (9.0-12.0) sec INR 2.0 H (<1.2) POC Glucose (mg/dL) 121 H 118 H (75-99) mg/dL Ur Leukocyte Esterase (Negative) Urine WBC (0-5) /hpf Urine Bacteria (None) /hpf Urine Mucus (None) /hpf Microbiology - Last 24 Hours (Table) 04/06/20 18:14 Urine Culture - Preliminary Urine,Voided 04/04/20 12:25 Urine Culture - Final Urine,Clean Catch Escherichia coli Proteus mirabilis Assessment and Plan Assessment: Shortness of breath, congestive heart failure acute exacerbation with acute on chronic diastolic dysfunction, ejection fraction 50-60% with acute hypoxic hypercarbic respiratory failure Elevated CO2 acute urinary tract infection, present on admission Rule out chronic obstructive pulmonary disease Generalized weakness and gait dysfunction History of fall Atrial fibrillation Diabetes mellitus type 2 Valvular disease with mitral regurgitation as well as possible mitral stenosis History of degenerative joint disease Hypertension hypothyroidism history of nephrolithiasis History of DVT of the left leg Right shoulder pain history of cholecystectomy Obesity with a body mass index of 37.7 Full code Plan: Continue current medications, management, and symptomatic treatment. PT/OT following. Monitor vital signs and labs closely. Cardiology and pulmonary following closely. Urinalysis culture showing E. coli with Proteus mirabilis Initiated on IV ceftriaxone. Case management and social work also following and working on possible discharge planning as family and patient want home care with physical therapy in the home setting. Due to multiple complex medical issues, prognosis is guarded. Further recommendations to follow. Anticipate discharge in 24 hours.
[2020-04-07 17:28] LABS: Glucose,Whole Blood 133 mg/dL (75-99)
[2020-04-07] MEDS ORDERED: WARFARIN 5 MG TAB PO SCH (18:00)
[2020-04-07 20:55] LABS: Glucose,Whole Blood 121 mg/dL (75-99)
[2020-04-07] MEDS: JANUVIA 50 MG PO SCH (21:01)
[2020-04-08 05:09] VITALS: RESP 16
--- NOTE | 2020-04-08 06:43 | P.CONS ---
History of Present Illness - Reason for Consult Consult date: 04/06/20 Dysphagia Requesting physician: Angi Painting - Chief Complaint Shortness of breath - History of Present Illness 84-year-old female with multiple medical comorbidities including coronary artery disease, hypothyroidism, atrial fibrillation, osteoarthritis, hyperlipidemia, diabetes mellitus, diabetic retinopathy, carotid stenosis and renal cell carcinoma status post prior right nephrectomy who was admitted to the hospital for complaints of worsening shortness of breath. Currently the patient is receiving treatment for acute hypoxic respiratory failure secondary to acute exacerbation of diastolic heart failure and a urinary tract infection. GI was consulted to see the patient due to complaints over difficulty swallowing. Of note history is been taken in discussion with the patient as well as her daughter who is bedside. The patient has had intermittent episodes with swallowing and has brought up food on 3 occasions including yogurt and waffles. They reports she has issues with oral secretions. She was seen by the speech- language pathology service and was able to pass a bedside swallow. She is also been able to tolerate her diet. No complaints of odynophagia at this time. No complaints of abdominal pain. Review of Systems REVIEW OF SYSTEMS: CONSTITUTIONAL: Denies any fevers, chills, weight change but she had reported fatigue. CARDIOVASCULAR: Denies any chest pain, palpitations high or low blood pressures RESPIRATORY: Denies any hemoptysis or cough but she had complained of shortness of breath which is improved at this time. GENITOURINARY: No dysuria or hematuria, currently receiving treatment for UTI. MUSCULOSKELETAL: No focal weakness reported. SKIN: Denies any new rashes or lesions, jaundice or pallor. PSYCHIATRIC: No depression and anxiety. NEUROLOGY: Denies headache, denies any new focal deficits. EARS/NOSE/THROAT: No recent hearing change, congestion, nasal discharge or sore throat. EYES: No pain in eyes, discharge or change in vision. GASTROINTESTINAL: As per HPI. Past Medical History Past Medical History: Atrial Fibrillation, Cancer, Diabetes Mellitus, Deep Vein Thrombosis (DVT), Hypertension, Osteoarthritis (OA), Thyroid Disorder Additional Past Medical History / Comment(s): LOW THYROID, HX OF MONO., KIDNEY STONES.& DVT LEFT LEG., PAIN RIGHT SHOULDER. Renal cancer with nephrectomy, 2016 History of Any Multi-Drug Resistant Organisms: None Reported Past Surgical History: Breast Surgery, Cholecystectomy, Hysterectomy, Joint Replacement, Orthopedic Surgery Additional Past Surgical History / Comment(s): YULIA CATARACTS, COLONOSCOPY, MULTIPLE SURGERIES LEFT KNEE, YULIA KNEE REPLACEMENT, BREAST REDUCTION, LEFT ANKLE FX REPAIR WITH HARDWARE. Right kidney removed secondary to CA Past Anesthesia/Blood Transfusion Reactions: Previous Problems w/ Anesthesia, Postoperative Nausea & Vomiting (PONV) Additional Past Anesthesia/Blood Transfusion Reaction / Comm: PT STATES THAT VERSED MAKES HER SLEEP FOR DAYS. Past Psychological History: No Psychological Hx Reported Smoking Status: Never smoker Past Alcohol Use History: None Reported Past Drug Use History: None Reported - Past Family History Mother Family Medical History: Cancer Additional Family Medical History / Comment(s): BREAST CANCER Sister(s) Family Medical History: Cancer Additional Family Medical History / Comment(s): BREAST CANCER Father Family Medical History: Diabetes Mellitus Medications and Allergies Home Medications Medication Instructions Recorded Confirmed Type Glimepiride [Amaryl] 1 mg PO DAILY 11/25/15 04/02/20 History NIFEdipine [NIFEdipine ER] 60 mg PO DAILY 11/25/15 04/02/20 History Warfarin [Coumadin] 2.5 mg PO MOFR 11/25/15 04/02/20 History Warfarin [Coumadin] 5 mg PO SUTUWETHSA 11/25/15 04/02/20 History Flecainide Acetate [Tambocor] 100 mg PO Q12HR 06/21/18 04/02/20 History Metoprolol Succinate (ER) [Toprol 25 mg PO BID 06/21/18 04/02/20 History Xl] sitaGLIPtin [Januvia] 50 mg PO HS 06/21/18 04/02/20 History Albuterol Sulfate [Proair Hfa] 1 - 2 puff INHALATION RT-Q6H PRN 04/02/20 04/02/20 History Allopurinol [Zyloprim] 100 mg PO DAILY 04/02/20 04/02/20 History Budesonide/Formoterol Fumarate 2 puff INHALATION RT-BID 04/02/20 04/02/20 History [Symbicort 160-4.5 Mcg Inhaler] Ergocalciferol [Vitamin D2] 50,000 unit PO Q30D 04/02/20 04/02/20 History Furosemide [Lasix] 40 mg PO DAILY 04/02/20 04/02/20 History Thyroid,Pork [[place] Thyroid] 60 mg PO DAILY 04/02/20 04/02/20 History Valsartan 320 mg PO DAILY 04/02/20 04/02/20 History Allergies Allergy/AdvReac Type Severity Reaction Status Date / Time levothyroxine sodium Allergy Unknown Verified 04/02/20 17:11 [From Synthroid] Childhood metformin [From Glucophage] Allergy Unknown Verified 04/02/20 17:11 Childhood pioglitazone [From Actos] Allergy Unknown Verified 04/02/20 17:11 Childhood midazolam HCl [From Versed] AdvReac Unknown Pt states Verified 04/02/20 17:11 she sleeps for days peanut AdvReac Unknown Cough Verified 04/02/20 17:11 Physical Exam Vitals: Vital Signs Temp Pulse Resp BP Pulse Ox 04/06/20 05:50 98.3 F 69 16 165/72 91 L 04/05/20 19:50 98.0 F 62 18 159/71 95 Intake and Output 04/05/20 04/06/20 04/06/20 22:59 06:59 14:59 Other: Voiding Method Toilet Bedside Commode # Voids 2 Weight 87.5 kg On physical examination, patient appears comfortable in no apparent distress. HEAD: Normocephalic, atraumatic. EYES: No scleral icterus. No conjunctival injection. MOUTH: No lesions, tongue midline. NECK: Trachea midline, no gross abnormalities. CHEST: Decreased air entry in all lung luther. HEART: S1S2 appreciated. ABDOMEN: Soft, obese, nontender to palpation. Bowel sounds are positive. No organomegaly. No guarding or rigidity. EXTREMITIES: No pedal edema. SKIN: No rashes, no jaundice. NEUROLOGIC: Alert and oriented to person and lethargic but appropriate when aroused. Results CBC & Chem 7: 04/06/20 08:01 04/06/20 08:01 Labs: Abnormal Lab Results - Last 24 Hours (Table) 04/05/20 04/05/20 04/06/20 Range/Units 17:05 20:24 07:09 Hct (34.0-46.0) % MCHC (31.0-37.0) g/dL Neutrophils # (1.3-7.7) k/uL Lymphocytes # (1.0-4.8) k/uL PT (9.0-12.0) sec INR (<1.2) Sodium (137-145) mmol/L Chloride (98-107) mmol/L Carbon Dioxide (22-30) mmol/L BUN (7-17) mg/dL Creatinine (0.52-1.04) mg/dL Glucose (74-99) mg/dL POC Glucose (mg/dL) 155 H 141 H 135 H (75-99) mg/dL 04/06/20 04/06/20 04/06/20 Range/Units 08:01 08:01 08:01 Hct 46.5 H (34.0-46.0) % MCHC 29.2 L (31.0-37.0) g/dL Neutrophils # 7.8 H (1.3-7.7) k/uL Lymphocytes # 0.8 L (1.0-4.8) k/uL PT 19.1 H (9.0-12.0) sec INR 2.0 H (<1.2) Sodium 136 L (137-145) mmol/L Chloride 93 L (98-107) mmol/L Carbon Dioxide 37 H (22-30) mmol/L BUN 40 H (7-17) mg/dL Creatinine 1.28 H (0.52-1.04) mg/dL Glucose 107 H (74-99) mg/dL POC Glucose (mg/dL) (75-99) mg/dL 04/06/20 Range/Units 11:19 Hct (34.0-46.0) % MCHC (31.0-37.0) g/dL Neutrophils # (1.3-7.7) k/uL Lymphocytes # (1.0-4.8) k/uL PT (9.0-12.0) sec INR (<1.2) Sodium (137-145) mmol/L Chloride (98-107) mmol/L Carbon Dioxide (22-30) mmol/L BUN (7-17) mg/dL Creatinine (0.52-1.04) mg/dL Glucose (74-99) mg/dL POC Glucose (mg/dL) 175 H (75-99) mg/dL Microbiology - Last 24 Hours (Table) 04/04/20 12:25 Urine Culture - Preliminary Urine,Clean Catch Gram Neg Bacilli Gram Neg Bacilli#2 Chest x-ray: report reviewed (No definite acute process on chest XR) Assessment and Plan (1) Esophageal dysphagia Narrative/Plan: 84-year-old female with multiple medical comorbidities currently admitted and being treated for an acute exacerbation of her congestive heart failure and a urinary tract infection. GI was consulted for evaluation of dysphagia. The faith spencer was evaluated by the speech-language pathology service with no evidence of oral pharyngeal dysphagia reported. History is taken from the patient and her daughters and she reports intermittent episodes of vomiting and esophageal dysphagia. This is occurred on 3 occasions with foods like waffles and yogurt in the past. Currently denying any odynophagia. The patient has been able to tolerate her diet during her hospitalization and is not interested in further endoscopic evaluation at this time. Current Visit: Yes Status: Acute Code(s): R13.10 - DYSPHAGIA, UNSPECIFIED SNOMED Code(s): 89029497 Plan: Supportive care Okay for diet as tolerated Extensive discussion with the patient and her daughters about lifestyle modifications including small bites of food, sips of water between bites of food, sitting upright during eating and not lying down after eating Patient not interested in endoscopic evaluation at this time, if dysphagia occurs in the outpatient setting can follow-up with GI with consideration for EGD or barium swallow for further evaluation of the esophagus and complaints of dysphagia Continue antibiotic therapy for UTI and treatment of CHF exacerbation per primary team Thank you for allowing us to participate in the care of the patient
--- NOTE | 2020-04-08 06:46 | P.PN ---
Subjective Progress Note Date: 04/07/20 Principal diagnosis: Esophageal dysphagia Patient seen in bed with her daughter bedside. She has continued to tolerate her diet with no further complaints of dysphagia or vomiting. Objective - Vital Signs Vital signs: Vital Signs Temp 98.3 F 04/07/20 04:45 Pulse 66 04/07/20 08:00 Resp 16 04/07/20 08:00 BP 152/69 04/07/20 08:00 Pulse Ox 92 L 04/07/20 04:45 Intake & Output 04/06/20 04/07/20 04/07/20 18:59 06:59 18:59 Intake Total 860 Output Total 200 Balance -200 860 Weight 86.6 kg 88.5 kg Intake: Oral 860 Output: Urine 200 Other: Voiding Method Toilet Toilet Bedside Commode Bedside Commode # Voids 1 4 - Exam On physical examination, patient appears comfortable in no apparent distress. HEAD: Normocephalic, atraumatic. EYES: No scleral icterus. No conjunctival injection. MOUTH: No lesions, tongue midline. NECK: Trachea midline, no gross abnormalities. ABDOMEN: Soft, obese, nontender to palpation. Bowel sounds are positive. No organomegaly. No guarding or rigidity. EXTREMITIES: No pedal edema. SKIN: No rashes, no jaundice. NEUROLOGIC: Alert and oriented to person and lethargic but appropriate when aroused. - Labs CBC & Chem 7: 04/06/20 08:01 04/06/20 08:01 Labs: Abnormal Lab Results - Last 24 Hours (Table) 04/06/20 04/06/20 04/06/20 Range/Units 16:52 18:14 20:29 PT (9.0-12.0) sec INR (<1.2) POC Glucose (mg/dL) 107 H 142 H (75-99) mg/dL Ur Leukocyte Esterase Small H (Negative) Urine WBC 13 H (0-5) /hpf Urine Bacteria Many H (None) /hpf Urine Mucus Rare H (None) /hpf 04/07/20 04/07/20 04/07/20 Range/Units 07:06 07:18 11:22 PT 19.8 H (9.0-12.0) sec INR 2.0 H (<1.2) POC Glucose (mg/dL) 121 H 118 H (75-99) mg/dL Ur Leukocyte Esterase (Negative) Urine WBC (0-5) /hpf Urine Bacteria (None) /hpf Urine Mucus (None) /hpf Microbiology - Last 24 Hours (Table) 04/06/20 18:14 Urine Culture - Preliminary Urine,Voided 04/04/20 12:25 Urine Culture - Final Urine,Clean Catch Escherichia coli Proteus mirabilis Assessment and Plan (1) Esophageal dysphagia Narrative/Plan: 84-year-old female with multiple medical comorbidities currently admitted and being treated for an acute exacerbation of her congestive heart failure and a urinary tract infection. GI was consulted for evaluation of dysphagia. The patient was evaluated by the speech-language pathology service with no evidence of oral pharyngeal dysphagia reported. History is taken from the patient and her daughters and she reports intermittent episodes of vomiting and esophageal dysphagia. This is occurred on 3 occasions with foods like waffles and yogurt in the past. Currently denying any odynophagia. The patient has been able to tolerate her diet during her hospitalization and is not interested in further endoscopic evaluation at this time. Current Visit: Yes Status: Acute Code(s): R13.10 - DYSPHAGIA, UNSPECIFIED SNOMED Code(s): 51730262 Plan: Supportive care Okay for diet as tolerated Extensive discussion with the patient and her daughters about lifestyle m odifications including small bites of food, sips of water between bites of food, sitting upright during eating and not lying down after eating Patient not interested in endoscopic evaluation at this time, if dysphagia occurs in the outpatient setting can follow-up with GI with consideration for EGD or barium swallow for further evaluation of the esophagus and complaints of dysphagia Continue antibiotic therapy for UTI and treatment of CHF exacerbation per primary team Thank you for allowing us to participate in the care of the patient, the GI service will stand by, please call us back with any questions or concerns
[2020-04-08 07:04] LABS: Glucose,Whole Blood 107 mg/dL (75-99)
[2020-04-08] MEDS: SYMBICORT 160-4.5 MCG INHALER INHALATION SCH (07:17)
[2020-04-08] MEDS: INSULIN ASPART (NovoLOG) 100 UNIT/ML VIAL SQ SCH ×2 (07:19→12:11)
[2020-04-08 07:32] VITALS: TEMP 97.9
[2020-04-08 08:08] LABS: INR 2.1 (<1.2); Prothrombin Time 20.3 sec (9.0-12.0)
[2020-04-08] MEDS: PANTOPRAZOLE 40 MG TABLET PO SCH (08:33)
[2020-04-08] MEDS: FLECAINIDE 50 MG TAB PO SCH (09:23)
[2020-04-08] MEDS: allopurinoL 100 MG TAB PO SCH (09:23)
[2020-04-08] MEDS: METOPROLOL SUCCINATE (ER) 25 MG TAB.ER.24H PO SCH (09:24)
[2020-04-08] MEDS: guaiFENesin 600 MG TABLET.ER PO SCH (09:24)
[2020-04-08] MEDS: GLIMEPIRIDE 1 MG TAB PO SCH (09:24)
[2020-04-08] MEDS: FUROSEMIDE 40 MG TAB PO SCH (09:24)
[2020-04-08] MEDS: ARMOUR THYROID 60 MG PO SCH (09:25)
[2020-04-08] MEDS: VALSARTAN 160 MG TAB PO SCH (09:25)
[2020-04-08 11:42] LABS: Glucose,Whole Blood 118 mg/dL (75-99)
[2020-04-08 13:04] VITALS: BP 152/70
[2020-04-08 13:16] VITALS: PULSE 76
--- NOTE | 2020-04-08 14:06 | P.PN ---
Subjective Progress Note Date: 04/08/20 Principal diagnosis: Acute hypoxic respiratory failure secondary to an acute exacerbation of diastolic CHF This is a very pleasant 84-year-old female patient with a known history of renal cell carcinoma with previous right nephrectomy and the left kidney simple cyst, coronary arteriosclerosis, mild intermittent chronic bronchial asthma, hypothyroidism, paroxysmal atrial fibrillation on warfarin, osteoarthritis, hyperlipidemia, diabetes mellitus, diabetic retinopathy, carotid artery stenosis 50-69% left carotid, recent fall with hematoma to the left buttocks. She was seen in our office yesterday by Dr. Ivy for complaints of increasing shortness of breath and acute hypoxemic respiratory failure with an O2 saturation of 70% on room air is, she recovered to 90% on 3 L. Chest x-ray revealed interstitial edema and small bilateral pleural effusions. He had some concern regarding possible underlying metastatic disease. She was referred to the emergency room for the same. Computed tomography scan of the brain revealed no acute process. EKG revealed sinus rhythm with first-degree AV block. Echocardiogram revealed preserved left ventricular systolic function with ejection fraction 55-60%. Severe mitral calcification, moderate mitral regurgitation. Moderate pulmonary hypertension. She is seen today in consultation on the regular medical floor. She is currently resting flat in bed. Awake and alert in no acute distress. Breathing quite a bit easier today compared to yesterday. Maintaining O2 saturations in the low 90s on 4 L/m per nasal cannula. She's been afebrile. Hemodynamically stable. White count 9.8. Hemoglobin 13.9. INR 1.9. Sodium 137. Potassium 4.6. Creatinine 1.64. ProBNP 2370. Troponin negative 1. Urinalysis with moderate bacteria. She's been initiated on Lasix 40 mg IV every 12 hours. Continued on bronchodilators. Anticoagulated with warfarin. The patient is seen today 04/04/2020 in follow-up on the regular medical floor. She is awake and alert in no acute distress. Resting comfortably in bed. Breathing easier today compared to yesterday. Maintaining O2 saturations in the 90s on 4 L/m per nasal cannula. She's been afebrile. Hemodynamically stable. White count 8.5. Hemoglobin 13.2. INR 1.8. Sodium 139. Potassium 5.1. Bicarb 41. Creatinine 1.38. Remains on diuretics. Remains in a negative michael ce. The patient is seen today 04/05/2020 in follow-up on the regular medical floor. She is currently resting comfortably in bed. Awake and alert in no acute distress. She denies any worsening shortness of breath, cough or congestion. Maintaining O2 saturation in the 90s on 4 L/m per nasal cannula. She's been afebrile. Hemodynamically stable. Urine culture pending. White count 9.2. Hemoglobin 13.3. INR 1.8. Sodium 137. Potassium 5.1. Creatinine 1.52. She is having some issues with difficulty swallowing. On 04/06/2020 patient sees seen in follow-up on the general medical oncology floor. She states she is breathing better, she is currently on 4 L of oxygen with pulse ox of 91%, she is afebrile, her breathing is nonlabored at rest, does get short of breath with exertion, no acute events overnight. She continues on daily dose of oral Lasix, her intake and output and fluid balance is difficult to estimate, patient is avoiding on the commode, and her weight is trending down. The nurse said patient still desats on room air down into the 70s, she still requiring supplemental oxygen currently at 4 L. Normally not oxygen dependent. Today's labs have been reviewed showing normal white count at 9.6, hemoglobin is 13.6, INR is 2.0, sodium is 136, potassium is 5.1, chloride is 93, CO2 37, BUN is 40 and creatinine is 1.28, renal profile seems to have slightly improved. Her urine culture came back positive for gram-negative bacilli of 2 different types, and organism 1 is greater than 100,000 CFU per mL, and final culture is pending. Patient is currently not on any antibiotics, denies any urinary symptoms, patient has been afebrile On 04/07/2020 patient seen in follow-up on a general medical oncology floor. She is calm and comfortable, she sitting up in the recliner, denies any acute distress, she states she is feeling better, she is currently on 4 L of oxygen her pulse ox is 92%, hemodynamically stable, no fever or chills, she is on Rocephin for a urinary tract infection, and her urine cultures showed E. coli and Proteus mirabilis. No altered mentation, no difficulty breathing. Continues on oral Lasix of 40 mg daily. On 04/08/2020 patient seen in follow-up on the general medical oncology floor. Doing well, breathing is comfortable, she is on 4 L of oxygen with pulse ox of 92%, hemodynamically stable, no fever or chills. Yesterday's chest x-ray showed small left pleural effusion. No cough, no couplets or chest pain, no congestion. Patient remains on Rocephin for evidence of E. coli and Proteus mirabilis in the urine, repeat urine culture is showing gram-negative bacilli, vital signs are stable, no altered mentation, no acute events overnight. Objective - Vital Signs Vital signs: Vital Signs Temp 97.9 F 04/08/20 13:00 Pulse 76 04/08/20 13:16 Resp 16 04/08/20 13:00 BP 152/70 04/08/20 13:00 Pulse Ox 4 L 04/08/20 13:00 Intake & Output 04/07/20 04/08/20 04/08/20 18:59 06:59 18:59 Weight 86 kg Other: Voiding Method Bedside Commode Bedside Commode Bedside Commode - Exam GENERAL EXAM: Alert, very pleasant, 84-year-old white female, on 4 L of oxygen with a pulse ox of 92% comfortable in no apparent distress. HEAD: Normocephalic/atraumatic. EYES: Normal reaction of pupils, equal size. Conjunctiva pink, sclera white. NOSE: Clear with pink turbinates. THROAT: No erythema or exudates. NECK: No masses, no JVD, no thyroid enlargement, no adenopathy. CHEST: No chest wall deformity. Symmetrical expansion. LUNGS: Equal air entry with no crackles, wheeze, rhonchi or dullness. CVS: Regular rate and rhythm, normal S1 and S2, no gallops, no murmurs, no rubs ABDOMEN: Soft, nontender. No hepatosplenomegaly, normal bowel sounds, no guarding or rigidity. EXTREMITIES: No clubbing, no edema, no cyanosis, 2+ pulses and upper and lower extremities. MUSCULOSKELETAL: Muscle strength and tone normal. SPINE: No scoliosis or deformity SKIN: No rashes CENTRAL NERVOUS SYSTEM: Alert and oriented -3. No focal deficits, tone is normal in all 4 extremities. PSYCHIATRIC: Alert and oriented -3. Appropriate affect. Intact judgment and insight. - Labs CBC & Chem 7: 04/06/20 08:01 04/06/20 08:01 Labs: Abnormal Lab Results - Last 24 Hours (Table) 04/07/20 04/07/20 04/08/20 Range/Units 17:22 20:51 07:02 PT (9.0-12.0) sec INR (<1.2) POC Glucose (mg/dL) 133 H 121 H 107 H (75-99) mg/dL 04/08/20 04/08/20 Range/Units 07:41 11:32 PT 20.3 H (9.0-12.0) sec INR 2.1 H (<1.2) POC Glucose (mg/dL) 118 H (75-99) mg/dL Microbiology - Last 24 Hours (Table) 04/06/20 18:14 Urine Culture - Preliminary Urine,Voided Gram Neg Bacilli Assessment and Plan Plan: Assessment: 1 Acute hypoxemic respiratory failure secondary to acute exacerbation of diastolic congestive heart failure, moderate mitral regurgitation, moderate pulmonary hypertension. 2 History of renal cell carcinoma with previous right nephrectomy and left kidney simple cyst 3 Acute on chronic renal failure, improving. Current creatinine 1.52 4 Urinary tract infection, related to E. coli and Proteus mirabilis, patient was started on Rocephin 5 Coronary artery disease 6 Mild intermittent chronic bronchial asthma 7 Hypothyroidism 8 Proximal atrial fibrillation, currently in sinus rhythm, on warfarin 9 Osteoarthritis 10 Hyperlipidemia 11 Hypertension 12 Diabetes mellitus 13 Diabetic retinopathy 14 Carotid stenosis, left 15 Recent fall with traumatic hematoma of the left hip and left upper extremity Plan: Patient is doing well, clinically stable, no worsening dyspnea, breathing appears to be comfortable, increase activity as tolerated. No fever or chills, hemodynamically stable, no acute events overnight, from pulmonary perspective patient is stable for discharge home today. I performed a history & physical examination of the patient and discussed their management with my nurse practitioner, Adali Lyles. I reviewed the nurse practitioner's note and agree with the documented findings and plan of care. Lung sounds are positive for diminished breath sounds. The findings and the impression was discussed with the patient. I attest to the documentation by the nurse practitioner. Time with Patient: Less than 30
--- NOTE | 2020-04-08 14:41 | P.PN ---
Subjective Progress Note Date: 04/08/20 Patient is sitting in the chair. Patient's son was present. She states she is feeling better. The twitching/jerking has improved. Objective - Vital Signs Vital signs: Vital Signs Temp 97.9 F 04/08/20 13:00 Pulse 76 04/08/20 13:16 Resp 16 04/08/20 13:00 BP 152/70 04/08/20 13:00 Pulse Ox 4 L 04/08/20 13:00 Intake & Output 04/07/20 04/08/20 04/08/20 18:59 06:59 18:59 Weight 86 kg Other: Voiding Method Bedside Commode Bedside Commode Bedside Commode - Exam Nonfocal. Patient's mentation is normal. - Labs CBC & Chem 7: 04/06/20 08:01 04/06/20 08:01 Labs: Abnormal Lab Results - Last 24 Hours (Table) 04/07/20 04/07/20 04/08/20 Range/Units 17:22 20:51 07:02 PT (9.0-12.0) sec INR (<1.2) POC Glucose (mg/dL) 133 H 121 H 107 H (75-99) mg/dL 04/08/20 04/08/20 Range/Units 07:41 11:32 PT 20.3 H (9.0-12.0) sec INR 2.1 H (<1.2) POC Glucose (mg/dL) 118 H (75-99) mg/dL Microbiology - Last 24 Hours (Table) 04/06/20 18:14 Urine Culture - Preliminary Urine,Voided Gram Neg Bacilli Assessment and Plan Assessment: * Myoclonic jerks, likely multifactorial, but probably related to underlying metabolic dysfunction. Primary cause is being underlying cardiopulmonary dysfunction as mentioned below, along with UTI, acute and chronic renal insufficiency. * Acute hypoxemic respiratory failure secondary to acute exacerbation of diastolic congestive heart failure, moderate MR and moderate pulmonary hypertension. * Atrial fibrillation, currently on warfarin. * Moderate left ICA stenosis 50-69%. Plan: * Patient's myoclonic jerks are likely related to underlying cardiopulmonary dysfunction. Patient feels her myoclonic jerks have improved. * Cardiology and pulmonary/critical care team on board. Treatment of underlying cardiopulmonary condition and other medical conditions will improve these myoclonic jerks and asterixis. * No other neurological workup indicated. * Suggest outpatient overnight polysomnogram to rule out obstructive sleep apnea or PLMS. * Neurology will sign off. Please call neurology if any other concerns.
--- NOTE | 2020-04-09 08:30 | P.DS ---
Providers Date of admission: 04/02/20 19:16 Expected date of discharge: 04/08/20 Attending physician: Angi Painting Consults: 04/02/20 19:52 Consult Physician Routine Consulting Provider: Saroj Real Consult Reason/Comments: chf Do you want consulting provider notified?: Yes Consult Physician Routine Consulting Provider: Cinthia Greene Consult Reason/Comments: sob Do you want consulting provider notified?: Yes 04/06/20 14:46 Consult Physician Routine Consulting Provider: Jackie Harman Consult Reason/Comments: myclonic jerks Do you want consulting provider notified?: Yes [facility] Course: Final Diagnosis Shortness of breath, congestive heart failure acute exacerbation with acute on chronic diastolic dysfunction, ejection fraction 50-60% with acute hypoxic hypercarbic respiratory failure Elevated CO2 acute urinary tract infection, present on admission Rule out chronic obstructive pulmonary disease Generalized weakness and gait dysfunction History of fall Atrial fibrillation Diabetes mellitus type 2 Valvular disease with mitral regurgitation as well as possible mitral stenosis History of degenerative joint disease Hypertension hypothyroidism history of nephrolithiasis History of DVT of the left leg Right shoulder pain history of cholecystectomy Obesity with a body mass index of 37.7 Full code Discharge disposition Patient is being discharged in a stable condition with guarded prognosis to home. Patient will continue with home care. Patient will follow-up with Dr. Ivy upon discharge. Patient also instructed to follow-up with cardiology Dr. Real in the outpatient setting. Patient will continue with a short course of oral antibiotics in the form of Cipro 500 mg twice daily for the next 7 days. Total time taken is 35 minutes. History of present illness This is an 84-year-old female who was recently admitted with shortness of breath as well as congestive heart failure acute exacerbation and was being closely monitored. Patient was experiencing increasing shortness of breath with extreme dyspnea and was also found to be weak and lethargic requiring assistance in the home. Patient was evaluated by PT/OT therapy recommending rehab although patient and family were reluctant for ECF placement and would like to continue in the home setting with home care and physical rehab in the home. Patient's respiratory status was slow to respond although showed slow improvements with diuresis and will continue with oral Lasix in the outpatient setting. Patient's urine culture finalized showing E. coli with Proteus mirabilis and will continue on oral Cipro 500 mg twice daily for the next 7 days. Patient was initiated on ceftriaxone and showed improvements in physical abilities. Family did meet with hospice to discuss possible options with [facility] and are not ready for that yet. Patient was found to be in no mid to high 80s 88% with minimal exertion and did qualify for oxygen in the home setting. Case management following and arranging for discharge planning needs. Patient will follow-up with Dr. Ivy along with cardiology in the outpatient setting as she normally follows with Dr. Real. Currently no reports of chest pain, worsening shortness of breath, or palpitations. Patient is afebrile. No reports of nausea or vomiting and patient is tolerating diet. Guarded prognosis. On exam vital signs are stable. Temp is 97.9F, pulse is 65, respirations are 16, blood pressure is 152/70, oxygen saturation is 92% on 2-3 L via nasal cannula. Cardio S1, S2 are muffled. Respiratory shows diminished breath sounds at the bases with a few scattered rhonchi noted. Abdomen is soft and nontender. Nervous system shows no focal deficits. Please refer to medication reconciliation sheet for a list of medications. Patient Condition at Discharge: Fair Plan - Discharge Summary New Discharge Prescriptions: New Ciprofloxacin HCl [Cipro] 500 mg PO Q12HR 7 Days #14 tablet guaiFENesin [Mucinex] 600 mg PO Q12HR #20 tablet.er Pantoprazole [Protonix] 40 mg PO AC-BRKFST 30 Days #30 tablet. Continue Warfarin [Coumadin] 5 mg PO SUTUWETHSA Glimepiride [Amaryl] 1 mg PO DAILY NIFEdipine [NIFEdipine ER] 60 mg PO DAILY Warfarin [Coumadin] 2.5 mg PO MOFR Flecainide Acetate [Tambocor] 100 mg PO Q12HR sitaGLIPtin [Januvia] 50 mg PO HS Metoprolol Succinate (ER) [Toprol XL] 25 mg PO BID Budesonide/Formoterol Fumarate [Symbicort 160-4.5 Mcg Inhaler] 2 puff INHALATION RT-BID Albuterol Sulfate [Proair Hfa] 1 - 2 puff INHALATION RT-Q6H PRN PRN Reason: Shortness Of Breath Ergocalciferol [Vitamin D2 (DRISDOL)] 50,000 unit PO Q30D Furosemide [Lasix] 40 mg PO DAILY Valsartan 320 mg PO DAILY Allopurinol [Zyloprim] 100 mg PO DAILY Thyroid,Pork [Beatrice Thyroid] 60 mg PO DAILY Discharge Medication List Glimepiride [Amaryl] 1 mg PO DAILY 11/25/15 [History] NIFEdipine [NIFEdipine ER] 60 mg PO DAILY 11/25/15 [History] Warfarin [Coumadin] 2.5 mg PO MOFR 11/25/15 [History] Warfarin [Coumadin] 5 mg PO SUTUWETHSA 11/25/15 [History] Flecainide Acetate [Tambocor] 100 mg PO Q12HR 06/21/18 [History] Metoprolol Succinate (ER) [Toprol XL] 25 mg PO BID 06/21/18 [History] sitaGLIPtin [Januvia] 50 mg PO HS 06/21/18 [History] Albuterol Sulfate [Proair Hfa] 1 - 2 puff INHALATION RT-Q6H PRN 04/02/20 [History] Allopurinol [Zyloprim] 100 mg PO DAILY 04/02/20 [History] Budesonide/Formoterol Fumarate [Symbicort 160-4.5 Mcg Inhaler] 2 puff INHALATION RT-BID 04/02/20 [History] Ergocalciferol [Vitamin D2 (DRISDOL)] 50,000 unit PO Q30D 04/02/20 [History] Furosemide [Lasix] 40 mg PO DAILY 04/02/20 [History] Thyroid,Pork [Beatrice Thyroid] 60 mg PO DAILY 04/02/20 [History] Valsartan 320 mg PO DAILY 04/02/20 [History] Ciprofloxacin HCl [Cipro] 500 mg PO Q12HR 7 Days #14 tablet 04/08/20 [Rx] Pantoprazole [Protonix] 40 mg PO AC-BRKFST 30 Days #30 tablet.dr 04/08/20 [Rx] guaiFENesin [Mucinex] 600 mg PO Q12HR #20 tablet.er 04/08/20 [Rx] Follow up Appointment(s)/Referral(s): [facility], [NON-STAFF] - 1 Week Saroj Real MD [STAFF PHYSICIAN] - 1 Week (Please call office and make follow up the office did not answer.) Danis Ivy MD [Primary Care Provider] - 04/22/20 10:30 am Ambulatory/Diagnostic Orders: Basic Metabolic Panel [LAB.AMB] Time Frame: 3 Days, Location: None Selected Patient Instructions/Handouts: Ciprofloxacin (By mouth), Guaifenesin (By mouth), Pantoprazole (By mouth), Heart Failure (DC), Hypoxemia (DC) Activity/Diet/Wound Care/Special Instructions: Activity Limited until follow-up Follow-up with primary care provider upon discharge Follow-up with pulmonary in the outpatient setting Follow-up with cardiology in the outpatient setting Continue with antibiotics for 1 week until finished Repeat labs in 2-3 days Discharge Disposition: HOME WITH HOME HEALTH SERVICES
== END 2020-04-08 16:52 | disposition home health service (06) | DRG 291 ==
LOC: EC 15:34 → 5NMEDONC 19:16
PROVIDERS: ADMIT Hospitalist; ATTEND Hospitalist
DX: I13.0 Hypertensive heart and chronic kidney disease with heart failure and stage 1 through stage 4 chronic kidney disease, or unspecified chronic kidney disease (principal); I50.33 Acute on chronic diastolic (congestive) heart failure; J96.01 Acute respiratory failure with hypoxia; J96.02 Acute respiratory failure with hypercapnia; N17.9 Acute kidney failure, unspecified; N39.0 Urinary tract infection, site not specified; Z11.59 Encounter for screening for other viral diseases; I27.29 Other secondary pulmonary hypertension; E11.319 Type 2 diabetes mellitus with unspecified diabetic retinopathy without macular edema; R13.14 Dysphagia, pharyngoesophageal phase; G25.3 Myoclonus; E11.22 Type 2 diabetes mellitus with diabetic chronic kidney disease; N18.3 Chronic kidney disease, stage 3 (moderate); J44.9 Chronic obstructive pulmonary disease, unspecified; I48.0 Paroxysmal atrial fibrillation; E03.9 Hypothyroidism, unspecified; E66.9 Obesity, unspecified; R53.1 Weakness; R26.9 Unspecified abnormalities of gait and mobility; M19.90 Unspecified osteoarthritis, unspecified site; I44.0 Atrioventricular block, first degree; E78.5 Hyperlipidemia, unspecified; I65.22 Occlusion and stenosis of left carotid artery; S70.02XA Contusion of left hip, initial encounter; I25.10 Atherosclerotic heart disease of native coronary artery without angina pectoris; J45.20 Mild intermittent asthma, uncomplicated; I08.1 Rheumatic disorders of both mitral and tricuspid valves; S40.022A Contusion of left upper arm, initial encounter; M25.511 Pain in right shoulder; G47.33 Obstructive sleep apnea (adult) (pediatric); N28.1 Cyst of kidney, acquired; B96.20 Unspecified Escherichia coli [E. coli] as the cause of diseases classified elsewhere; W19.XXXA Unspecified fall, initial encounter; Z71.3 Dietary counseling and surveillance; Z79.84 Long term (current) use of oral hypoglycemic drugs; Z79.899 Other long term (current) drug therapy; Z79.01 Long term (current) use of anticoagulants; Z79.51 Long term (current) use of inhaled steroids; Z86.718 Personal history of other venous thrombosis and embolism; Z90.49 Acquired absence of other specified parts of digestive tract; Z68.37 Body mass index [BMI] 37.0-37.9, adult; Z91.81 History of falling; Z87.442 Personal history of urinary calculi; Z85.528 Personal history of other malignant neoplasm of kidney; Z86.19 Personal history of other infectious and parasitic diseases; Z90.710 Acquired absence of both cervix and uterus; Z98.890 Other specified postprocedural states; Z96.653 Presence of artificial knee joint, bilateral; Z87.81 Personal history of (healed) traumatic fracture; Z98.42 Cataract extraction status, left eye; Z98.41 Cataract extraction status, right eye; Z90.5 Acquired absence of kidney; Z88.8 Allergy status to other drugs, medicaments and biological substances; Z80.3 Family history of malignant neoplasm of breast; Z83.3 Family history of diabetes mellitus
CPT/HCPCS: 36415; 70450; 71045; 71046; 80048; 80053; 81001; 82550; 83605; 83735; 83880; 84443; 84484; 85025; 85610; 85730; 87077; 87086; 87186; 93005; 93306; 94640; 94760; 96374; 99285

== ENCOUNTER → 2020-06-23 | Outpatient (CLI) | payer MEDICARE ==
--- NOTE | 2020-06-23 15:51 | XR ---
EXAMINATION TYPE: XR thoracic spine 2V DATE OF EXAM: 06/23/2020 CLINICAL HISTORY: Chronic pain in thoracic spine TECHNIQUE: Frontal, lateral, and swimmer's view of thoracic spine are obtained. COMPARISON: None. FINDINGS: Thoracic spine show satisfactory alignment without evidence of acute fracture or dislocatio n. Multilevel moderate osteophytic spurring. Visualized ribs are unremarkable. Calcified atheroscler otic disease. IMPRESSION: Degenerative disc disease. No acute fracture or dislocation in the thoracic spine.
== END | disposition home or self-care (01) ==
LOC: RADXRMAIN 11:14
PROVIDERS: ATTEND Internal Medicine Critical Care Medicine
DX: M51.34 Other intervertebral disc degeneration, thoracic region (principal)
CPT/HCPCS: 72070

== ENCOUNTER 2020-11-02 03:43 | Emergency (ER) | payer MEDICARE ==
[2020-11-02 03:52] VITALS: RESP 16; TEMP 98.2
[2020-11-02 04:00] LABS: Glucose,Whole Blood 181 mg/dL (75-99)
--- NOTE | 2020-11-02 04:30 | ED ---
General Adult HPI - General Chief complaint: Neuro Symptoms/Deficit Stated complaint: Possible Stroke Time Seen by Provider: 11/02/20 04:13 Source: patient, family Mode of arrival: wheelchair Limitations: no limitations - History of Present Illness Initial comments: This patient is an 85-year-old woman who presents to be evaluated for numbness to the lateral aspect of the upper portion of the right leg. The patient states that this had come on around 3 AM while she was at home. Patient states she had been awake and, got up and use the bathroom. She went back to lie down and was watching television, and then noticed that she was feeling numb on the right side of her leg. When this did not resolve she became concerned about possibility of stroke and she had her son bring her here. The patient denies headache. She is not having weakness. Patient does state that the symptoms are much better than they were at home. Onset/Timin -: hour(s) Location: right, lower extremity Severity scale (1-10): 0 Consistency: constant Improves with: none Worsens with: none Associated Symptoms: denies other symptoms Treatments Prior to Arrival: none - Related Data Home Medications Medication Instructions Recorded Confirmed Glimepiride [Amaryl] 1 mg PO DAILY 11/25/15 04/02/20 NIFEdipine [NIFEdipine ER] 60 mg PO DAILY 11/25/15 04/02/20 Warfarin [Coumadin] 2.5 mg PO MOFR 11/25/15 04/02/20 Warfarin [Coumadin] 5 mg PO SUTUWETHSA 11/25/15 04/02/20 Flecainide Acetate [Tambocor] 100 mg PO Q12HR 06/21/18 04/02/20 Metoprolol Succinate (ER) [Toprol 25 mg PO BID 06/21/18 04/02/20 XL] sitaGLIPtin [Januvia] 50 mg PO HS 06/21/18 04/02/20 Albuterol Sulfate [Proair Hfa] 1 - 2 puff INHALATION RT-Q6H PRN 04/02/20 04/02/20 Allopurinol [Zyloprim] 100 mg PO DAILY 04/02/20 04/02/20 Budesonide/Formoterol Fumarate 2 puff INHALATION RT-BID 04/02/20 04/02/20 [Symbicort 160-4.5 Mcg Inhaler] Ergocalciferol [Vitamin D2 50,000 unit PO Q30D 04/02/20 04/02/20 (DRISDOL)] Furosemide [Lasix] 40 mg PO DAILY 04/02/20 04/02/20 Thyroid,Pork [[place] Thyroid] 60 mg PO DAILY 04/02/20 04/02/20 Valsartan 320 mg PO DAILY 04/02/20 04/02/20 Previous Rx's Medication Instructions Recorded Ciprofloxacin HCl [Cipro] 500 mg PO Q12HR 7 Days #14 tablet 04/08/20 Pantoprazole [Protonix] 40 mg PO AC-BRKFST 30 Days #30 04/08/20 tablet.dr meyersaiFENesin [Mucinex] 600 mg PO Q12HR #20 tablet.er 04/08/20 Allergies Allergy/AdvReac Type Severity Reaction Status Date / Time levothyroxine sodium Allergy Unknown Verified 11/02/20 03:49 [From Synthroid] Childhood metformin [From Glucophage] Allergy Unknown Verified 11/02/20 03:49 Childhood pioglitazone [From Actos] Allergy Unknown Verified 11/02/20 03:49 Childhood midazolam HCl [From Versed] AdvReac Unknown Pt states Verified 11/02/20 03:49 she sleeps for days peanut AdvReac Unknown Cough Verified 11/02/20 03:49 Review of Systems ROS Statement: Those systems with pertinent positive or pertinent negative responses have been documented in the HPI. ROS Other: All systems not noted in ROS Statement are negative. Constitutional: Denies: fever, chills, weakness Eyes: Denies: vision change Respiratory: Denies: cough, dyspnea, wheezes Cardiovascular: Denies: chest pain, palpitations, edema Gastrointestinal: Denies: abdominal pain, vomiting, diarrhea Genitourinary: Denies: dysuria, hematuria Musculoskeletal: Denies: back pain Skin: Denies: rash Neurological: Reports: numbness. Denies: headache, weakness, paresthesias, confusion Past Medical History Past Medical History: Atrial Fibrillation, Cancer, Diabetes Mellitus, Deep Vein Thrombosis (DVT), Hypertension, Osteoarthritis (OA), Thyroid Disorder Additional Past Medical History / Comment(s): LOW THYROID, HX OF MONO., KIDNEY STONES.& DVT LEFT LEG., PAIN RIGHT SHOULDER. Renal cancer with nephrectomy, 201 6 History of Any Multi-Drug Resistant Organisms: ESBL Date of last positivie culture/infection: 04/06/20 MDRO Source:: ESBL URINE Past Surgical History: Breast Surgery, Cholecystectomy, Hysterectomy, Joint Replacement, Orthopedic Surgery Additional Past Surgical History / Comment(s): YULIA CATARACTS, COLONOSCOPY, MULTIPLE SURGERIES LEFT KNEE, YULIA KNEE REPLACEMENT, BREAST REDUCTION, LEFT ANKLE FX REPAIR WITH HARDWARE. Right kidney removed secondary to [place] Past Anesthesia/Blood Transfusion Reactions: Previous Problems w/ Anesthesia, Postoperative Nausea & Vomiting (PONV) Additional Past Anesthesia/Blood Transfusion Reaction / Comment(s): PT STATES THAT VERSED MAKES HER SLEEP FOR DAYS. Past Psychological History: No Psychological Hx Reported Smoking Status: Never smoker Past Alcohol Use History: None Reported Past Drug Use History: None Reported - Past Family History Mother Family Medical History: Cancer Additional Family Medical History / Comment(s): BREAST CANCER Sister(s) Family Medical History: Cancer Additional Family Medical History / Comment(s): BREAST CANCER Father Family Medical History: Diabetes Mellitus General Exam Limitations: no limitations General appearance: alert, in no apparent distress Head exam: Present: atraumatic, normocephalic Eye exam: Present: normal appearance. Absent: scleral icterus, conjunctival in jection ENT exam: Present: normal oropharynx Neck exam: Present: normal inspection Respiratory exam: Present: normal lung sounds bilaterally. Absent: respiratory distress, wheezes, rales, rhonchi, stridor Cardiovascular Exam: Present: regular rate, normal rhythm, normal heart sounds. Absent: systolic murmur, diastolic murmur, rubs, gallop GI/Abdominal exam: Present: soft. Absent: distended, tenderness, guarding, rebound, rigid Extremities exam: Present: normal inspection, normal capillary refill. Absent: pedal edema, calf tenderness Back exam: Present: normal inspection. Absent: CVA tenderness (R), CVA tenderness (L) Neurological exam: Present: alert, oriented X3, CN II-XII intact. Absent: motor sensory deficit Skin exam: Present: warm, dry, intact, normal color. Absent: rash Course Vital Signs 11/02/20 11/02/20 03:49 06:57 Temperature 98.2 F Pulse Rate 62 57 L Respiratory 16 16 Rate Blood Pressure 114/59 114/57 O2 Sat by Pulse 96 98 Oximetry EKG Findings - EKG Results: EKG: interpreted by ERMD, sinus rhythm (Rate approximately 63 bpm), normal axis, normal ST/T - Dysrhythmias: Sinus rhythms and dysrhythmias: sinus rhythm - Blocks, [place], Hypertrophy, ST Abn: AV and intraventricular conduction: 1 AV block, intraventricular conduction del ay Medical Decision Making - Medical Decision Making This patient is an 85-year-old woman presenting with some degree of numbness to the lateral aspect of the right lower extremity. Differential diagnosis included peripheral neuropathy versus TIA, though I am definitely more concerned about possible TIA at this point, as patient not having any pain in the lumbar area. Discussed admission for further evaluation and treatment, patient states that her symptoms had nearly entirely resolved and she did want to go home. Understands there is risk of developing stroke, and will have close follow-up and return immediately if there is any new symptom or recurrence. - Lab Data Result diagrams: 11/02/20 04:43 11/02/20 04:43 Lab Results 11/02/20 11/02/20 11/02/20 Range/Units 03:57 04:43 04:43 WBC 10.0 (3.8-10.6) k/uL RBC 4.55 (3.80-5.40) m/uL Hgb 14.6 (11.4-16.0) gm/dL Hct 43.5 (34.0-46.0) % MCV 95.5 (80.0-100.0) fL MCH 32.1 (25.0-35.0) pg MCHC 33.6 (31.0-37.0) g/dL RDW 13.0 (11.5-15.5) % Plt Count 198 (150-450) k/uL MPV 8.8 Neutrophils % 68 % Lymphocytes % 20 % Monocytes % 6 % Eosinophils % 4 % Basophils % 1 % Neutrophils # 6.8 (1.3-7.7) k/uL Lymphocytes # 2.0 (1.0-4.8) k/uL Monocytes # 0.6 (0-1.0) k/uL Eosinophils # 0.4 (0-0.7) k/uL Basophils # 0.1 (0-0.2) k/uL PT 18.8 H (9.0-12.0) sec INR 1.9 H (<1.2) APTT 31.7 H (22.0-30.0) sec Sodium (137-145) mmol/L Potassium (3.5-5.1) mmol/L Chloride (98-107) mmol/L Carbon Dioxide (22-30) mmol/L Anion Gap mmol/L BUN (7-17) mg/dL Creatinine (0.52-1.04) mg/dL Est GFR (CKD-EPI)AfAm (>60 ml/min/1.73 sqM) Est GFR (CKD-EPI)NonAf (>60 ml/min/1.73 sqM) Glucose (74-99) mg/dL POC Glucose (mg/dL) 181 H (75-99) mg/dL POC Glu [employer] ID Klaus Montes Calcium (8.4-10.2) mg/dL Total Bilirubin (0.2-1.3) mg/dL AST (14-36) U/L ALT (4-34) U/L Alkaline Phosphatase (38-126) U/L Troponin I (0.000-0.034) ng/mL Total Protein (6.3-8.2) g/dL Albumin (3.5-5.0) g/dL 11/02/20 11/02/20 Range/Units 04:43 04:43 WBC (3.8-10.6) k/uL RBC (3.80-5.40) m/uL Hgb (11.4-16.0) gm/dL Hct (34.0-46.0) % MCV (80.0-100.0) fL MCH (25.0-35.0) pg MCHC (31.0-37.0) g/dL RDW (11.5-15.5) % Plt Count (150-450) k/uL MPV Neutrophils % % Lymphocytes % % Monocytes % % Eosinophils % % Basophils % % Neutrophils # (1.3-7.7) k/uL Lymphocytes # (1.0-4.8) k/uL Monocytes # (0-1.0) k/uL Eosinophils # (0-0.7) k/uL Basophils # (0-0.2) k/uL PT (9.0-12.0) sec INR (<1.2) APTT (22.0-30.0) sec Sodium 137 (137-145) mmol/L Potassium 4.4 (3.5-5.1) mmol/L Chloride 98 (98-107) mmol/L Carbon Dioxide 30 (22-30) mmol/L Anion Gap 9 mmol/L BUN 45 H (7-17) mg/dL Creatinine 1.64 H (0.52-1.04) mg/dL Est GFR (CKD-EPI)AfAm 32 (>60 ml/min/1.73 sqM) Est GFR (CKD-EPI)NonAf 28 (>60 ml/min/1.73 sqM) Glucose 173 H (74-99) mg/dL POC Glucose (mg/dL) (75-99) mg/dL POC Glu [place] Joiner ID Calcium 9.3 (8.4-10.2) mg/dL Total Bilirubin 0.4 (0.2-1.3) mg/dL AST 31 (14-36) U/L ALT 33 (4-34) U/L Alkaline Phosphatase 91 (38-126) U/L Troponin I <0.012 (0.000-0.034) ng/mL Total Protein 7.2 (6.3-8.2) g/dL Albumin 4.2 (3.5-5.0) g/dL Disposition Clinical Impression: TIA (transient ischemic attack) Disposition: HOME SELF-CARE Condition: Good Instructions (If sedation given, give patient instructions): Transient Ischemic Attack (ED) Is patient prescribed a controlled substance at d/c from ED?: No Referrals: Danis Ivy MD [Primary Care Provider] - 1-2 days Saroj Real MD [STAFF PHYSICIAN] - 1-2 days
[2020-11-02 04:48] LABS: Basophils # (A) 0.1 k/uL (0-0.2); Basophils % (A) 1 %; Eosinophils # (A) 0.4 k/uL (0-0.7); Eosinophils % (A) 4 %; HCT 43.5 % (34.0-46.0); HGB 14.6 gm/dL (11.4-16.0); Lymphocytes % (A) 20 %; MCH 32.1 pg (25.0-35.0); MCHC 33.6 g/dL (31.0-37.0); MCV 95.5 fL (80.0-100.0); Mean Platelet Volume 8.8; Monocytes # (A) 0.6 k/uL (0-1.0); Monocytes % (A) 6 %; Neutrophils # (A) 6.8 k/uL (1.3-7.7); Neutrophils % (A) 68 %; Platelet Count 198 k/uL (150-450); RBC 4.55 m/uL (3.80-5.40)
[2020-11-02 04:58] LABS: Albumin 4.2 g/dL (3.5-5.0); Calcium 9.3 mg/dL (8.4-10.2); Potassium 4.4 mmol/L (3.5-5.1); Total Bilirubin 0.4 mg/dL (0.2-1.3); Total Protein 7.2 g/dL (6.3-8.2)
[2020-11-02 05:01] LABS: INR 1.9 (<1.2); Partial Thromboplastin Time 31.7 sec (22.0-30.0); Prothrombin Time 18.8 sec (9.0-12.0)
--- NOTE | 2020-11-02 05:05 | CT ---
EXAM: CT Head Without Intravenous Contrast CLINICAL HISTORY: ITS.REASON CT Reason: Neuro deficit, acute, stroke suspected TECHNIQUE: Axial computed tomography images of the head/brain without intravenous contrast. CTDI is 49.27 mGy and DLP is 1076.4 mGy-cm. This CT exam was performed using one or more of the following dose reduction techniques: automated exposure control, adjustment of the mA and/or kV according to patient size, and/or use of iterative reconstruction technique. COMPARISON: 04/02/2020 FINDINGS: Brain: No hemorrhage, herniation, or mass effect. Chronic microvascular ischemic changes. Ventricles: No hydrocephalus. Age related cerebral volume loss. Bones/joints: Unremarkable. Soft tissues: Unremarkable. Sinuses: Unremarkable. Mastoid air cells: Clear. IMPRESSION: No acute hemorrhage, hydrocephalus, or mass effect.
--- NOTE | 2020-11-02 05:06 | XR ---
EXAM: XR Chest, 1 View CLINICAL HISTORY: ITS.REASON XR Reason: altered mental status TECHNIQUE: Frontal view of the chest. COMPARISON: 04/07/2020 IMPRESSION: Cardiomegaly. No consolidation. No effusion.
[2020-11-02 06:58] VITALS: BP 114/57; PULSE 57
== END 2020-11-02 06:47 | disposition home or self-care (01) ==
LOC: EC 03:43
DX: G45.9 Transient cerebral ischemic attack, unspecified (principal); I48.91 Unspecified atrial fibrillation; E11.9 Type 2 diabetes mellitus without complications; I10 Essential (primary) hypertension; E07.9 Disorder of thyroid, unspecified; M19.90 Unspecified osteoarthritis, unspecified site; Z86.718 Personal history of other venous thrombosis and embolism; Z85.53 Personal history of malignant neoplasm of renal pelvis; Z90.5 Acquired absence of kidney; Z79.01 Long term (current) use of anticoagulants; Z79.84 Long term (current) use of oral hypoglycemic drugs; Z79.51 Long term (current) use of inhaled steroids; Z79.890 Hormone replacement therapy; Z79.899 Other long term (current) drug therapy; Z88.8 Allergy status to other drugs, medicaments and biological substances; Z88.4 Allergy status to anesthetic agent; Z91.010 Allergy to peanuts; Z96.653 Presence of artificial knee joint, bilateral
CPT/HCPCS: 36415; 70450; 71045; 80053; 84484; 85025; 85610; 85730; 93005; 99284

== ENCOUNTER → 2020-11-13 | Outpatient (CLI) | payer MEDICARE ==
[2020-11-13 13:10] LABS: ALT 27 U/L (4-34); AST 26 U/L (14-36); African American GFR (CKD) 39 (>60 ml/min/1.73 sqM); Albumin 4.1 g/dL (3.5-5.0); Albumin/Globulin Ratio 1.5; Alkaline Phosphatase 67 U/L (38-126); Anion Gap 7 mmol/L; Blood Urea Nitrogen 27 mg/dL (7-17); Calcium 9.2 mg/dL (8.4-10.2); Carbon Dioxide 35 mmol/L (22-30); Chloride 96 mmol/L (98-107); Globulin 2.7 g/dL; Glucose 131 mg/dL (74-99); Non-African American GFR(CKD) 34 (>60 ml/min/1.73 sqM); Potassium 4.2 mmol/L (3.5-5.1); Sodium 138 mmol/L (137-145); Total Bilirubin 0.4 mg/dL (0.2-1.3); Total Protein 6.8 g/dL (6.3-8.2)
[2020-11-13 22:48] LABS: Basophils # (A) 0.08 X 10*3/uL (0.00-0.10); Basophils % (A) 1.1 %; Eosinophils # (A) 0.24 X 10*3/uL (0.04-0.35); Eosinophils % (A) 3.2 %; HCT 42.9 % (37.2-46.3); HGB 13.8 g/dL (12.0-15.0); Lymphocytes # (A) 1.76 X 10*3/uL (0.90-5.00); Lymphocytes % (A) 23.7 %; MCH 31.6 pg (27.0-32.0); MCHC 32.2 g/dL (32.0-37.0); MCV 98.2 fL (80.0-97.0); Mean Platelet Volume 11.9 fL (9.5-12.2); Monocytes # (A) 0.53 X 10*3/uL (0.20-1.00); Monocytes % (A) 7.1 %; Neutrophils % (A) 64.6 %; Platelet Count 210 X 10*3/uL (140-440); RBC 4.37 X 10*6/uL (4.10-5.20); RDW 13.2 % (11.5-14.5); WBC 7.43 X 10*3/uL (4.50-10.00)
[2020-11-14 01:54] LABS: Hemoglobin A1C 6.4 % (4.0-6.0)
== END | disposition home or self-care (01) ==
LOC: LABWHC1 11:05
PROVIDERS: ATTEND Internal Medicine Critical Care Medicine
DX: E11.9 Type 2 diabetes mellitus without complications (principal); E03.9 Hypothyroidism, unspecified
CPT/HCPCS: 36415; 80053; 83036; 84439; 84443; 85025

== ENCOUNTER 2021-01-07 09:34 | Emergency (ER) | payer MEDICARE ==
[2021-01-07 09:41] VITALS: PULSE 64; RESP 18
[2021-01-07] MEDS ORDERED: SODIUM CHLORIDE 0.9% 500 ML 500 ML IV STA (10:11)
[2021-01-07] MEDS ORDERED: ONDANSETRON 4 MG/2 ML VIAL IVP STA (10:11)
[2021-01-07 10:12] LABS: Basophils # (A) 0.1 k/uL (0-0.2); Basophils % (A) 1 %; Eosinophils # (A) 0.2 k/uL (0-0.7); Eosinophils % (A) 3 %; HCT 43.2 % (34.0-46.0); HGB 14.5 gm/dL (11.4-16.0); Lymphocytes # (A) 1.8 k/uL (1.0-4.8); Lymphocytes % (A) 21 %; MCH 31.5 pg (25.0-35.0); MCHC 33.6 g/dL (31.0-37.0); MCV 93.9 fL (80.0-100.0); Mean Platelet Volume 8.8; Monocytes # (A) 0.4 k/uL (0-1.0); Monocytes % (A) 4 %; Neutrophils # (A) 5.9 k/uL (1.3-7.7); Neutrophils % (A) 69 %; Platelet Count 229 k/uL (150-450); RDW 13.6 % (11.5-15.5); WBC 8.5 k/uL (3.8-10.6)
--- NOTE | 2021-01-07 10:13 | ED ---
General Adult HPI - General Chief complaint: Shortness of Breath Stated complaint: heart concerns/blood pressure problems Time Seen by Provider: 01/07/21 09:43 Source: patient Mode of arrival: ambulatory Limitations: no limitations - History of Present Illness Initial comments: Dictation was produced using [employer] dictation software. please excuse any grammatical, word or spelling errors. This patient was cared for during a federal and state declared state of emergency secondary to Covid 19 Chief Complaint: 85-year-old female past medical history of age fibrillation diabetes DVT prevention presents emergency department for weakness, nausea and concerns of heart failure. History of Present Illness: 85-year-old female presents to the emergency department for weakness, shortness of breath nausea. She's been having symptoms like this for the last 4-5 days. She is accompanied by her daughter. Patient is concerned that she is having an episode of heart failure. There were told that she was diagnosed with heart failure last year. Patient denies any constitutional symptoms. She feels like she has swelling in her legs and her abdomen similar to when she was diagnosed with heart failure. Chart review shows that patient had an echocardiogram performed on March 2020 that did not show any abnormalities with his dog function. There was however identification of diastolic filling abnormality at the level of the mitral valve. The ROS documented in this emergency department record has been reviewed and confirmed by me. Those systems with pertinent positive or negative responses have been documented in the HPI. All other systems are other negative and/or noncontributory. PHYSICAL EXAM: General Impression: Alert and oriented x3, not in acute distress HEENT: Normocephalic atraumatic, extra-ocular movements intact, pupils equal and reactive to light bilaterally, mucous membranes moist. Cardiovascular: Heart regular rate and rhythm Chest: Able to complete full sentences, no retractions, no tachypnea, lungs clear to auscultation bilaterally Abdomen: abdomen soft, non-tender, non-distended, no organomegaly Musculoskeletal: Pulses present and equal in all extremities, no peripheral edema Motor: no focal deficits noted Neurological: CN II-XII grossly intact, no focal motor or sensory deficits noted Skin: Intact with no visualized rashes Psych: Normal affect and mood ED course: 85-year-old female with multiple complete his presents to the emergency department for nausea vomiting, weakness vital signs upon arrival shows 94% on room air, rest of vital signs within acceptable limits. Laboratory evaluation unremarkable. CBC, coag panel, normal panel is all unremarkable within acceptable limits. Urinalysis negative. Patient reevaluated at bedside at 12:30 PM found to be in stable medical condition. She is showing no signs of distress. She has an appointment With her acute care nurse on Monday. Return parameters discussed. Patient be discharged. EKG interpretation: Ventricular rate 64, sinus rhythm,. Interval to 76, QRS 130, QTc 507. No LA prolongation, no ST or T-wave changes noted. EKG compared to November 02 2020 showing no changes. Overall, this EKG shows QT prolongation. - Related Data Home Medications Medication Instructions Recorded Confirmed Glimepiride [Amaryl] 2 mg PO DAILY 11/25/15 01/07/21 NIFEdipine [NIFEdipine ER] 60 mg PO DAILY 11/25/15 01/07/21 Warfarin [Coumadin] 2.5 mg PO WESA 11/25/15 01/07/21 Warfarin [Coumadin] 5 mg PO SUMOTUTHFR 11/25/15 01/07/21 Flecainide Acetate [Tambocor] 100 mg PO Q12HR 06/21/18 01/07/21 Metoprolol Succinate (ER) [Toprol 25 mg PO BID 06/21/18 01/07/21 XL] sitaGLIPtin [Januvia] 50 mg PO DAILY 06/21/18 01/07/21 Allopurinol [Zyloprim] 100 mg PO DAILY 04/02/20 01/07/21 Ergocalciferol [Vitamin D2 50,000 unit PO Q30D 04/02/20 01/07/21 (DRISDOL)] Furosemide [Lasix] 40 mg PO DAILY 04/02/20 01/07/21 Thyroid,Pork [[place] Thyroid] 60 mg PO DAILY 04/02/20 01/07/21 Valsartan 320 mg PO DAILY 04/02/20 01/07/21 Magnesium/Zinc/Vitam D 1 tab PO BID 01/07/21 01/07/21 Prevagen 1 tab PO DAILY 01/07/21 01/07/21 guaiFENesin [Mucinex] 600 mg PO DAILY 01/07/21 01/07/21 Allergies Allergy/AdvReac Type Severity Reaction Status Date / Time levothyroxine sodium Allergy Unknown Verified 01/07/21 10:38 [From Synthroid] Childhood metformin [From Glucophage] Allergy Unknown Verified 01/07/21 10:38 Childhood pioglitazone [From Actos] Allergy Unknown Verified 01/07/21 10:38 Childhood midazolam HCl [From Versed] AdvReac Unknown Pt states Verified 01/07/21 10:38 she sleeps for days peanut AdvReac Unknown Cough Verified 01/07/21 10:38 Review of Systems ROS Statement: Those systems with pertinent positive or pertinent negative responses have been documented in the HPI. ROS Other: All systems not noted in ROS Statement are negative. Past Medical History Past Medical History: Atrial Fibrillation, Cancer, Diabetes Mellitus, Deep Vein Thrombosis (DVT), Hypertension, Osteoarthritis (OA), Thyroid Disorder Additional Past Medical History / Comment(s): LOW THYROID, HX OF MONO., KIDNEY STONES.& DVT LEFT LEG., PAIN RIGHT SHOULDER. Renal cancer with nephrectomy, 2016 History of Any Multi-Drug Resistant Organisms: ESBL Date of last positivie culture/infection: 04/06/20 MDRO Source:: ESBL URINE Past Surgical History: Breast Surgery, Cholecystectomy, Hysterectomy, Joint Replacement, Orthopedic Surgery Additional Past Surgical History / Comment(s): YULIA CATARACTS, COLONOSCOPY, MULTIPLE SURGERIES LEFT KNEE, YULIA KNEE REPLACEMENT, BREAST REDUCTION, LEFT ANKLE FX REPAIR WITH HARDWARE. Right kidney removed secondary to [place] Past Anesthesia/Blood Transfusion Reactions: Previous Problems w/ Anesthesia, Postoperative Nausea & Vomiting (PONV) Additional Past Anesthesia/Blood Transfusion Reaction / Comment(s): PT STATES THAT VERSED MAKES HER SLEEP FOR DAYS. Past Psychological History: No Psychological Hx Reported Smoking Status: Never smoker Past Alcohol Use History: None Reported Past Drug Use History: None Reported - Past Family History Mother Family Medical History: Cancer Additional Family Medical History / Comment(s): BREAST CANCER Sister(s) Family Medical History: Cancer Additional Family Medical History / Comment(s): BREAST CANCER Father Family Medical History: Diabetes Mellitus General Exam Limitations: no limitations Course Vital Signs 01/07/21 09:36 Temperature 97.7 F Pulse Rate 64 Respiratory 18 Rate Blood Pressure 162/72 O2 Sat by Pulse 94 L Oximetry Medical Decision Making - Lab Data Result diagrams: 01/07/21 09:54 01/07/21 09:54 Lab Results 01/07/21 01/07/21 01/07/21 Range/Units 09:54 09:54 09:54 WBC 8.5 (3.8-10.6) k/uL RBC 4.60 (3.80-5.40) m/uL Hgb 14.5 (11.4-16.0) gm/dL Hct 43.2 (34.0-46.0) % MCV 93.9 (80.0-100.0) fL MCH 31.5 (25.0-35.0) pg MCHC 33.6 (31.0-37.0) g/dL RDW 13.6 (11.5-15.5) % Plt Count 229 (150-450) k/uL MPV 8.8 Neutrophils % 69 % Lymphocytes % 21 % Monocytes % 4 % Eosinophils % 3 % Basophils % 1 % Neutrophils # 5.9 (1.3-7.7) k/uL Lymphocytes # 1.8 (1.0-4.8) k/uL Monocytes # 0.4 (0-1.0) k/uL Eosinophils # 0.2 (0-0.7) k/uL Basophils # 0.1 (0-0.2) k/uL PT 24.6 H (9.0-12.0) sec INR 2.5 H (<1.2) APTT 36.0 H (22.0-30.0) sec Sodium 141 (137-145) mmol/L Potassium 4.3 (3.5-5.1) mmol/L Chloride 102 (98-107) mmol/L Carbon Dioxide 29 (22-30) mmol/L Anion Gap 10 mmol/L BUN 44 H (7-17) mg/dL Creatinine 1.87 H (0.52-1.04) mg/dL Est GFR (CKD-EPI)AfAm 27 (>60 ml/min/1.73 sqM) Est GFR (CKD-EPI)NonAf 24 (>60 ml/min/1.73 sqM) Glucose 132 H (74-99) mg/dL Calcium 9.7 (8.4-10.2) mg/dL Magnesium 2.0 (1.6-2.3) mg/dL Total Bilirubin 0.3 (0.2-1.3) mg/dL AST 26 (14-36) U/L ALT 21 (4-34) U/L Alkaline Phosphatase 81 (38-126) U/L Troponin I (0.000-0.034) ng/mL NT-Pro-B Natriuret Pep pg/mL Total Protein 7.3 (6.3-8.2) g/dL Albumin 4.4 (3.5-5.0) g/dL Urine Color Urine Appearance (Clear) Urine pH (5.0-8.0) Ur Specific [place] (1.001-1.035) Urine Protein (Negative) Urine Glucose (UA) (Negative) Urine Ketones (Negative) Urine Blood (Negative) Urine Nitrite (Negative) Urine Bilirubin (Negative) Urine Urobilinogen (<2.0) mg/dL Ur Leukocyte Esterase (Negative) Influenza Type A (PCR) (Not Detectd) Influenza Type B (PCR) (Not Detectd) RSV (PCR) (Not Detectd) SARS-CoV-2 (PCR) (Not Detectd) 01/07/21 01/07/21 01/07/21 Range/Units 09:54 09:54 09:54 WBC (3.8-10.6) k/uL RBC (3.80-5.40) m/uL Hgb (11.4-16.0) gm/dL Hct (34.0-46.0) % MCV (80.0-100.0) fL MCH (25.0-35.0) pg MCHC (31.0-37.0) g/dL RDW (11.5-15.5) % Plt Count (150-450) k/uL MPV Neutrophils % % Lymphocytes % % Monocytes % % Eosinophils % % Basophils % % Neutrophils # (1.3-7.7) k/uL Lymphocytes # (1.0-4.8) k/uL Monocytes # (0-1.0) k/uL Eosinophils # (0-0.7) k/uL Basophils # (0-0.2) k/uL PT (9.0-12.0) sec INR (<1.2) APTT (22.0-30.0) sec Sodium (137-145) mmol/L Potassium (3.5-5.1) mmol/L Chloride (98-107) mmol/L Carbon Dioxide (22-30) mmol/L Anion Gap mmol/L BUN (7-17) mg/dL Creatinine (0.52-1.04) mg/dL Est GFR (CKD-EPI)AfAm (>60 ml/min/1.73 sqM) Est GFR (CKD-EPI)NonAf (>60 ml/min/1.73 sqM) Glucose (74-99) mg/dL Calcium (8.4-10.2) mg/dL Magnesium (1.6-2.3) mg/dL Total Bilirubin (0.2-1.3) mg/dL AST (14-36) U/L ALT (4-34) U/L Alkaline Phosphatase (38-126) U/L Troponin I <0.012 (0.000-0.034) ng/mL NT-Pro-B Natriuret Pep 252 pg/mL Total Protein (6.3-8.2) g/dL Albumin (3.5-5.0) g/dL Urine Color Urine Appearance (Clear) Urine pH (5.0-8.0) Ur Specific [place] (1.001-1.035) Urine Protein (Negative) Urine Glucose (UA) (Negative) Urine Ketones (Negative) Urine Blood (Negative) Urine Nitrite (Negative) Urine Bilirubin (Negative) Urine Urobilinogen (<2.0) mg/dL Ur Leukocyte Esterase (Negative) Influenza Type A (PCR) Not Detected (Not Detectd) Influenza Type B (PCR) Not Detected (Not Detectd) RSV (PCR) Not Detected (Not Detectd) SARS-CoV-2 (PCR) Not Detected (Not Detectd) 01/07/21 Range/Units 12:05 WBC (3.8-10.6) k/uL RBC (3.80-5.40) m/uL Hgb (11.4-16.0) gm/dL Hct (34.0-46.0) % MCV (80.0-100.0) fL MCH (25.0-35.0) pg MCHC (31.0-37.0) g/dL RDW (11.5-15.5) % Plt Count (150-450) k/uL MPV Neutrophils % % Lymphocytes % % Monocytes % % Eosinophils % % Basophils % % Neutrophils # (1.3-7.7) k/uL Lymphocytes # (1.0-4.8) k/uL Monocytes # (0-1.0) k/uL Eosinophils # (0-0.7) k/uL Basophils # (0-0.2) k/uL PT (9.0-12.0) sec INR (<1.2) APTT (22.0-30.0) sec Sodium (137-145) mmol/L Potassium (3.5-5.1) mmol/L Chloride (98-107) mmol/L Carbon Dioxide (22-30) mmol/L Anion Gap mmol/L BUN (7-17) mg/dL Creatinine (0.52-1.04) mg/dL Est GFR (CKD-EPI)AfAm (>60 ml/min/1.73 sqM) Est GFR (CKD-EPI)NonAf (>60 ml/min/1.73 sqM) Glucose (74-99) mg/dL Calcium (8.4-10.2) mg/dL Magnesium (1.6-2.3) mg/dL Total Bilirubin (0.2-1.3) mg/dL AST (14-36) U/L ALT (4-34) U/L Alkaline Phosphatase (38-126) U/L Troponin I (0.000-0.034) ng/mL NT-Pro-B Natriuret Pep pg/mL Total Protein (6.3-8.2) g/dL Albumin (3.5-5.0) g/dL Urine Color Colorless Urine Appearance Clear (Clear) Urine pH 5.5 (5.0-8.0) Ur Specific [place] 1.007 (1.001-1.035) Urine Protein Negative (Negative) Urine Glucose (UA) Negative (Negative) Urine Ketones Negative (Negative) Urine Blood Negative (Negative) Urine Nitrite Negative (Negative) Urine Bilirubin Negative (Negative) Urine Urobilinogen <2.0 (<2.0) mg/dL Ur Leukocyte Esterase Negative (Negative) Influenza Type A (PCR) (Not Detectd) Influenza Type B (PCR) (Not Detectd) RSV (PCR) (Not Detectd) SARS-CoV-2 (PCR) (Not Detectd) Disposition Clinical Impression: Weakness Disposition: HOME SELF-CARE Condition: Good Instructions (If sedation given, give patient instructions): Weakness (ED) Is patient prescribed a controlled substance at d/c from ED?: No Referrals: Danis Ivy MD [Primary Care Provider] - 1-2 days Saroj Real MD [STAFF PHYSICIAN] - 1-2 days Time of Disposition: 12:35
[2021-01-07 10:20] LABS: INR 2.5 (<1.2); Prothrombin Time 24.6 sec (9.0-12.0)
--- NOTE | 2021-01-07 10:28 | XR ---
EXAMINATION TYPE: XR chest 1V portable DATE OF EXAM: 01/07/2021 COMPARISON: 11/02/2020 HISTORY: Weakness and shortness of breath TECHNIQUE: Single frontal view of the chest is obtained. FINDINGS: There is no focal air space opacity, pleural effusion, or pneumothorax seen. The cardiac silhouette size is within normal limits. The osseous structures are intact. Atherosclerotic change aorta. Heart size normal. Diffuse osteopenia. No overt failure. Mild hyperinflation. IMPRESSION: No acute process.
[2021-01-07 10:50] LABS: Albumin 4.4 g/dL (3.5-5.0); Calcium 9.7 mg/dL (8.4-10.2); Potassium 4.3 mmol/L (3.5-5.1); Total Bilirubin 0.3 mg/dL (0.2-1.3); Total Protein 7.3 g/dL (6.3-8.2)
[2021-01-07 12:21] LABS: Appearance,Urine Clear (Clear); Bilirubin,Urine Negative (Negative); Blood,Urine Negative (Negative); Color,Urine Colorless; Glucose,Urine (UA) Negative (Negative); Ketones,Urine Negative (Negative); Leukocyte Esterase,Urine Negative (Negative); Nitrite,Urine Negative (Negative); PH, Urine 5.5 (5.0-8.0); Protein,Urine Negative (Negative); Specific Gravity,Urine 1.007 (1.001-1.035); Urobilinogen,Urine <2.0 mg/dL (<2.0)
[2021-01-07 12:35] VITALS: BP 138/72; TEMP 98.2
== END 2021-01-07 13:05 | disposition home or self-care (01) ==
LOC: EC 09:34
DX: R53.1 Weakness (principal); I48.91 Unspecified atrial fibrillation; I11.0 Hypertensive heart disease with heart failure; I50.9 Heart failure, unspecified; E07.9 Disorder of thyroid, unspecified; E11.9 Type 2 diabetes mellitus without complications; M19.90 Unspecified osteoarthritis, unspecified site; Z79.01 Long term (current) use of anticoagulants; Z79.84 Long term (current) use of oral hypoglycemic drugs; Z86.718 Personal history of other venous thrombosis and embolism; Z87.442 Personal history of urinary calculi; Z85.528 Personal history of other malignant neoplasm of kidney; Z90.5 Acquired absence of kidney; Z96.653 Presence of artificial knee joint, bilateral; Z90.49 Acquired absence of other specified parts of digestive tract; Z90.710 Acquired absence of both cervix and uterus
CPT/HCPCS: 36415; 93005; 83880; 80053; 83735; 84484; 85025; 85610; 85730; 81003; 87636; 71045; 99285; 96360; 96361 ×2; J2405

== ENCOUNTER → 2021-05-06 | Outpatient (CLI) | payer MEDICARE ==
--- NOTE | 2021-05-06 12:48 | XR ---
EXAMINATION TYPE: XR chest 2V DATE OF EXAM: 05/06/2021 COMPARISON: Chest x-ray 01/07/2021 HISTORY: Congestive heart failure and shortness of breath TECHNIQUE: Frontal and lateral views of the chest are obtained. FINDINGS: There is no focal air space opacity, pleural effusion, or pneumothorax seen. The cardiac silhouette size is stable and likely borderline enlarged. There is eventration of right hemidiaphra gm. Prominent lung volumes suggest underlying COPD. Aorta shows atheromatous change. Surgical clips p resent in the upper abdomen. The osseous structures are intact. IMPRESSION: No acute cardiopulmonary process.
== END | disposition home or self-care (01) ==
LOC: LABWHC1 09:42
PROVIDERS: ATTEND Internal Medicine Cardiovascular Disease
DX: I50.9 Heart failure, unspecified (principal)
CPT/HCPCS: 36415; 71046; 83880

== ENCOUNTER → 2021-06-11 | Outpatient (CLI) | payer MEDICARE ==
[2021-06-11 11:02] LABS: Appearance,Urine Clear (Clear); Bilirubin,Urine Negative (Negative); Blood,Urine Negative (Negative); Color,Urine Light Yellow; Glucose,Urine (UA) Negative (Negative); Ketones,Urine Negative (Negative); Leukocyte Esterase,Urine Negative (Negative); Nitrite,Urine Negative (Negative); Protein,Urine Negative (Negative); Specific Gravity,Urine 1.006 (1.001-1.035); Urobilinogen,Urine <2.0 mg/dL (<2.0)
[2021-06-11 12:00] LABS: Creatinine,Urine Random 35.5 mg/dL; Protein/Creatinine Ratio,Urine 0.507
[2021-06-11 15:12] LABS: Basophils # (A) 0.08 X 10*3/uL (0.00-0.10); Eosinophils # (A) 0.22 X 10*3/uL (0.04-0.35); Eosinophils % (A) 2.8 %; HCT 43.8 % (37.2-46.3); HGB 13.9 g/dL (12.0-15.0); Lymphocytes # (A) 1.41 X 10*3/uL (0.90-5.00); Lymphocytes % (A) 17.6 %; MCH 30.7 pg (27.0-32.0); MCHC 31.7 g/dL (32.0-37.0); MCV 96.7 fL (80.0-97.0); Mean Platelet Volume 10.8 fL (9.5-12.2); Monocytes % (A) 6.3 %; Neutrophils # (A) 5.76 X 10*3/uL (1.80-7.70); Platelet Count 204 X 10*3/uL (140-440); RBC 4.53 X 10*6/uL (4.10-5.20); RDW 13.7 % (11.5-14.5); WBC 7.99 X 10*3/uL (4.50-10.00)
[2021-06-12 20:01] LABS: % Iron Saturation 25.06 (12.00-45.00); African American GFR (CKD) 50.3 (60.0-200.0); Albumin 4.2 g/dL (3.8-4.9); Anion Gap 12.6 mmol/L (4.00-12.00); BUN/Creat Ratio 22.57 Ratio (12.00-20.00); Blood Urea Nitrogen 25.5 mg/dL (9.0-27.0); Calcium 9.2 mg/dL (8.7-10.3); Carbon Dioxide 27.7 mmol/L (21.6-31.8); Magnesium 1.9 mg/dL (1.5-2.4); Non-African American GFR(CKD) 43.4 (60.0-200.0); Phosphorus 2.6 mg/dL (2.4-5.1); Potassium 3.9 mmol/L (3.5-5.5); Uric Acid 8.2 mg/dL (2.9-7.7)
== END | disposition home or self-care (01) ==
LOC: LABWHC1 09:19
PROVIDERS: ATTEND Nurse Practitioner Family
DX: N18.30 Chronic kidney disease, stage 3 unspecified (principal); N25.81 Secondary hyperparathyroidism of renal origin; E55.9 Vitamin D deficiency, unspecified; M10.9 Gout, unspecified; N39.0 Urinary tract infection, site not specified; D64.9 Anemia, unspecified
CPT/HCPCS: 36415; 80048; 81003; 82040; 82306; 82570; 82728; 83540; 83550; 83735; 83970; 84100; 84156; 84550; 85025

== ENCOUNTER → 2021-07-12 | Outpatient (CLI) | payer MEDICARE ==
--- NOTE | 2021-07-12 12:58 | XR ---
EXAMINATION TYPE: XR femur RT DATE OF EXAM: 07/12/2021 COMPARISON: NONE HISTORY: Pain TECHNIQUE: 4 views submitted FINDINGS: Post surgical change involving the knee. Vascular calcifications noted. There is arthropath y of the hip with diffuse osteopenia. IMPRESSION: Arthropathy of the hip and postsurgical change right knee with no acute fracture.
--- NOTE | 2021-07-12 13:01 | XR ---
EXAMINATION TYPE: XR Hip Complete RT DATE OF EXAM: 07/12/2021 COMPARISON: NONE HISTORY: Pain TECHNIQUE: 2 views submitted FINDINGS: There is no evidence of erosive change or acute fracture. Arthropathy of the hip. Vascular calcificat ion noted. Hypertrophic change of the greater trochanter. IMPRESSION: 1. No evidence of acute fracture or dislocation. 2. Arthropathy.
== END | disposition home or self-care (01) ==
LOC: RADXRMAIN 12:15
PROVIDERS: ATTEND Internal Medicine Critical Care Medicine
DX: M16.11 Unilateral primary osteoarthritis, right hip (principal)
CPT/HCPCS: 73502

== ENCOUNTER 2021-10-18 14:56 | Emergency (ER) | payer MEDICARE ==
[2021-10-18 15:58] VITALS: RESP 18; TEMP 98.2
[2021-10-18 16:45] LABS: Appearance,Urine Clear (Clear); Bilirubin,Urine Negative (Negative); Blood,Urine Negative (Negative); Color,Urine Colorless; Glucose,Urine (UA) Negative (Negative); Ketones,Urine Negative (Negative); Leukocyte Esterase,Urine Negative (Negative); Nitrite,Urine Negative (Negative); PH, Urine 5.5 (5.0-8.0); Protein,Urine Negative (Negative); Specific Gravity,Urine 1.006 (1.001-1.035); Urobilinogen,Urine <2.0 mg/dL (<2.0)
[2021-10-18] MEDS ORDERED: MECLIZINE 12.5 MG TAB PO STA (18:30)
--- NOTE | 2021-10-18 18:34 | ED ---
General Adult HPI - General Chief complaint: Dizziness Stated complaint: Dizziness, hypoglycemia Time Seen by Provider: 10/18/21 18:20 Source: patient, family (son), RN notes reviewed, old records reviewed Mode of arrival: wheelchair - History of Present Illness Initial comments: 86-year-old female presents to the emergency room with complaints of dizziness that started today with some shortness of breath. She denies any chest pain, nausea, vomiting, diarrhea or fevers. Last time she felt this way she had a urinary tract infection or atrial fibrillation. States she did see her chiropractor today however she had the symptoms before seeing him and he only adjusted her lower back. -: days(s) (1) Severity scale (1-10): 0 Associated Symptoms: shortness of breath, other (dizziness ) Treatments Prior to Arrival: none - Related Data Home Medications Medication Instructions Recorded Confirmed Glimepiride [Amaryl] 2 mg PO BID 11/25/15 10/18/21 NIFEdipine [NIFEdipine ER] 60 mg PO DAILY 11/25/15 10/18/21 Warfarin [Coumadin] 2.5 mg PO MOWEFR 11/25/15 10/18/21 Warfarin [Coumadin] 5 mg PO SUTUTHSA 11/25/15 10/18/21 Flecainide Acetate [Tambocor] 100 mg PO Q12HR 06/21/18 10/18/21 Metoprolol Succinate (ER) [Toprol 25 mg PO BID 06/21/18 10/18/21 XL] sitaGLIPtin [Januvia] 50 mg PO HS 06/21/18 10/18/21 Allopurinol [Zyloprim] 100 mg PO DAILY 04/02/20 10/18/21 Ergocalciferol [Vitamin D2 50,000 unit PO Q30D 04/02/20 10/18/21 (DRISDOL)] Furosemide [Lasix] 40 mg PO DAILY 04/02/20 10/18/21 Thyroid,Pork [[place] Thyroid] 60 mg PO DAILY 04/02/20 10/18/21 Valsartan 320 mg PO DAILY 04/02/20 10/18/21 Prevagen 1 tab PO DAILY 01/07/21 10/18/21 Previous Rx's Medication Instructions Recorded Meclizine [Antivert] 25 mg PO TID PRN #15 tab 10/18/21 Allergies Allergy/AdvReac Type Severity Reaction Status Date / Time levothyroxine sodium Allergy Unknown Verified 10/18/21 19:23 [From Synthroid] Childhood metformin [From Glucophage] Allergy Unknown Verified 10/18/21 19:23 Childhood pioglitazone [From Actos] Allergy Unknown Verified 10/18/21 19:23 Childhood midazolam HCl [From Versed] AdvReac Unknown Pt states Verified 10/18/21 19:23 she sleeps for days peanut AdvReac Unknown Cough Verified 10/18/21 19:23 Review of Systems ROS Statement: Those systems with pertinent positive or pertinent negative responses have been documented in the HPI. ROS Other: All systems not noted in ROS Statement are negative. Past Medical History Past Medical History: Atrial Fibrillation, Cancer, Diabetes Mellitus, Deep Vein Thrombosis (DVT), Hypertension, Osteoarthritis (OA), Thyroid Disorder Additional Past Medical History / Comment(s): LOW THYROID, HX OF MONO., KIDNEY STONES.& DVT LEFT LEG., PAIN RIGHT SHOULDER. Renal cancer with nephrectomy, 2015 History of Any Multi-Drug Resistant Organisms: ESBL Date of last positivie culture/infection: 04/06/20 MDRO Source:: ESBL URINE Past Surgical History: Breast Surgery, Cholecystectomy, Hysterectomy, Joint Replacement, Orthopedic Surgery Additional Past Surgical History / Comment(s): YULIA CATARACTS, COLONOSCOPY, MULTIPLE SURGERIES LEFT KNEE, YULIA KNEE REPLACEMENT, BREAST REDUCTION, LEFT ANKLE FX REPAIR WITH HARDWARE. Right kidney removed secondary to [place] Past Anesthesia/Blood Transfusion Reactions: Previous Problems w/ Anesthesia, Postoperative Nausea & Vomiting (PONV) Additional Past Anesthesia/Blood Transfusion Reaction / Comment(s): PT STATES THAT VERSED MAKES HER SLEEP FOR DAYS. Past Psychological History: No Psychological Hx Reported Smoking Status: Never smoker Past Alcohol Use History: None Reported Past Drug Use History: None Reported - Past Family History Mother Family Medical History: Cancer Additional Family Medical History / Comment(s): BREAST CANCER Sister(s) Family Medical History: Cancer Additional Family Medical History / Comment(s): BREAST CANCER Father Family Medical History: Diabetes Mellitus General Exam General appearance: alert, in no apparent distress Head exam: Present: atraumatic, normocephalic, normal inspection Eye exam: Present: normal appearance, PERRL, EOMI, nystagmus (horizontal to right causing dizziness). Absent: scleral icterus, conjunctival injection, periorbital swelling ENT exam: Present: normal exam, normal oropharynx, mucous membranes moist, TM's normal bilaterally, normal external ear exam, other (hearing aid right ear) Neck exam: Present: normal inspection, full ROM. Absent: tenderness, meningismus, lymphadenopathy Respiratory exam: Present: normal lung sounds bilaterally, rales. Absent: respiratory distress, wheezes, rhonchi, stridor, chest wall tenderness, accessory muscle use Cardiovascular Exam: Present: regular rate, normal rhythm, normal heart sounds. Absent: systolic murmur, diastolic murmur, rubs, gallop, clicks GI/Abdominal exam: Present: soft. Absent: distended, tenderness Extremities exam: Present: normal capillary refill Neurological exam: Present: alert, oriented X3 Expanded Patient oriented to: Present: person, place, time Speech: Present: fluid speech Cranial nerves: EOM's Intact: Normal, Nystagmus: Abnormal Right Eye Response: (4) open spontaneously Motor Response: (6) obeys commands Verbal Response: (5) oriented Lizbeth Total: 15 Psychiatric exam: Present: normal affect, normal mood Skin exam: Present: warm, dry, intact. Absent: cyanosis, diaphoretic Course Vital Signs 10/18/21 10/18/21 10/18/21 15:55 18:50 21:23 Temperature 98.2 F Pulse Rate 68 67 Respiratory 18 18 18 Rate Blood Pressure 148/68 116/58 O2 Sat by Pulse 96 94 L Oximetry 10/18/21 10/18/21 21:37 22:36 Temperature Pulse Rate 64 64 Respiratory 18 18 Rate Blood Pressure 130/84 O2 Sat by Pulse 93 L 96 Oximetry EKG Findings - EKG Results: EKG: sinus rhythm (Ventricular rate 72, UT interval 0.195, QRS 0.101, QTC 0.464) Medical Decision Making - Medical Decision Making 86-year-old female presents with her son with complaints of dizziness that started today with some shortness of breath with exertion. She denies any chest pain, nausea, vomiting, diarrhea or fevers. She denies any recent falls or he adaches. Patient's dizziness was reproduced with movement of her head to the right causing a horizontal nystagmus. She was given Antivert with some relief. This is likely benign positional vertigo. Lung sounds with rales to bilateral bases. There is no evidence of pedal edema. Chest x-ray shows no acute cardiopulmonary disease or process. She was directed to double her Lasix dose tomorrow and Monday as I feel that this is congestive heart failure with a BNP of 910, rales and complaints of shortness of breath with exertion. There is no evidence of leukocytosis, hemoglobin and hematocrit are stable. Electrolytes are unremarkable. Troponin is negative and EKG shows sinus rhythm. Urinalysis is clear. Patient is negative for influenza and RSV and coronavirus. She'll be discharged home with prescription for antivert, directed to return to the emergency room with any new or concerning symptoms including increasing shortness of breath, worsening dizziness, headaches or chest pain. Patient and her son are agreeable to this plan of care. Case discussed with Dr. Villar - Lab Data Result diagrams: 10/18/21 19:07 10/18/21 19:07 Lab Results 10/18/21 10/18/21 10/18/21 Range/Units 16:29 19:07 19:07 WBC 9.0 (3.8-10.6) k/uL RBC 4.30 (3.80-5.40) m/uL Hgb 13.9 (11.4-16.0) gm/dL Hct 42.2 (34.0-46.0) % MCV 98.1 (80.0-100.0) fL MCH 32.3 (25.0-35.0) pg MCHC 32.9 (31.0-37.0) g/dL RDW 14.6 (11.5-15.5) % Plt Count 206 (150-450) k/uL MPV 8.8 Neutrophils % 70 % Lymphocytes % 19 % Monocytes % 5 % Eosinophils % 4 % Basophils % 1 % Neutrophils # 6.2 (1.3-7.7) k/uL Lymphocytes # 1.7 (1.0-4.8) k/uL Monocytes # 0.4 (0-1.0) k/uL Eosinophils # 0.3 (0-0.7) k/uL Basophils # 0.1 (0-0.2) k/uL PT 15.2 H (9.0-12.0) sec INR 1.5 H (<1.2) Sodium (137-145) mmol/L Potassium (3.5-5.1) mmol/L Chloride (98-107) mmol/L Carbon Dioxide (22-30) mmol/L Anion Gap mmol/L BUN (7-17) mg/dL Creatinine (0.52-1.04) mg/dL Est GFR (CKD-EPI)AfAm (>60 ml/min/1.73 sqM) Est GFR (CKD-EPI)NonAf (>60 ml/min/1.73 sqM) Glucose (74-99) mg/dL Calcium (8.4-10.2) mg/dL Total Bilirubin (0.2-1.3) mg/dL AST (14-36) U/L ALT (4-34) U/L Alkaline Phosphatase (38-126) U/L Troponin I (0.000-0.034) ng/mL NT-Pro-B Natriuret Pep pg/mL Total Protein (6.3-8.2) g/dL Albumin (3.5-5.0) g/dL Urine Color Colorless Urine Appearance Clear (Clear) Urine pH 5.5 (5.0-8.0) Ur Specific [place] 1.006 (1.001-1.035) Urine Protein Negative (Negative) Urine Glucose (UA) Negative (Negative) Urine Ketones Negative (Negative) Urine Blood Negative (Negative) Urine Nitrite Negative (Negative) Urine Bilirubin Negative (Negative) Urine Urobilinogen <2.0 (<2.0) mg/dL Ur Leukocyte Esterase Negative (Negative) Influenza Type A (PCR) (Not Detectd) Influenza Type B (PCR) (Not Detectd) RSV (PCR) (Not Detectd) SARS-CoV-2 (PCR) (Not Detectd) 10/18/21 10/18/21 10/18/21 Range/Units 19:07 19:07 19:07 WBC (3.8-10.6) k/uL RBC (3.80-5.40) m/uL Hgb (11.4-16.0) gm/dL Hct (34.0-46.0) % MCV (80.0-100.0) fL MCH (25.0-35.0) pg MCHC (31.0-37.0) g/dL RDW (11.5-15.5) % Plt Count (150-450) k/uL MPV Neutrophils % % Lymphocytes % % Monocytes % % Eosinophils % % Basophils % % Neutrophils # (1.3-7.7) k/uL Lymphocytes # (1.0-4.8) k/uL Monocytes # (0-1.0) k/uL Eosinophils # (0-0.7) k/uL Basophils # (0-0.2) k/uL PT (9.0-12.0) sec INR (<1.2) Sodium 136 L (137-145) mmol/L Potassium 4.9 (3.5-5.1) mmol/L Chloride 99 (98-107) mmol/L Carbon Dioxide 30 (22-30) mmol/L Anion Gap 7 mmol/L BUN 24 H (7-17) mg/dL Creatinine 1.03 (0.52-1.04) mg/dL Est GFR (CKD-EPI)AfAm 56 (>60 ml/min/1.73 sqM) Est GFR (CKD-EPI)NonAf 49 (>60 ml/min/1.73 sqM) Glucose 118 H (74-99) mg/dL Calcium 8.9 (8.4-10.2) mg/dL Total Bilirubin 0.7 (0.2-1.3) mg/dL AST 42 H (14-36) U/L ALT 25 (4-34) U/L Alkaline Phosphatase 80 (38-126) U/L Troponin I <0.012 (0.000-0.034) ng/mL NT-Pro-B Natriuret Pep 910 pg/mL Total Protein 7.2 (6.3-8.2) g/dL Albumin 4.0 (3.5-5.0) g/dL Urine Color Urine Appearance (Clear) Urine pH (5.0-8.0) Ur Specific [place] (1.001-1.035) Urine Protein (Negative) Urine Glucose (UA) (Negative) Urine Ketones (Negative) Urine Blood (Negative) Urine Nitrite (Negative) Urine Bilirubin (Negative) Urine Urobilinogen (<2.0) mg/dL Ur Leukocyte Esterase (Negative) Influenza Type A (PCR) (Not Detectd) Influenza Type B (PCR) (Not Detectd) RSV (PCR) (Not Detectd) SARS-CoV-2 (PCR) (Not Detectd) 10/18/21 Range/Units 19:51 WBC (3.8-10.6) k/uL RBC (3.80-5.40) m/uL Hgb (11.4-16.0) gm/dL Hct (34.0-46.0) % MCV (80.0-100.0) fL MCH (25.0-35.0) pg MCHC (31.0-37.0) g/dL RDW (11.5-15.5) % Plt Count (150-450) k/uL MPV Neutrophils % % Lymphocytes % % Monocytes % % Eosinophils % % Basophils % % Neutrophils # (1.3-7.7) k/uL Lymphocytes # (1.0-4.8) k/uL Monocytes # (0-1.0) k/uL Eosinophils # (0-0.7) k/uL Basophils # (0-0.2) k/uL PT (9.0-12.0) sec INR (<1.2) Sodium (137-145) mmol/L Potassium (3.5-5.1) mmol/L Chloride (98-107) mmol/L Carbon Dioxide (22-30) mmol/L Anion Gap mmol/L BUN (7-17) mg/dL Creatinine (0.52-1.04) mg/dL Est GFR (CKD-EPI)AfAm (>60 ml/min/1.73 sqM) Est GFR (CKD-EPI)NonAf (>60 ml/min/1.73 sqM) Glucose (74-99) mg/dL Calcium (8.4-10.2) mg/dL Total Bilirubin (0.2-1.3) mg/dL AST (14-36) U/L ALT (4-34) U/L Alkaline Phosphatase (38-126) U/L Troponin I (0.000-0.034) ng/mL NT-Pro-B Natriuret Pep pg/mL Total Protein (6.3-8.2) g/dL Albumin (3.5-5.0) g/dL Urine Color Urine Appearance (Clear) Urine pH (5.0-8.0) Ur Specific [place] (1.001-1.035) Urine Protein (Negative) Urine Glucose (UA) (Negative) Urine Ketones (Negative) Urine Blood (Negative) Urine Nitrite (Negative) Urine Bilirubin (Negative) Urine Urobilinogen (<2.0) mg/dL Ur Leukocyte Esterase (Negative) Influenza Type A (PCR) Not Detected (Not Detectd) Influenza Type B (PCR) Not Detected (Not Detectd) RSV (PCR) Not Detected (Not Detectd) SARS-CoV-2 (PCR) Not Detected (Not Detectd) Disposition Clinical Impression: Dizziness, Shortness of breath Disposition: HOME SELF-CARE Condition: Good Instructions (If sedation given, give patient instructions): Dizziness (ED) Additional Instructions: Your white blood cell count is 9.0, your PT is 15.2 and your INR is 1.5, your BNP is 910. Urinalysis is negative, influenza and coronavirus swabs are negative. Your chest x-ray shows no acute disease. Take 2 doses of your Lasix tomorrow and Monday and follow-up with your primary care doctor this week. Return to the emergency room with any new or concerning symptoms including chest pain, shortness of breath or worsening dizziness. Follow-up with Dr. Lang the ear nose and throat doctor for your dizziness. Take Antivert as needed for dizziness. Prescriptions: Meclizine [Antivert] 25 mg PO TID PRN #15 tab PRN Reason: Vertigo Is patient prescribed a controlled substance at d/c from ED?: No Referrals: Danis Ivy MD [Primary Care Provider] - 1-2 days Mohsen Sanford MD [STAFF PHYSICIAN] - 1-2 days Time of Disposition: 22:26
[2021-10-18 19:17] LABS: Basophils # (A) 0.1 k/uL (0-0.2); Basophils % (A) 1 %; Eosinophils # (A) 0.3 k/uL (0-0.7); Eosinophils % (A) 4 %; HCT 42.2 % (34.0-46.0); HGB 13.9 gm/dL (11.4-16.0); Lymphocytes # (A) 1.7 k/uL (1.0-4.8); Lymphocytes % (A) 19 %; MCH 32.3 pg (25.0-35.0); MCHC 32.9 g/dL (31.0-37.0); MCV 98.1 fL (80.0-100.0); Mean Platelet Volume 8.8; Monocytes # (A) 0.4 k/uL (0-1.0); Monocytes % (A) 5 %; Neutrophils # (A) 6.2 k/uL (1.3-7.7); Neutrophils % (A) 70 %; Platelet Count 206 k/uL (150-450); RDW 14.6 % (11.5-15.5)
[2021-10-18 19:27] LABS: INR 1.5 (<1.2); Prothrombin Time 15.2 sec (9.0-12.0)
[2021-10-18 19:31] LABS: Calcium 8.9 mg/dL (8.4-10.2); Total Bilirubin 0.7 mg/dL (0.2-1.3); Total Protein 7.2 g/dL (6.3-8.2)
[2021-10-18 19:40] LABS: Potassium 4.9 mmol/L (3.5-5.1)
[2021-10-18 20:40] LABS: Influenza A Not Detected (Not Detectd); Influenza B Not Detected (Not Detectd)
--- NOTE | 2021-10-18 20:52 | XR ---
EXAMINATION TYPE: XR chest 2V DATE OF EXAM: 10/18/2021 7:35 PM COMPARISON:Chest radiographs from 05/06/2021 TECHNIQUE: Frontal and lateral views of the chest. CLINICAL INDICATION:Female, 86 years old with history of short of breath; FINDINGS: Lungs/Pleura: There is no evidence of pleural effusion, focal consolidation, or pneumothorax. Pulmonary vascularity: Unremarkable. Heart/mediastinum: Cardiomediastinal silhouette is enlarged and stable. Musculoskeletal: No acute osseous pathology. IMPRESSION: No acute cardiopulmonary disease/process.
[2021-10-18 21:38] VITALS: PULSE 64
[2021-10-18 22:55] VITALS: BP 130/84
== END 2021-10-18 22:37 | disposition home or self-care (01) ==
LOC: EC 14:56
DX: R06.02 Shortness of breath (principal); R42 Dizziness and giddiness; Z20.822 Contact with and (suspected) exposure to COVID-19; E11.9 Type 2 diabetes mellitus without complications; I10 Essential (primary) hypertension; M19.90 Unspecified osteoarthritis, unspecified site; I48.91 Unspecified atrial fibrillation; Z79.01 Long term (current) use of anticoagulants; Z79.84 Long term (current) use of oral hypoglycemic drugs; Z79.899 Other long term (current) drug therapy; Z86.718 Personal history of other venous thrombosis and embolism
CPT/HCPCS: 36415; 71046; 80053; 81003; 83880; 84484; 85025; 85610; 87636; 93005; 99285

== ENCOUNTER → 2021-12-27 | Outpatient (CLI) | payer MEDICARE ==
[2021-12-27 15:14] LABS: Chol/HDL Ratio 4.92 Ratio; LDL Cholesterol,Calculated 110.2 mg/dL (0.0-131.0)
== END | disposition home or self-care (01) ==
LOC: LABWHC1 09:40
PROVIDERS: ATTEND Internal Medicine Critical Care Medicine
DX: E11.9 Type 2 diabetes mellitus without complications (principal); E03.9 Hypothyroidism, unspecified; E78.5 Hyperlipidemia, unspecified
CPT/HCPCS: 36415; 80061; 83036; 84439; 84443

== ENCOUNTER 2022-02-05 23:28 | Inpatient (IN) | payer MEDICARE ==
[2022-02-06] MEDS ORDERED: PANTOPRAZOLE 40 MG/10 ML VIAL IVP STA (00:10)
[2022-02-06] MEDS ORDERED: SODIUM CHLORIDE 0.9% 1,000 ML IV STA (00:10)
[2022-02-06] MEDS ORDERED: ONDANSETRON 4 MG/2 ML VIAL IVP STA (00:10)
--- NOTE | 2022-02-06 00:10 | ED ---
GI Bleed HPI - General Chief complaint: GI Bleed Stated complaint: GI Bleed Time Seen by Provider: 02/06/22 00:09 Source: patient, RN notes reviewed, old records reviewed Mode of arrival: ambulatory Limitations: no limitations - History of Present Illness Initial comments: This is an 78-year-old female on Coumadin coming in for bright red blood per rectum multiple times be getting dinner tonight. No pain. No abdominal pain no lightheadedness dizziness or feeling like she a pass out. Patient Coumadin level last checked was running higher than normal. Patient again is just coming in for the persistent bleeding in the rectum it appears not to be mixed with stool just bright red with clots - Related Data Home Medications Medication Instructions Recorded Confirmed Glimepiride [Amaryl] 2 mg PO BID 11/25/15 10/18/21 NIFEdipine [NIFEdipine ER] 60 mg PO DAILY 11/25/15 10/18/21 Warfarin [Coumadin] 2.5 mg PO MOWEFR 11/25/15 10/18/21 Warfarin [Coumadin] 5 mg PO SUTUTHSA 11/25/15 10/18/21 Flecainide Acetate [Tambocor] 100 mg PO Q12HR 06/21/18 10/18/21 Metoprolol Succinate (ER) [Toprol 25 mg PO BID 06/21/18 10/18/21 XL] sitaGLIPtin [Januvia] 50 mg PO HS 06/21/18 10/18/21 Allopurinol [Zyloprim] 100 mg PO DAILY 04/02/20 10/18/21 Ergocalciferol [Vitamin D2 50,000 unit PO Q30D 04/02/20 10/18/21 (DRISDOL)] Furosemide [Lasix] 40 mg PO DAILY 04/02/20 10/18/21 Thyroid,Pork [[place] Thyroid] 60 mg PO DAILY 04/02/20 10/18/21 Valsartan 320 mg PO DAILY 04/02/20 10/18/21 Prevagen 1 tab PO DAILY 01/07/21 10/18/21 Previous Rx's Medication Instructions Recorded Meclizine [Antivert] 25 mg PO TID PRN #15 tab 10/18/21 Allergies Allergy/AdvReac Type Severity Reaction Status Date / Time levothyroxine sodium Allergy Unknown Verified 10/18/21 19:23 [From Synthroid] Childhood metformin [From Glucophage] Allergy Unknown Verified 10/18/21 19:23 Childhood pioglitazone [From Actos] Allergy Unknown Verified 10/18/21 19:23 Childhood midazolam HCl [From Versed] AdvReac Unknown Pt states Verified 10/18/21 19:23 she sleeps for days peanut AdvReac Unknown Cough Verified 10/18/21 19:23 Review of Systems ROS Statement: Those systems with pertinent positive or pertinent negative responses have been documented in the HPI. ROS Other: All systems not noted in ROS Statement are negative. Past Medical History Past Medical History: Atrial Fibrillation, Cancer, Diabetes Mellitus, Deep Vein Thrombosis (DVT), Hypertension, Osteoarthritis (OA), Thyroid Disorder Additional Past Medical History / Comment(s): LOW THYROID, HX OF MONO., KIDNEY STONES.& DVT LEFT LEG., PAIN RIGHT SHOULDER. Renal cancer with nephrectomy, 2016 History of Any Multi-Drug Resistant Organisms: ESBL Date of last positivie culture/infection: 04/06/20 MDRO Source:: ESBL URINE Past Surgical History: Breast Surgery, Cholecystectomy, Hysterectomy, Joint Replacement, Orthopedic Surgery Additional Past Surgical History / Comment(s): YULIA CATARACTS, COLONOSCOPY, MULTIPLE SURGERIES LEFT KNEE, YULIA KNEE REPLACEMENT, BREAST REDUCTION, LEFT ANKLE FX REPAIR WITH HARDWARE. Right kidney removed secondary to [place] Past Anesthesia/Blood Transfusion Reactions: Previous Problems w/ Anesthesia, Postoperative Nausea & Vomiting (PONV) Additional Past Anesthesia/Blood Transfusion Reaction / Comment(s): PT STATES THAT VERSED MAKES HER SLEEP FOR DAYS. Past Psychological History: No Psychological Hx Reported Smoking Status: Never smoker Past Alcohol Use History: None Reported Past Drug Use History: None Reported - Past Family History Mother Family Medical History: Cancer Additional Family Medical History / Comment(s): BREAST CANCER Sister(s) Family Medical History: Cancer Additional Family Medical History / Comment(s): BREAST CANCER Father Family Medical History: Diabetes Mellitus General Exam Limitations: no limitations General appearance: alert, in no apparent distress Head exam: Present: atraumatic, normocephalic, normal inspection Eye exam: Present: normal appearance, PERRL, EOMI. Absent: scleral icterus, conjunctival injection, periorbital swelling ENT exam: Present: normal exam, mucous membranes moist Neck exam: Present: normal inspection. Absent: tenderness, meningismus, lymphadenopathy Respiratory exam: Present: normal lung sounds bilaterally. Absent: respiratory distress, wheezes, rales, rhonchi, stridor Cardiovascular Exam: Present: regular rate, normal rhythm, normal heart sounds. Absent: systolic murmur, diastolic murmur, rubs, gallop, clicks GI/Abdominal exam: Present: soft, normal bowel sounds. Absent: distended, tenderness, guarding, rebound, rigid Rectal exam: Present: heme (+) stool, bloody stool Extremities exam: Present: normal inspection, full ROM, normal capillary refill. Absent: tenderness, pedal edema, joint swelling, calf tenderness Back exam: Present: normal inspection Neurological exam: Present: alert, oriented X3, CN II-XII intact Psychiatric exam: Present: normal affect, normal mood Skin exam: Present: warm, dry, intact, normal color. Absent: rash Course Vital Signs 02/05/22 23:30 Temperature 97.9 F Pulse Rate 78 Respiratory 18 Rate Blood Pressure 194/82 O2 Sat by Pulse 96 Oximetry - Reevaluation(s) Reevaluation #1: 02/06/22 00:47 Medical records reviewed Reevaluation #2: 02/06/22 00:47 Patient informed of results and questions have been answered Reevaluation #3: 02/06/22 00:47 No bloody output per rectum here in the ER - Consultations Consultation #1: Spoke with JOSE FRANCISCO to agrees to admit this patient Medical Decision Making - Medical Decision Making 86 female to the emergency department for evaluation bright red blood per rectum on Coumadin. She is coagulopathy with bright red blood per rectum, will admit for trending of hemoglobin likely reversal of Coumadin level - Lab Data Lab Results 02/06/22 Range/Units 00:26 Blood Type Recheck No Previous Record Bld Type Recheck Status CABO Indicated Spec Expiration Date 02/09/2022 - 232 Disposition Clinical Impression: Gastrointestinal hemorrhage, Bright red blood per rectum, Lower gastrointestinal hemorrhage, Coagulopathy Disposition: ADMITTED IP TO THIS HOSP Condition: Serious Is patient prescribed a controlled substance at d/c from ED?: No Referrals: Danis Ivy MD [Primary Care Provider] - 1-2 days
[2022-02-06] MEDS ORDERED: ONDANSETRON 4 MG/2 ML VIAL IVP PRN (00:45)
[2022-02-06] MEDS ORDERED: NALOXONE 0.4 MG/ML 1 ML VIAL IV PRN (00:45)
[2022-02-06 00:48] LABS: Basophils # (A) 0.1 k/uL (0-0.2); Basophils % (A) 1 %; Eosinophils # (A) 0.4 k/uL (0-0.7); Eosinophils % (A) 4 %; HGB 12.9 gm/dL (11.4-16.0); Lymphocytes # (A) 1.8 k/uL (1.0-4.8); Lymphocytes % (A) 19 %; MCH 30.8 pg (25.0-35.0); MCHC 31.5 g/dL (31.0-37.0); MCV 97.9 fL (80.0-100.0); Mean Platelet Volume 9.2; Monocytes # (A) 0.6 k/uL (0-1.0); Monocytes % (A) 6 %; Neutrophils # (A) 6.6 k/uL (1.3-7.7); Neutrophils % (A) 69 %; Platelet Count 192 k/uL (150-450); RBC 4.18 m/uL (3.80-5.40); RDW 14.2 % (11.5-15.5); WBC 9.6 k/uL (3.8-10.6)
[2022-02-06 01:00] LABS: INR 2.5 (<1.2); Partial Thromboplastin Time 36.4 sec (22.0-30.0); Prothrombin Time 24.6 sec (9.0-12.0)
[2022-02-06] MEDS: SODIUM CHLORIDE 0.9% 1,000 ML IV SCH (01:05)
[2022-02-06 01:09] LABS: Albumin 4.1 g/dL (3.5-5.0); Calcium 8.6 mg/dL (8.4-10.2); Magnesium 1.8 mg/dL (1.6-2.3); Potassium 3.9 mmol/L (3.5-5.1); Total Bilirubin 0.3 mg/dL (0.2-1.3); Total Protein 6.9 g/dL (6.3-8.2)
[2022-02-06] MEDS: PANTOPRAZOLE 40 MG/10 ML VIAL IV SCH (08:50)
[2022-02-06 11:57] LABS: Basophils # (A) 0.1 k/uL (0-0.2); Basophils % (A) 1 %; Eosinophils # (A) 0.2 k/uL (0-0.7); Eosinophils % (A) 3 %; HCT 39.5 % (34.0-46.0); Hypochromasia Slight; Lymphocytes # (A) 1.5 k/uL (1.0-4.8); Lymphocytes % (A) 20 %; MCH 30.5 pg (25.0-35.0); MCHC 30.4 g/dL (31.0-37.0); MCV 100.3 fL (80.0-100.0); Macrocytosis Slight; Mean Platelet Volume 9.9; Monocytes # (A) 0.4 k/uL (0-1.0); Monocytes % (A) 5 %; Neutrophils # (A) 5.1 k/uL (1.3-7.7); Neutrophils % (A) 68 %; Platelet Count 181 k/uL (150-450); RBC 3.94 m/uL (3.80-5.40); RDW 14.2 % (11.5-15.5); WBC 7.4 k/uL (3.8-10.6)
[2022-02-06] MEDS ORDERED: PHYTONADIONE 5 MG in SODIUM CHLORIDE 0.9% 50 ML IVPB STA (18:56)
--- NOTE | 2022-02-06 18:56 | P.HPIM ---
History of Present Illness H&P Date: 02/06/22 Chief Complaint: Rectal bleed 78-year-old female, history of hypertension, hypothyroidism, diabetes mellitus, atrial fibrillation and DVT, on Coumadin coming in for bright red blood per rectum multiple times be getting dinner tonight. No pain. No abdominal pain no lightheadedness dizziness or feeling like she a pass out. Patient Coumadin level last checked was running higher than normal. Patient again is just coming in for the persistent bleeding in the rectum it appears not to be mixed with stool just bright red with clots Lab review completed in ED reveals a WBC of 7.4, hemoglobin of 12.9, hematocrit of 41.0 and platelet count of 192, PT/INR of 24.6/2.5, sodium 140, potassium 3.9, BUN/creatinine of 21/1.39 Review of Systems REVIEW OF SYSTEMS: CONSTITUTIONAL: No fever, no malaise, no fatigue. HEENT: No recent visual problems or hearing problems. Denied any sore throat. CARDIOVASCULAR: No chest pain, orthopnea, PND, no palpitations, no syncope. PULMONARY: No shortness of breath, no cough, no hemoptysis. GASTROINTESTINAL: No diarrhea, no nausea, no vomiting, no abdominal pain. NEUROLOGICAL: No headaches, no weakness, no numbness. HEMATOLOGICAL: Denies any bleeding or petechiae. GENITOURINARY: Denies any burning micturition, frequency, or urgency. MUSCULOSKELETAL/RHEUMATOLOGICAL: Denies any joint pain, swelling, or any muscle pain. ENDOCRINE: Denies any polyuria or polydipsia. The rest of the 14-point review of systems is negative. Past Medical History Past Medical History: Atrial Fibrillation, Cancer, Diabetes Mellitus, Deep Vein Thrombosis (DVT), Hypertension, Osteoarthritis (OA), Thyroid Disorder Additional Past Medical History / Comment(s): LOW THYROID, HX OF MONO., KIDNEY STONES.& DVT LEFT LEG., PAIN RIGHT SHOULDER. Renal cancer with nephrectomy, 2016 History of Any Multi-Drug Resistant Organisms: ESBL Date of last positivie culture/infection: 04/06/20 MDRO Source:: ESBL URINE Past Surgical History: Breast Surgery, Cholecystectomy, Hysterectomy, Joint Replacement, Orthopedic Surgery Additional Past Surgical History / Comment(s): YULIA CATARACTS, COLONOSCOPY, MULTIPLE SURGERIES LEFT KNEE, YULIA KNEE REPLACEMENT, BREAST REDUCTION, LEFT ANKLE FX REPAIR WITH HARDWARE. Right kidney removed secondary to CA Past Anesthesia/Blood Transfusion Reactions: Previous Problems w/ Anesthesia, Postoperative Nausea & Vomiting (PONV) Additional Past Anesthesia/Blood Transfusion Reaction / Comment(s): PT STATES THAT VERSED MAKES HER SLEEP FOR DAYS. Past Psychological History: No Psychological Hx Reported Smoking Status: Never smoker Past Alcohol Use History: None Reported Past Drug Use History: None Reported - Past Family History Mother Family Medical History: Cancer Additional Family Medical History / Comment(s): BREAST CANCER Sister(s) Family Medical History: Cancer Additional Family Medical History / Comment(s): BREAST CANCER Father Family Medical History: Diabetes Mellitus Medications and Allergies Home Medications Medication Instructions Recorded Confirmed Type Glimepiride [Amaryl] 2 mg PO BID 11/25/15 02/06/22 History NIFEdipine [NIFEdipine ER] 60 mg PO DAILY 11/25/15 02/06/22 History Warfarin [Coumadin] 2.5 mg PO MOFR@209911/25/15 02/06/22 History Warfarin [Coumadin] 5 mg PO SUTUWETHSA@209911/25/15 02/06/22 History Flecainide Acetate [Tambocor] 100 mg PO Q12H 06/21/18 02/06/22 History Metoprolol Succinate (ER) [Toprol 25 mg PO BID 06/21/18 02/06/22 History XL] sitaGLIPtin [Januvia] 50 mg PO HS 06/21/18 02/06/22 History Allopurinol [Zyloprim] 100 mg PO DAILY 04/02/20 02/06/22 History Furosemide [Lasix] 40 mg PO DAILY 04/02/20 02/06/22 History Thyroid,Pork [[place] Thyroid] 60 mg PO DAILY 04/02/20 02/06/22 History Valsartan 320 mg PO DAILY 04/02/20 02/06/22 History Prevagen 1 tab PO DAILY 01/07/21 02/06/22 History Meclizine [Antivert] 25 mg PO TID PRN #15 tab 10/18/21 02/06/22 Rx Ergocalciferol [Vitamin D2 (1250 1,250 mcg PO Q30D 02/06/22 02/06/22 History Mcg = [id number] Iu)] Allergies Allergy/AdvReac Type Severity Reaction Status Date / Time levothyroxine sodium Allergy Unknown Verified 02/06/22 14:12 [From Synthroid] Childhood pioglitazone [From Actos] Allergy Unknown Verified 02/06/22 14:12 Childhood midazolam HCl [From Versed] AdvReac Unknown Pt states Verified 02/06/22 14:12 she sleeps for days peanut AdvReac Unknown Cough Verified 02/06/22 14:12 metformin [From Glucophage] AdvReac Nausea & Verified 02/06/22 14:12 Vomiting & Diarrhea Physical Exam Vitals: Vital Signs Temp Pulse Pulse Resp BP BP Pulse Ox 02/06/22 08:00 97.1 F L 56 L 16 113/57 97 02/06/22 04:00 98.5 F 58 L 16 98 02/06/22 01:01 81 18 184/71 97 02/05/22 23:30 97.9 F 78 18 194/82 96 Intake and Output 02/05/22 02/06/22 02/06/22 22:59 06:59 14:59 Intake Total 200 Balance 200 Intake: IV 200 Sodium Chloride 0.9% 1, 200 000 ml @ 100 mls/hr IV . Q10H STA Rx#:[id number] Other: Voiding Method Toilet # Voids 1 # Bowel Movements 1 Weight 78.471 kg PHYSICAL EXAMINATION: GENERAL: The patient is alert and oriented x3, not in any acute distress. Well developed, well nourished. HEENT: Pupils are round and equally reacting to light. EOMI. No scleral icterus. No conjunctival pallor. Normocephalic, atraumatic. No pharyngeal erythema. No thyromegaly. CARDIOVASCULAR: S1 and S2 present. No murmurs, rubs, or gallops. PULMONARY: Chest is clear to auscultation, no wheezing or crackles. ABDOMEN: Soft, nontender, nondistended, normoactive bowel sounds. No palpable organomegaly. MUSCULOSKELETAL: No joint swelling or deformity. EXTREMITIES: No cyanosis, clubbing, or pedal edema. NEUROLOGICAL: Gross neurological examination did not reveal any focal deficits. SKIN: No rashes. Results CBC & Chem 7: 02/06/22 11:48 02/06/22 00:26 Labs: Abnormal Lab Results - Last 24 Hours (Table) 02/06/22 02/06/22 Range/Units 00:26 00:26 PT 24.6 H (9.0-12.0) sec INR 2.5 H (<1.2) APTT 36.4 H (22.0-30.0) sec BUN 21 H (7-17) mg/dL Creatinine 1.39 H (0.52-1.04) mg/dL Glucose 123 H (74-99) mg/dL Assessment and Plan Assessment: 1. Bright red rectal bleed - Likely related to coagulopathy related to Coumadin use; INR at 2.5 upon admission; we will plan to treat with IV vitamin K and fresh frozen plasma if patient continues to have bloody bowel movements - We'll transfuse if hemoglobin is less than 8 point; monitor H&H every 6 hours 2. Acute renal injury; slowly IV fluid hydration with normal saline at a rate of 75 mL an hour; we will monitor STAS's, renal function and electrolytes; avoid nephrotoxins and hypotension 3. Hypothyroidism; patient takes [place] Thyroid 60 mg daily 4. Atrial fibrillation; remains rate controlled on Tambocor 100 mg every 12 hours; anticoagulation placed on hold 5. Hypertension; patient takes metoprolol 25 mg daily, nifedipine 60 mg daily and Valsartan 320 mg daily; we will hold off on antihypertensive therapy in view of ongoing rectal bleed and anticipated hypotension 6. Diabetes mellitus; patient takes Amaryl, Januvia at home; we will hold oral medications; monitor Accu-Cheks before meals and at bedtime with insulin sliding scale DVT prophylaxis; SCDs only given rectal bleed CODE STATUS; full code
[2022-02-06 19:43] LABS: Basophils # (A) 0.1 k/uL (0-0.2); Basophils % (A) 1 %; Eosinophils # (A) 0.3 k/uL (0-0.7); Eosinophils % (A) 4 %; Hypochromasia Slight; Lymphocytes % (A) 24 %; MCH 30.2 pg (25.0-35.0); MCV 100.5 fL (80.0-100.0); Macrocytosis Slight; Mean Platelet Volume 10.2; Monocytes # (A) 0.5 k/uL (0-1.0); Monocytes % (A) 6 %; Neutrophils # (A) 5.3 k/uL (1.3-7.7); Neutrophils % (A) 64 %; Platelet Count 186 k/uL (150-450); RBC 3.98 m/uL (3.80-5.40); RDW 14.1 % (11.5-15.5); WBC 8.3 k/uL (3.8-10.6)
[2022-02-06 20:23] LABS: Glucose,Whole Blood 74 mg/dL (75-99)
[2022-02-06 20:23] LABS: Glucose,Whole Blood 64 mg/dL (75-99)
[2022-02-06] MEDS: FLECAINIDE 50 MG TAB PO SCH (22:06)
[2022-02-07 06:20] LABS: Glucose,Whole Blood 106 mg/dL (75-99)
[2022-02-07] MEDS: INSULIN ASPART (NovoLOG) 100 UNIT/ML VIAL SQ SCH ×5 (06:26→20:17)
[2022-02-07] MEDS: SODIUM CHLORIDE 0.9% 1,000 ML IV SCH (08:08)
[2022-02-07] MEDS: PANTOPRAZOLE 40 MG/10 ML VIAL IV SCH (08:17)
[2022-02-07] MEDS: FLECAINIDE 50 MG TAB PO SCH ×2 (08:18→20:18)
[2022-02-07] MEDS: THYROID, PORK 30 MG TAB PO SCH (08:18)
[2022-02-07 08:20] LABS: Basophils # (A) 0.1 k/uL (0-0.2); Basophils % (A) 1 %; Eosinophils # (A) 0.2 k/uL (0-0.7); Eosinophils % (A) 3 %; HCT 38.7 % (34.0-46.0); HGB 11.8 gm/dL (11.4-16.0); Hypochromasia Moderate; Lymphocytes # (A) 1.2 k/uL (1.0-4.8); Lymphocytes % (A) 17 %; MCH 31.2 pg (25.0-35.0); MCHC 30.5 g/dL (31.0-37.0); MCV 102.1 fL (80.0-100.0); Macrocytosis Slight; Mean Platelet Volume 9.3; Monocytes # (A) 0.4 k/uL (0-1.0); Monocytes % (A) 6 %; Neutrophils % (A) 72 %; Platelet Count 156 k/uL (150-450); RBC 3.79 m/uL (3.80-5.40); RDW 13.9 % (11.5-15.5)
[2022-02-07 08:26] LABS: Albumin 3.3 g/dL (3.5-5.0); Potassium 4.6 mmol/L (3.5-5.1); Total Bilirubin 0.4 mg/dL (0.2-1.3); Total Protein 5.7 g/dL (6.3-8.2)
[2022-02-07 08:30] LABS: INR 1.7 (<1.2); Prothrombin Time 17.1 sec (9.0-12.0)
[2022-02-07] MEDS: ACETAMINOPHEN TAB 500 MG TAB PO PRN (08:34)
--- NOTE | 2022-02-07 09:03 | P.GSCN ---
History of Present Illness Consult date: 02/07/22 History of present illness: REASON FOR CONSULTATION: GI bleed HISTORY OF PRESENT ILLNESS: The patient is a 86 year old female on anticoagulation who presents with painless bleeding from the rectum ongoing for over 1 day. She reports moderate bleeding into the night. She is on coumadin. Her last colonoscopy was over 15+ years ago. She denies known history of colon polyps. She denies family history of colon cancer. She has history of right renal cancer status post partial nephrectomy. She also reports hernias along her abdomen from her robotic nephrectomy. PAST MEDICAL HISTORY: See list and reviewed PAST SURGICAL HISTORY: See list and reviewed MEDICATIONS: See list and reviewed ALLERGIES: See list and reviewed SOCIAL HISTORY: See list and reviewed FAMILY HISTORY: See list and reviewed REVIEW OF ORGAN SYSTEMS: CONSTITUTIONAL: No fevers or chills. No recent weight loss. EYES: Wears glasses. Bilateral cataracts. HEENT: No difficulties with hearing. No nosebleeds. No difficulty swallowing. RESPIRATORY: Denies pneumonia. Denies any troubles with breathing or dyspnea on exertion. CARDIOVASCULAR: Has hypertensive heart disease. Has arrhythmia. Has congestive heart failure. Has atrial fibrillation. GASTROINTESTINAL: Has post op nausea and vomiting GENITOURINARY: History of right nephrectomy, robotic. History multi-drug resistant urinary tract infection. NEUROLOGICAL: Denies any numbness or tingling along the distal extremities. No seizure disorders or headaches. MUSCULOSKELETAL: Has back pain, stiffness or joint arthritis. Has gout. SKIN: No current skin cancer. No rash. PSYCHIATRIC: Denies current depression or suicidal thoughts. ENDOCRINE: Has hypothyroidism. Has type II diabetes mellitus. HEME/LYMPHATIC: Denies any lumps and bumps around the neck. Past deep venous thrombosis. ALLERGY/IMMUNOLOGY: No immunoglobulin therapy. No immune deficiencies. BREAST: Denies current breast lumps, pain or nipple discharge. PHYSICAL EXAM: VITALS: Reviewed CONSTITUTIONAL: Well developed and in no acute distress. EYES: Conjuctivae without sclera icterus. Extraocular movements grossly intact. HEAD, EARS, NOSE, THROAT: Moist buccal mucosa. Head is atraumatic, normocephalic. Hears conversational speech. No nasal drainage. NECK: Supple. No JV distention. No thyroidomegaly. RESPIRATORY: Non-labored respirations and equal bilateral excursions. No gross wheezes. CARDIOVASCULAR: Irregular rate and rhythm. Palpable 2+ radial pulses. ABDOMEN: Nontender. Nondistended LYMPH: No neck lymphadenopathy. MUSCULOSKELETAL: No clubbing cyanosis or edema. SKIN: Warm and well perfused with good skin turgor. NEUROLOGIC: Cranial nerves II through XII grossly intact. No focal or lateralizing signs. PSYCH: Appropriate affect. Alert and oriented to person, place and time. Displays appropriate insight. CLINCAL LABS: Reviewed. Hgb 12.9 on admission. Prior 14.3. WBC 9.6 on admission. ASSESSMENT: 1. Gastrointestinal bleeding 2. Chronic anticoagulation for atrial fibrillation 3. Hypertensive heart disease with congestive heart failure 4. Diabetes type II mellitus, non-insulin 5. History of renal cancer, status post right nephrectomy. PLAN: 1. Patient seen and evaluated. She reports moderate bleeding, on blood thinners. Last colonoscopy over 15+ years ago. Recommend upper and lower endoscopy. 2. Will proceed with upper endoscopy today. 3. Lower endoscopy after completion of bowel prep. ADVANCE DIRECTIVE: Thank you for this kind consultation. Past Medical History Past Medical History: Atrial Fibrillation, Cancer, Diabetes Mellitus, Deep Vein Thrombosis (DVT), Hypertension, Osteoarthritis (OA), Thyroid Disorder Additional Past Medical History / Comment(s): LOW THYROID, HX OF MONO., KIDNEY STONES.& DVT LEFT LEG., PAIN RIGHT SHOULDER. Renal cancer with nephrectomy, 2016 History of Any Multi-Drug Resistant Organisms: ESBL Year Discovered:: 04/06/20 MDRO Source:: ESBL URINE Past Surgical History: Breast Surgery, Cholecystectomy, Hysterectomy, Joint Replacement, Orthopedic Surgery, Tonsillectomy Additional Past Surgical History / Comment(s): YULIA CATARACTS, COLONOSCOPY, MULTIPLE SURGERIES LEFT KNEE, YULIA KNEE REPLACEMENT, BREAST REDUCTION, LEFT ANKLE FX REPAIR WITH HARDWARE. Right kidney removed secondary to [place] Past Anesthesia/Blood Transfusion Reactions: Previous Problems w/ Anesthesia, Postoperative Nausea & Vomiting (PONV) Additional Past Anesthesia/Blood Transfusion Reaction / Comm: PT STATES THAT VERSED MAKES HER SLEEP FOR DAYS. Past Psychological History: No Psychological Hx Reported Smoking Status: Never smoker Past Alcohol Use History: None Reported Past Drug Use History: None Reported - Past Family History Mother Family Medical History: Cancer Additional Family Medical History / Comment(s): BREAST CANCER Sister(s) Family Medical History: Cancer Additional Family Medical History / Comment(s): BREAST CANCER Father Family Medical History: Diabetes Mellitus Medications and Allergies Home Medications Medication Instructions Recorded Confirmed Type Glimepiride [Amaryl] 2 mg PO BID 11/25/15 02/06/22 History NIFEdipine [NIFEdipine ER] 60 mg PO DAILY 11/25/15 02/06/22 History Warfarin [Coumadin] 2.5 mg PO MOFR@209911/25/15 02/06/22 History Warfarin [Coumadin] 5 mg PO SUTUWETHSA@209911/25/15 02/06/22 History Flecainide Acetate [Tambocor] 100 mg PO Q12H 06/21/18 02/06/22 History Metoprolol Succinate (ER) [Toprol 25 mg PO BID 06/21/18 02/06/22 History XL] sitaGLIPtin [Januvia] 50 mg PO HS 06/21/18 02/06/22 History Allopurinol [Zyloprim] 100 mg PO DAILY 04/02/20 02/06/22 History Furosemide [Lasix] 40 mg PO DAILY 04/02/20 02/06/22 History Thyroid,Pork [[place] Thyroid] 60 mg PO DAILY 04/02/20 02/06/22 History Valsartan 320 mg PO DAILY 04/02/20 02/06/22 History Prevagen 1 tab PO DAILY 01/07/21 02/06/22 History Meclizine [Antivert] 25 mg PO TID PRN #15 tab 10/18/21 02/06/22 Rx Ergocalciferol [Vitamin D2 (1250 1,250 mcg PO Q30D 02/06/22 02/06/22 History Mcg = 36529 Iu)] Allergies Allergy/AdvReac Type Severity Reaction Status Date / Time levothyroxine sodium Allergy Unknown Verified 02/06/22 14:12 [From Synthroid] Childhood pioglitazone [From Actos] Allergy Unknown Verified 02/06/22 14:12 Childhood midazolam HCl [From Versed] AdvReac Unknown Pt states Verified 02/06/22 14:12 she sleeps for days peanut AdvReac Unknown Cough Verified 02/06/22 14:12 metformin [From Glucophage] AdvReac Nausea & Verified 02/06/22 14:12 Vomiting & Diarrhea Surgical - Exam Vital Signs Temp Pulse Resp BP Pulse Ox 97.9 F 78 18 194/82 96 02/05/22 23:30 02/05/22 23:30 02/05/22 23:30 02/05/22 23:30 02/05/22 23:30 Results - Labs 02/09/22 07:19 02/09/22 07:19 Abnormal Lab Results - Last 24 Hours (Table) 02/06/22 02/06/22 02/06/22 Range/Units 11:48 19:33 20:11 RBC (3.80-5.40) m/uL MCV 100.3 H 100.5 H (80.0-100.0) fL MCHC 30.4 L 30.0 L (31.0-37.0) g/dL PT (9.0-12.0) sec INR (<1.2) BUN (7-17) mg/dL Creatinine (0.52-1.04) mg/dL Glucose (74-99) mg/dL POC Glucose (mg/dL) 64 L (75-99) mg/dL Calcium (8.4-10.2) mg/dL Total Protein (6.3-8.2) g/dL Albumin (3.5-5.0) g/dL 02/06/22 02/07/22 02/07/22 Range/Units 20:12 06:12 06:39 RBC 3.79 L (3.80-5.40) m/uL MCV 102.1 H (80.0-100.0) fL MCHC 30.5 L (31.0-37.0) g/dL PT (9.0-12.0) sec INR (<1.2) BUN (7-17) mg/dL Creatinine (0.52-1.04) mg/dL Glucose (74-99) mg/dL POC Glucose (mg/dL) 74 L 106 H (75-99) mg/dL Calcium (8.4-10.2) mg/dL Total Protein (6.3-8.2) g/dL Albumin (3.5-5.0) g/dL 02/07/22 02/07/22 Range/Units 06:39 06:39 RBC (3.80-5.40) m/uL MCV (80.0-100.0) fL MCHC (31.0-37.0) g/dL PT 17.1 H (9.0-12.0) sec INR 1.7 H (<1.2) BUN 18 H (7-17) mg/dL Creatinine 1.15 H (0.52-1.04) mg/dL Glucose 103 H (74-99) mg/dL POC Glucose (mg/dL) (75-99) mg/dL Calcium 8.0 L (8.4-10.2) mg/dL Total Protein 5.7 L (6.3-8.2) g/dL Albumin 3.3 L (3.5-5.0) g/dL Diabetes panel 02/07/22 Range/Units 06:39 Sodium 140 (137-145) mmol/L Potassium 4.6 (3.5-5.1) mmol/L Chloride 105 (98-107) mmol/L Carbon Dioxide 30 (22-30) mmol/L BUN 18 H (7-17) mg/dL Creatinine 1.15 H (0.52-1.04) mg/dL Glucose 103 H (74-99) mg/dL Calcium 8.0 L (8.4-10.2) mg/dL AST 25 (14-36) U/L ALT 19 (4-34) U/L Alkaline Phosphatase 59 (38-126) U/L Total Protein 5.7 L (6.3-8.2) g/dL Albumin 3.3 L (3.5-5.0) g/dL Calcium panel 02/07/22 Range/Units 06:39 Calcium 8.0 L (8.4-10.2) mg/dL Albumin 3.3 L (3.5-5.0) g/dL Pituitary panel 02/07/22 Range/Units 06:39 Sodium 140 (137-145) mmol/L Potassium 4.6 (3.5-5.1) mmol/L Chloride 105 (98-107) mmol/L Carbon Dioxide 30 (22-30) mmol/L BUN 18 H (7-17) mg/dL Creatinine 1.15 H (0.52-1.04) mg/dL Glucose 103 H (74-99) mg/dL Calcium 8.0 L (8.4-10.2) mg/dL Adrenal panel 02/07/22 Range/Units 06:39 Sodium 140 (137-145) mmol/L Potassium 4.6 (3.5-5.1) mmol/L Chloride 105 (98-107) mmol/L Carbon Dioxide 30 (22-30) mmol/L BUN 18 H (7-17) mg/dL Creatinine 1.15 H (0.52-1.04) mg/dL Glucose 103 H (74-99) mg/dL Calcium 8.0 L (8.4-10.2) mg/dL Total Bilirubin 0.4 (0.2-1.3) mg/dL AST 25 (14-36) U/L ALT 19 (4-34) U/L Alkaline Phosphatase 59 (38-126) U/L Total Protein 5.7 L (6.3-8.2) g/dL Albumin 3.3 L (3.5-5.0) g/dL
--- NOTE | 2022-02-07 10:59 | P.PN ---
Subjective from Records 78-year-old female, history of hypertension, hypothyroidism, diabetes mellitus, atrial fibrillation and DVT, on Coumadin coming in for bright red blood per rectum multiple times be getting dinner tonight. No pain. No abdominal pain no lightheadedness dizziness or feeling like she a pass out. Patient Coumadin level last checked was running higher than normal. Patient again is just coming in for the persistent bleeding in the rectum it appears not to be mixed with stool just bright red with clots Lab review completed in ED reveals a WBC of 7.4, hemoglobin of 12.9, hematocrit of 41.0 and platelet count of 192, PT/INR of 24.6/2.5, sodium 140, potassium 3.9, BUN/creatinine of 21/1.39 Subjective: 02/07/2022, this is the first day I started taking care of the patient This is a pleasant HEENT is old female with multiple medical problems presents with bright blood per rectum with no abdominal pain while she was on Coumadin f or A. fib which is on hold now and INR is 1.7. Vitals blood pressure is stable. Hemoglobin is stable and almost normal. She has minimal blood per rectum today. Surgery team are planning for EGD today and colonoscopy tomorrow. She states that she has history of right nephrectomy for history of cancer. Also patient feels generally tired and weak with little cough. We will check urinalysis. She is also on IV Protonix once daily. Objective - Vital Signs Vital signs: Vital Signs Temp 98.6 F 02/07/22 04:00 Pulse 68 02/07/22 08:00 Resp 18 02/07/22 08:00 BP 143/65 02/07/22 08:00 Pulse Ox 93 L 02/07/22 08:00 FiO2 Intake & Output 02/06/22 02/07/22 02/07/22 18:59 06:59 18:59 Intake Total 800 Output Total 600 Balance 800 -600 Weight 78.471 kg Intake: IV 800 Sodium Chloride 0.9% 1, 800 000 ml @ 100 mls/hr IV . Q10H STA Rx#:[id number] Output: Urine 600 Other: Voiding Method Toilet Toilet # Voids 1 1 1 # Bowel Movements 1 1 - Exam -GENERAL: The patient is alert and oriented x3, not in any acute distress. Well developed, well nourished. Generally weak HEENT: Pupils are round and equally reacting to light. EOMI. No scleral icterus. No conjunctival pallor. Normocephalic, atraumatic. No pharyngeal erythema. No thyromegaly. CARDIOVASCULAR: S1 and S2 present. No murmurs, rubs, or gallops. PULMONARY: Chest is clear to auscultation, no wheezing or crackles. ABDOMEN: Soft, nontender, nondistended, normoactive bowel sounds. No palpable organomegaly. MUSCULOSKELETAL: No joint swelling or deformity. EXTREMITIES: No cyanosis, clubbing, or pedal edema. NEUROLOGICAL: Gross neurological examination did not reveal any focal deficits. SKIN: No rashes. no petechiae. - Labs CBC & Chem 7: 02/07/22 06:39 02/07/22 06:39 Labs: Abnormal Lab Results - Last 24 Hours (Table) 02/06/22 02/06/22 02/06/22 Range/Units 11:48 19:33 20:11 RBC (3.80-5.40) m/uL MCV 100.3 H 100.5 H (80.0-100.0) fL MCHC 30.4 L 30.0 L (31.0-37.0) g/dL PT (9.0-12.0) sec INR (<1.2) BUN (7-17) mg/dL Creatinine (0.52-1.04) mg/dL Glucose (74-99) mg/dL POC Glucose (mg/dL) 64 L (75-99) mg/dL Calcium (8.4-10.2) mg/dL Total Protein (6.3-8.2) g/dL Albumin (3.5-5.0) g/dL 02/06/22 02/07/22 02/07/22 Range/Units 20:12 06:12 06:39 RBC 3.79 L (3.80-5.40) m/uL MCV 102.1 H (80.0-100.0) fL MCHC 30.5 L (31.0-37.0) g/dL PT (9.0-12.0) sec INR (<1.2) BUN (7-17) mg/dL Creatinine (0.52-1.04) mg/dL Glucose (74-99) mg/dL POC Glucose (mg/dL) 74 L 106 H (75-99) mg/dL Calcium (8.4-10.2) mg/dL Total Protein (6.3-8.2) g/dL Albumin (3.5-5.0) g/dL 02/07/22 02/07/22 Range/Units 06:39 06:39 RBC (3.80-5.40) m/uL MCV (80.0-100.0) fL MCHC (31.0-37.0) g/dL PT 17.1 H (9.0-12.0) sec INR 1.7 H (<1.2) BUN 18 H (7-17) mg/dL Creatinine 1.15 H (0.52-1.04) mg/dL Glucose 103 H (74-99) mg/dL POC Glucose (mg/dL) (75-99) mg/dL Calcium 8.0 L (8.4-10.2) mg/dL Total Protein 5.7 L (6.3-8.2) g/dL Albumin 3.3 L (3.5-5.0) g/dL Assessment and Plan Assessment: Right red blood per rectum, patient was. Chronic kidney disease with no acute injury Hypothyroidism Chronic atrial fibrillation on Coumadin, currently on hold Hypertension Diabetes mellitus Plan: This is a pleasant 80 years old female who presents with weakness and GI bleed. Surgery team on the case plan for EGD and colonoscopy. Continue with Protonix, hold Coumadin until cleared by surgery. Check urinalysis and bladder scan. Labs and medication were reviewed.. Continue same treatment. Continue with symptomatic treatment. Resume home medication. Monitor lytes and vitals. DVT and GI prophylaxis. Further recommendationsas per clinical course of the patient DVT prophylaxis: No anticoagulation for GI bleed GI Prophylaxis: Ppi PT/OT: Pending Prognosis is guarded
[2022-02-07 11:51] LABS: Glucose,Whole Blood 102 mg/dL (75-99)
[2022-02-07 16:49] LABS: Glucose,Whole Blood 78 mg/dL (75-99)
[2022-02-07] MEDS: IOPAMIDOL CONTRAST (ORAL USE) VIAL PO PRN ×2 (17:24→18:38)
[2022-02-07 19:15] LABS: Appearance,Urine Clear (Clear); Bilirubin,Urine Negative (Negative); Blood,Urine Negative (Negative); Color,Urine Yellow; Glucose,Urine (UA) Negative (Negative); Ketones,Urine Negative (Negative); Leukocyte Esterase,Urine Small (Negative); Mucus,Urine Rare /hpf; Nitrite,Urine Negative (Negative); PH, Urine 5.5 (5.0-8.0); Protein,Urine Trace (Negative); Specific Gravity,Urine 1.014 (1.001-1.035); Squamous Epithelial Cell,Urine 2 /hpf (0-4); Urobilinogen,Urine <2.0 mg/dL (<2.0); WBC,Urine 8 /hpf (0-5)
--- NOTE | 2022-02-07 19:43 | CT ---
EXAMINATION TYPE: CT abdomen pelvis wo con DATE OF EXAM: 02/07/2022 COMPARISON: 11/26/2018 HISTORY: umbilical hernia CT DLP: 792.2 mGycm Automated exposure control for dose reduction was used. Exam from the diaphragm to the floor the pelvis with oral contrast only. There is some pleural thickening and atelectasis at the lung bases. Heart is borderline enlarged. No pericardial effusion. Spleen is intact. The stomach is intact. Liver is intact. There is no adrenal mass. Left kidney has normal size. There is no hydronephrosis. There is a rounded 1.8 cm mass in the upper pole of the left kidney near the renal hilum. Ureter is not dilated. Right kidney is absent. There is some mild fat stranding around the left kidney. There is no retroperitonea l adenopathy. Abdominal aorta is atheromatous. The bladder distends smoothly. There is no inguinal he rnia. No free fluid in the pelvis. There is some fat stranding around the sigmoid colon. There is min imal wall thickening with multiple diverticula. The lumbar vertebrae have normal alignment. There is biconcave deformity of the vertebral bodies and is consistent with osteomalacia. The bony pelvis appears intact. No hip fracture. No evidence of umbilical hernia. IMPRESSION: There is some pleural thickening and atelectasis at the lung bases which appears new compared to old exam and could relate to some mild heart failure. Right nephrectomy. There is a 1.8 cm rounded mass in the cortex upper pole left kidney. This appears to be new compared to old exam and suspicious for tumor. There is some mild fluid and fat stranding involving the sigmoid colon that could relate to some mild diverticulitis..
[2022-02-07 20:00] LABS: Glucose,Whole Blood 102 mg/dL (75-99)
[2022-02-07] MEDS: HEPARIN SODIUM,PORCINE/PF 5,000 UNIT/0.5 ML SYRINGE SQ SCH (20:18)
[2022-02-08 06:16] LABS: Glucose,Whole Blood 134 mg/dL (75-99)
[2022-02-08] MEDS: INSULIN ASPART (NovoLOG) 100 UNIT/ML VIAL SQ SCH ×4 (06:23→20:06)
[2022-02-08] MEDS: SODIUM CHLORIDE 0.9% 1,000 ML IV SCH (06:43)
[2022-02-08 07:55] LABS: Basophils # (A) 0.1 k/uL (0-0.2); Basophils % (A) 1 %; Eosinophils # (A) 0.1 k/uL (0-0.7); Eosinophils % (A) 1 %; HCT 40.6 % (34.0-46.0); HGB 12.2 gm/dL (11.4-16.0); Hypochromasia Slight; Lymphocytes # (A) 0.9 k/uL (1.0-4.8); Lymphocytes % (A) 9 %; MCH 30.4 pg (25.0-35.0); MCV 101.3 fL (80.0-100.0); Macrocytosis Slight; Mean Platelet Volume 9.2; Monocytes # (A) 0.4 k/uL (0-1.0); Monocytes % (A) 4 %; Neutrophils # (A) 8.1 k/uL (1.3-7.7); Neutrophils % (A) 84 %; Platelet Count 174 k/uL (150-450); RBC 4.01 m/uL (3.80-5.40); RDW 13.9 % (11.5-15.5); WBC 9.6 k/uL (3.8-10.6)
[2022-02-08 07:57] LABS: INR 1.1 (<1.2); Prothrombin Time 11.6 sec (9.0-12.0)
[2022-02-08] MEDS ORDERED: PEG 3350-NA SULF,BICARB,CL/KCL 4,000 ML BOTTLE PO ONE (08:00)
[2022-02-08] MEDS: PANTOPRAZOLE 40 MG/10 ML VIAL IV SCH (09:29)
[2022-02-08] MEDS: HEPARIN SODIUM,PORCINE/PF 5,000 UNIT/0.5 ML SYRINGE SQ SCH ×2 (09:30→20:06)
[2022-02-08] MEDS: THYROID, PORK 30 MG TAB PO SCH (09:30)
[2022-02-08] MEDS: FLECAINIDE 50 MG TAB PO SCH ×2 (09:30→20:08)
--- NOTE | 2022-02-08 11:09 | P.PN ---
Subjective from Records 78-year-old female, history of hypertension, hypothyroidism, diabetes mellitus, atrial fibrillation and DVT, on Coumadin coming in for bright red blood per rectum multiple times be getting dinner tonight. No pain. No abdominal pain no lightheadedness dizziness or feeling like she a pass out. Patient Coumadin level last checked was running higher than normal. Patient again is just coming in for the persistent bleeding in the rectum it appears not to be mixed with stool just bright red with clots Lab review completed in ED reveals a WBC of 7.4, hemoglobin of 12.9, hematocrit of 41.0 and platelet count of 192, PT/INR of 24.6/2.5, sodium 140, potassium 3.9, BUN/creatinine of 21/1.39 Subjective: 02/07/2022, this is the first day I started taking care of the patient This is a pleasant HEENT is old female with multiple medical problems presents with bright blood per rectum with no abdominal pain while she was on Coumadin f or A. fib which is on hold now and INR is 1.7. Vitals blood pressure is stable. Hemoglobin is stable and almost normal. She has minimal blood per rectum today. Surgery team are planning for EGD today and colonoscopy tomorrow. She states that she has history of right nephrectomy for history of cancer. Also patient feels generally tired and weak with little cough. We will check urinalysis. She is also on IV Protonix once daily. 02/08/2022 patient is awake and alert Still have some oozing of blood per rectum, no overt bleed. Hemoglobin stable. She is complaining of from mild back pain which looks musculoskeletal in origin CT of the abdomen and pelvis without contrast: Right kidney is absent, multiple diverticula with no diverticulitis. Left kidney mass 1.8 cm Patient is going for colonoscopy tomorrow Urine analysis is negative. And PVR is 12 mL Objective - Vital Signs Vital signs: Vital Signs Temp 98.1 F 02/07/22 20:15 Pulse 73 02/08/22 08:00 Resp 16 02/08/22 08:00 BP 185/79 02/08/22 08:00 Pulse Ox 92 L 02/08/22 08:33 FiO2 Intake & Output 02/07/22 02/08/22 02/08/22 18:59 06:59 18:59 Intake Total 540 780 Output Total 212 Balance 328 780 Intake: Oral 540 780 Output: Urine 200 Post Void Residual 12 Other: Voiding Method Toilet # Voids 1 2 2 # Bowel Movements 2 2 - Exam -GENERAL: The patient is alert and oriented x3, not in any acute distress. Well developed, well nourished. Generally weak HEENT: Pupils are round and equally reacting to light. EOMI. No scleral icterus. No conjunctival pallor. Normocephalic, atraumatic. No pharyngeal erythema. No thyromegaly. CARDIOVASCULAR: S1 and S2 present. No murmurs, rubs, or gallops. PULMONARY: Chest is clear to auscultation, no wheezing or crackles. ABDOMEN: Soft, nontender, nondistended, normoactive bowel sounds. No palpable organomegaly. MUSCULOSKELETAL: No joint swelling or deformity. EXTREMITIES: No cyanosis, clubbing, or pedal edema. NEUROLOGICAL: Gross neurological examination did not reveal any focal deficits. SKIN: No rashes. no petechiae. - Labs CBC & Chem 7: 02/08/22 07:14 02/07/22 06:39 Labs: Abnormal Lab Results - Last 24 Hours (Table) 02/07/22 02/07/22 02/07/22 Range/Units 11:50 17:33 19:58 MCV (80.0-100.0) fL MCHC (31.0-37.0) g/dL Neutrophils # (1.3-7.7) k/uL Lymphocytes # (1.0-4.8) k/uL POC Glucose (mg/dL) 102 H 102 H (75-99) mg/dL Urine Protein Trace H (Negative) Ur Leukocyte Esterase Small H (Negative) Urine WBC 8 H (0-5) /hpf Urine Mucus Rare H (None) /hpf 02/08/22 02/08/22 Range/Units 06:14 07:14 MCV 101.3 H (80.0-100.0) fL MCHC 30.0 L (31.0-37.0) g/dL Neutrophils # 8.1 H (1.3-7.7) k/uL Lymphocytes # 0.9 L (1.0-4.8) k/uL POC Glucose (mg/dL) 134 H (75-99) mg/dL Urine Protein (Negative) Ur Leukocyte Esterase (Negative) Urine WBC (0-5) /hpf Urine Mucus (None) /hpf Assessment and Plan Assessment: Right red blood per rectum, and surgery team on the case with the plan for colonoscopy Left kidney mass 1.8 cm. Status post right nephrectomy Chronic kidney disease with no acute injury Hypothyroidism Chronic atrial fibrillation on Coumadin, currently on hold Hypertension Diabetes mellitus Plan: This is a pleasant 80 years old female who presents with weakness and GI bleed. Surgery team on the case plan for colonoscopy. Continue with Protonix, hold Coumadin until cleared by surgery. Consult urologist Labs and medication were reviewed.. Continue same treatment. Continue with symptomatic treatment. Resume home medication. Monitor lytes and vitals. DVT and GI prophylaxis. Further recommendationsas per clinical course of the patient DVT prophylaxis: No anticoagulation for GI bleed GI Prophylaxis: Ppi PT/OT: Pending Prognosis is guarded
[2022-02-08 11:33] LABS: Glucose,Whole Blood 159 mg/dL (75-99)
--- NOTE | 2022-02-08 13:00 | P.PN ---
Subjective Progress Note Date: 02/08/22 CHIEF COMPLAINT: GI bleed HISTORY OF PRESENT ILLNESS: Patient continues to report maroon-colored stools. She reports multiple stools about one every hour. She denies any abdominal pain. She denies any prior history of GI bleed. She does have a previous history of right renal cancer status post partial nephrectomy. Patient starting the GoLYTELY prep. Patient had computed tomography scan abdomen and pelvis completed yesterday there is some pleural thickening and atelectasis at the lung bases which appears new compared to old exam and could relate to some mild heart failure. Right nephrectomy there is a 1.8 cm rounded mass in the cortex upper pole of the left kidney. This appears to be new compared to old exam and suspicious for tumor. There is some mild fluid and fat stranding involving the sigmoid colon that could relate to some mild diverticulitis. Reviewed CAT scan results with Dr. Sheriff and no significant evidence for diverticulitis noted. Afebrile. BP elevated. WBC is 9.6 hemoglobin stable at 12.2 platelets 174 PHYSICAL EXAM: VITAL SIGNS: Reviewed GENERAL: Well-developed in no acute distress. HEENT: No sclera icterus. Extraocular movements grossly intact. Moist buccal mucosa. Head is atraumatic, normocephalic. Hears conversational speech. No nasal drainage. NECK: Supple without lymphadenopathy. CHEST: Non-labored respirations and equal bilateral excursions. CARDIOVASCULAR: Palpable 2+ radial pulses. ABDOMEN: Soft. Nondistended. Nontender. MUSCULOSKELETAL: No clubbing or cyanosis. NEUROLOGIC: No focal or lateralizing signs. Cranial nerves II through XII grossly intact. PSYCH: Appropriate affect. Alert and oriented to person, place and time. SKIN: Well perfused. Good skin turgor. ASSESSMENT: 1. Acute GI bleed 2. History of atrial fibrillation on Coumadin at home 3. History of right renal cancer status post partial nephrectomy 4. Chronic kidney disease 5. Hypertension 6. Diabetes mellitus 7. Mass in the left kidney PLAN: -Patient scheduled for EGD and colonoscopy tomorrow with Dr. Sheriff -Start GoLYTELY prep today -Clear liquid diet today -Nothing by mouth after midnight -Continue to hold Coumadin -Continue to monitor for signs and symptoms of bleeding -Continue to monitor hemoglobin -Continue Protonix -Agree with urology consult for left kidney mass Physician Dx Board Operator note has been reviewed by physician. Signing provider agrees with the documented findings, assessment, and plan of care. CHIEF COMPLAINT: GI bleed HISTORY OF PRESENT ILLNESS: The patient is a 86 year old female on blood thinners admitted for GI bleed. She reports bleeding as she is on a bowel prep. No reports of abdominal pain. CT was ordered as she reported also symptomatic hernias. REVIEW OF ORGAN SYSTEMS: No fevers or chills. No nausea or vomiting. No chest pain. No shortness of breath. PHYSICAL EXAM: VITALS: Reviewed CONSTITUTIONAL: Well developed and in no acute distress. EYES: Conjuctivae without sclera icterus. Extraocular movements grossly intact. HEAD, EARS, NOSE, THROAT: Moist buccal mucosa. Head is atraumatic, normocephalic. Hears conversational speech. No nasal drainage. RESPIRATORY: Non-labored respirations and equal bilateral excursions. No gross wheezes. CARDIOVASCULAR: Irregular rate and rhythm. Palpable 2+ radial pulses. ABDOMEN: Nontender. Nondistended MUSCULOSKELETAL: No clubbing cyanosis or edema. SKIN: Warm and well perfused with good skin turgor. NEUROLOGIC: Cranial nerves II through XII grossly intact. No focal or lateralizing signs. PSYCH: Appropriate affect. Alert and oriented to person, place and time. Displays appropriate insight. CLINCAL LABS: Reviewed. Hgb 12.9 on admission, baseline 14.3, down to 12.2. WBC 9.6 on admission, now 9.1. Creatinine 1.39 on admission. STUDIES: CT of the abdomen and pelvis independently reviewed. Mild thickening of the ascending, transverse colon including sigmoid colon. Diverticulosis throught out colon. Diastasis recti. No incarcerated ventral hernias identified. This is my independent interpretation. REPORT: Left kidney mass of 2 cm. Multiple colon diverticula with fat stranding along sigmoid colon. No umbilical hernia. ASSESSMENT: 1. Gastrointestinal bleeding 2. Chronic anticoagulation for atrial fibrillation 3. Hypertensive heart disease with congestive heart failure 4. Diabetes type II mellitus, non-insulin 5. History of renal cancer, status post right nephrectomy 6. Diverticulosis PLAN: 1. Hold blood thinners. 2. Continue bowel prep. 3. Will proceed with colonoscopy 4. She is elevated risk for perforation with multiple diverticula 5. Will proceed with upper endoscopy for GI bleed assessment. Objective - Vital Signs Vital signs: Vital Signs Temp 98.1 F 02/07/22 20:15 Pulse 73 02/08/22 08:00 Resp 16 02/08/22 08:00 BP 185/79 02/08/22 08:00 Pulse Ox 92 L 02/08/22 08:33 FiO2 Intake & Output 02/07/22 02/08/22 02/08/22 18:59 06:59 18:59 Intake Total 540 780 Output Total 212 Balance 328 780 Intake: Oral 540 780 Output: Urine 200 Post Void Residual 12 Other: Voiding Method Toilet Toilet # Voids 1 2 2 # Bowel Movements 2 2 - Labs CBC & Chem 7: 02/09/22 07:19 02/09/22 07:19 Labs: Abnormal Lab Results - Last 24 Hours (Table) 02/07/22 02/07/22 02/08/22 Range/Units 17:33 19:58 06:14 MCV (80.0-100.0) fL MCHC (31.0-37.0) g/dL Neutrophils # (1.3-7.7) k/uL Lymphocytes # (1.0-4.8) k/uL POC Glucose (mg/dL) 102 H 134 H (75-99) mg/dL Urine Protein Trace H (Negative) Ur Leukocyte Esterase Small H (Negative) Urine WBC 8 H (0-5) /hpf Urine Mucus Rare H (None) /hpf 02/08/22 02/08/22 Range/Units 07:14 11:32 MCV 101.3 H (80.0-100.0) fL MCHC 30.0 L (31.0-37.0) g/dL Neutrophils # 8.1 H (1.3-7.7) k/uL Lymphocytes # 0.9 L (1.0-4.8) k/uL POC Glucose (mg/dL) 159 H (75-99) mg/dL Urine Protein (Negative) Ur Leukocyte Esterase (Negative) Urine WBC (0-5) /hpf Urine Mucus (None) /hpf
[2022-02-08 16:27] LABS: Glucose,Whole Blood 72 mg/dL (75-99)
[2022-02-08 20:06] LABS: Glucose,Whole Blood 88 mg/dL (75-99)
[2022-02-08] MEDS: ACETAMINOPHEN TAB 500 MG TAB PO PRN (22:19)
[2022-02-09 00:42] LABS: Glucose,Whole Blood 115 mg/dL (75-99)
[2022-02-09 05:54] LABS: Glucose,Whole Blood 135 mg/dL (75-99)
[2022-02-09] MEDS: INSULIN ASPART (NovoLOG) 100 UNIT/ML VIAL SQ SCH ×4 (05:59→20:23)
[2022-02-09 08:03] LABS: HCT 36.8 % (34.0-46.0); HGB 11.6 gm/dL (11.4-16.0); Hypochromasia Slight; MCH 31.4 pg (25.0-35.0); MCHC 31.4 g/dL (31.0-37.0); Macrocytosis Slight; Platelet Count 165 k/uL (150-450); RBC 3.68 m/uL (3.80-5.40); RDW 14.3 % (11.5-15.5); WBC 7.9 k/uL (3.8-10.6)
[2022-02-09] MEDS: THYROID, PORK 30 MG TAB PO SCH (08:16)
[2022-02-09] MEDS: FLECAINIDE 50 MG TAB PO SCH ×2 (08:16→20:22)
[2022-02-09] MEDS: PANTOPRAZOLE 40 MG/10 ML VIAL IV SCH (08:16)
[2022-02-09] MEDS: HEPARIN SODIUM,PORCINE/PF 5,000 UNIT/0.5 ML SYRINGE SQ SCH ×2 (08:17→20:20)
[2022-02-09 08:18] LABS: Calcium 8.5 mg/dL (8.4-10.2); Potassium 4.3 mmol/L (3.5-5.1)
[2022-02-09] MEDS ORDERED: LIDOCAINE 2% INJ 20 MG/ML (2 ML VIAL) ONE (08:43)
[2022-02-09] MEDS ORDERED: LACTATED RINGERS 1,000 ML IV ONE (08:43)
[2022-02-09] MEDS ORDERED: PROPOFOL 10 MG/ML 20 ML VIAL IV ONE (08:43)
--- NOTE | 2022-02-09 09:25 | P.PCN ---
Date of Procedure: 02/09/22 Description of Procedure: PREOPERATIVE DIAGNOSIS: Acute gastrointestinal bleeding Positive stool occult blood Anticoagulant use POSTOPERATIVE DIAGNOSIS: Acute gastrointestinal bleeding Positive stool occult blood Anticoagulant use OPERATION: Esophagogastroduodenoscopy SURGEON: Kaet Sheriff MD ANESTHESIA: MAC. INDICATIONS: The patient is a 86-year-old female who presents with gastrointestinal bleeding. Benefits and risks of the procedure were described. Informed consent was obtained. DESCRIPTION: The patient was brought into the endoscopy suite and laid in the left lateral decubitus position. An Olympus gastroscope was passed along the posterior oropharynx down to the distal esophagus where the squamocolumnar junction was encountered at 37 cm from the incisors. The stomach was entered and no bile reflux was found. Additional findings are listed below. The first through third portion of the duodenum was examined and unremarkable. Retroflexion of the scope confirmed Hill grade 2 lower esophageal valve. The squamocolumnar junction demonstrated LA grade A erosive esophagitis. The stomach was desufflated. The patient tolerated the procedure well. FINDINGS: Squamocolumnar junction 37 cm from the incisors. Diaphragmatic hiatus at 38 cm. Hiatal hernia, 1 cm, sliding type Hill grade 2 lower esophageal valve. LA grade A erosive esophagitis. No active duodenitis. No stigmata of bleeding RECOMMENDATIONS: 1. Upper endoscopy as needed
--- NOTE | 2022-02-09 09:30 | P.PN ---
Progress Note - Text Progress Note Date: 02/09/22 Prior to procedure, patient had extremely low oxygen saturation of less than 80%. Patient required oxygen. We will obtain chest x-ray for oxygen desaturation
--- NOTE | 2022-02-09 09:52 | P.PCN ---
Date of Procedure: 02/09/22 Description of Procedure: PREOPERATIVE DIAGNOSIS: Acute blood loss anemia Positive occult stool Gastrointestinal bleeding with hematochezia POSTOPERATIVE DIAGNOSIS: Acute blood loss anemia Positive occult stool Gastrointestinal bleeding with hematochezia Severe sigmoid diverticulosis with active bleeding Sigmoid colon polyp Pandiverticulosis OPERATION: Colonoscopy to the cecum, ileocecal valve and appendiceal orifice SURGEON: Kate Sheriff MD. ANESTHESIA: MAC. INDICATIONS: The patient is a 86-year-old female who presents with gastrointestinal bleeding with gross bleeding. Benefits and risks were described and informed consent was obtained. DESCRIPTION OF PROCEDURE: The patient had undergone attempted Golytely prep 2 L. The patient had been brought into the operating room and laid in the left lateral decubitus position. After adequate intravenous sedation, the rectum was examined with 2% lidocaine jelly. The rectal tone was within normal limits. An Olympus colonoscope was gently advanced to the cecum with clear visualization of the ileocecal valve including appendiceal orifice. The prep was excellent. Severe sigmoid diverticulosis was encountered with active bleeding at 25 cm from the anal verge. A colonic polyp at 30 cm was identified however not retrieved due to acu te bleeding from sigmoid diverticulosis. Retroflexion of the scope demonstrated grade 2 internal hemorrhoids without inflammation. The colon was desufflated. The patient had tolerated the procedure well. Withdrawal time was over 6 minutes. FINDINGS: Aronchick preparation quality scale 1 (1-5) Internal hemorrhoids, grade 2 No external hemorrhoids No arteriovenous malformations. A colonic polyp at 30 cm was identified however not retrieved due to acute bleeding from sigmoid diverticulosis Bleeding diverticulum at 25 cm from the anal verge RECOMMENDATIONS: 1. Start antibiotics for treatment of acute diverticulitis with bleeding 2. No blood thinners until acute sigmoid diverticulosis bleeding has resolved 3. Clear liquid diet 4. May need future sigmoid colectomy Plan - Discharge Summary Discharge Rx Participant: No New Discharge Prescriptions: No Action Warfarin [Coumadin] 5 mg PO SUTUWETHSA@2100 Glimepiride [Amaryl] 2 mg PO BID NIFEdipine [NIFEdipine ER] 60 mg PO DAILY Warfarin [Coumadin] 2.5 mg PO MOFR@2100 Flecainide Acetate [Tambocor] 100 mg PO Q12H sitaGLIPtin [Januvia] 50 mg PO HS Metoprolol Succinate (ER) [Toprol XL] 25 mg PO BID Furosemide [Lasix] 40 mg PO DAILY Valsartan 320 mg PO DAILY Allopurinol [Zyloprim] 100 mg PO DAILY Thyroid,Pork [[place] Thyroid] 60 mg PO DAILY Prevagen 1 tab PO DAILY Meclizine [Antivert] 25 mg PO TID PRN #15 tab PRN Reason: Vertigo Ergocalciferol [Vitamin D2 (1250 Mcg = 15198 Iu)] 1,250 mcg PO Q30D Discharge Medication List Glimepiride [Amaryl] 2 mg PO BID 11/25/15 [History] NIFEdipine [NIFEdipine ER] 60 mg PO DAILY 11/25/15 [History] Warfarin [Coumadin] 2.5 mg PO MOFR@209911/25/15 [History] Warfarin [Coumadin] 5 mg PO SUTUWETHSA@209911/25/15 [History] Flecainide Acetate [Tambocor] 100 mg PO Q12H 06/21/18 [History] Metoprolol Succinate (ER) [Toprol XL] 25 mg PO BID 06/21/18 [History] sitaGLIPtin [Januvia] 50 mg PO HS 06/21/18 [History] Allopurinol [Zyloprim] 100 mg PO DAILY 04/02/20 [History] Furosemide [Lasix] 40 mg PO DAILY 04/02/20 [History] Thyroid,Pork [[place] Thyroid] 60 mg PO DAILY 04/02/20 [History] Valsartan 320 mg PO DAILY 04/02/20 [History] Prevagen 1 tab PO DAILY 01/07/21 [History] Meclizine [Antivert] 25 mg PO TID PRN #15 tab 10/18/21 [Rx] Ergocalciferol [Vitamin D2 (1250 Mcg = 34231 Iu)] 1,250 mcg PO Q30D 02/06/22 [History] Follow up Appointment(s)/Referral(s): Danis Ivy MD [Primary Care Provider] - 1-2 days
--- NOTE | 2022-02-09 10:31 | P.GSCN ---
History of Present Illness Consult date: 02/09/22 Reason for Consult: Left renal mass History of present illness: This is an 86-year-old female with history of renal cell carcinoma status post right radical nephrectomy by Dr. Delarosa in 2016, follow-up imaging showed no evidence of recurrence. Admitted to the hospital with GI bleed. Underwent a CT abdomen and pelvis that showed evidence of a 1.8 cm left-sided upper pole renal mass. he denies any flank pain or gross hematuria. No voiding symptoms at baseline. imaging from 2019, showed no evidence of any lesions within the left kidney. Review of Systems - Constitutional Denies fever, Denies weight loss - EENT Ears, nose, mouth and throat: Denies dysphagia - Cardiovascular Denies chest pain, Denies shortness of breath - Respiratory Denies cough, Denies 7 - Genitourinary Genitourinary: Denies dysuria, Denies hematuria Past Medical History Past Medical History: Atrial Fibrillation, Cancer, Diabetes Mellitus, Deep Vein Thrombosis (DVT), Hypertension, Osteoarthritis (OA), Thyroid Disorder Additional Past Medical History / Comment(s): LOW THYROID, HX OF MONO., KIDNEY STONES.& DVT LEFT LEG., PAIN RIGHT SHOULDER. Renal cancer with nephrectomy, 2015 History of Any Multi-Drug Resistant Organisms: ESBL Year Discovered:: 04/06/20 MDRO Source:: ESBL URINE Past Surgical History: Breast Surgery, Cholecystectomy, Hysterectomy, Joint Replacement, Orthopedic Surgery, Tonsillectomy Additional Past Surgical History / Comment(s): YULIA CATARACTS, COLONOSCOPY, MULTIPLE SURGERIES LEFT KNEE, YULIA KNEE REPLACEMENT, BREAST REDUCTION, LEFT ANKLE FX REPAIR WITH HARDWARE. Right kidney removed secondary to CA Past Anesthesia/Blood Transfusion Reactions: Previous Problems w/ Anesthesia, Postoperative Nausea & Vomiting (PONV) Additional Past Anesthesia/Blood Transfusion Reaction / Comm: PT STATES THAT VERSED MAKES HER SLEEP FOR DAYS. Past Psychological History: No Psychological Hx Reported Smoking Status: Never smoker Past Alcohol Use History: None Reported Past Drug Use History: None Reported - Past Family History Mother Family Medical History: Cancer Additional Family Medical History / Comment(s): BREAST CANCER Sister(s) Family Medical History: Cancer Additional Family Medical History / Comment(s): BREAST CANCER Father Family Medical History: Diabetes Mellitus Medications and Allergies Home Medications Medication Instructions Recorded Confirmed Type Glimepiride [Amaryl] 2 mg PO BID 11/25/15 02/06/22 History NIFEdipine [NIFEdipine ER] 60 mg PO DAILY 11/25/15 02/06/22 History Warfarin [Coumadin] 2.5 mg PO MOFR@209911/25/15 02/06/22 History Warfarin [Coumadin] 5 mg PO SUTUWETHSA@209911/25/15 02/06/22 History Flecainide Acetate [Tambocor] 100 mg PO Q12H 06/21/18 02/06/22 History Metoprolol Succinate (ER) [Toprol 25 mg PO BID 06/21/18 02/06/22 History XL] sitaGLIPtin [Januvia] 50 mg PO HS 06/21/18 02/06/22 History Allopurinol [Zyloprim] 100 mg PO DAILY 04/02/20 02/06/22 History Furosemide [Lasix] 40 mg PO DAILY 04/02/20 02/06/22 History Thyroid,Pork [[place] Thyroid] 60 mg PO DAILY 04/02/20 02/06/22 History Valsartan 320 mg PO DAILY 04/02/20 02/06/22 History Prevagen 1 tab PO DAILY 01/07/21 02/06/22 History Meclizine [Antivert] 25 mg PO TID PRN #15 tab 10/18/21 02/06/22 Rx Ergocalciferol [Vitamin D2 (1250 1,250 mcg PO Q30D 02/06/22 02/06/22 History Mcg = 24485 Iu)] Allergies Allergy/AdvReac Type Severity Reaction Status Date / Time levothyroxine sodium Allergy Unknown Verified 02/06/22 14:12 [From Synthroid] Childhood pioglitazone [From Actos] Allergy Unknown Verified 02/06/22 14:12 Childhood midazolam HCl [From Versed] AdvReac Unknown Pt states Verified 02/06/22 14:12 she sleeps for days peanut AdvReac Unknown Cough Verified 02/06/22 14:12 metformin [From Glucophage] AdvReac Nausea & Verified 02/06/22 14:12 Vomiting & Diarrhea Surgical - Exam Vital Signs Temp Pulse Resp BP Pulse Ox 97.9 F 78 18 194/82 96 02/05/22 23:30 02/05/22 23:30 02/05/22 23:30 02/05/22 23:30 05/28/22 23:30 - General no distress, no pain - Eyes normal ocular movement - Respiratory normal expansion, normal respiratory effort - Abdomen Abdomen: soft, non tender - Psychiatric oriented to time, oriented to person, no oriented to place Results - Labs 02/09/22 07:19 02/09/22 07:19 Abnormal Lab Results - Last 24 Hours (Table) 02/08/22 02/08/22 02/09/22 Range/Units 11:32 16:26 00:40 RBC (3.80-5.40) m/uL Carbon Dioxide (22-30) mmol/L Glucose (74-99) mg/dL POC Glucose (mg/dL) 159 H 72 L 115 H (75-99) mg/dL 02/09/22 02/09/22 02/09/22 Range/Units 05:53 07:19 07:19 RBC 3.68 L (3.80-5.40) m/uL Carbon Dioxide 34 H (22-30) mmol/L Glucose 142 H (74-99) mg/dL POC Glucose (mg/dL) 135 H (75-99) mg/dL Diabetes panel 02/09/22 Range/Units 07:19 Sodium 140 (137-145) mmol/L Potassium 4.3 (3.5-5.1) mmol/L Chloride 99 (98-107) mmol/L Carbon Dioxide 34 H (22-30) mmol/L BUN 11 (7-17) mg/dL Creatinine 0.95 (0.52-1.04) mg/dL Glucose 142 H (74-99) mg/dL Calcium 8.5 (8.4-10.2) mg/dL Calcium panel 02/09/22 Range/Units 07:19 Calcium 8.5 (8.4-10.2) mg/dL Pituitary panel 02/09/22 Range/Units 07:19 Sodium 140 (137-145) mmol/L Potassium 4.3 (3.5-5.1) mmol/L Chloride 99 (98-107) mmol/L Carbon Dioxide 34 H (22-30) mmol/L BUN 11 (7-17) mg/dL Creatinine 0.95 (0.52-1.04) mg/dL Glucose 142 H (74-99) mg/dL Calcium 8.5 (8.4-10.2) mg/dL Adrenal panel 02/09/22 Range/Units 07:19 Sodium 140 (137-145) mmol/L Potassium 4.3 (3.5-5.1) mmol/L Chloride 99 (98-107) mmol/L Carbon Dioxide 34 H (22-30) mmol/L BUN 11 (7-17) mg/dL Creatinine 0.95 (0.52-1.04) mg/dL Glucose 142 H (74-99) mg/dL Calcium 8.5 (8.4-10.2) mg/dL Assessment and Plan Assessment: this is an 86-year-old female with a history of right renal cell carcinoma, status post robotic right radical nephrectomy thousand 16. Underwent CT on presentation that showed evidence of a 1.8 cm left renal lesion. Of note it's a noncontrast image. A sensor review completion be a hyperdense cyst, versus renal cell carcinoma versus transitional cell carcinoma, given the close location to the collecting system. Had a prolonged discussion with the patient and her daughter given patient's age and comorbidity if this is a renal cell carcinoma then active surveillance is an acceptable option. Discussed the potential of metastasis and progression is possible but low likelihood. They were agreeable with surveillance at this point, they're not interested in any surgical intervention for this lesion. Discussed if there is no no plan for surgical intervention then no added benefit of contrast imaging given the patient's solitary kidney. -Well obtain a urine cytology to R/O transitional cell carcinoma -Can follow-up as an outpatient in [address] Haile
--- NOTE | 2022-02-09 10:32 | XR ---
EXAMINATION TYPE: XR chest 1V portable DATE OF EXAM: 02/09/2022 COMPARISON: Chest x-ray 10/18/[address] 02/07/2022 HISTORY: Oxygen desaturation TECHNIQUE: Single frontal view of the chest is obtained. FINDINGS: Patient is rotated. There are overlying leads. Cardiac mediastinal silhouette appears stab le, heart borderline enlarged. Aorta is dense. No evident pneumothorax or pleural effusion. Mitral an nular calcification is suspected. Some interstitial prominence is noted at the lung bases, some minim al patchy density. IMPRESSION: Suspect some basilar atelectasis, correlate to exclude pneumonia, some mild interstitial changes suspected within the lungs
[2022-02-09 11:37] LABS: Glucose,Whole Blood 164 mg/dL (75-99)
[2022-02-09] MEDS: PIPERACILLIN-TAZOBACTAM 3.375 GM in SODIUM CHLORIDE 0.9% 100 ML IVPB SCH ×2 (11:51→16:49)
[2022-02-09 16:27] LABS: Glucose,Whole Blood 150 mg/dL (75-99)
--- NOTE | 2022-02-09 18:50 | P.PN ---
Subjective from Records 78-year-old female, history of hypertension, hypothyroidism, diabetes mellitus, atrial fibrillation and DVT, on Coumadin coming in for bright red blood per rectum multiple times be getting dinner tonight. No pain. No abdominal pain no lightheadedness dizziness or feeling like she a pass out. Patient Coumadin level last checked was running higher than normal. Patient again is just coming in for the persistent bleeding in the rectum it appears not to be mixed with stool just bright red with clots Lab review completed in ED reveals a WBC of 7.4, hemoglobin of 12.9, hematocrit of 41.0 and platelet count of 192, PT/INR of 24.6/2.5, sodium 140, potassium 3.9, BUN/creatinine of 21/1.39 Subjective: 02/07/2022, this is the first day I started taking care of the patient This is a pleasant HEENT is old female with multiple medical problems presents with bright blood per rectum with no abdominal pain while she was on Coumadin f or A. fib which is on hold now and INR is 1.7. Vitals blood pressure is stable. Hemoglobin is stable and almost normal. She has minimal blood per rectum today. Surgery team are planning for EGD today and colonoscopy tomorrow. She states that she has history of right nephrectomy for history of cancer. Also patient feels generally tired and weak with little cough. We will check urinalysis. She is also on IV Protonix once daily. 02/08/2022 patient is awake and alert Still have some oozing of blood per rectum, no overt bleed. Hemoglobin stable. She is complaining of from mild back pain which looks musculoskeletal in origin CT of the abdomen and pelvis without contrast: Right kidney is absent, multiple diverticula with no diverticulitis. Left kidney mass 1.8 cm Patient is going for colonoscopy tomorrow Urine analysis is negative. And PVR is 12 mL 02/09/2022 Patient today is awake and alert, no chest pain or dyspnea, lying in bed most of the time. Hemodynamically stable. Hemoglobin normal at 11.6. INR is 1.1. EGD showing erosive esophagitis while colonoscopy showing a breathing diverticula with polyp not removed. keep Coumadin on hold Check in the morning urologist consulted for left kidney mass Objective - Vital Signs Vital signs: Vital Signs Temp 98.5 F 02/09/22 04:30 Pulse 79 02/09/22 11:59 Resp 16 02/09/22 11:59 BP 135/63 02/09/22 11:59 Pulse Ox 97 02/09/22 11:59 FiO2 Intake & Output 02/08/22 02/09/22 02/09/22 18:59 06:59 18:59 Intake Total 780 200 Balance 780 200 Intake: IV 200 Oral 780 Other: Voiding Method Toilet Toilet Toilet # Voids 2 # Bowel Movements 2 - Exam -GENERAL: The patient is alert and oriented x3, not in any acute distress. Well developed, well nourished. Generally weak HEENT: Pupils are round and equally reacting to light. EOMI. No scleral icterus. No conjunctival pallor. Normocephalic, atraumatic. No pharyngeal erythema. No thyromegaly. CARDIOVASCULAR: S1 and S2 present. No murmurs, rubs, or gallops. PULMONARY: Chest is clear to auscultation, no wheezing or crackles. ABDOMEN: Soft, nontender, nondistended, normoactive bowel sounds. No palpable organomegaly. MUSCULOSKELETAL: No joint swelling or deformity. EXTREMITIES: No cyanosis, clubbing, or pedal edema. NEUROLOGICAL: Gross neurological examination did not reveal any focal deficits. SKIN: No rashes. no petechiae. - Labs CBC & Chem 7: 02/09/22 07:19 02/09/22 07:19 Labs: Abnormal Lab Results - Last 24 Hours (Table) 02/08/22 02/09/22 02/09/22 Range/Units 16:26 00:40 05:53 RBC (3.80-5.40) m/uL Carbon Dioxide (22-30) mmol/L Glucose (74-99) mg/dL POC Glucose (mg/dL) 72 L 115 H 135 H (75-99) mg/dL 02/09/22 02/09/22 02/09/22 Range/Units 07:19 07:19 11:35 RBC 3.68 L (3.80-5.40) m/uL Carbon Dioxide 34 H (22-30) mmol/L Glucose 142 H (74-99) mg/dL POC Glucose (mg/dL) 164 H (75-99) mg/dL Assessment and Plan Assessment: Right red blood per rectum, EGD showing erosive esophagitis while colonoscopy showing bleeding diverticula Left kidney mass 1.8 cm. Status post right nephrectomy Chronic kidney disease with no acute injury Hypothyroidism Chronic atrial fibrillation on Coumadin, currently on hold Hypertension Diabetes mellitus Plan: This is a pleasant 80 years old female who presents with weakness and GI bleed. Surgery team on the case plan for colonoscopy. Continue with Protonix, hold Coumadin until cleared by surgery. Consult urologist Labs and medication were reviewed.. Continue same treatment. Continue with symptomatic treatment. Resume home medication. Monitor lytes and vitals. DVT and GI prophylaxis. Further recommendationsas per clinical course of the patient DVT prophylaxis: No anticoagulation for GI bleed GI Prophylaxis: Ppi PT/OT: Pending Prognosis is guarded
[2022-02-09 20:18] LABS: Glucose,Whole Blood 135 mg/dL (75-99)
[2022-02-10] MEDS: SODIUM CHLORIDE 0.9% 1,000 ML IV SCH ×2 (01:00→16:48)
[2022-02-10] MEDS: PIPERACILLIN-TAZOBACTAM 3.375 GM in SODIUM CHLORIDE 0.9% 100 ML IVPB SCH ×3 (03:05→16:58)
[2022-02-10 06:20] LABS: Glucose,Whole Blood 130 mg/dL (75-99)
[2022-02-10] MEDS: INSULIN ASPART (NovoLOG) 100 UNIT/ML VIAL SQ SCH ×4 (06:22→20:30)
[2022-02-10 08:55] LABS: Basophils % (A) 1 %; Eosinophils # (A) 0.1 k/uL (0-0.7); Eosinophils % (A) 2 %; HCT 38.7 % (34.0-46.0); HGB 11.9 gm/dL (11.4-16.0); Hypochromasia Slight; Lymphocytes # (A) 1.1 k/uL (1.0-4.8); Lymphocytes % (A) 17 %; MCH 31.1 pg (25.0-35.0); MCHC 30.7 g/dL (31.0-37.0); MCV 101.3 fL (80.0-100.0); Macrocytosis Slight; Mean Platelet Volume 9.6; Monocytes # (A) 0.3 k/uL (0-1.0); Monocytes % (A) 5 %; Neutrophils # (A) 4.8 k/uL (1.3-7.7); Neutrophils % (A) 74 %; Platelet Count 171 k/uL (150-450); RBC 3.82 m/uL (3.80-5.40); RDW 14.2 % (11.5-15.5); Reticulocyte % 1.3 % (0.5-2.0); WBC 6.5 k/uL (3.8-10.6)
[2022-02-10] MEDS: HEPARIN SODIUM,PORCINE/PF 5,000 UNIT/0.5 ML SYRINGE SQ SCH ×2 (09:09→20:30)
[2022-02-10] MEDS: FLECAINIDE 50 MG TAB PO SCH ×2 (09:10→20:29)
[2022-02-10] MEDS: THYROID, PORK 30 MG TAB PO SCH (09:10)
[2022-02-10] MEDS: PANTOPRAZOLE 40 MG/10 ML VIAL IV SCH (09:10)
[2022-02-10 09:19] LABS: Calcium 8.5 mg/dL (8.4-10.2); Magnesium 1.9 mg/dL (1.6-2.3); Potassium 4.2 mmol/L (3.5-5.1)
[2022-02-10 11:39] LABS: Glucose,Whole Blood 130 mg/dL (75-99)
--- NOTE | 2022-02-10 13:32 | P.PN ---
Subjective Progress Note Date: 02/10/22 CHIEF COMPLAINT: GI bleed HISTORY OF PRESENT ILLNESS: Patient is status post colonoscopy with results nancy wing severe sigmoid diverticulosis with active bleeding, sigmoid colon polyp and pandiverticulosis. Patient started on antibiotics for treatment of acute diverticulitis with bleeding. Patient currently tolerating clear liquid diet. Patient has had no further bloody stools. She reports her last bloody bowel movement was around 10:00 last night. In her bowel movement this morning was liquidy with no blood. She reports some mild abdominal discomfort on the left side. Afebrile. WBC is 6.5 hemoglobin 11.9 creatinine 1.06 chest show suspected some basilar atelectasis, correlate to exclude pneumonia, some mild interstitial changes suspected within the lungs. IV has been hep-locked. PHYSICAL EXAM: VITAL SIGNS: Reviewed GENERAL: Well-developed in no acute distress. HEENT: No sclera icterus. Extraocular movements grossly intact. Moist buccal mucosa. Head is atraumatic, normocephalic. Hears conversational speech. No nasal drainage. NECK: Supple without lymphadenopathy. CHEST: Non-labored respirations and equal bilateral excursions. CARDIOVASCULAR: Palpable 2+ radial pulses. ABDOMEN: Soft. Nondistended. MUSCULOSKELETAL: No clubbing or cyanosis. NEUROLOGIC: No focal or lateralizing signs. Cranial nerves II through XII grossly intact. PSYCH: Appropriate affect. Alert and oriented to person, place and time. SKIN: Well perfused. Good skin turgor. ASSESSMENT: 1. Acute GI bleed secondary to diverticular bleed. Status post colonoscopy. 2. History of atrial fibrillation on Coumadin at home 3. History of right renal cancer status post partial nephrectomy 4. Chronic kidney disease 5. Hypertension 6. Diabetes mellitus 7. Mass in the left kidney patient evaluated by urology PLAN: -Advance diet to low fiber -Continue to monitor for any signs or symptoms of bleeding -Continue antibiotics -Continue to hold Coumadin -Anticipate possible discharge tomorrow -Encourage patient to ambulate Physician [employer] Specialist note has been reviewed by physician. Signing provider agrees with the documented findings, assessment, and plan of care. Objective - Vital Signs Vital signs: Vital Signs Temp 98.6 F 02/10/22 07:31 Pulse 74 02/10/22 12:00 Resp 16 02/10/22 12:00 BP 173/80 02/10/22 12:00 Pulse Ox 93 L 02/10/22 08:21 FiO2 Intake & Output 02/09/22 02/10/22 02/10/22 18:59 06:59 18:59 Intake Total 380 240 Balance 380 240 Intake: IV 200 Oral 180 240 Other: Voiding Method Toilet Toilet Toilet # Voids 2 1 # Bowel Movements 1 - Labs CBC & Chem 7: 02/10/22 07:37 02/10/22 07:37 Labs: Abnormal Lab Results - Last 24 Hours (Table) 02/09/22 02/09/22 02/10/22 Range/Units 16:25 20:17 06:17 MCV (80.0-100.0) fL MCHC (31.0-37.0) g/dL Chloride (98-107) mmol/L Carbon Dioxide (22-30) mmol/L Creatinine (0.52-1.04) mg/dL Glucose (74-99) mg/dL POC Glucose (mg/dL) 150 H 135 H 130 H (75-99) mg/dL 02/10/22 02/10/22 02/10/22 Range/Units 07:37 07:37 11:38 MCV 101.3 H (80.0-100.0) fL MCHC 30.7 L (31.0-37.0) g/dL Chloride 97 L (98-107) mmol/L Carbon Dioxide 35 H (22-30) mmol/L Creatinine 1.06 H (0.52-1.04) mg/dL Glucose 166 H (74-99) mg/dL POC Glucose (mg/dL) 130 H (75-99) mg/dL
--- NOTE | 2022-02-10 14:05 | P.PN ---
Subjective from Records 78-year-old female, history of hypertension, hypothyroidism, diabetes mellitus, atrial fibrillation and DVT, on Coumadin coming in for bright red blood per rectum multiple times be getting dinner tonight. No pain. No abdominal pain no lightheadedness dizziness or feeling like she a pass out. Patient Coumadin level last checked was running higher than normal. Patient again is just coming in for the persistent bleeding in the rectum it appears not to be mixed with stool just bright red with clots Lab review completed in ED reveals a WBC of 7.4, hemoglobin of 12.9, hematocrit of 41.0 and platelet count of 192, PT/INR of 24.6/2.5, sodium 140, potassium 3.9, BUN/creatinine of 21/1.39 Subjective: 02/07/2022, this is the first day I started taking care of the patient This is a pleasant HEENT is old female with multiple medical problems presents with bright blood per rectum with no abdominal pain while she was on Coumadin f or A. fib which is on hold now and INR is 1.7. Vitals blood pressure is stable. Hemoglobin is stable and almost normal. She has minimal blood per rectum today. Surgery team are planning for EGD today and colonoscopy tomorrow. She states that she has history of right nephrectomy for history of cancer. Also patient feels generally tired and weak with little cough. We will check urinalysis. She is also on IV Protonix once daily. 02/08/2022 patient is awake and alert Still have some oozing of blood per rectum, no overt bleed. Hemoglobin stable. She is complaining of from mild back pain which looks musculoskeletal in origin CT of the abdomen and pelvis without contrast: Right kidney is absent, multiple diverticula with no diverticulitis. Left kidney mass 1.8 cm Patient is going for colonoscopy tomorrow Urine analysis is negative. And PVR is 12 mL 02/09/2022 Patient today is awake and alert, no chest pain or dyspnea, lying in bed most of the time. Hemodynamically stable. Hemoglobin normal at 11.6. INR is 1.1. EGD showing erosive esophagitis while colonoscopy showing a breathing diverticula with polyp not removed. keep Coumadin on hold Check in the morning urologist consulted for left kidney mass 02/10/2022 Patient clinically doing well, her bleeding per rectum has stopped this morning as she states. She denies any other symptoms. She denies any dyspnea or chest pain or coughing, his breathing is a stable and she saturation well on room air. Surgical team on the case and wants to keep holding Coumadin. PT/OT recommended home health care Possible discharge in 24-48 hours if she remains stable Objective - Vital Signs Vital signs: Vital Signs Temp 98.6 F 02/10/22 07:31 Pulse 81 02/10/22 07:31 Resp 16 02/10/22 07:31 BP 182/86 02/10/22 07:31 Pulse Ox 93 L 02/10/22 08:21 FiO2 Intake & Output 02/09/22 02/10/22 02/10/22 18:59 06:59 18:59 Intake Total 380 240 Balance 380 240 Intake: IV 200 Oral 180 240 Other: Voiding Method Toilet Toilet Toilet # Voids 2 1 # Bowel Movements 1 - Exam -GENERAL: The patient is alert and oriented x3, not in any acute distress. Well developed, well nourished. Generally weak HEENT: Pupils are round and equally reacting to light. EOMI. No scleral icterus. No conjunctival pallor. Normocephalic, atraumatic. No pharyngeal erythema. No thyromegaly. CARDIOVASCULAR: S1 and S2 present. No murmurs, rubs, or gallops. PULMONARY: Chest is clear to auscultation, no wheezing or crackles. ABDOMEN: Soft, nontender, nondistended, normoactive bowel sounds. No palpable organomegaly. MUSCULOSKELETAL: No joint swelling or deformity. EXTREMITIES: No cyanosis, clubbing, or pedal edema. NEUROLOGICAL: Gross neurological examination did not reveal any focal deficits. SKIN: No rashes. no petechiae. - Labs CBC & Chem 7: 02/10/22 07:37 02/10/22 07:37 Labs: Abnormal Lab Results - Last 24 Hours (Table) 02/09/22 02/09/22 02/09/22 Range/Units 11:35 16:25 20:17 MCV (80.0-100.0) fL MCHC (31.0-37.0) g/dL Chloride (98-107) mmol/L Carbon Dioxide (22-30) mmol/L Creatinine (0.52-1.04) mg/dL Glucose (74-99) mg/dL POC Glucose (mg/dL) 164 H 150 H 135 H (75-99) mg/dL 02/10/22 02/10/22 02/10/22 Range/Units 06:17 07:37 07:37 MCV 101.3 H (80.0-100.0) fL MCHC 30.7 L (31.0-37.0) g/dL Chloride 97 L (98-107) mmol/L Carbon Dioxide 35 H (22-30) mmol/L Creatinine 1.06 H (0.52-1.04) mg/dL Glucose 166 H (74-99) mg/dL POC Glucose (mg/dL) 130 H (75-99) mg/dL Assessment and Plan Assessment: Right red blood per rectum, EGD showing erosive esophagitis while colonoscopy showing bleeding diverticula Left kidney mass 1.8 cm. Status post right nephrectomy Chronic kidney disease with no acute injury Hypothyroidism Chronic atrial fibrillation on Coumadin, currently on hold Hypertension Diabetes mellitus Plan: This is a pleasant 80 years old female who presents with weakness and GI bleed. Surgery team on the case plan for colonoscopy. Continue with Protonix, hold Coumadin until cleared by surgery. Consult urologist Labs and medication were reviewed.. Continue same treatment. Continue with symptomatic treatment. Resume home medication. Monitor lytes and vitals. DVT and GI prophylaxis. Further recommendationsas per clinical course of the patient DVT prophylaxis: No anticoagulation for GI bleed GI Prophylaxis: Ppi PT/OT: Pending Prognosis is guarded
[2022-02-10] MEDS ORDERED: NIFEdipine XL 30 MG TAB.ER.24 PO SCH (14:15)
[2022-02-10 16:33] LABS: Glucose,Whole Blood 93 mg/dL (75-99)
[2022-02-10] MEDS: VALSARTAN 160 MG TAB PO SCH (16:55)
[2022-02-10 20:17] LABS: Glucose,Whole Blood 177 mg/dL (75-99)
[2022-02-10] MEDS: METOPROLOL TARTRATE 25 MG TAB PO SCH (20:30)
[2022-02-10 23:56] VITALS: RESP 18; TEMP 98.1
[2022-02-11] MEDS: PIPERACILLIN-TAZOBACTAM 3.375 GM in SODIUM CHLORIDE 0.9% 100 ML IVPB SCH ×2 (02:22→09:45)
[2022-02-11] MEDS: SODIUM CHLORIDE 0.9% 1,000 ML IV SCH (02:27)
[2022-02-11 05:29] VITALS: PULSE 67
[2022-02-11] MEDS: INSULIN ASPART (NovoLOG) 100 UNIT/ML VIAL SQ SCH ×2 (06:37→13:01)
[2022-02-11 06:38] LABS: Glucose,Whole Blood 123 mg/dL (75-99)
--- NOTE | 2022-02-11 08:14 | P.PN ---
Subjective Progress Note Date: 02/11/22 CHIEF COMPLAINT: GI bleed from sigmoid diverticulosis HISTORY OF PRESENT ILLNESS: The patient is a 86-year-old female status post colonoscopy with features of actively bleeding sigmoid diverticulosis. She was placed on antibiotics. She denies any further bleeding in the last 2 nights. She had a bowel movement without blood. She is tolerating a low fiber diet. No reports of abdominal pain. Her Coumadin has been held. ROS: No reports of nausea and vomiting. No fevers or chills. No new chest pain. No productive sputum PHYSICAL EXAM: VITAL SIGNS: Reviewed CONSTITUTIONAL: Well developed and in no acute distress. EYES: Conjuctivae without sclera icterus. Extraocular movements grossly intact. HEAD, EARS, NOSE, THROAT: Moist buccal mucosa. Head is atraumatic, normocephalic. Hears conversational speech. No nasal drainage. RESPIRATORY: Non-labored respirations and equal bilateral excursions. CARDIOVASCULAR: Palpable 2+ radial pulses. ABDOMEN: Nontender. Nondistended. MUSCULOSKELETAL: No gross deformity of the lower extremities noted. No clubbing. No cyanosis. SKIN: Good skin turgor. Well perfused. NEUROLOGIC: Cranial nerves II through XII grossly intact. No focal or l ateralizing signs. PSYCH: Appropriate affect. Alert and oriented to person, place and time. CLINICAL LABS: Reviewed. Hemoglobin trending up 11.6-11.9. ASSESSMENT: 1. GI bleed from sigmoid diverticulosis 2. History of anticoagulant use. PLAN: 1. Recommend completion of antibiotic course for sigmoid diverticulitis at least 10 days. 2. In the timeframe for treatment of diverticulitis, recommend hold Coumadin 3. Otherwise, stable for discharge from a surgical standpoint 4. Follow up outpatient for further surgical options Objective - Vital Signs Vital signs: Vital Signs Temp 98.1 F 02/11/22 04:00 Pulse 67 02/11/22 04:00 Resp 18 02/11/22 04:00 BP 170/72 02/11/22 04:00 Pulse Ox 94 L 02/11/22 04:00 FiO2 Intake & Output 02/10/22 02/11/22 02/11/22 18:59 06:59 18:59 Intake Total 476 Output Total 200 Balance 476 -200 Intake: Oral 476 Output: Urine 200 Other: Voiding Method Toilet Toilet # Voids 1 1 # Bowel Movements 1 - Labs CBC & Chem 7: 02/10/22 07:37 02/10/22 07:37 Labs: Abnormal Lab Results - Last 24 Hours (Table) 02/10/22 02/10/22 02/10/22 Range/Units 07:37 07:37 11:38 MCV 101.3 H (80.0-100.0) fL MCHC 30.7 L (31.0-37.0) g/dL Chloride 97 L (98-107) mmol/L Carbon Dioxide 35 H (22-30) mmol/L Creatinine 1.06 H (0.52-1.04) mg/dL Glucose 166 H (74-99) mg/dL POC Glucose (mg/dL) 130 H (75-99) mg/dL 02/10/22 02/11/22 Range/Units 20:14 06:36 MCV (80.0-100.0) fL MCHC (31.0-37.0) g/dL Chloride (98-107) mmol/L Carbon Dioxide (22-30) mmol/L Creatinine (0.52-1.04) mg/dL Glucose (74-99) mg/dL POC Glucose (mg/dL) 177 H 123 H (75-99) mg/dL
[2022-02-11 09:17] VITALS: BMI 33.7
[2022-02-11 09:45] VITALS: BP 166/72
[2022-02-11] MEDS: FLECAINIDE 50 MG TAB PO SCH (09:45)
[2022-02-11] MEDS: THYROID, PORK 30 MG TAB PO SCH (09:46)
[2022-02-11] MEDS: METOPROLOL TARTRATE 25 MG TAB PO SCH (09:46)
[2022-02-11] MEDS: PANTOPRAZOLE 40 MG/10 ML VIAL IV SCH (09:46)
[2022-02-11] MEDS: HEPARIN SODIUM,PORCINE/PF 5,000 UNIT/0.5 ML SYRINGE SQ SCH (09:46)
[2022-02-11] MEDS: VALSARTAN 160 MG TAB PO SCH (09:46)
--- NOTE | 2022-02-11 10:47 | CDI ---
Documentation Clarification Form Date: 02/11/2022 10:32:26 AM From: Gerri Temple RN, CCDS Admit Date: 02/06/2022 12:45:00 AM Patient Name: Glory Florence Visit Number: [id number] Discharge Date: ATTENTION: The Clinical Documentation Specialists (CDI) and [facility] Coding Staff appreciate your assistance in clarifying documentation. Please respond to the clarification below the line at the bottom and electronically sign. The CDI & [facility] Coding staff will review the response and follow-up if needed. Please note: Queries are made part of the Legal Health Record. If you have any questions, please contact the author of this message via ITS. Dr. Yan Bahena Sheet Unspecified CKD is documented on 02/07/22 and subsequent progress notes. Additional clarification regarding the stage of CKD is requested. History/Risk Factors: Atrial Fibrillation, diabetes mellitus, DVT, Hypertension, Renal cancer with right nephrectomy 2015 Patients Historical (ED labs on 11/07/21: BUN 24, CR 1.03, GFR 49 Clinical Indicators: 86-year-old female who present to ED for bright red blood per rectum multiple times. 02/06 BUN 21, CR 1.39, GFR 34 / BUN 9 CR 1.06 GFR 47 Treatment: .9NS 1,000 MLS/HR IV 02/06 Monitor renal function and electrolytes; avoid nephrotoxins and hypotension Please clarify the stage of the CKD, if known: [ ] CKD Stage 2 (GFR 60-89) [ ] CKD Stage 3 (GFR 30-59) [ ] CKD Stage 3a (GFR 45-59) [ ] CKD Stage 3b (GFR 30-44) [ ] Other, please specify [ ] Unable to determine (Template Last revised: October 2020) CKD Stage 3 MTDD
[2022-02-11 12:01] LABS: Glucose,Whole Blood 118 mg/dL (75-99)
--- NOTE | 2022-02-11 21:20 | P.DS ---
Providers Date of admission: 02/06/22 00:45 Attending physician: Angi Painting Consults: 02/07/22 08:11 Consult Physician Routine Consulting Provider: Ktae Sheriff Consult Reason/Comments: Rectal bleed Do you want consulting provider notified?: Yes 02/08/22 11:07 Consult Physician Urgent Consulting Provider: Helder Padilla Consult Reason/Comments: left kid mass Do you want consulting provider notified?: Yes Primary care physician: [facility] Course: Diagnoses: Right red blood per rectum, EGD showing erosive esophagitis while colonoscopy showing bleeding diverticula Left kidney mass 1.8 cm. Status post right nephrectomy Chronic kidney disease with no acute injury Hypothyroidism Chronic atrial fibrillation on Coumadin, currently on hold Hypertension Diabetes mellitus Hospital course: 78-year-old female, history of hypertension, hypothyroidism, diabetes mellitus, atrial fibrillation and DVT, on Coumadin coming in for bright red blood per rectum multiple times. Patient Coumadin was held on admission and patient evaluated by surgery team, EGD showing erosive esophagitis while colonoscopy showing bleeding diverticula, polyps could not be removed because of the blee ding tendency. Surgery team recommended antibiotics with Augmentin 10 days upon discharge during this time she should be off Coumadin as per surgery team recommendation and as per my discussion with him this morning. Patient and daughter Sandra R informed with this recommendation and they agreed, also the aware of the risk of stroke while off Coumadin and they agree with it. Also neurologist evaluated the patient for left kidney mass and recommended outpatient follow-up An appointment made for the patient with urologist on 03/11 and with surgeon on 02/22 and patient and her daughter Sandra agree with it. Also I discussed with Sandra recommendation to hold Coumadin until she sees Jaziel and she agrees. Patient remains hemodynamically stable and no complaint. Problems and management plan were discussed with the patient and he verbalized understanding and acceptance Patient was found stable and can be discharged home in guarded prognosis however he needs follow-up as an outpatient. Patient was instructed to follow up with PCP within one week and patient agrees Follow-up with urologist and surgeon, as above Physical exam Gen: patient is a AAOx3, no distress CVS: S1-S2, RRR, no murmur Lungs: B/L CTA, no wheezing Abdomen: soft, no distention, no tenderness, positive bowel sounds Extremity: no leg edema or induration Time spent more than 35 minutes Patient Condition at Discharge: Serious Plan - Discharge Summary Discharge Rx Participant: No New Discharge Prescriptions: New Amoxic-Pot Clav 500-125 mg [Augmentin 500-125 mg] 1 tab PO Q12HR 10 Days #20 tab Pantoprazole Sodium [Protonix] 40 mg PO DAILY #30 tab Continue NIFEdipine [NIFEdipine ER] 60 mg PO DAILY Flecainide Acetate [Tambocor] 100 mg PO Q12H Metoprolol Succinate (ER) [Toprol XL] 25 mg PO BID Furosemide [Lasix] 40 mg PO DAILY Valsartan 320 mg PO DAILY Allopurinol [Zyloprim] 100 mg PO DAILY Thyroid,Pork [[place] Thyroid] 60 mg PO DAILY Prevagen 1 tab PO DAILY Meclizine [Antivert] 25 mg PO TID PRN #15 tab PRN Reason: Vertigo Ergocalciferol [Vitamin D2 (1250 Mcg = 39011 Iu)] 1,250 mcg PO Q30D Discontinued Warfarin [Coumadin] 5 mg PO SUTUWETHSA@2100 Glimepiride [Amaryl] 2 mg PO BID Warfarin [Coumadin] 2.5 mg PO MOFR@2100 sitaGLIPtin [Januvia] 50 mg PO HS Discharge Medication List NIFEdipine [NIFEdipine ER] 60 mg PO DAILY 11/25/15 [History] Flecainide Acetate [Tambocor] 100 mg PO Q12H 06/21/18 [History] Metoprolol Succinate (ER) [Toprol XL] 25 mg PO BID 06/21/18 [History] Allopurinol [Zyloprim] 100 mg PO DAILY 04/02/20 [History] Furosemide [Lasix] 40 mg PO DAILY 04/02/20 [History] Thyroid,Pork [[place] Thyroid] 60 mg PO DAILY 04/02/20 [History] Valsartan 320 mg PO DAILY 04/02/20 [History] Prevagen 1 tab PO DAILY 01/07/21 [History] Meclizine [Antivert] 25 mg PO TID PRN #15 tab 10/18/21 [Rx] Ergocalciferol [Vitamin D2 (1250 Mcg = 05589 Iu)] 1,250 mcg PO Q30D 02/06/22 [History] Amoxic-Pot Clav 500-125 mg [Augmentin 500-125 mg] 1 tab PO Q12HR 10 Days #20 tab 02/11/22 [Rx] Pantoprazole Sodium [Protonix] 40 mg PO DAILY #30 tab 02/11/22 [Rx] Follow up Appointment(s)/Referral(s): Fabricio Haile MD [STAFF PHYSICIAN] - 03/11/22 8:20 am (for your left kidney mass ) Kate Sheriff MD [STAFF PHYSICIAN] - 02/22/22 3:30 pm Danis Ivy MD [Primary Care Provider] - 1-2 days Patient Instructions/Handouts: Low Fiber Diet (ED), Diverticulitis Diet (DC) Activity/Diet/Wound Care/Special Instructions: we recommend to check your glucose 4 times a day before each meal and at bed time , keep the results in a log book and bring it to your doctor upon your appointment date if your glucose is less than 70 or more than 400 then call 911 and come to emergency room heart healthy diet activity is restricted till you see your doctor Discharge Disposition: HOME WITH HOME HEALTH SERVICES
== END 2022-02-11 13:41 | disposition home health service (06) | DRG 378 ==
LOC: EC 23:28 → 3SCARD 02-06 00:45
PROVIDERS: ADMIT Hospitalist; ATTEND Hospitalist
PROC: 0DJD8ZZ Inspection of Lower Intestinal Tract, Via Natural or Artificial Opening Endoscopic (ICD-10-PCS; principal; 2022-02-09 08:00)
PROC: 0DJ08ZZ Inspection of Upper Intestinal Tract, Via Natural or Artificial Opening Endoscopic (ICD-10-PCS; principal; 2022-02-09 08:00)
DX: K57.33 Diverticulitis of large intestine without perforation or abscess with bleeding (principal); D62 Acute posthemorrhagic anemia; D68.9 Coagulation defect, unspecified; I13.0 Hypertensive heart and chronic kidney disease with heart failure and stage 1 through stage 4 chronic kidney disease, or unspecified chronic kidney disease; I48.20 Chronic atrial fibrillation, unspecified; J98.11 Atelectasis; K22.10 Ulcer of esophagus without bleeding; N17.9 Acute kidney failure, unspecified; E03.9 Hypothyroidism, unspecified; E11.22 Type 2 diabetes mellitus with diabetic chronic kidney disease; I50.9 Heart failure, unspecified; K44.9 Diaphragmatic hernia without obstruction or gangrene; K63.5 Polyp of colon; K64.1 Second degree hemorrhoids; N18.30 Chronic kidney disease, stage 3 unspecified; N28.1 Cyst of kidney, acquired; T45.515A Adverse effect of anticoagulants, initial encounter; M19.90 Unspecified osteoarthritis, unspecified site; Z79.01 Long term (current) use of anticoagulants; Z79.84 Long term (current) use of oral hypoglycemic drugs; Z79.899 Other long term (current) drug therapy; Z80.3 Family history of malignant neoplasm of breast; Z83.3 Family history of diabetes mellitus; Z85.528 Personal history of other malignant neoplasm of kidney; Z87.442 Personal history of urinary calculi; Z90.5 Acquired absence of kidney; Z90.710 Acquired absence of both cervix and uterus; Z96.653 Presence of artificial knee joint, bilateral; Z90.89 Acquired absence of other organs; Z98.890 Other specified postprocedural states; Z98.42 Cataract extraction status, left eye; Z98.41 Cataract extraction status, right eye; Z86.19 Personal history of other infectious and parasitic diseases
CPT/HCPCS: 36415; 43235; 45378; 71045; 74176; 80048; 80053; 81001; 83735; 84145; 84484; 85025; 85027; 85045; 85610; 85730; 86850; 86900; 86901; 94760; 96361; 96374; 96375; 96376; 99285

== ENCOUNTER → 2022-04-21 | Outpatient (CLI) | payer MEDICARE ==
[2022-04-21 14:31] LABS: INR 1.58 (0.90-1.11); Prothrombin Time 17.5 sec (9.9-11.9)
[2022-04-21 14:40] LABS: African American GFR (CKD) 37.5 (60.0-200.0); Albumin 4.1 g/dL (3.8-4.9); Albumin/Globulin Ratio 1.52 (1.60-3.17); Anion Gap 8.4 mmol/L (10.00-18.00); BUN/Creat Ratio 19.93 Ratio (12.00-20.00); Blood Urea Nitrogen 28.7 mg/dL (9.0-27.0); Calcium 9.3 mg/dL (8.7-10.3); Carbon Dioxide 27.8 mmol/L (20.0-27.5); Globulin 2.7 g/dL (1.6-3.3); Non-African American GFR(CKD) 32.3 (60.0-200.0); Potassium 4.3 mmol/L (3.5-5.5); Total Bilirubin 0.3 mg/dL (0.30-1.20); Total Protein 6.7 g/dL (6.2-8.2)
[2022-04-21 14:44] LABS: Basophils # (A) 0.06 X 10*3/uL (0.00-0.10); Basophils % (A) 0.9 %; Eosinophils % (A) 2.9 %; HCT 41.1 % (37.2-46.3); Immature Grans, Automated 0.3 %; Lymphocytes % (A) 21.7 %; MCH 30.1 pg (27.0-32.0); MCHC 31.6 g/dL (32.0-37.0); MCV 95.1 fL (80.0-97.0); Mean Platelet Volume 11.7 fL (9.5-12.2); Monocytes # (A) 0.51 X 10*3/uL (0.20-1.00); Monocytes % (A) 7.4 %; NRBC Per 100 WBC 0 /100 WBCS (0.0-0.0); Neutrophils # (A) 4.61 X 10*3/uL (1.80-7.70); Neutrophils % (A) 66.8 %; Platelet Count 192 X 10*3/uL (140-440); RBC 4.32 X 10*6/uL (4.10-5.20); RDW 13.8 % (11.5-14.5)
== END | disposition home or self-care (01) ==
LOC: LABWHC1 10:20
PROVIDERS: ATTEND Internal Medicine Critical Care Medicine
DX: E11.9 Type 2 diabetes mellitus without complications (principal); K92.2 Gastrointestinal hemorrhage, unspecified
CPT/HCPCS: 36415; 80053; 83036; 85025; 85610

== ENCOUNTER 2022-08-17 03:50 | Emergency (ER) | payer MEDICARE ==
[2022-08-17 04:05] VITALS: TEMP 97.9
--- NOTE | 2022-08-17 04:13 | ED ---
Extremity Problem HPI <Will Wilkerson - Last Filed: 08/17/22 08:11> - General Source: patient, RN notes reviewed, old records reviewed Mode of arrival: ambulatory Limitations: no limitations - History of Present Illness MD Complaint: extremity pain, joint pain (Right shoulder right upper extremity pain) -: days(s) Location: right, upper extremity History of Same: Yes Radiation: proximal Severity scale (1-10): 4 Quality: sharp Consistency: intermittent Improves with: nothing Worsens with: nothing Associated Symptoms: denies other symptoms <Octavio Carrillo - Last Filed: 08/17/22 21:38> - General Chief complaint: Extremity Injury, Upper Stated complaint: Right arm pain, possible blood clot Time Seen by Provider: 08/17/22 04:09 - History of Present Illness Initial comments: This is an 87-year-old female to the emergency department for evaluation presents today for evaluation regards to right extremity pain. Severe right arm pain woke her from sleep tonight. Concern for DVT. Patient has H a fi brillation on blood thinners. Patient also has had episodes of weakness for the last couple days confusion as well. Blood sugars been up and down. Overall does not feeling well. Patient presents to the ER with her son for evaluation (Octavio Carrillo) - Related Data Home Medications Medication Instructions Recorded Confirmed NIFEdipine [NIFEdipine ER] 60 mg PO DAILY 11/25/15 02/06/22 Flecainide Acetate [Tambocor] 100 mg PO Q12H 06/21/18 02/06/22 Metoprolol Succinate (ER) [Toprol 25 mg PO BID 06/21/18 02/06/22 XL] Furosemide [Lasix] 40 mg PO DAILY 04/02/20 02/06/22 Thyroid,Pork [[place] Thyroid] 60 mg PO DAILY 04/02/20 02/06/22 Valsartan 320 mg PO DAILY 04/02/20 02/06/22 allopurinoL [Zyloprim] 100 mg PO DAILY 04/02/20 02/06/22 Prevagen 1 tab PO DAILY 01/07/21 02/06/22 Ergocalciferol [Vitamin D2 (1250 1,250 mcg PO Q30D 02/06/22 02/06/22 Mcg = 12356 Iu)] Previous Rx's Medication Instructions Recorded Meclizine [Antivert] 25 mg PO TID PRN #15 tab 10/18/21 Amoxic-Pot Clav 500-125 mg 1 tab PO Q12HR 10 Days #20 tab 02/11/22 [Augmentin 500-125 mg] Pantoprazole Sodium [Protonix] 40 mg PO DAILY #30 tab 02/11/22 Allergies Allergy/AdvReac Type Severity Reaction Status Date / Time levothyroxine sodium Allergy Unknown Verified 08/17/22 04:01 [From Synthroid] Childhood pioglitazone [From Actos] Allergy Unknown Verified 08/17/22 04:01 Childhood midazolam HCl [From Versed] AdvReac Unknown Pt states Verified 08/17/22 04:01 she sleeps for days metformin [From Glucophage] AdvReac Nausea & Verified 08/17/22 04:01 Vomiting & Diarrhea Review of Systems ROS Other: All systems not noted in ROS Statement are negative. <Will Wilkerson - Last Filed: 08/17/22 08:11> ROS Other: All systems not noted in ROS Statement are negative. <Octavio Carrillo - Last Filed: 08/17/22 21:38> ROS Statement: Those systems with pertinent positive or pertinent negative responses have been documented in the HPI. Past Medical History Past Medical History: Atrial Fibrillation, Cancer, Diabetes Mellitus, Deep Vein Thrombosis (DVT), Hypertension, Osteoarthritis (OA), Thyroid Disorder Additional Past Medical History / Comment(s): LOW THYROID, HX OF MONO., KIDNEY STONES.& DVT LEFT LEG., PAIN RIGHT SHOULDER. Renal cancer with nephrectomy, 2015 History of Any Multi-Drug Resistant Organisms: ESBL Date of last positivie culture/infection: 04/06/20 MDRO Source:: ESBL URINE Past Surgical History: Breast Surgery, Cholecystectomy, Hysterectomy, Joint Replacement, Orthopedic Surgery, Tonsillectomy Additional Past Surgical History / Comment(s): YULIA CATARACTS, COLONOSCOPY, MULTIPLE SURGERIES LEFT KNEE, YULIA KNEE REPLACEMENT, BREAST REDUCTION, LEFT ANKLE FX REPAIR WITH HARDWARE. Right kidney removed secondary to CA Past Anesthesia/Blood Transfusion Reactions: Previous Problems w/ Anesthesia, Postoperative Nausea & Vomiting (PONV) Additional Past Anesthesia/Blood Transfusion Reaction / Comment(s): PT STATES THAT VERSED MAKES HER SLEEP FOR DAYS. Past Psychological History: No Psychological Hx Reported Smoking Status: Never smoker Past Alcohol Use History: None Reported Past Drug Use History: None Reported - Past Family History Mother Family Medical History: Cancer Additional Family Medical History / Comment(s): BREAST CANCER Sister(s) Family Medical History: Cancer Additional Family Medical History / Comment(s): BREAST CANCER Father Family Medical History: Diabetes Mellitus <Octavio Carrillo - Last Filed: 08/17/22 21:38> General Exam Limitations: no limitations General appearance: alert, in no apparent distress, anxious Head exam: Present: atraumatic, normocephalic, normal inspection Eye exam: Present: normal appearance, PERRL, EOMI. Absent: scleral icterus, conjunctival injection, periorbital swelling ENT exam: Present: normal exam, mucous membranes moist Neck exam: Present: normal inspection. Absent: tenderness, meningismus, lymphadenopathy Respiratory exam: Present: normal lung sounds bilaterally. Absent: respiratory distress, wheezes, rales, rhonchi, stridor Cardiovascular Exam: Present: regular rate, normal rhythm, normal heart sounds. Absent: systolic murmur, diastolic murmur, rubs, gallop, clicks GI/Abdominal exam: Present: soft, normal bowel sounds. Absent: distended, tenderness, guarding, rebound, rigid Extremities exam: Present: normal inspection, full ROM, normal capillary refill. Absent: tenderness, pedal edema, joint swelling, calf tenderness Back exam: Present: normal inspection Neurological exam: Present: alert, oriented X3, CN II-XII intact Psychiatric exam: Present: normal affect, normal mood Skin exam: Present: warm, dry, intact, normal color. Absent: rash <Octavio Carrillo - Last Filed: 08/17/22 21:38> Course <Octavio Carrillo - Last Filed: 08/17/22 21:38> Vital Signs 08/17/22 08/17/22 08/17/22 04:01 06:00 08:32 Temperature 97.9 F Pulse Rate 62 60 63 Respiratory 18 17 16 Rate Blood Pressure 149/74 141/70 139/68 O2 Sat by Pulse 96 98 96 Oximetry - Reevaluation(s) Reevaluation #1: 08/17/22 05:31 Medical records reviewed (Octavio Carrillo) Reevaluation #2: 08/17/22 Patient improving here in the ER with reassurance and hydration (Octavio Carrillo) Medical Decision Making - Lab Data Result diagrams: 08/17/22 05:36 08/17/22 05:36 <Will Wilkerson - Last Filed: 08/17/22 08:11> - Lab Data Result diagrams: 08/17/22 05:36 08/17/22 05:36 - EKG Data -: EKG Interpreted by Me (EKG shows sinus 63 pO2 64 QRS 06 QTc 491) - Radiology Data Radiology results: report reviewed (Ultrasound venous duplexExtremity negative for thrombosis), image reviewed <Octavio Carrillo - Last Filed: 08/17/22 21:38> - Medical Decision Making Patient care is signed out to me by Dr. Swain, pending ultrasound of the upper extremity to evaluate for right upper extremity pain. Briefly, patient is a 87-year-old female presents emergency department for intermittent episodes of right upper extremity pain. Patient is on anticoagulation medications. Laboratory evaluation was reviewed. Patient has INR 1.5. Rest of labs unremarkable. Ultrasound is negative for any superficial or deep venous thromboses. Patient evaluated at bedside at 823 and found to be stable medical condition she is asymptomatic at the bedside. Advised follow-up with primary care doctor. (Will Wilkerson) - Lab Data Lab Results 08/17/22 08/17/22 08/17/22 Range/Units 05:36 05:36 05:36 WBC 8.4 (3.8-10.6) k/uL RBC 4.32 (3.80-5.40) m/uL Hgb 13.9 (11.4-16.0) gm/dL Hct 40.6 (34.0-46.0) % MCV 94.0 (80.0-100.0) fL MCH 32.2 (25.0-35.0) pg MCHC 34.3 (31.0-37.0) g/dL RDW 14.5 (11.5-15.5) % Plt Count 211 (150-450) k/uL MPV 9.9 Neutrophils % 67 % Lymphocytes % 21 % Monocytes % 5 % Eosinophils % 3 % Basophils % 1 % Neutrophils # 5.6 (1.3-7.7) k/uL Lymphocytes # 1.8 (1.0-4.8) k/uL Monocytes # 0.4 (0-1.0) k/uL Eosinophils # 0.2 (0-0.7) k/uL Basophils # 0.1 (0-0.2) k/uL PT 14.8 H (9.0-12.0) sec INR 1.5 H (<1.2) APTT 30.7 H (22.0-30.0) sec Sodium 137 (137-145) mmol/L Potassium 4.4 (3.5-5.1) mmol/L Chloride 103 (98-107) mmol/L Carbon Dioxide 24 (22-30) mmol/L Anion Gap 10 mmol/L BUN 40 H (7-17) mg/dL Creatinine 1.07 H (0.52-1.04) mg/dL Est GFR (CKD-EPI)AfAm 54 (>60 ml/min/1.73 sqM) Est GFR (CKD-EPI)NonAf 46 (>60 ml/min/1.73 sqM) Glucose 109 H (74-99) mg/dL Calcium 8.6 (8.4-10.2) mg/dL Phosphorus 4.1 (2.5-4.5) mg/dL Magnesium 2.0 (1.6-2.3) mg/dL Total Bilirubin 0.4 (0.2-1.3) mg/dL AST 42 H (14-36) U/L ALT 31 (4-34) U/L Alkaline Phosphatase 92 (38-126) U/L Troponin I (0.000-0.034) ng/mL Total Protein 7.1 (6.3-8.2) g/dL Albumin 4.2 (3.5-5.0) g/dL 08/17/22 Range/Units 05:36 WBC (3.8-10.6) k/uL RBC (3.80-5.40) m/uL Hgb (11.4-16.0) gm/dL Hct (34.0-46.0) % MCV (80.0-100.0) fL MCH (25.0-35.0) pg MCHC (31.0-37.0) g/dL RDW (11.5-15.5) % Plt Count (150-450) k/uL MPV Neutrophils % % Lymphocytes % % Monocytes % % Eosinophils % % Basophils % % Neutrophils # (1.3-7.7) k/uL Lymphocytes # (1.0-4.8) k/uL Monocytes # (0-1.0) k/uL Eosinophils # (0-0.7) k/uL Basophils # (0-0.2) k/uL PT (9.0-12.0) sec INR (<1.2) APTT (22.0-30.0) sec Sodium (137-145) mmol/L Potassium (3.5-5.1) mmol/L Chloride (98-107) mmol/L Carbon Dioxide (22-30) mmol/L Anion Gap mmol/L BUN (7-17) mg/dL Creatinine (0.52-1.04) mg/dL Est GFR (CKD-EPI)AfAm (>60 ml/min/1.73 sqM) Est GFR (CKD-EPI)NonAf (>60 ml/min/1.73 sqM) Glucose (74-99) mg/dL Calcium (8.4-10.2) mg/dL Phosphorus (2.5-4.5) mg/dL Magnesium (1.6-2.3) mg/dL Total Bilirubin (0.2-1.3) mg/dL AST (14-36) U/L ALT (4-34) U/L Alkaline Phosphatase (38-126) U/L Troponin I <0.012 (0.000-0.034) ng/mL Total Protein (6.3-8.2) g/dL Albumin (3.5-5.0) g/dL Disposition Is patient prescribed a controlled substance at d/c from ED?: No Time of Disposition: 08:23 <Will Wilkerson - Last Filed: 08/17/22 08:11> <Octavio Carrillo - Last Filed: 08/17/22 21:38> Clinical Impression: Arm pain Disposition: HOME SELF-CARE Condition: Good Instructions (If sedation given, give patient instructions): Arm Pain (ED) Referrals: Danis Ivy MD [Primary Care Provider] - 1-2 days
[2022-08-17] MEDS ORDERED: SODIUM CHLORIDE 0.9% 1,000 ML IV STA (05:08)
[2022-08-17] MEDS ORDERED: KETOROLAC 15 MG/ML 1 ML VIAL IVP STA (05:15)
[2022-08-17] MEDS ORDERED: ACETAMINOPHEN TAB 500 MG TAB PO STA (05:15)
[2022-08-17 05:55] LABS: Albumin 4.2 g/dL (3.5-5.0); Calcium 8.6 mg/dL (8.4-10.2); Phosphorus 4.1 mg/dL (2.5-4.5); Total Bilirubin 0.4 mg/dL (0.2-1.3); Total Protein 7.1 g/dL (6.3-8.2)
[2022-08-17 05:58] LABS: Basophils # (A) 0.1 k/uL (0-0.2); Basophils % (A) 1 %; Eosinophils # (A) 0.2 k/uL (0-0.7); Eosinophils % (A) 3 %; HCT 40.6 % (34.0-46.0); HGB 13.9 gm/dL (11.4-16.0); Lymphocytes # (A) 1.8 k/uL (1.0-4.8); Lymphocytes % (A) 21 %; MCH 32.2 pg (25.0-35.0); MCHC 34.3 g/dL (31.0-37.0); Mean Platelet Volume 9.9; Monocytes # (A) 0.4 k/uL (0-1.0); Monocytes % (A) 5 %; Neutrophils # (A) 5.6 k/uL (1.3-7.7); Neutrophils % (A) 67 %; Platelet Count 211 k/uL (150-450); Potassium 4.4 mmol/L (3.5-5.1); RBC 4.32 m/uL (3.80-5.40); RDW 14.5 % (11.5-15.5); WBC 8.4 k/uL (3.8-10.6)
[2022-08-17 06:04] LABS: INR 1.5 (<1.2); Partial Thromboplastin Time 30.7 sec (22.0-30.0); Prothrombin Time 14.8 sec (9.0-12.0)
--- NOTE | 2022-08-17 08:09 | US ---
EXAMINATION TYPE: US venous doppler duplex UE RT DATE OF EXAM: 08/17/2022 COMPARISON: NONE CLINICAL HISTORY: DVT. right arm and shoulder pain, h/o dvt in left leg 20 yrs ago SIDE PERFORMED: Right Right Arm: Negative for DVT Grayscale, color doppler, spectral doppler imaging performed of the deep veins of the right upper ext remity. There is normal flow, compressibility and vascular waveforms. IMPRESSION: No ultrasound evidence for acute deep or superficial venous thrombosis in the right upper extremity.
[2022-08-17 08:33] VITALS: BP 139/68; PULSE 63; RESP 16
== END 2022-08-17 08:32 | disposition home or self-care (01) ==
LOC: EC 03:50
DX: M79.601 Pain in right arm (principal); I48.91 Unspecified atrial fibrillation; I10 Essential (primary) hypertension; E11.9 Type 2 diabetes mellitus without complications; E03.9 Hypothyroidism, unspecified; Z79.899 Other long term (current) drug therapy; Z79.890 Hormone replacement therapy; Z88.8 Allergy status to other drugs, medicaments and biological substances; Z88.4 Allergy status to anesthetic agent
CPT/HCPCS: 36415; 80053; 83735; 84100; 84484; 85025; 85610; 85730; 93005; 99284